=== PATIENT | male | born 1960 | race Caucasian/White ===

== ENCOUNTER 2021-04-05 13:07 | Inpatient (IN) | payer MEDICAID ==
--- NOTE | 2021-04-05 15:00 | Event Note ---
ED Screening Note Date of service: 04/05/21 Time: 14:58 ED Screening Note: Patient is a poor historian Patient was brought to the ER today by EMS Patient states that he has been having diarrhea, generalized weakness, fatigue and not been able to eat as well as chest pain and shortness of breath He denies any past medical history. He states that he smokes tobacco but denies alcohol or illicit drug use. This initial assessment/diagnostic orders/clinical plan/treatment(s) is/are subject to change based on patients health status, clinical progression and re- assessment by fellow clinical providers in the ED. Further treatment and workup at subsequent clinical providers discretion. Patient/guardian urged not to elope from the ED as their condition may be serious if not clinically assessed and managed. Initial orders include: Labs including chest x-ray
--- NOTE | 2021-04-05 15:41 | XRay Report ---
CHEST 2 VIEWS INDICATION / CLINICAL INFORMATION: Shortness of breath, chest pain. COMPARISON: None available. FINDINGS: SUPPORT DEVICES: None. HEART / MEDIASTINUM: No significant abnormality. LUNGS / PLEURA: Right lower lobe airspace opacities are present with a masslike area of consolidation measuring 4.4 x 2.4 cm. No other significant pulmonary abnormality. No significant pleural effusion. No pneumothorax. ADDITIONAL FINDINGS: No significant additional findings. IMPRESSION: Right lower lobe airspace opacities could represent pneumonia or a neoplastic process. A CT chest wit h contrast would be helpful for further characterization. Signer Name: Matheus Ny MD Signed: 04/05/2021 3:37 PM Workstation Name: [id number]
[2021-04-05 15:55] LABS: Albumin 4.5 g/dL (3.9-5); Calcium 9.9 mg/dL (8.4-10.2)
[2021-04-05 17:15] LABS: Hematocrit 49.5 % (35.5-45.6); Hemoglobin 15.9 gm/dl (11.8-15.2); Mean Corpuscular HGB Conc 32 % (32-34); Mean Corpuscular Volume 92 fl (84-94); Platelet Count 106 K/mm3 (140-440); Red Cell Distribution Width 17.3 % (13.2-15.2)
[2021-04-05 17:17] LABS: Basophils % (Auto) 0.4 % (0.0-1.8); Lymphocytes # (Auto) 1.4 K/mm3 (1.2-5.4); Lymphocytes % (Auto) 29.3 % (13.4-35.0); Monocytes # (Auto) 0.4 K/mm3 (0.0-0.8)
[2021-04-05] MEDS ORDERED: SODIUM CHLORIDE 0.9% 1000 ML 1,000 ML IV ONE (21:23)
[2021-04-05 22:16] LABS: Calcium 9.3 mg/dL (8.4-10.2)
--- NOTE | 2021-04-05 22:17 | Emergency Department Report ---
ED General Adult HPI - General Chief complaint: Weakness Stated complaint: MALAISE Time Seen by Provider: 04/05/21 21:16 Source: patient, EMS Mode of arrival: Wheelchair Limitations: No Limitations - History of Present Illness Initial comments: The patient presents to the emergency department with a chief complaint of not feeling well since Saturday. Patient states that he received his COVID-19 vaccine on this past Saturday and the next day he had generalized weakness and fatigue. Patient states that he then began to have significant amount of diarrhea. Patient denies fever, cough, shortness breath, headache, abdominal pain. Patient also denies chest pain. Patient is a poor historian and I took great effort to get the above history from the patient. -: Sudden Severity scale (0 -10): 0 Consistency: constant Improves with: none Worsens with: none Associated Symptoms: denies other symptoms Treatments Prior to Arrival: none ED Review of Systems ROS: Stated complaint: MALAISE Other details as noted in HPI Comment: All other systems reviewed and negative Constitutional: denies: chills, fever Eyes: denies: eye pain, eye discharge, vision change ENT: denies: ear pain, throat pain Respiratory: denies: cough, shortness of breath, wheezing Cardiovascular: denies: chest pain, palpitations Endocrine: no symptoms reported Gastrointestinal: nausea, vomiting, diarrhea. denies: abdominal pain Genitourinary: denies: urgency, dysuria Musculoskeletal: denies: back pain, joint swelling, arthralgia Skin: denies: rash, lesions Neurological: denies: headache, weakness, paresthesias Psychiatric: denies: anxiety, depression Hematological/Lymphatic: denies: easy bleeding, easy bruising ED Past Medical Hx - Past Medical History Previous Medical History?: Yes Hx Hypertension: Yes - Surgical History Past Surgical History?: No ED Physical Exam - General Limitations: No Limitations General appearance: alert, in no apparent distress - Head Head exam: Present: atraumatic, normocephalic - Eye Eye exam: Present: normal appearance - ENT ENT exam: Present: mucous membranes dry - Neck Neck exam: Present: normal inspection - Respiratory Respiratory exam: Present: normal lung sounds bilaterally. Absent: respiratory distress - Cardiovascular Cardiovascular Exam: Present: normal rhythm, tachycardia. Absent: systolic murmur, diastolic murmur, rubs, gallop - GI/Abdominal GI/Abdominal exam: Present: soft, normal bowel sounds. Absent: distended, tenderness - Rectal Rectal exam: Present: deferred - Extremities Exam Extremities exam: Present: normal inspection - Back Exam Back exam: Present: normal inspection - Neurological Exam Neurological exam: Present: alert, oriented X3, CN II-XII intact. Absent: motor sensory deficit - Psychiatric Psychiatric exam: Present: normal affect, normal mood - Skin Skin exam: Present: warm, dry, intact, normal color. Absent: rash ED Course Vital Signs 04/05/21 04/05/21 04/05/21 14:30 14:32 21:25 Temperature 97.5 F L 97.5 F L Pulse Rate 98 H 92 H Respiratory 18 Rate Blood Pressure 106/71 O2 Sat by Pulse 98 Oximetry 04/05/21 04/05/21 04/05/21 21:30 21:46 22:00 Temperature Pulse Rate 83 77 70 Respiratory 27 H 26 H 25 H Rate Blood Pressure 174/83 153/78 124/72 O2 Sat by Pulse Oximetry 04/05/21 04/05/21 04/05/21 22:18 22:30 22:32 Temperature Pulse Rate 82 71 Respiratory 19 20 20 Rate Blood Pressure O2 Sat by Pulse 98 Oximetry 04/05/21 04/05/21 04/05/21 22:46 23:00 23:16 Temperature Pulse Rate 67 67 71 Respiratory 20 20 13 Rate Blood Pressure 124/72 O2 Sat by Pulse Oximetry 04/05/21 04/05/21 04/06/21 23:30 23:46 00:00 Temperature Pulse Rate 65 65 78 Respiratory 17 24 22 Rate Blood Pressure 124/72 124/72 124/72 O2 Sat by Pulse Oximetry ED Medical Decision Making - Lab Data Result diagrams: 04/05/21 15:03 04/05/21 21:28 Lab Results 04/05/21 04/05/21 04/05/21 Range/Units 15:03 15:03 21:28 WBC 4.7 (4.5-11.0) K/mm3 RBC 5.40 H (3.65-5.03) M/mm3 Hgb 15.9 H (11.8-15.2) gm/dl Hct 49.5 H (35.5-45.6) % MCV 92 (84-94) fl MCH 30 (28-32) pg MCHC 32 (32-34) % RDW 17.3 H (13.2-15.2) % Plt Count 106 L (140-440) K/mm3 Lymph % (Auto) 29.3 (13.4-35.0) % [place] % (Auto) 9.0 H (0.0-7.3) % Eos % (Auto) 0.0 (0.0-4.3) % Baso % (Auto) 0.4 (0.0-1.8) % Lymph # (Auto) 1.4 (1.2-5.4) K/mm3 [place] # (Auto) 0.4 (0.0-0.8) K/mm3 Eos # (Auto) 0.0 (0.0-0.4) K/mm3 Baso # (Auto) 0.0 (0.0-0.1) K/mm3 Add Manual Diff Complete Seg Neutrophils % 61.3 (40.0-70.0) % Seg Neutrophils # 2.9 (1.8-7.7) K/mm3 Sodium 135 L 135 L (137-145) mmol/L Potassium 6.2 H* 4.9 D (3.6-5.0) mmol/L Chloride 106.5 105.7 (98-107) mmol/L Carbon Dioxide 11 L 12 L (22-30) mmol/L Anion Gap 24 22 mmol/L BUN 34 H 42 H (9-20) mg/dL Creatinine 2.4 H 3.2 H (0.8-1.3) mg/dL Estimated GFR 28 20 ml/min BUN/Creatinine Ratio 14 13 % Glucose 81 121 H (75-100) mg/dL Calcium 9.9 9.3 (8.4-10.2) mg/dL Magnesium 2.40 H (1.7-2.3) mg/dL Total Bilirubin 0.30 (0.1-1.2) mg/dL AST 56 H (5-40) units/L ALT 24 (7-56) units/L Alkaline Phosphatase 102 (35-129) units/L Total Protein 8.7 H (6.3-8.2) g/dL Albumin 4.5 (3.9-5) g/dL Albumin/Globulin Ratio 1.1 % Lipase 143 H (13-60) units/L - Radiology Data Radiology results: report reviewed - Medical Decision Making Results discussed with patient Laboratory values and CT reviewed Patient given IV fluids for acute renal failure Critical Care Time: Yes Critical care time in (mins) excluding proc time.: 35 Critical care attestation.: If time is entered above; I have spent that time in minutes in the direct care of this critically ill patient, excluding procedure time. ED Disposition Clinical Impression: Acute renal failure (ARF) Disposition: 09 ADMITTED INPATIENT Is pt being admited?: Yes Does the pt Need Aspirin: No Condition: Fair Referrals: PRIMARY CARE, [Primary Care Provider] - 3-5 Days
--- NOTE | 2021-04-05 22:31 | Cat Scan Report ---
CT ABDOMEN AND PELVIS WITHOUT CONTRAST INDICATION / CLINICAL INFORMATION: Pt complains of "Generalized" weakness and diarrhea. TECHNIQUE: Axial CT images were obtained through the abdomen and pelvis without IV contrast. All CT scans at this location are performed using CT dose reduction for ALARA by means of automated exposure control. COMPARISON: None available. FINDINGS: LOWER CHEST: Interstitial and reticular opacities involving the bilateral lower lung zaragoza. LIVER: No significant abnormality. GALLBLADDER: No significant abnormality. BILE DUCTS: No significant abnormality. PANCREAS: No significant abnormality. SPLEEN: No significant abnormality. ADRENALS: No significant abnormality. RIGHT KIDNEY / URETER: No significant abnormality. LEFT KIDNEY / URETER: No significant abnormality. STOMACH / SMALL BOWEL: No significant abnormality. COLON: Moderate amount of gas and fluid noted throughout the colon without pericolonic inflammation. APPENDIX: Visualized PERITONEUM: No free fluid. No free air. No fluid collection. LYMPH NODES: No significant adenopathy. AORTA / ARTERIES: Moderate atherosclerotic calcification without acute abnormality. IVC / VEINS: No significant abnormality. URINARY BLADDER: No significant abnormality. REPRODUCTIVE ORGANS: No significant abnormality. ADDITIONAL FINDINGS: None. SKELETAL SYSTEM: No significant abnormality. IMPRESSION: 1. Fluid and gas-filled colon without inflammation or colonic wall thickening, could reflect diarrhe al illness given patient's symptomatology. 2. Otherwise, no acute abdominopelvic abnormality. 3. Chronic appearing interstitial and reticular opacities of the bilateral lower lobes, may reflect chronic interstitial lung disease. However, superimposed acute infectious process cannot be excluded and correlation with patient symptoms and lab findings is recommended. Signer Name: Jad Judge MD Signed: 04/05/2021 10:27 PM Workstation Name: [id number]
[2021-04-06] MEDS ORDERED: SODIUM CHLORIDE 0.9% 1000 ML 1,000 ML IV ONE (00:33)
[2021-04-06] MEDS ORDERED: MAGNESIUM HYDROXIDE (MOM) ORAL LIQD UDC PO PRN (02:57)
[2021-04-06] MEDS ORDERED: MORPHINE 4 MG/1 ML INJ IV PRN (02:57)
[2021-04-06] MEDS ORDERED: MORPHINE 2 MG/1 ML INJ IV PRN (02:57)
[2021-04-06] MEDS ORDERED: ACETAMINOPHEN 325 MG TAB PO PRN (02:57)
[2021-04-06] MEDS ORDERED: ONDANSETRON 4 MG/2 ML INJ IV PRN (02:57)
[2021-04-06] MEDS ORDERED: SODIUM CHLORIDE 0.9% 1000 ML 1,000 ML IV SCH (03:00)
--- NOTE | 2021-04-06 03:09 | History and Physical Report ---
History of Present Illness Date of examination: 04/06/21 Date of admission: 04/06/2021 Chief complaint: Diarrhea History of present illness: 60-year-old male with known history of hypertension seen in the emergency room today complaining of diarrhea and generalized weakness which started about 3 days ago. Patient states he just had his first dose of COVID-19 vaccination over the weekend and 24 hours thereafter he started having some diarrhea and generalized weakness. He denies any fever or chills, no chest pain or shortness of breath, no headache or dizziness, no diaphoresis. Patient denies any nausea vomiting, no abdominal pain, no hematuria or dysuria. He denies any sick contacts and no recent travel. Denies any contact with anyone with COVID-19. Work-up in the emergency room today reveals elevated BUN and creatinine of 34 and 2.4 respectively. Chest x-ray reveals right lower lobe airspace opacity which could represent pneumonia or a neoplastic process. CT of the abdomen and pelvis reveals fluid and gas-filled colon without inflammation or colonic wall thickening Past History Past Medical History: hypertension Past Surgical History: No surgical history Social history: no significant social history Family history: no significant family history Medications and Allergies Allergies Allergy/AdvReac Type Severity Reaction Status Date / Time No Known Allergies Allergy Verified 04/06/21 03:10 Active Meds: Active Medications Sodium Chloride (Nacl 0.9% 1000 Ml) 1,000 mls @ 999 mls/hr IV BOLUS ONE Stop: 04/05/21 22:23 Last Admin: 04/05/21 21:59 Dose: 999 mls/hr Documented by: Sodium Chloride (Nacl 0.9% 1000 Ml) 1,000 mls @ 999 mls/hr IV BOLUS ONE Stop: 04/06/21 01:33 Last Admin: 04/06/21 01:25 Dose: 999 mls/hr Documented by: Review of Systems Constitutional: no fever, no chills Ears, nose, mouth and throat: no nasal congestion, no sore throat Cardiovascular: no chest pain, no palpitations Respiratory: no cough, no shortness of breath, no wheezing Gastrointestinal: diarrhea, no abdominal pain, no nausea, no vomiting Genitourinary Male: no dysuria, no hematuria, no flank pain, no nocturia Musculoskeletal: no neck pain, no low back pain Integumentary: no rash, no pruritis Neurological: no headaches, no confusion Psychiatric: no anxiety, no depression Endocrine: no polyphagia, no polydipsia, no polyuria, no nocturia Exam - Constitutional Vitals: Temp Pulse Resp BP Pulse Ox 97.5 F L 64 25 H 124/72 98 04/05/21 14:32 04/06/21 02:02 04/06/21 02:02 04/06/21 02:02 04/05/21 22:32 General appearance: Present: no acute distress, well-nourished - EENT Eyes: Present: PERRL, EOM intact. Absent: scleral icterus ENT: hearing intact, clear oral mucosa, dentition normal - Neck Neck: Present: supple, normal ROM - Respiratory Respiratory effort: normal Respiratory: bilateral: diminished - Cardiovascular Rhythm: regular Heart Sounds: Present: S1 & S2. Absent: gallop, systolic murmur, diastolic murmur, rub, click - Extremities Extremities: no ischemia, pulses intact, pulses symmetrical, No edema, normal temperature, normal color, Full ROM Peripheral Pulses: within normal limits - Abdominal General gastrointestinal: Present: soft, non-tender, non-distended, normal bowel sounds. Absent: mass - Integumentary Integumentary: Present: clear, warm, dry. Absent: rash - Musculoskeletal Musculoskeletal: strength equal bilaterally - Psychiatric Psychiatric: appropriate mood/affect, intact judgment & insight, memory intact, cooperative - Neurologic Neurologic: CNII-XII intact, no focal deficits, moves all extremities Results - Labs CBC & Chem 7: 04/05/21 15:03 04/05/21 21:28 Labs: Abnormal lab results 04/05/21 04/05/21 04/05/21 Range/Units 15:03 15:03 21:28 RBC 5.40 H (3.65-5.03) M/mm3 Hgb 15.9 H (11.8-15.2) gm/dl Hct 49.5 H (35.5-45.6) % RDW 17.3 H (13.2-15.2) % Plt Count 106 L (140-440) K/mm3 [place] % (Auto) 9.0 H (0.0-7.3) % Sodium 135 L 135 L (137-145) mmol/L Potassium 6.2 H* (3.6-5.0) mmol/L Carbon Dioxide 11 L 12 L (22-30) mmol/L BUN 34 H 42 H (9-20) mg/dL Creatinine 2.4 H 3.2 H (0.8-1.3) mg/dL Glucose 121 H (75-100) mg/dL Magnesium 2.40 H (1.7-2.3) mg/dL AST 56 H (5-40) units/L Total Protein 8.7 H (6.3-8.2) g/dL Lipase 143 H (13-60) units/L Assessment and Plan - Patient Problems (1) Acute renal failure (ARF) Current Visit: Yes Status: Acute Plan to address problem: Possibly prerenal. Patient will be placed on IV fluid normal saline. Will monitor BUN and creatinine. Consult placed to nephrology for evaluation. (2) Hypertension Current Visit: Yes Status: Acute Plan to address problem: Blood pressure stable . we will resume routine home medications once reconciled and monitor vital signs closely. (3) Pneumonia Current Visit: Yes Status: Acute Plan to address problem: Patient will be placed on empiric IV antibiotics in view of the chest x-ray findings. We will check for COVID-19. (4) DVT prophylaxis Current Visit: Yes Status: Acute Plan to address problem: Patient placed on subcutaneous heparin. (5) Full code status Current Visit: Yes Status: Acute Plan to address problem: Patient is full code.
[2021-04-06] MEDS: cefTRIAXone/NS 2 GM/100 ML 2 GM/100 ML BAG IV SCH (08:34)
[2021-04-06] MEDS: AZITHROMYCIN/NS 500 MG/250 ML 500 MG/250 ML BAG IV SCH (08:35)
[2021-04-06 08:48] LABS: C-Reactive Protein 2.9 mg/dL (0.00-1.30)
--- NOTE | 2021-04-06 10:22 | Electrocardiograph Report ---
[facility] Test Date: 2021-04-06 Test Time: 03:10:15 Pat Name: ALYSA PARKER Department: Room: [place] [address] Gender: M [employer] Helper: IAN : 1960 Requested By: DORY SANDOVAL Order Number: [id number] Reading MD: Yanick Sierra Measurements Intervals [place] Rate: 80 P: 37 MT: 172 QRS: 18 QRSD: 94 T: -21 QT: 421 QTc: 487 Interpretive Statements Sinus rhythm Nonspecific repolarization abnormalities ABNORMAL BASELINE No previous ECG available for comparison Electronically Signed On 04-06-2021 10:21:56 EDT by Yanick Sierra
--- NOTE | 2021-04-06 10:29 | Consultation ---
History of Present Illness - Reason for Consult Consult date: 04/06/21 acute renal failure, hyperkalemia - History of Present Illness The patient is a 60 YO male with known history of Hypertension who presented to [facility] ED 04/05 with complaining of diarrhea and generalized weakness which started about 3 days ago. Patient is a very poor historian and there was no family member at the bedside. He reported he just had his first dose of COVID-19 vaccination over the weekend and 24 hours thereafter he started having some diarrhea and generalized weakness. He denied any fever, chills, chest pain, shortness of breath, headache, dizziness, diaphoresis, nausea, vomiting, abdominal pain, hematuria or dysuria. Denied any sick contacts, recent travel or contact with anyone with COVID-19. Work-up in the emergency room revealed BUN 34 and creatinine 2.4. Chest x-ray revealed right lower lobe airspace opacity which could represent pneumonia or a neoplastic process. CT of the abdomen and pelvis revealed fluid and gas-filled colon without inflammation or colonic wall thickening. Nephrology was consulted for further evaluation and treatment of ELIO. Past History Past Medical History: hypertension Past Surgical History: No surgical history Social history: no significant social history Family history: no significant family history Medications and Allergies Allergies Allergy/AdvReac Type Severity Reaction Status Date / Time No Known Allergies Allergy Verified 04/06/21 03:10 Active Meds: Active Medications Acetaminophen (Acetaminophen 325 Mg Tab) 650 mg PO Q4H PRN PRN Reason: Pain MILD(1-3)/Fever >100.5/BRAR Heparin Sodium (Porcine) (Heparin 5,000 Unit/1 Ml Vial) 5,000 unit SUB-Q Q8HR BISHOP Sodium Chloride (Nacl 0.9% 1000 Ml) 1,000 mls @ 125 mls/hr IV DIRECT BISHOP Last Admin: 04/06/21 04:25 Dose: 125 mls/hr Documented by: Ceftriaxone Sodium (Rocephin/Ns 2 Gm/100 Ml) 2 gm in 100 mls @ 200 mls/hr IV Q24H BISHOP; Protocol Stop: 04/10/21 08:29 Last Admin: 04/06/21 08:34 Dose: 200 mls/hr Documented by: Azithromycin (Zithromax/Ns) 500 mg in 250 mls @ 250 mls/hr IV Q24H BISHOP Stop: 04/10/21 08:59 Last Admin: 04/06/21 08:35 Dose: 250 mls/hr Documented by: Magnesium Hydroxide (Magnesium Hydroxide (Mom) Oral Liqd Udc) 30 ml PO Q4H PRN PRN Reason: Constipation Morphine Sulfate (Morphine 2 Mg/1 Ml Inj) 2 mg IV Q4H PRN PRN Reason: Pain, Moderate (4-6) Morphine Sulfate (Morphine 4 Mg/1 Ml Inj) 4 mg IV Q4H PRN PRN Reason: Pain , Severe (7-10) Ondansetron HCl (Ondansetron 4 Mg/2 Ml Inj) 4 mg IV Q8H PRN PRN Reason: Nausea And Vomiting Sodium Chloride (Sodium Chloride 0.9% 10 Ml Flush Syringe) 10 ml IV BID BISHOP Sodium Chloride (Sodium Chloride 0.9% 10 Ml Flush Syringe) 10 ml IV PRN PRN PRN Reason: LINE FLUSH Review of Systems All systems: negative (Please see HPI.) Exam - Vital Signs Vital signs: Vital Signs Temp Resp BP 97.5 F L 18 106/71 04/05/21 14:30 04/05/21 14:30 04/05/21 14:30 Results - Lab Results 04/07/21 04:14 04/07/21 04:14 Most recent lab results Calcium 9.3 mg/dL (8.4-10.2) 04/05/21 21:28 Magnesium 2.40 mg/dL (1.7-2.3) H 04/05/21 15:03 Assessment and Plan 1. Acute kidney injury: Vasomotor ELIO in the setting of volume depletion. ATN. CT abdomen negative for hydro. Continue IV fluids. Monitor renal function. Creatinine level improving. Renal prognosis is guarded. Avoid nephrotoxic agents. Meds dosage based on GFR. 2. FEN: Hyperkalemia, improved. Metabolic acidosis, monitor. Hyponatremia, monitor. Monitor lytes and volume status. 3. Diarrhea: ?related to Covid. Monitor. 4. COVID-19 PUI: Follow test results. Anticoagulation per hospital protocol. 5. Possible lung mass: Per primary. 6. Hypertension: Monitor BP. Subjective: Patient was examined at the bedside. Examination: General appearance: well-developed, appears stated age, not in distress HEENT: ATNC Neck: Trachea midline Respiratory: diminished breath sounds Cardiology: S1S2, no murmur Gastrointestinal: soft, obese, bowel sounds heard, not tender Integumentary: warm and dry Neurologic: alert, some confusion, able to move extremities Ext: no edema
--- NOTE | 2021-04-06 11:47 | Cat Scan Report ---
CT CHEST WITHOUT CONTRAST INDICATION / CLINICAL INFORMATION: lung mass. TECHNIQUE: Axial CT images were obtained through the chest without contrast. All CT scans at this location are p erformed using CT dose reduction for ALARA by means of automated exposure control. COMPARISON: None available. FINDINGS: The thyroid is significantly enlarged with multiple large nodules. The left thyroid is enlarged with multiple thyroid masses and measures 5.3 x 4.6 cm. Small axillary nodes are seen bilaterally. There i s a masslike opacity extending from the right hilum into the right lung. This density measures approx imately 8.95 x 4.37 cm. Interstitial prominence with interstitial nodularity and reticular opacities are seen in bilateral lungs. Trachea appears normal. Mild interstitial thickening scarring left lung apex. Enlarged mediastinal, paratracheal and hilar nodes. Lack of IV contrast limits exam. Coronary a rtery disease is noted. Pericardial effusion is seen. No acute bone findings. IMPRESSION: 1. Large masslike opacity within the right lung extending from the right hilum. There are also inters titial prominence with reticular opacities and interstitial disease in bilateral lungs with several a dditional smaller pulmonary nodules in bilateral lungs. Differential considerations would include rig ht hilar and upper lung mass, infectious etiology with pneumonia along with interstitial lung disease . PET/CT scan could be performed for further evaluation and further workup to exclude malignancy and metastatic disease. Signer Name: Luis Daniel MD Signed: 04/06/2021 11:43 AM Workstation Name: [id number]
--- NOTE | 2021-04-06 12:14 | Consultation ---
History of Present Illness - Reason for Consult Consult date: 04/06/21 - History of Present Illness 60-year-old male past medical history hypertension presented to hospital complaining of diarrhea and weakness. Seen in approximately 3 days prior to admission, and he associates this onset with receiving his first dose of COVID- 19 vaccine to 4 hours prior to onset. He otherwise denies any symptoms. He was admitted with ELIO, found to have possible pneumonia on chest x-ray. Afebrile since admission with a white count 4.7. Elevated with EGFR 20, this is worsened. Currently on ceftriaxone and azithromycin. No cultures for review. Pending Covid PCR. Imaging personally reviewed: Chest CT: Masslike opacity in the right lung, interstitial prominence in bilateral lungs with smaller pulmonary nodules bilaterally. Review of systems: Deferred to reduce to the risk of transmission of COVID-19 Past History Past Medical History: hypertension Past Surgical History: No surgical history Social history: no significant social history Family history: no significant family history Medications and Allergies Allergies Allergy/AdvReac Type Severity Reaction Status Date / Time No Known Allergies Allergy Verified 04/06/21 03:10 Active Meds: Active Medications Acetaminophen (Acetaminophen 325 Mg Tab) 650 mg PO Q4H PRN PRN Reason: Pain MILD(1-3)/Fever >100.5/BRAR Heparin Sodium (Porcine) (Heparin 5,000 Unit/1 Ml Vial) 5,000 unit SUB-Q Q8HR BISHOP Sodium Chloride (Nacl 0.9% 1000 Ml) 1,000 mls @ 125 mls/hr IV DIRECT BISHOP Last Admin: 04/06/21 04:25 Dose: 125 mls/hr Documented by: Ceftriaxone Sodium (Rocephin/Ns 2 Gm/100 Ml) 2 gm in 100 mls @ 200 mls/hr IV Q24H [facility]; Protocol Stop: 04/10/21 08:29 Last Admin: 04/06/21 08:34 Dose: 200 mls/hr Documented by: Azithromycin (Zithromax/Ns) 500 mg in 250 mls @ 250 mls/hr IV Q24H [facility] Stop: 04/10/21 08:59 Last Admin: 04/06/21 08:35 Dose: 250 mls/hr Documented by: Magnesium Hydroxide (Magnesium Hydroxide (Mom) Oral Liqd Udc) 30 ml PO Q4H PRN PRN Reason: Constipation Morphine Sulfate (Morphine 2 Mg/1 Ml Inj) 2 mg IV Q4H PRN PRN Reason: Pain, Moderate (4-6) Morphine Sulfate (Morphine 4 Mg/1 Ml Inj) 4 mg IV Q4H PRN PRN Reason: Pain , Severe (7-10) Ondansetron HCl (Ondansetron 4 Mg/2 Ml Inj) 4 mg IV Q8H PRN PRN Reason: Nausea And Vomiting Sodium Chloride (Sodium Chloride 0.9% 10 Ml Flush Syringe) 10 ml IV BID BISHOP Sodium Chloride (Sodium Chloride 0.9% 10 Ml Flush Syringe) 10 ml IV PRN PRN PRN Reason: LINE FLUSH Physical Examination - Physical Exam Narrative exam: Physical exam deferred to reduce risk of transmission of COVID-19. Please refer to primary team's note. - Constitutional Vitals: Vital Signs Temp Pulse Resp BP Pulse Ox 97.5 F L 70 24 124/72 85 04/05/21 14:32 04/06/21 12:00 04/06/21 12:00 04/06/21 08:00 04/06/21 11:00 Temperature -Last 24 Hours Temperature 97.5 F Temperature 97.5 F Results - Labs CBC & Chem 7: 04/05/21 15:03 04/06/21 08:07 Labs: Abnormal lab results 04/05/21 04/05/21 04/05/21 Range/Units 15:03 15:03 21:28 RBC 5.40 H (3.65-5.03) M/mm3 Hgb 15.9 H (11.8-15.2) gm/dl Hct 49.5 H (35.5-45.6) % RDW 17.3 H (13.2-15.2) % Plt Count 106 L (140-440) K/mm3 [place] % (Auto) 9.0 H (0.0-7.3) % D-Dimer (0-234) ng/mlDDU Sodium 135 L 135 L (137-145) mmol/L Potassium 6.2 H* (3.6-5.0) mmol/L Carbon Dioxide 11 L 12 L (22-30) mmol/L BUN 34 H 42 H (9-20) mg/dL Creatinine 2.4 H 3.2 H (0.8-1.3) mg/dL Glucose 121 H (75-100) mg/dL Magnesium 2.40 H (1.7-2.3) mg/dL Ferritin (30.0-300.0) ng/mL AST 56 H (5-40) units/L Lactate Dehydrogenase (91-180) units/L C-Reactive Protein (0.00-1.30) mg/dL Total Protein 8.7 H (6.3-8.2) g/dL Lipase 143 H (13-60) units/L 04/06/21 04/06/21 04/06/21 Range/Units 08:07 08:07 08:15 RBC (3.65-5.03) M/mm3 Hgb (11.8-15.2) gm/dl Hct (35.5-45.6) % RDW (13.2-15.2) % Plt Count (140-440) K/mm3 [place] % (Auto) (0.0-7.3) % D-Dimer 721.64 H (0-234) ng/mlDDU Sodium (137-145) mmol/L Potassium (3.6-5.0) mmol/L Carbon Dioxide (22-30) mmol/L BUN (9-20) mg/dL Creatinine (0.8-1.3) mg/dL Glucose (75-100) mg/dL Magnesium (1.7-2.3) mg/dL Ferritin 1468.0 H (30.0-300.0) ng/mL AST (5-40) units/L Lactate Dehydrogenase 445 H (91-180) units/L C-Reactive Protein 2.90 H (0.00-1.30) mg/dL Total Protein (6.3-8.2) g/dL Lipase (13-60) units/L Assessment and Plan Cultures: Blood culture no growth so far COVID PCR pending A/P: 60 yo M PMHx HTN admitted with ELIO, diarrhea, found to have possible lung mass #COVID PUI: Follow up PCR. Difficult to interpret imaging in the setting of possible lung mass #POssible lung mass: recommend pulmonary consult #ELIO: renally dose antibiotics #Diarrhea: possibly related to ELIO. Recs: -Recommend pulmonary consult for possible lung mass -Continue ceftriaxone and azithromycin for now, stop if procalcitonin is low (though likely to be elevated due to renal failure) -Follow up COVID PCR -Anticoagulation per hospital protocol -Proning as able Thank you for the consult, we will continue to follow. MD Ita [facility] ([facility] O: [phone] F: [phone]
[2021-04-06] MEDS: HEPARIN 5,000 UNIT/1 ML VIAL SUB-Q SCH ×2 (13:47→22:00)
--- NOTE | 2021-04-06 14:56 | Event Note ---
Date: 04/06/21 Patient seen and examined continue current management nephrology consulted we will check a CT chest to further evaluate noted possible lung mass on x-ray. Also try to get further information from family as he is unable to give me any information at this time.
[2021-04-07 04:47] LABS: Basophils % (Auto) 0.3 % (0.0-1.8); Hematocrit 42.1 % (35.5-45.6); Hemoglobin 14.3 gm/dl (11.8-15.2); Lymphocytes # (Auto) 0.7 K/mm3 (1.2-5.4); Lymphocytes % (Auto) 22.3 % (13.4-35.0); Mean Corpuscular HGB Conc 34 % (32-34); Mean Corpuscular Volume 87 fl (84-94); Monocytes # (Auto) 0.4 K/mm3 (0.0-0.8); Monocytes % (Auto) 10.8 % (0.0-7.3); Platelet Count 101 K/mm3 (140-440); Red Blood Count 4.87 M/mm3 (3.65-5.03)
[2021-04-07 04:56] LABS: INR 0.98 (0.87-1.13)
[2021-04-07] MEDS ORDERED: SODIUM POLYSTYRENE 15 GM/60 ML ORAL LIQD PO NR ×2 (07:26→13:00)
[2021-04-07] MEDS: HEPARIN 5,000 UNIT/1 ML VIAL SUB-Q SCH ×3 (07:32→22:00)
[2021-04-07] MEDS: cefTRIAXone/NS 2 GM/100 ML 2 GM/100 ML BAG IV SCH (09:27)
[2021-04-07] MEDS: AZITHROMYCIN/NS 500 MG/250 ML 500 MG/250 ML BAG IV SCH (09:28)
--- NOTE | 2021-04-07 11:51 | Progress Note ---
Assessment and Plan Cultures: Blood culture no growth so far COVID PCR pending A/P: 60 yo M PMHx HTN admitted with ELIO, diarrhea, found to have possible lung mass #COVID PUI: Follow up PCR. Difficult to interpret imaging in the setting of possible lung mass #POssible lung mass: recommend pulmonary consult #ELIO: renally dose antibiotics #Diarrhea: possibly related to ELIO. Recs: -Recommend pulmonary consult for possible lung mass -Continue ceftriaxone and azithromycin for now -Follow up COVID PCR -Anticoagulation per hospital protocol -Proning as able Thank you for the consult, we will continue to follow. Radu Causey MD [facility] ([facility] O: [phone] F: [phone] Subjective Date of service: 04/07/21 Interval history: Afebrile, white count low today at 3.2. Procalcitonin only mildly elevated in the setting of ELIO. Objective - Exam Narrative Exam: Physical exam deferred to reduce risk of transmission of COVID-19. Please refer to primary team's note. - Constitutional Vitals: Vital Signs Temp Pulse Resp BP Pulse Ox 97.5 F L 82 16 128/76 96 04/05/21 14:32 04/07/21 07:33 04/07/21 07:33 04/07/21 07:33 04/07/21 07:33 - Labs CBC & Chem 7: 04/07/21 04:14 04/07/21 04:14 Labs: Abnormal lab results 04/07/21 04/07/21 Range/Units 04:14 04:14 WBC 3.2 L (4.5-11.0) K/mm3 RDW 16.0 H (13.2-15.2) % Plt Count 101 L (140-440) K/mm3 [place] % (Auto) 10.8 H (0.0-7.3) % Lymph # (Auto) 0.7 L (1.2-5.4) K/mm3 Potassium 5.6 H (3.6-5.0) mmol/L Chloride 111.6 H (98-107) mmol/L Carbon Dioxide 16 L (22-30) mmol/L BUN 43 H (9-20) mg/dL Creatinine 2.5 H (0.8-1.3) mg/dL
--- NOTE | 2021-04-07 12:47 | Progress Note ---
Assessment and Plan 1. Acute kidney injury: Vasomotor ELIO in the setting of volume depletion. ATN. CT abdomen negative for hydro. Continue IV fluids. Monitor renal function. Creatinine level improving. Renal prognosis is guarded. Avoid nephrotoxic agents. Meds dosage based on GFR. 2. FEN: Hyperkalemia, Kayexalate, monitor. Metabolic acidosis, started on bicarb drip, monitor. Hyponatremia, monitor. Monitor lytes and volume status. 3. Diarrhea: ?related to Covid. Monitor. 4. COVID-19 PUI: Follow test results. Anticoagulation per hospital protocol. 5. Possible lung mass: Per primary. 6. Hypertension: Monitor BP. Subjective: Patient was examined at the bedside. Examination: General appearance: well-developed, appears stated age, not in distress HEENT: ATNC Neck: Trachea midline Respiratory: diminished breath sounds Cardiology: S1S2, no murmur Gastrointestinal: soft, obese, bowel sounds heard, not tender Integumentary: warm and dry Neurologic: alert, some confusion, able to move extremities Ext: no edema Subjective Date of service: 04/07/21 Objective - Vital Signs Vital signs: Vital Signs - 12hr 04/07/21 04/07/21 04/07/21 01:00 01:30 02:00 Pulse Rate 85 80 87 Respiratory 29 H 31 H 28 H Rate Blood Pressure 115/61 122/68 131/80 Blood Pressure [Left] O2 Sat by Pulse 96 97 93 Oximetry 04/07/21 04/07/21 04/07/21 02:30 03:00 03:30 Pulse Rate 78 73 72 Respiratory 21 21 20 Rate Blood Pressure 104/60 132/68 127/64 Blood Pressure [Left] O2 Sat by Pulse 92 94 95 Oximetry 04/07/21 04/07/21 04/07/21 04:00 04:30 05:00 Pulse Rate 74 70 79 Respiratory 37 H 27 H 24 Rate Blood Pressure 108/61 125/65 126/78 Blood Pressure [Left] O2 Sat by Pulse 96 96 94 Oximetry 04/07/21 04/07/21 05:30 07:33 Pulse Rate 73 82 Respiratory 23 16 Rate Blood Pressure 118/58 Blood Pressure 128/76 [Left] O2 Sat by Pulse 96 96 Oximetry - Lab 04/07/21 04:14 04/07/21 04:14 Most recent lab results Calcium 9.0 mg/dL (8.4-10.2) 04/07/21 04:14 Magnesium 2.40 mg/dL (1.7-2.3) H 04/05/21 15:03 Medications & Allergies - Medications Allergies/Adverse Reactions: Allergies No Known Allergies Allergy (Verified 04/06/21 03:10) Active Medications: Generic Name Dose Route Start Last Admin Trade Name Freq PRN Reason Stop Dose Admin Acetaminophen 650 mg 04/06/21 02:57 Acetaminophen 325 Mg Tab PO Q4H PRN Pain MILD(1-3)/Fever >100.5/BRAR Heparin Sodium (Porcine) 5,000 unit 04/06/21 14:00 04/07/21 07:32 Heparin 5,000 Unit/1 Ml Vial SUB-Q 5,000 unit Q8HR BISHOP Administration Ceftriaxone Sodium 2 gm in 100 mls @ 200 mls/hr 04/06/21 08:00 04/07/21 09:27 Rocephin/Ns 2 Gm/100 Ml IV 04/10/21 08:29 200 mls/hr Q24H BISHOP Administration Protocol Azithromycin 500 mg in 250 mls @ 250 mls/hr 04/06/21 08:00 04/07/21 09:28 Zithromax/Ns IV 04/10/21 08:59 250 mls/hr Q24H BISHOP Administration Sodium Bicarbonate 100 meq/ 1,100 mls @ 75 mls/hr 04/07/21 13:00 Dextrose IV DIRECT BISHOP Morphine Sulfate 2 mg 04/06/21 02:57 Morphine 2 Mg/1 Ml Inj IV Q4H PRN Pain, Moderate (4-6) Morphine Sulfate 4 mg 04/06/21 02:57 Morphine 4 Mg/1 Ml Inj IV Q4H PRN Pain , Severe (7-10) Ondansetron HCl 4 mg 04/06/21 02:57 Ondansetron 4 Mg/2 Ml Inj IV Q8H PRN Nausea And Vomiting Sodium Chloride 10 ml 04/06/21 10:00 04/07/21 09:38 Sodium Chloride 0.9% 10 Ml Flush Syringe IV 10 ml BID BISHOP Administration Sodium Chloride 10 ml 04/06/21 02:57 Sodium Chloride 0.9% 10 Ml Flush Syringe IV PRN PRN LINE FLUSH Sodium Polystyrene Sulfonate 30 gm 04/07/21 13:00 Sodium Polystyrene 15 Gm/60 Ml Oral Liqd PO 04/07/21 23:59 ONCE NR
[2021-04-07] MEDS: SODIUM BICARBONATE 100 MEQ in DEXTROSE 5% IN WATER 1,000 ML IV SCH (14:30)
--- NOTE | 2021-04-07 15:31 | Progress Note ---
Assessment and Plan Assessment and plan: 60-year-old male with known history of hypertension seen in the emergency room today complaining of diarrhea and generalized weakness which started about 3 days ago. Patient states he just had his first dose of COVID-19 vaccination over the weekend and 24 hours thereafter he started having some diarrhea and generalized weakness. He denies any fever or chills, no chest pain or shortness of breath, no headache or dizziness, no diaphoresis. Patient denies any nausea vomiting, no abdominal pain, no hematuria or dysuria. He denies any sick contacts and no recent travel. Denies any contact with anyon e with COVID-19. Work-up in the emergency room today reveals elevated BUN and creatinine of 34 and 2.4 respectively. Chest x-ray reveals right lower lobe airspace opacity which could represent pneumonia or a neoplastic process. CT of the abdomen and pelvis reveals fluid and gas-filled colon without inflammation or colonic wall thickening 04/07: Patient seen and examined today continues on oxygen. ID input is noted. Have consulted pulmonary considering review of CT which shows a large mass in the lungs. Patient may probably benefit from a bronchoscopy but will defer to pulmonary for now continue current management with steroids and remdesivir. Unfortunately I do not have any family contact information for this patient. Discussed with nursing staff to see if they can get anyone. Patient awaiting bed upstairs Patient on diagnosis Metabolic acidosis Hyperkalemia we'll give 20 of Kayexalate Thrombocytopenia unfortunately I'm not sure what the patient's baseline creatinine is but cardiac monitor technician input is noted (1) Acute renal failure (ARF) Current Visit: Yes Status: Acute Plan to address problem: Possibly prerenal. Patient will be placed on IV fluid normal saline. Will monitor BUN and creat inine. Consult placed to nephrology for evaluation. (2) Hypertension Current Visit: Yes Status: Acute Plan to address problem: Blood pressure stable . we will resume routine home medications once reconciled and monitor vital signs closely. (3) Pneumonia secondary to COVID-19 Current Visit: Yes Status: Acute Plan to address problem: Patient will be placed on empiric IV antibiotics in view of the chest x-ray findings. We will check for COVID-19. (4) acute hypoxic respiratory failure (5) right lung lung mass large (6) acute metabolic encephalopathy -unknown baseline (7) DVT prophylaxis Current Visit: Yes Status: Acute Plan to address problem: Patient placed on subcutaneous heparin. (8) Full code status Current Visit: Yes Status: Acute Plan to address problem: Patient is full code. History Interval history: Patient seen and examined, resting on oxygen at this time. Hospitalist Physical - Physical exam Narrative exam: VITAL SIGNS: Reviewed. GENERAL: The patient appears normally developed, Vital signs as documented. HEAD: No signs of head trauma. EYES: Pupils are equal. Extraocular motions intact. EARS: Hearing grossly intact. MOUTH: Oropharynx is normal. NECK: No adenopathy, no JVD. CHEST: Chest with clear breath sounds bilaterally. No wheezes, rales, or rhonchi. CARDIAC: Regular rate and rhythm. S1 and S2, without murmurs, gallops, or rubs. VASCULAR: No Edema. Peripheral pulses normal and equal in all extremities. ABDOMEN: Soft, non tender and non distended. No rebound or guarding, and no masses palpated. Bowel Sounds normal. MUSCULOSKELETAL: Good range of motion of all major joints. Extremities without clubbing, cyanosis or edema. NEUROLOGIC EXAM: Alert and oriented x 3 No focal sensory or strength deficits. Speech normal. Follows commands. PSYCHIATRIC: Mood normal. SKIN: detail exam as documented in skin assessment - Constitutional Vitals: Temp Pulse Resp BP Pulse Ox 97.5 F L 82 16 128/76 96 04/05/21 14:32 04/07/21 07:33 04/07/21 07:33 04/07/21 07:33 04/07/21 07:33 General appearance: Present: no acute distress, well-nourished Results - Labs CBC & Chem 7: 04/07/21 04:14 04/07/21 04:14 Labs: Laboratory Last Values WBC 3.2 K/mm3 (4.5-11.0) L 04/07/21 04:14 RBC 4.87 M/mm3 (3.65-5.03) 04/07/21 04:14 Hgb 14.3 gm/dl (11.8-15.2) 04/07/21 04:14 Hct 42.1 % (35.5-45.6) D 04/07/21 04:14 MCV 87 fl (84-94) 04/07/21 04:14 MCH 29 pg (28-32) 04/07/21 04:14 MCHC 34 % (32-34) 04/07/21 04:14 RDW 16.0 % (13.2-15.2) H 04/07/21 04:14 Plt Count 101 K/mm3 (140-440) L 04/07/21 04:14 Lymph % (Auto) 22.3 % (13.4-35.0) 04/07/21 04:14 [place] % (Auto) 10.8 % (0.0-7.3) H 04/07/21 04:14 Eos % (Auto) 0.0 % (0.0-4.3) 04/07/21 04:14 Baso % (Auto) 0.3 % (0.0-1.8) 04/07/21 04:14 Lymph # (Auto) 0.7 K/mm3 (1.2-5.4) L 04/07/21 04:14 [place] # (Auto) 0.4 K/mm3 (0.0-0.8) 04/07/21 04:14 Eos # (Auto) 0.0 K/mm3 (0.0-0.4) 04/07/21 04:14 Baso # (Auto) 0.0 K/mm3 (0.0-0.1) 04/07/21 04:14 Add Manual Diff Complete 04/05/21 15:03 Seg Neutrophils % 66.6 % (40.0-70.0) 04/07/21 04:14 Seg Neutrophils # 2.2 K/mm3 (1.8-7.7) 04/07/21 04:14 PT 13.5 Sec. (12.2-14.9) 04/07/21 04:14 INR 0.98 (0.87-1.13) 04/07/21 04:14 D-Dimer 721.64 ng/mlDDU (0-234) H 04/06/21 08:15 Sodium 141 mmol/L (137-145) 04/07/21 04:14 Potassium 5.6 mmol/L (3.6-5.0) H 04/07/21 04:14 Chloride 111.6 mmol/L (98-107) H 04/07/21 04:14 Carbon Dioxide 16 mmol/L (22-30) L 04/07/21 04:14 Anion Gap 19 mmol/L 04/07/21 04:14 BUN 43 mg/dL (9-20) H 04/07/21 04:14 Creatinine 2.5 mg/dL (0.8-1.3) H 04/07/21 04:14 Estimated GFR 26 ml/min 04/07/21 04:14 BUN/Creatinine Ratio 17 % 04/07/21 04:14 Glucose 94 mg/dL (75-100) 04/07/21 04:14 Calcium 9.0 mg/dL (8.4-10.2) 04/07/21 04:14 Magnesium 2.40 mg/dL (1.7-2.3) H 04/05/21 15:03 Ferritin 1468.0 ng/mL (30.0-300.0) H 04/06/21 08:07 Total Bilirubin 0.30 mg/dL (0.1-1.2) 04/05/21 15:03 AST 56 units/L (5-40) H 04/05/21 15:03 ALT 24 units/L (7-56) 04/05/21 15:03 Alkaline Phosphatase 102 units/L (35-129) 04/05/21 15:03 Lactate Dehydrogenase 445 units/L (91-180) H 04/06/21 08:07 C-Reactive Protein 2.90 mg/dL (0.00-1.30) H 04/06/21 08:07 Total Protein 8.7 g/dL (6.3-8.2) H 04/05/21 15:03 Albumin 4.5 g/dL (3.9-5) 04/05/21 15:03 Albumin/Globulin Ratio 1.1 % 04/05/21 15:03 Lipase 143 units/L (13-60) H 04/05/21 15:03 Procalcitonin 0.34 ng/mL (<0.15) 04/06/21 08:15 Coronavirus (PCR) Positive (Negative) A 04/07/21 08:15 Active Medications - Current Medications Current Medications: Generic Name Dose Route Start Last Admin Trade Name Freq PRN Reason Stop Dose Admin Acetaminophen 650 mg 04/06/21 02:57 Acetaminophen 325 Mg Tab PO Q4H PRN Pain MILD(1-3)/Fever >100.5/BRAR Heparin Sodium (Porcine) 5,000 unit 04/06/21 14:00 04/07/21 15:08 Heparin 5,000 Unit/1 Ml Vial SUB-Q 5,000 unit Q8HR BISHOP Administration Ceftriaxone Sodium 2 gm in 100 mls @ 200 mls/hr 04/06/21 08:00 04/07/21 09:27 Rocephin/Ns 2 Gm/100 Ml IV 04/10/21 08:29 200 mls/hr Q24H BISHOP Administration Protocol Azithromycin 500 mg in 250 mls @ 250 mls/hr 04/06/21 08:00 04/07/21 09:28 Zithromax/Ns IV 04/10/21 08:59 250 mls/hr Q24H BISHOP Administration Sodium Bicarbonate 100 meq/ 1,100 mls @ 75 mls/hr 04/07/21 13:00 04/07/21 14:30 Dextrose IV 75 mls/hr DIRECT BISHOP Administration Morphine Sulfate 2 mg 04/06/21 02:57 Morphine 2 Mg/1 Ml Inj IV Q4H PRN Pain, Moderate (4-6) Morphine Sulfate 4 mg 04/06/21 02:57 Morphine 4 Mg/1 Ml Inj IV Q4H PRN Pain , Severe (7-10) Ondansetron HCl 4 mg 04/06/21 02:57 Ondansetron 4 Mg/2 Ml Inj IV Q8H PRN Nausea And Vomiting Sodium Chloride 10 ml 04/06/21 10:00 04/07/21 09:38 Sodium Chloride 0.9% 10 Ml Flush Syringe IV 10 ml BID BISHOP Administration Sodium Chloride 10 ml 04/06/21 02:57 Sodium Chloride 0.9% 10 Ml Flush Syringe IV PRN PRN LINE FLUSH Sodium Polystyrene Sulfonate 30 gm 04/07/21 13:00 04/07/21 15:09 Sodium Polystyrene 15 Gm/60 Ml Oral Liqd PO 04/07/21 23:59 30 gm ONCE NR Administration
[2021-04-08] MEDS: HEPARIN 5,000 UNIT/1 ML VIAL SUB-Q SCH ×2 (06:00→13:21)
[2021-04-08 08:56] LABS: Calcium 9.4 mg/dL (8.4-10.2)
[2021-04-08] MEDS: cefTRIAXone/NS 2 GM/100 ML 2 GM/100 ML BAG IV SCH (10:14)
[2021-04-08] MEDS: AZITHROMYCIN/NS 500 MG/250 ML 500 MG/250 ML BAG IV SCH (10:15)
--- NOTE | 2021-04-08 11:07 | Progress Note ---
Assessment and Plan Assessment and plan: 60-year-old male with known history of hypertension seen in the emergency room today complaining of diarrhea and generalized weakness which started about 3 days ago. Patient states he just had his first dose of COVID-19 vaccination over the weekend and 24 hours thereafter he started having some diarrhea and generalized weakness. He denies any fever or chills, no chest pain or shortness of breath, no headache or dizziness, no diaphoresis. Patient denies any nausea vomiting, no abdominal pain, no hematuria or dysuria. He denies any sick contacts and no recent travel. Denies any contact with anyon e with COVID-19. Work-up in the emergency room today reveals elevated BUN and creatinine of 34 and 2.4 respectively. Chest x-ray reveals right lower lobe airspace opacity which could represent pneumonia or a neoplastic process. CT of the abdomen and pelvis reveals fluid and gas-filled colon without inflammation or colonic wall thickening 04/07: Patient seen and examined today continues on oxygen. ID input is noted. Have consulted pulmonary considering review of CT which shows a large mass in t he lungs. Patient may probably benefit from a bronchoscopy but will defer to pulmonary for now continue current management with steroids and remdesivir. Unfortunately I do not have any family contact information for this patient. Discussed with nursing staff to see if they can get anyone. 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 Patient now on Bicarb drip due to metabolic Acidosis, also Lung mass noted, awaiting Pulmonary re-evaluation. otherwise he is clinically stable (1) Acute renal failure (ARF) SECONDARY TO VASOMOTOR NEPHROPATHY WITH METABOLIC ACIDOSIS Current Visit: Yes Status: Acute Plan to address problem: Possibly prerenal. Patient will be placed on IV fluid normal saline. Will monitor BUN and creatinine. Consult placed to nephrology for evaluation. (2) Hypertension Current Visit: Yes Status: Acute Plan to address problem: Blood pressure stable . we will resume routine home medications once reconciled and monitor vital signs closely. (3) Pneumonia secondary to COVID-19 Current Visit: Yes Status: Acute Plan to address problem: Patient will be placed on empiric IV antibiotics in view of the chest x-ray findings. We will check for COVID-19. (4) acute hypoxic respiratory failure (5) right lung lung mass large (6) acute metabolic encephalopathy -unknown baseline (7) Thrombocytopenia (8) DVT prophylaxis Current Visit: Yes Status: Acute Plan to address problem: Patient placed on subcutaneous heparin. (9) Full code status Current Visit: Yes Status: Acute Plan to address problem: Patient is full code. History Interval history: Patient seen and examined, on oxygen, still with encephalopathy possible baseline. Hospitalist Physical - Physical exam Narrative exam: VITAL SIGNS: Reviewed. GENERAL: The patient appears normally developed, Vital signs as documented. HEAD: No signs of head trauma. EYES: Pupils are equal. Extraocular motions intact. EARS: Hearing grossly intact. MOUTH: Oropharynx is normal. NECK: No adenopathy, no JVD. CHEST: Chest with clear breath sounds bilaterally. No wheezes, rales, or rhonchi. CARDIAC: Regular rate and rhythm. S1 and S2, without murmurs, gallops, or rubs. VASCULAR: No Edema. Peripheral pulses normal and equal in all extremities. ABDOMEN: Soft, non tender and non distended. No rebound or guarding, and no masses palpated. Bowel Sounds normal. MUSCULOSKELETAL: Good range of motion of all major joints. Extremities without clubbing, cyanosis or edema. NEUROLOGIC EXAM: Alert and oriented x 2- some intermittent confusion No focal sensory or strength deficits. Speech normal. Follows commands. PSYCHIATRIC: Mood normal. SKIN: detail exam as documented in skin assessment - Constitutional Vitals: Temp Pulse Resp BP Pulse Ox 99 F 79 18 139/59 82 L 04/07/21 15:33 04/08/21 06:30 04/08/21 06:30 04/08/21 06:30 04/08/21 06:30 General appearance: Present: no acute distress, well-nourished Results - Labs CBC & Chem 7: 04/07/21 04:14 04/08/21 08:00 Labs: Laboratory Last Values WBC 3.2 K/mm3 (4.5-11.0) L 04/07/21 04:14 RBC 4.87 M/mm3 (3.65-5.03) 04/07/21 04:14 Hgb 14.3 gm/dl (11.8-15.2) 04/07/21 04:14 Hct 42.1 % (35.5-45.6) D 04/07/21 04:14 MCV 87 fl (84-94) 04/07/21 04:14 MCH 29 pg (28-32) 04/07/21 04:14 MCHC 34 % (32-34) 04/07/21 04:14 RDW 16.0 % (13.2-15.2) H 04/07/21 04:14 Plt Count 101 K/mm3 (140-440) L 04/07/21 04:14 Lymph % (Auto) 22.3 % (13.4-35.0) 04/07/21 04:14 [place] % (Auto) 10.8 % (0.0-7.3) H 04/07/21 04:14 Eos % (Auto) 0.0 % (0.0-4.3) 04/07/21 04:14 Baso % (Auto) 0.3 % (0.0-1.8) 04/07/21 04:14 Lymph # (Auto) 0.7 K/mm3 (1.2-5.4) L 04/07/21 04:14 [place] # (Auto) 0.4 K/mm3 (0.0-0.8) 04/07/21 04:14 Eos # (Auto) 0.0 K/mm3 (0.0-0.4) 04/07/21 04:14 Baso # (Auto) 0.0 K/mm3 (0.0-0.1) 04/07/21 04:14 Add Manual Diff Complete 04/05/21 15:03 Seg Neutrophils % 66.6 % (40.0-70.0) 04/07/21 04:14 Seg Neutrophils # 2.2 K/mm3 (1.8-7.7) 04/07/21 04:14 PT 13.5 Sec. (12.2-14.9) 04/07/21 04:14 INR 0.98 (0.87-1.13) 04/07/21 04:14 D-Dimer 721.64 ng/mlDDU (0-234) H 04/06/21 08:15 Sodium 138 mmol/L (137-145) 04/08/21 08:00 Potassium 4.9 mmol/L (3.6-5.0) 04/08/21 08:00 Chloride 109.9 mmol/L (98-107) H 04/08/21 08:00 Carbon Dioxide 13 mmol/L (22-30) L 04/08/21 08:00 Anion Gap 20 mmol/L 04/08/21 08:00 BUN 40 mg/dL (9-20) H 04/08/21 08:00 Creatinine 1.8 mg/dL (0.8-1.3) H 04/08/21 08:00 Estimated GFR 39 ml/min 04/08/21 08:00 BUN/Creatinine Ratio 22 % 04/08/21 08:00 Glucose 74 mg/dL (75-100) L 04/08/21 08:00 Calcium 9.4 mg/dL (8.4-10.2) 04/08/21 08:00 Magnesium 2.40 mg/dL (1.7-2.3) H 04/05/21 15:03 Ferritin 1468.0 ng/mL (30.0-300.0) H 04/06/21 08:07 Total Bilirubin 0.30 mg/dL (0.1-1.2) 04/05/21 15:03 AST 56 units/L (5-40) H 04/05/21 15:03 ALT 24 units/L (7-56) 04/05/21 15:03 Alkaline Phosphatase 102 units/L (35-129) 04/05/21 15:03 Lactate Dehydrogenase 445 units/L (91-180) H 04/06/21 08:07 C-Reactive Protein 2.90 mg/dL (0.00-1.30) H 04/06/21 08:07 Total Protein 8.7 g/dL (6.3-8.2) H 04/05/21 15:03 Albumin 4.5 g/dL (3.9-5) 04/05/21 15:03 Albumin/Globulin Ratio 1.1 % 04/05/21 15:03 Lipase 143 units/L (13-60) H 04/05/21 15:03 Procalcitonin 0.34 ng/mL (<0.15) 04/06/21 08:15 Coronavirus (PCR) Positive (Negative) A 04/07/21 08:15 Active Medications - Current Medications Current Medications: Generic Name Dose Route Start Last Admin Trade Name Freq PRN Reason Stop Dose Admin Acetaminophen 650 mg 04/06/21 02:57 Acetaminophen 325 Mg Tab PO Q4H PRN Pain MILD(1-3)/Fever >100.5/BRAR Heparin Sodium (Porcine) 5,000 unit 04/06/21 14:00 04/08/21 06:00 Heparin 5,000 Unit/1 Ml Vial SUB-Q 5,000 unit Q8HR BISHOP Administration Ceftriaxone Sodium 2 gm in 100 mls @ 200 mls/hr 04/06/21 08:00 04/08/21 10:14 Rocephin/Ns 2 Gm/100 Ml IV 04/10/21 08:29 200 mls/hr Q24H BISHOP Administration Protocol Azithromycin 500 mg in 250 mls @ 250 mls/hr 04/06/21 08:00 04/08/21 10:15 Zithromax/Ns IV 04/10/21 08:59 250 mls/hr Q24H BISHOP Administration Sodium Bicarbonate 100 meq/ 1,100 mls @ 75 mls/hr 04/07/21 13:00 04/07/21 14:30 Dextrose IV 75 mls/hr DIRECT BISHOP Administration Morphine Sulfate 2 mg 04/06/21 02:57 Morphine 2 Mg/1 Ml Inj IV Q4H PRN Pain, Moderate (4-6) Morphine Sulfate 4 mg 04/06/21 02:57 Morphine 4 Mg/1 Ml Inj IV Q4H PRN Pain , Severe (7-10) Ondansetron HCl 4 mg 04/06/21 02:57 Ondansetron 4 Mg/2 Ml Inj IV Q8H PRN Nausea And Vomiting Sodium Chloride 10 ml 04/06/21 10:00 04/08/21 10:15 Sodium Chloride 0.9% 10 Ml Flush Syringe IV 10 ml BID BISHOP Administration Sodium Chloride 10 ml 04/06/21 02:57 Sodium Chloride 0.9% 10 Ml Flush Syringe IV PRN PRN LINE FLUSH
--- NOTE | 2021-04-08 13:03 | Progress Note ---
Assessment and Plan 1. Acute kidney injury: Vasomotor ELIO in the setting of volume depletion. ATN. CT abdomen negative for hydro. Continue IV fluids. Monitor renal function. Creatinine level improving. Renal prognosis is guarded. Avoid nephrotoxic agents. Meds dosage based on GFR. 2. FEN: Hyperkalemia, improved, monitor. Hyperchloremic Metabolic acidosis, on bicarb drip, monitor. ABG PH 7.395. Hyponatremia, improved, monitor. Monitor lytes and volume status. 3. Diarrhea: ?related to Covid. Monitor. 4. COVID-19 PUI: Follow test results. Anticoagulation per hospital protocol. 5. Possible lung mass: Per primary. 6. Hypertension: Monitor BP. Subjective: Patient was examined at the bedside. Examination: General appearance: well-developed, appears stated age, not in distress HEENT: ATNC Neck: Trachea midline Respiratory: bibasal rales ehard Cardiology: S1S2, no murmur Gastrointestinal: soft, obese, bowel sounds heard, not tender Integumentary: warm and dry Neurologic: alert, some confusion, able to move extremities Ext: no edema Subjective Date of service: 04/08/21 Objective - Vital Signs Vital signs: Vital Signs - 12hr 04/08/21 04/08/21 04/08/21 01:30 02:00 02:30 Pulse Rate 78 88 84 Respiratory 23 28 H 28 H Rate Blood Pressure 116/55 121/59 120/60 O2 Sat by Pulse 59 L Oximetry 04/08/21 04/08/21 04/08/21 03:00 03:30 04:00 Pulse Rate 87 86 85 Respiratory 17 22 21 Rate Blood Pressure 133/63 104/50 110/59 O2 Sat by Pulse Oximetry 04/08/21 04/08/21 04/08/21 04:30 05:00 05:30 Pulse Rate 85 84 83 Respiratory 24 26 H 25 H Rate Blood Pressure 111/52 91/50 141/76 O2 Sat by Pulse Oximetry 04/08/21 04/08/21 04/08/21 06:00 06:30 12:56 Pulse Rate 81 79 Respiratory 25 H 18 18 Rate Blood Pressure 141/76 139/59 O2 Sat by Pulse 82 L 98 Oximetry - Lab 04/07/21 04:14 04/08/21 08:00 Most recent lab results Calcium 9.4 mg/dL (8.4-10.2) 04/08/21 08:00 Magnesium 2.40 mg/dL (1.7-2.3) H 04/05/21 15:03 Medications & Allergies - Medications Allergies/Adverse Reactions: Allergies No Known Allergies Allergy (Verified 04/06/21 03:10) Active Medications: Generic Name Dose Route Start Last Admin Trade Name Freq PRN Reason Stop Dose Admin Acetaminophen 650 mg 04/06/21 02:57 Acetaminophen 325 Mg Tab PO Q4H PRN Pain MILD(1-3)/Fever >100.5/BRAR Heparin Sodium (Porcine) 5,000 unit 04/06/21 14:00 04/08/21 06:00 Heparin 5,000 Unit/1 Ml Vial SUB-Q 5,000 unit Q8HR BISHOP Administration Ceftriaxone Sodium 2 gm in 100 mls @ 200 mls/hr 04/06/21 08:00 04/08/21 10:14 Rocephin/Ns 2 Gm/100 Ml IV 04/10/21 08:29 200 mls/hr Q24H BISHOP Administration Protocol Azithromycin 500 mg in 250 mls @ 250 mls/hr 04/06/21 08:00 04/08/21 10:15 Zithromax/Ns IV 04/10/21 08:59 250 mls/hr Q24H BISHOP Administration Sodium Bicarbonate 100 meq/ 1,100 mls @ 75 mls/hr 04/07/21 13:00 04/07/21 14:30 Dextrose IV 75 mls/hr DIRECT BISHOP Administration Morphine Sulfate 2 mg 04/06/21 02:57 Morphine 2 Mg/1 Ml Inj IV Q4H PRN Pain, Moderate (4-6) Morphine Sulfate 4 mg 04/06/21 02:57 Morphine 4 Mg/1 Ml Inj IV Q4H PRN Pain , Severe (7-10) Ondansetron HCl 4 mg 04/06/21 02:57 Ondansetron 4 Mg/2 Ml Inj IV Q8H PRN Nausea And Vomiting Sodium Chloride 10 ml 04/06/21 10:00 04/08/21 10:15 Sodium Chloride 0.9% 10 Ml Flush Syringe IV 10 ml BID BISHOP Administration Sodium Chloride 10 ml 04/06/21 02:57 Sodium Chloride 0.9% 10 Ml Flush Syringe IV PRN PRN LINE FLUSH
--- NOTE | 2021-04-08 13:37 | Consultation ---
History of Present Illness Consult date: 04/08/21 Reason for consult: lung mass History of present illness: istory of present illness: 60-year-old male with known history of hypertension seen in the emergency room today complaining of diarrhea and generalized weakness which started about 3 days ago. Patient states he just had his first dose of COVID-19 vaccination over the weekend and 24 hours thereafter he started having some diarrhea and generalized weakness. He denies any fever or chills, no chest pain or shortness of breath, no headache or dizziness, no diaphoresis. Patient denies any nausea vomiting, no abdominal pain, no hematuria or dysuria. He denies any sick contacts and no recent travel. Denies any contact with anyone with COVID-19. Patient is a smoker but denied any weight loss or hemoptysis. Work-up in the emergency room today reveals elevated BUN and creatinine of 34 and 2.4 respectively. Chest x-ray reveals right lower lobe airspace opacity which could represent pneumonia or a neoplastic process. CT of the abdomen and pelvis reveals fluid and gas-filled colon without inflammation or colonic wall thickening Past History Past Medical History: hypertension Past Surgical History: No surgical history Social history: no significant social history Family history: no significant family history Medications and Allergies Allergies Allergy/AdvReac Type Severity Reaction Status Date / Time No Known Allergies Allergy Verified 04/06/21 03:10 Active Meds: Active Medications Acetaminophen (Acetaminophen 325 Mg Tab) 650 mg PO Q4H PRN PRN Reason: Pain MILD(1-3)/Fever >100.5/BRAR Heparin Sodium (Porcine) (Heparin 5,000 Unit/1 Ml Vial) 5,000 unit SUB-Q Q8HR [facility] Last Admin: 04/08/21 13:21 Dose: 5,000 unit Documented by: Ceftriaxone Sodium (Rocephin/Ns 2 Gm/100 Ml) 2 gm in 100 mls @ 200 mls/hr IV Q24H [facility]; Protocol Stop: 04/10/21 08:29 Last Admin: 04/08/21 10:14 Dose: 200 mls/hr Documented by: Azithromycin (Zithromax/Ns) 500 mg in 250 mls @ 250 mls/hr IV Q24H [facility] Stop: 04/10/21 08:59 Last Admin: 04/08/21 10:15 Dose: 250 mls/hr Documented by: Sodium Bicarbonate 100 meq/ (Dextrose) 1,100 mls @ 75 mls/hr IV DIRECT [facility] Last Admin: 04/07/21 14:30 Dose: 75 mls/hr Documented by: Morphine Sulfate (Morphine 2 Mg/1 Ml Inj) 2 mg IV Q4H PRN PRN Reason: Pain, Moderate (4-6) Morphine Sulfate (Morphine 4 Mg/1 Ml Inj) 4 mg IV Q4H PRN PRN Reason: Pain , Severe (7-10) Ondansetron HCl (Ondansetron 4 Mg/2 Ml Inj) 4 mg IV Q8H PRN PRN Reason: Nausea And Vomiting Sodium Chloride (Sodium Chloride 0.9% 10 Ml Flush Syringe) 10 ml IV BID [facility] Last Admin: 04/08/21 10:15 Dose: 10 ml Documented by: Sodium Chloride (Sodium Chloride 0.9% 10 Ml Flush Syringe) 10 ml IV PRN PRN PRN Reason: LINE FLUSH Review of Systems All systems: negative Cardiovascular: shortness of breath Physical Examination Vital signs: Vital Signs Temp Resp BP 97.5 F L 18 106/71 04/05/21 14:30 04/05/21 14:30 04/05/21 14:30 General appearance: no acute distress, alert, appears uncomfortable ENT: oropharynx moist Neck: supple, no JVD Ascultation: Bilateral: diminished breath sounds Cardiovascular: regular rate and rhythm Gastrointestinal: normoactive bowel sounds, soft, non-tender Extremities: no cyanosis, other (Clubbing of the fingernails noted) Musculoskeletal: no deformities Gait: other (Not examined) normal mental status mood appropriate Results - Laboratory Findings CBC and BMP: 04/07/21 04:14 04/08/21 08:00 PT/INR, D-dimer PT 13.5 Sec. (12.2-14.9) 04/07/21 04:14 INR 0.98 (0.87-1.13) 04/07/21 04:14 D-Dimer 721.64 ng/mlDDU (0-234) H 04/06/21 08:15 Abnormal lab findings: Abnormal Labs 04/05/21 04/05/21 04/05/21 15:03 15:03 21:28 WBC RBC 5.40 H Hgb 15.9 H Hct 49.5 H RDW 17.3 H Plt Count 106 L [place] % (Auto) 9.0 H Lymph # (Auto) D-Dimer Sodium 135 L 135 L Potassium 6.2 H* Chloride Carbon Dioxide 11 L 12 L BUN 34 H 42 H Creatinine 2.4 H 3.2 H Glucose 121 H Magnesium 2.40 H Ferritin AST 56 H Lactate Dehydrogenase C-Reactive Protein Total Protein 8.7 H Lipase 143 H Coronavirus (PCR) 04/06/21 04/06/21 04/06/21 08:07 08:07 08:15 WBC RBC Hgb Hct RDW Plt Count [place] % (Auto) Lymph # (Auto) D-Dimer 721.64 H Sodium Potassium Chloride Carbon Dioxide BUN Creatinine Glucose Magnesium Ferritin 1468.0 H AST Lactate Dehydrogenase 445 H C-Reactive Protein 2.90 H Total Protein Lipase Coronavirus (PCR) 04/07/21 04/07/21 04/07/21 04:14 04:14 08:15 WBC 3.2 L RBC Hgb Hct RDW 16.0 H Plt Count 101 L [place] % (Auto) 10.8 H Lymph # (Auto) 0.7 L D-Dimer Sodium Potassium 5.6 H Chloride 111.6 H Carbon Dioxide 16 L BUN 43 H Creatinine 2.5 H Glucose Magnesium Ferritin AST Lactate Dehydrogenase C-Reactive Protein Total Protein Lipase Coronavirus (PCR) Positive A 04/08/21 08:00 WBC RBC Hgb Hct RDW Plt Count [place] % (Auto) Lymph # (Auto) D-Dimer Sodium Potassium Chloride 109.9 H Carbon Dioxide 13 L BUN 40 H Creatinine 1.8 H Glucose 74 L Magnesium Ferritin AST Lactate Dehydrogenase C-Reactive Protein Total Protein Lipase Coronavirus (PCR) - Diagnostic Findings CT scan - chest: image reviewed (Right lower lobe lung mass) Assessment and Plan Impression: 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 Covid 19 infection Rule out Covid pneumonia History of cigarette smoking Suspect COPD Recommendation: Treatment of Covid infection as per ID Patient will require a biopsy procedure either bronchoscopy or CT-guided needle biopsy once he has recovered from his Covid and has been tested negative for Covid infection. Consider inhaled bronchodilator for now Continue with supplemental oxygen as needed.
[2021-04-08] MEDS: ALBUTEROL 2.5 MG/3 ML NEBU IH SCH (21:45)
[2021-04-09] MEDS: SODIUM BICARBONATE 650 MG TAB PO SCH ×4 (01:39→22:11)
[2021-04-09] MEDS: HEPARIN 5,000 UNIT/1 ML VIAL SUB-Q SCH ×4 (01:39→22:11)
[2021-04-09] MEDS: ALBUTEROL 2.5 MG/3 ML NEBU IH SCH (04:22)
--- NOTE | 2021-04-09 08:40 | Progress Note ---
Assessment and Plan 1. Acute kidney injury: Vasomotor ELIO in the setting of volume depletion +/- 2/[address] abdomen negative for hydro. Monitor renal function. Creatinine leveled off. Baseline renal function is unknown. Renal prognosis is guarded. Avoid nephrotoxic agents. Meds dosage based on GFR. 2. FEN: Hyperkalemia, improved, monitor. Hyperchloremic Metabolic acidosis, improving, monitor. ABG PH 7.395. Hyponatremia, improved, monitor. Monitor lytes and volume status. 3. Diarrhea: ?related to Covid. Monitor. 4. COVID-19 infection: Albuterol, Decadron and Abx. Anticoagulation per hospital protocol. 5. Possible lung mass: Per primary. 6. Hypertension: Monitor BP. Subjective: Patient was not examined today to limit exposure to Covid. However the examination findings from other providers noted. The current and previous medical records are reviewed in detail as are laboratory and imaging data reviewed when appropriate. Medications being given are also reviewed. In add ition the case has been discussed with the attending hospitalist and the nurse when needed. New renal recommendations as above. Examination: Subjective Date of service: 04/09/21 Objective - Vital Signs Vital signs: Vital Signs - 12hr 04/08/21 04/08/21 04/09/21 21:46 21:58 05:02 Temperature 100.1 F H 98.2 F Pulse Rate 92 H 111 H Respiratory 22 22 Rate Blood Pressure 146/72 159/86 O2 Sat by Pulse 100 97 93 Oximetry 04/09/21 08:26 Temperature Pulse Rate Respiratory Rate Blood Pressure O2 Sat by Pulse 93 Oximetry - Lab 04/09/21 08:38 04/09/21 08:38 Most recent lab results ABG pH 7.395 (7.320-7.450) 04/08/21 14:27 ABG O2 Saturation 91.8 (0-100) 04/08/21 14:27 Calcium 9.4 mg/dL (8.4-10.2) 04/08/21 08:00 Magnesium 2.40 mg/dL (1.7-2.3) H 04/05/21 15:03 Medications & Allergies - Medications Allergies/Adverse Reactions: Allergies No Known Allergies Allergy (Verified 04/06/21 03:10) Active Medications: Generic Name Dose Route Start Last Admin Trade Name Freq PRN Reason Stop Dose Admin Acetaminophen 650 mg 04/06/21 02:57 Acetaminophen 325 Mg Tab PO Q4H PRN Pain MILD(1-3)/Fever >100.5/BRAR Albuterol 2.5 mg 04/08/21 14:00 04/09/21 04:22 Albuterol 2.5 Mg/3 Ml Nebu IH Not Given Q6HRT BISHOP Dexamethasone 6 mg 04/09/21 10:00 Dexamethasone 4 Mg/Ml Vial IV DAILY BISHOP Heparin Sodium (Porcine) 5,000 unit 04/06/21 14:00 04/09/21 06:06 Heparin 5,000 Unit/1 Ml Vial SUB-Q Not Given Q8HR BISHOP Ceftriaxone Sodium 2 gm in 100 mls @ 200 mls/hr 04/06/21 08:00 04/08/21 10:14 Rocephin/Ns 2 Gm/100 Ml IV 04/10/21 08:29 200 mls/hr Q24H BISHOP Administration Protocol Azithromycin 500 mg in 250 mls @ 250 mls/hr 04/06/21 08:00 04/08/21 10:15 Zithromax/Ns IV 04/10/21 08:59 250 mls/hr Q24H BISHOP Administration Sodium Bicarbonate 100 meq/ 1,100 mls @ 75 mls/hr 04/07/21 13:00 04/07/21 14:30 Dextrose IV 75 mls/hr DIRECT BISHOP Administration Morphine Sulfate 2 mg 04/06/21 02:57 Morphine 2 Mg/1 Ml Inj IV Q4H PRN Pain, Moderate (4-6) Morphine Sulfate 4 mg 04/06/21 02:57 Morphine 4 Mg/1 Ml Inj IV Q4H PRN Pain , Severe (7-10) Ondansetron HCl 4 mg 04/06/21 02:57 Ondansetron 4 Mg/2 Ml Inj IV Q8H PRN Nausea And Vomiting Sodium Bicarbonate 650 mg 04/08/21 22:00 04/09/21 01:39 Sodium Bicarbonate 650 Mg Tab PO 650 mg TID BISHOP Administration Sodium Chloride 10 ml 04/06/21 10:00 04/09/21 01:39 Sodium Chloride 0.9% 10 Ml Flush Syringe IV 10 ml BID BISHOP Administration Sodium Chloride 10 ml 04/06/21 02:57 Sodium Chloride 0.9% 10 Ml Flush Syringe IV PRN PRN LINE FLUSH
[2021-04-09 09:43] LABS: Albumin 3.3 g/dL (3.9-5)
[2021-04-09] MEDS: cefTRIAXone/NS 2 GM/100 ML 2 GM/100 ML BAG IV SCH (09:43)
[2021-04-09] MEDS: dexAMETHasone 4 MG/ML VIAL IV SCH (09:44)
--- NOTE | 2021-04-09 10:38 | Progress Note ---
Assessment and Plan Assessment and plan: 60-year-old male with known history of hypertension seen in the emergency room today complaining of diarrhea and generalized weakness which started about 3 days ago. Patient states he just had his first dose of COVID-19 vaccination over the weekend and 24 hours thereafter he started having some diarrhea and generalized weakness. He denies any fever or chills, no chest pain or shortness of breath, no headache or dizziness, no diaphoresis. Patient denies any nausea vomiting, no abdominal pain, no hematuria or dysuria. He denies any sick contacts and no recent travel. Denies any contact with anyon e with COVID-19. Work-up in the emergency room today reveals elevated BUN and creatinine of 34 and 2.4 respectively. Chest x-ray reveals right lower lobe airspace opacity which could represent pneumonia or a neoplastic process. CT of the abdomen and pelvis reveals fluid and gas-filled colon without inflammation or colonic wall thickening 04/07: Patient seen and examined today continues on oxygen. ID input is noted. Have consulted pulmonary considering review of CT which shows a large mass in th e lungs. Patient may probably benefit from a bronchoscopy but will defer to pulmonary for now continue current management with steroids and remdesivir. Unfortunately I do not have any family contact information for this patient. Discussed with nursing staff to see if they can get anyone. 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 Patient now on Bicarb drip due to metabolic Acidosis, also Lung mass noted, awaiting Pulmonary re-evaluation. otherwise he is clinically stable. 04/09: Resume steroids as patient developed significant hypoxia on 15 L of oxygen. Continue to wean as tolerated he also has mittens in place due to intermittent confusion. CREATININE STILL AT 1.8 (1) Acute renal failure (ARF) SECONDARY TO VASOMOTOR NEPHROPATHY WITH METABOLIC ACIDOSIS Current Visit: Yes Status: Acute Plan to address problem: Possibly prerenal. Patient will be placed on IV fluid normal saline. Will monitor BUN and creatinine. Consult placed to nephrology for evaluation. (2) Hypertension Current Visit: Yes Status: Acute Plan to address problem: Blood pressure stable . we will resume routine home medications once reconciled and monitor vital signs closely. (3) Pneumonia secondary to COVID-19 Current Visit: Yes Status: Acute Plan to address problem: Patient will be placed on empiric IV antibiotics in view of the chest x-ray findings. We will check for COVID-19. (4) Acute hypoxic respiratory failure (5) Right lung lung mass large (6) Acute metabolic encephalopathy -unknown baseline (7) Thrombocytopenia (8) DVT prophylaxis Current Visit: Yes Status: Acute Plan to address problem: Patient placed on subcutaneous heparin. (9) Full code status Current Visit: Yes Status: Acute Plan to address problem: Patient is full code. History Interval history: Patient seen and examined, on oxygen, due to hypoxia is on 15 L. still with encephalopathy possible baseline. Hospitalist Physical - Physical exam Narrative exam: VITAL SIGNS: Reviewed. GENERAL: The patient appears normally developed, Vital signs as documented. HEAD: No signs of head trauma. EYES: Pupils are equal. Extraocular motions intact. EARS: Hearing grossly intact. MOUTH: Oropharynx is normal. NECK: No adenopathy, no JVD. CHEST: Chest with clear breath sounds bilaterally. No wheezes, rales, or rhonchi. CARDIAC: Regular rate and rhythm. S1 and S2, without murmurs, gallops, or rubs. VASCULAR: No Edema. Peripheral pulses normal and equal in all extremities. ABDOMEN: Soft, non tender and non distended. No rebound or guarding, and no masses palpated. Bowel Sounds normal. MUSCULOSKELETAL: Good range of motion of all major joints. Extremities without clubbing, cyanosis or edema. NEUROLOGIC EXAM: Alert and oriented x 2- some intermittent confusion No focal sensory or strength deficits. Speech normal. Follows commands. PSYCHIATRIC: Mood normal. SKIN: detail exam as documented in skin assessment - Constitutional Vitals: Temp Pulse Resp BP Pulse Ox 98.2 F 111 H 22 159/86 93 04/09/21 05:02 04/09/21 05:02 04/09/21 05:02 04/09/21 05:02 04/09/21 08:26 General appearance: Present: no acute distress, well-nourished Results - Labs CBC & Chem 7: 04/07/21 04:14 04/09/21 08:38 Labs: Laboratory Last Values WBC 3.2 K/mm3 (4.5-11.0) L 04/07/21 04:14 RBC 4.87 M/mm3 (3.65-5.03) 04/07/21 04:14 Hgb 14.3 gm/dl (11.8-15.2) 04/07/21 04:14 Hct 42.1 % (35.5-45.6) D 04/07/21 04:14 MCV 87 fl (84-94) 04/07/21 04:14 MCH 29 pg (28-32) 04/07/21 04:14 MCHC 34 % (32-34) 04/07/21 04:14 RDW 16.0 % (13.2-15.2) H 04/07/21 04:14 Plt Count 101 K/mm3 (140-440) L 04/07/21 04:14 Lymph % (Auto) 22.3 % (13.4-35.0) 04/07/21 04:14 [place] % (Auto) 10.8 % (0.0-7.3) H 04/07/21 04:14 Eos % (Auto) 0.0 % (0.0-4.3) 04/07/21 04:14 Baso % (Auto) 0.3 % (0.0-1.8) 04/07/21 04:14 Lymph # (Auto) 0.7 K/mm3 (1.2-5.4) L 04/07/21 04:14 [place] # (Auto) 0.4 K/mm3 (0.0-0.8) 04/07/21 04:14 Eos # (Auto) 0.0 K/mm3 (0.0-0.4) 04/07/21 04:14 Baso # (Auto) 0.0 K/mm3 (0.0-0.1) 04/07/21 04:14 Add Manual Diff Complete 04/05/21 15:03 Seg Neutrophils % 66.6 % (40.0-70.0) 04/07/21 04:14 Seg Neutrophils # 2.2 K/mm3 (1.8-7.7) 04/07/21 04:14 PT 13.5 Sec. (12.2-14.9) 04/07/21 04:14 INR 0.98 (0.87-1.13) 04/07/21 04:14 D-Dimer 721.64 ng/mlDDU (0-234) H 04/06/21 08:15 ABG pH 7.395 (7.320-7.450) 04/08/21 14:27 POC ABG pCO2 23.7 mmHg (32.0-48.0) L 04/08/21 14:27 POC ABG pO2 62.5 mmHg (83-108) L 04/08/21 14:27 POC ABG HCO3 14.2 04/08/21 14:27 ABG O2 Saturation 91.8 (0-100) 04/08/21 14:27 POC ABG Base Excess -8.6 04/08/21 14:27 ABG Hemoglobin 14.5 (12.0-17.5) 04/08/21 14:27 ABG Oxyhemoglobin 91.3 (94-98) L 04/08/21 14:27 ABG Methemoglobin 0.1 (0.0-1.5) 04/08/21 14:27 ABG Sodium 133.7 mmol/L (136.0-145.0) L 04/08/21 14:27 ABG Potassium 4.2 mmol/L (3.40-4.50) 04/08/21 14:27 ABG Chloride 112.0 mmol/L (98-107) H 04/08/21 14:27 ABG Glucose 117 mg/dL (65-95) H 04/08/21 14:27 Carboxyhemoglobin 0.4 (0.5-1.5) L 04/08/21 14:27 FiO2 % 100.0 04/08/21 14:27 Sodium 141 mmol/L (137-145) 04/09/21 08:38 Potassium 4.1 mmol/L (3.6-5.0) 04/09/21 08:38 Chloride 110.4 mmol/L (98-107) H 04/09/21 08:38 Carbon Dioxide 19 mmol/L (22-30) L 04/09/21 08:38 Anion Gap 16 mmol/L 04/09/21 08:38 BUN 35 mg/dL (9-20) H 04/09/21 08:38 Creatinine 1.8 mg/dL (0.8-1.3) H 04/09/21 08:38 Estimated GFR 39 ml/min 04/09/21 08:38 BUN/Creatinine Ratio 19 % 04/09/21 08:38 Glucose 100 mg/dL (75-100) 04/09/21 08:38 POC Glucose 115 mg/dL (70-105) H 04/08/21 15:33 Lactic Acid 1.20 mmol/L (0.7-2.0) 04/09/21 08:38 Calcium 9.0 mg/dL (8.4-10.2) 04/09/21 08:38 Magnesium 2.40 mg/dL (1.7-2.3) H 04/05/21 15:03 Ferritin 1468.0 ng/mL (30.0-300.0) H 04/06/21 08:07 Total Bilirubin 0.70 mg/dL (0.1-1.2) 04/09/21 08:38 AST 144 units/L (5-40) H 04/09/21 08:38 ALT 92 units/L (7-56) H 04/09/21 08:38 Alkaline Phosphatase 159 units/L (35-129) H 04/09/21 08:38 Lactate Dehydrogenase 445 units/L (91-180) H 04/06/21 08:07 C-Reactive Protein 2.90 mg/dL (0.00-1.30) H 04/06/21 08:07 Total Protein 7.2 g/dL (6.3-8.2) 04/09/21 08:38 Albumin 3.3 g/dL (3.9-5) L 04/09/21 08:38 Albumin/Globulin Ratio 0.8 % 04/09/21 08:38 Lipase 143 units/L (13-60) H 04/05/21 15:03 Procalcitonin 0.34 ng/mL (<0.15) 04/06/21 08:15 Arterial Blood Glucose 117 mg/dL (65-95) H 04/08/21 14:27 Arterial Blood Ionized Calcium 4.8 mg/dL (4.6-5.3) 04/08/21 14:27 Coronavirus (PCR) Positive (Negative) A 04/07/21 08:15 Atkins/IV: Voiding Method Condom Catheter Active Medications - Current Medications Current Medications: Generic Name Dose Route Start Last Admin Trade Name Freq PRN Reason Stop Dose Admin Acetaminophen 650 mg 04/06/21 02:57 Acetaminophen 325 Mg Tab PO Q4H PRN Pain MILD(1-3)/Fever >100.5/BRAR Albuterol 2.5 mg 04/08/21 14:00 04/09/21 04:22 Albuterol 2.5 Mg/3 Ml Nebu IH Not Given Q6HRT BISHOP Dexamethasone 6 mg 04/09/21 10:00 04/09/21 09:44 Dexamethasone 4 Mg/Ml Vial IV 6 mg DAILY BISHOP Administration Heparin Sodium (Porcine) 5,000 unit 04/06/21 14:00 04/09/21 06:06 Heparin 5,000 Unit/1 Ml Vial SUB-Q Not Given Q8HR BISHOP Ceftriaxone Sodium 2 gm in 100 mls @ 200 mls/hr 04/06/21 08:00 04/09/21 09:43 Rocephin/Ns 2 Gm/100 Ml IV 04/10/21 08:29 200 mls/hr Q24H BISHOP Administration Protocol Azithromycin 500 mg in 250 mls @ 250 mls/hr 04/06/21 08:00 04/08/21 10:15 Zithromax/Ns IV 04/10/21 08:59 250 mls/hr Q24H BISHOP Administration Sodium Bicarbonate 100 meq/ 1,100 mls @ 75 mls/hr 04/07/21 13:00 04/07/21 14:30 Dextrose IV 75 mls/hr DIRECT BISHOP Administration Morphine Sulfate 2 mg 04/06/21 02:57 Morphine 2 Mg/1 Ml Inj IV Q4H PRN Pain, Moderate (4-6) Morphine Sulfate 4 mg 04/06/21 02:57 Morphine 4 Mg/1 Ml Inj IV Q4H PRN Pain , Severe (7-10) Ondansetron HCl 4 mg 04/06/21 02:57 Ondansetron 4 Mg/2 Ml Inj IV Q8H PRN Nausea And Vomiting Sodium Bicarbonate 650 mg 04/08/21 22:00 04/09/21 09:44 Sodium Bicarbonate 650 Mg Tab PO 650 mg TID BISHOP Administration Sodium Chloride 10 ml 04/06/21 10:00 04/09/21 09:45 Sodium Chloride 0.9% 10 Ml Flush Syringe IV 10 ml BID BISHOP Administration Sodium Chloride 10 ml 04/06/21 02:57 Sodium Chloride 0.9% 10 Ml Flush Syringe IV PRN PRN LINE FLUSH
--- NOTE | 2021-04-09 12:06 | Progress Note ---
Assessment and Plan Impression: 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 Covid 19 infection Rule out Covid pneumonia History of cigarette smoking Suspect COPD Recommendation: Treatment of Covid infection as per ID Consider adding remdesivir as patient had progressive hypoxemia Patient will require a biopsy procedure either bronchoscopy or CT-guided needle biopsy once he has recovered from his Covid and has been tested negative for Covid infection. Consider inhaled bronchodilator for now Continue with supplemental oxygen as needed. Subjective Date of service: 04/09/21 Interval history: No new complaints except for complaint of shortness of breath on 50 L nasal cannula. Objective - Exam Narrative Exam: VITAL SIGNS: Reviewed. GENERAL: The patient appears normally developed, Vital signs as documented. HEAD: No signs of head trauma. EYES: Pupils are equal. Extraocular motions intact. EARS: Hearing grossly intact. MOUTH: Oropharynx is normal. NECK: No adenopathy, no JVD. CHEST: Chest with clear breath sounds bilaterally. No wheezes, rales, or rhonchi. CARDIAC: Regular rate and rhythm. S1 and S2, without murmurs, gallops, or rubs. VASCULAR: No Edema. Peripheral pulses normal and equal in all extremities. ABDOMEN: Soft, non tender and non distended. No rebound or guarding, and no masses palpated. Bowel Sounds normal. MUSCULOSKELETAL: Good range of motion of all major joints. Extremities without clubbing, cyanosis or edema. NEUROLOGIC EXAM: Alert and oriented x 2- some intermittent confusion No focal sensory or strength deficits. Speech normal. Follows commands. PSYCHIATRIC: Mood normal. SKIN: detail exam as documented in skin assessment Vital Signs - 12hr 04/09/21 04/09/21 05:02 08:26 Temperature 98.2 F Pulse Rate 111 H Respiratory 22 Rate Blood Pressure 159/86 O2 Sat by Pulse 93 93 Oximetry Constitutional: no acute distress, alert, appears uncomfortable ENT: oropharynx moist Neck: supple, no JVD Ascultation: Bilateral: diminished breath sounds Cardiovascular: regular rate and rhythm Gastrointestinal: normoactive bowel sounds, soft, non-tender Extremities: no cyanosis, other (Clubbing of the fingernails noted) Neurologic: normal mental status Psychiatric: mood appropriate CBC and BMP: 04/07/21 04:14 04/09/21 08:38 ABG, PT/INR, D-dimer: ABG ABG pH 7.395 (7.320-7.450) 04/08/21 14:27 POC ABG pCO2 23.7 mmHg (32.0-48.0) L 04/08/21 14:27 POC ABG pO2 62.5 mmHg (83-108) L 04/08/21 14:27 POC ABG HCO3 14.2 04/08/21 14:27 ABG O2 Saturation 91.8 (0-100) 04/08/21 14:27 PT/INR, D-dimer PT 13.5 Sec. (12.2-14.9) 04/07/21 04:14 INR 0.98 (0.87-1.13) 04/07/21 04:14 D-Dimer 721.64 ng/mlDDU (0-234) H 04/06/21 08:15 Abnormal lab findings: Abnormal Labs 04/05/21 04/05/21 04/05/21 15:03 15:03 21:28 WBC RBC 5.40 H Hgb 15.9 H Hct 49.5 H RDW 17.3 H Plt Count 106 L [place] % (Auto) 9.0 H Lymph # (Auto) D-Dimer POC ABG pCO2 POC ABG pO2 ABG Oxyhemoglobin ABG Sodium ABG Chloride ABG Glucose Carboxyhemoglobin Sodium 135 L 135 L Potassium 6.2 H* Chloride Carbon Dioxide 11 L 12 L BUN 34 H 42 H Creatinine 2.4 H 3.2 H Glucose 121 H POC Glucose Magnesium 2.40 H Ferritin AST 56 H ALT Alkaline Phosphatase Lactate Dehydrogenase C-Reactive Protein Total Protein 8.7 H Albumin Lipase 143 H Arterial Blood Glucose Coronavirus (PCR) 04/06/21 04/06/21 04/06/21 08:07 08:07 08:15 WBC RBC Hgb Hct RDW Plt Count [place] % (Auto) Lymph # (Auto) D-Dimer 721.64 H POC ABG pCO2 POC ABG pO2 ABG Oxyhemoglobin ABG Sodium ABG Chloride ABG Glucose Carboxyhemoglobin Sodium Potassium Chloride Carbon Dioxide BUN Creatinine Glucose POC Glucose Magnesium Ferritin 1468.0 H AST ALT Alkaline Phosphatase Lactate Dehydrogenase 445 H C-Reactive Protein 2.90 H Total Protein Albumin Lipase Arterial Blood Glucose Coronavirus (PCR) 04/07/21 04/07/21 04/07/21 04:14 04:14 08:15 WBC 3.2 L RBC Hgb Hct RDW 16.0 H Plt Count 101 L [place] % (Auto) 10.8 H Lymph # (Auto) 0.7 L D-Dimer POC ABG pCO2 POC ABG pO2 ABG Oxyhemoglobin ABG Sodium ABG Chloride ABG Glucose Carboxyhemoglobin Sodium Potassium 5.6 H Chloride 111.6 H Carbon Dioxide 16 L BUN 43 H Creatinine 2.5 H Glucose POC Glucose Magnesium Ferritin AST ALT Alkaline Phosphatase Lactate Dehydrogenase C-Reactive Protein Total Protein Albumin Lipase Arterial Blood Glucose Coronavirus (PCR) Positive A 04/08/21 04/08/21 04/08/21 08:00 14:27 15:33 WBC RBC Hgb Hct RDW Plt Count [place] % (Auto) Lymph # (Auto) D-Dimer POC ABG pCO2 23.7 L POC ABG pO2 62.5 L ABG Oxyhemoglobin 91.3 L ABG Sodium 133.7 L ABG Chloride 112.0 H ABG Glucose 117 H Carboxyhemoglobin 0.4 L Sodium Potassium Chloride 109.9 H Carbon Dioxide 13 L BUN 40 H Creatinine 1.8 H Glucose 74 L POC Glucose 115 H Magnesium Ferritin AST ALT Alkaline Phosphatase Lactate Dehydrogenase C-Reactive Protein Total Protein Albumin Lipase Arterial Blood Glucose 117 H Coronavirus (PCR) 04/09/21 08:38 WBC RBC Hgb Hct RDW Plt Count [place] % (Auto) Lymph # (Auto) D-Dimer POC ABG pCO2 POC ABG pO2 ABG Oxyhemoglobin ABG Sodium ABG Chloride ABG Glucose Carboxyhemoglobin Sodium Potassium Chloride 110.4 H Carbon Dioxide 19 L BUN 35 H Creatinine 1.8 H Glucose POC Glucose Magnesium Ferritin AST 144 H ALT 92 H Alkaline Phosphatase 159 H Lactate Dehydrogenase C-Reactive Protein Total Protein Albumin 3.3 L Lipase Arterial Blood Glucose Coronavirus (PCR)
[2021-04-09] MEDS: AZITHROMYCIN/NS 500 MG/250 ML 500 MG/250 ML BAG IV SCH (12:12)
[2021-04-09 14:00] LABS: Hematocrit 39.3 % (35.5-45.6); Hemoglobin 13.6 gm/dl (11.8-15.2); Mean Corpuscular HGB Conc 35 % (32-34); Mean Corpuscular Volume 84 fl (84-94); Platelet Count 136 K/mm3 (140-440); Red Blood Count 4.66 M/mm3 (3.65-5.03); Red Cell Distribution Width 15.7 % (13.2-15.2)
[2021-04-10] MEDS: HEPARIN 5,000 UNIT/1 ML VIAL SUB-Q SCH ×3 (06:48→21:17)
[2021-04-10] MEDS: ALBUTEROL 2.5 MG/3 ML NEBU IH SCH ×6 (08:18→21:28)
[2021-04-10] MEDS: SODIUM BICARBONATE 100 MEQ in DEXTROSE 5% IN WATER 1,000 ML IV SCH (08:31)
[2021-04-10] MEDS: AZITHROMYCIN/NS 500 MG/250 ML 500 MG/250 ML BAG IV SCH (08:43)
[2021-04-10 09:36] LABS: Albumin 3.2 g/dL (3.9-5); Calcium 9.3 mg/dL (8.4-10.2)
[2021-04-10 09:48] LABS: Hematocrit 41.4 % (35.5-45.6); Hemoglobin 14.2 gm/dl (11.8-15.2); Mean Corpuscular HGB Conc 34 % (32-34); Mean Corpuscular Volume 85 fl (84-94); Red Blood Count 4.84 M/mm3 (3.65-5.03); Red Cell Distribution Width 15.7 % (13.2-15.2)
[2021-04-10] MEDS: SODIUM BICARBONATE 650 MG TAB PO SCH ×3 (09:55→21:17)
[2021-04-10] MEDS: dexAMETHasone 4 MG/ML VIAL IV SCH (10:00)
[2021-04-10 10:55] LABS: Platelet Count 161 K/mm3 (140-440)
--- NOTE | 2021-04-10 11:08 | Progress Note ---
Assessment and Plan 60 y/o male with ILD, right lower lobe lung mass and COVID 19 with acute respiratory failure. 1. Pulm- Agreed that biopsy is needed but must recover from COVID first. Would suggest CT guided biopsy. Lesion does appear amenable to bronch but would need to be Tbbx and may not get enough tissue. could consider EBUS if not able to get with CT guided biopsy. needs full work up of ILD as well but this can be done as an outpatient. Will continue current dose of steroids, however if oxygenation worsens would switch to higher doses. No puffers available in this hospital except albuterol. No nebs given COVID status. Guarded prognosis. Subjective Date of service: 04/10/21 Interval history: Oxygen requirement improving. On steroids. Objective Vital Signs - 12hr 04/10/21 04/10/21 04:41 07:03 Temperature 98.7 F Pulse Rate 58 L Respiratory 22 20 Rate Blood Pressure 172/95 O2 Sat by Pulse 95 96 Oximetry Constitutional: no acute distress, alert, appears uncomfortable ENT: oropharynx moist Neck: supple, no JVD Ascultation: Bilateral: diminished breath sounds Cardiovascular: regular rate and rhythm Gastrointestinal: normoactive bowel sounds, soft, non-tender Extremities: no cyanosis, other (Clubbing of the fingernails noted) Neurologic: normal mental status Psychiatric: mood appropriate CBC and BMP: 04/10/21 08:29 04/10/21 08:29 ABG, PT/INR, D-dimer: ABG ABG pH 7.395 (7.320-7.450) 04/08/21 14:27 POC ABG pCO2 23.7 mmHg (32.0-48.0) L 04/08/21 14:27 POC ABG pO2 62.5 mmHg (83-108) L 04/08/21 14:27 POC ABG HCO3 14.2 04/08/21 14:27 ABG O2 Saturation 91.8 (0-100) 04/08/21 14:27 PT/INR, D-dimer PT 13.5 Sec. (12.2-14.9) 04/07/21 04:14 INR 0.98 (0.87-1.13) 04/07/21 04:14 D-Dimer 721.64 ng/mlDDU (0-234) H 04/06/21 08:15 Abnormal lab findings: Abnormal Labs 04/05/21 04/05/21 04/05/21 15:03 15:03 21:28 WBC RBC 5.40 H Hgb 15.9 H Hct 49.5 H MCHC RDW 17.3 H Plt Count 106 L [place] % (Auto) 9.0 H Lymph # (Auto) D-Dimer POC ABG pCO2 POC ABG pO2 ABG Oxyhemoglobin ABG Sodium ABG Chloride ABG Glucose Carboxyhemoglobin Sodium 135 L 135 L Potassium 6.2 H* Chloride Carbon Dioxide 11 L 12 L BUN 34 H 42 H Creatinine 2.4 H 3.2 H Glucose 121 H POC Glucose Magnesium 2.40 H Ferritin AST 56 H ALT Alkaline Phosphatase Lactate Dehydrogenase C-Reactive Protein Total Protein 8.7 H Albumin Lipase 143 H Arterial Blood Glucose Coronavirus (PCR) 04/06/21 04/06/21 04/06/21 08:07 08:07 08:15 WBC RBC Hgb Hct MCHC RDW Plt Count [place] % (Auto) Lymph # (Auto) D-Dimer 721.64 H POC ABG pCO2 POC ABG pO2 ABG Oxyhemoglobin ABG Sodium ABG Chloride ABG Glucose Carboxyhemoglobin Sodium Potassium Chloride Carbon Dioxide BUN Creatinine Glucose POC Glucose Magnesium Ferritin 1468.0 H AST ALT Alkaline Phosphatase Lactate Dehydrogenase 445 H C-Reactive Protein 2.90 H Total Protein Albumin Lipase Arterial Blood Glucose Coronavirus (PCR) 04/07/21 04/07/21 04/07/21 04:14 04:14 08:15 WBC 3.2 L RBC Hgb Hct MCHC RDW 16.0 H Plt Count 101 L [place] % (Auto) 10.8 H Lymph # (Auto) 0.7 L D-Dimer POC ABG pCO2 POC ABG pO2 ABG Oxyhemoglobin ABG Sodium ABG Chloride ABG Glucose Carboxyhemoglobin Sodium Potassium 5.6 H Chloride 111.6 H Carbon Dioxide 16 L BUN 43 H Creatinine 2.5 H Glucose POC Glucose Magnesium Ferritin AST ALT Alkaline Phosphatase Lactate Dehydrogenase C-Reactive Protein Total Protein Albumin Lipase Arterial Blood Glucose Coronavirus (PCR) Positive A 04/08/21 04/08/21 04/08/21 08:00 14:27 15:33 WBC RBC Hgb Hct MCHC RDW Plt Count [place] % (Auto) Lymph # (Auto) D-Dimer POC ABG pCO2 23.7 L POC ABG pO2 62.5 L ABG Oxyhemoglobin 91.3 L ABG Sodium 133.7 L ABG Chloride 112.0 H ABG Glucose 117 H Carboxyhemoglobin 0.4 L Sodium Potassium Chloride 109.9 H Carbon Dioxide 13 L BUN 40 H Creatinine 1.8 H Glucose 74 L POC Glucose 115 H Magnesium Ferritin AST ALT Alkaline Phosphatase Lactate Dehydrogenase C-Reactive Protein Total Protein Albumin Lipase Arterial Blood Glucose 117 H Coronavirus (PCR) 04/09/21 04/09/21 04/10/21 08:38 08:38 08:29 WBC 3.1 L 3.8 L RBC Hgb Hct MCHC 35 H RDW 15.7 H 15.7 H Plt Count 136 L [place] % (Auto) Lymph # (Auto) D-Dimer POC ABG pCO2 POC ABG pO2 ABG Oxyhemoglobin ABG Sodium ABG Chloride ABG Glucose Carboxyhemoglobin Sodium Potassium Chloride 110.4 H Carbon Dioxide 19 L BUN 35 H Creatinine 1.8 H Glucose POC Glucose Magnesium Ferritin AST 144 H ALT 92 H Alkaline Phosphatase 159 H Lactate Dehydrogenase C-Reactive Protein Total Protein Albumin 3.3 L Lipase Arterial Blood Glucose Coronavirus (PCR) 04/10/21 08:29 WBC RBC Hgb Hct MCHC RDW Plt Count [place] % (Auto) Lymph # (Auto) D-Dimer POC ABG pCO2 POC ABG pO2 ABG Oxyhemoglobin ABG Sodium ABG Chloride ABG Glucose Carboxyhemoglobin Sodium Potassium Chloride Carbon Dioxide BUN 31 H Creatinine 1.5 H Glucose 119 H POC Glucose Magnesium Ferritin AST 89 H ALT 80 H Alkaline Phosphatase 159 H Lactate Dehydrogenase C-Reactive Protein Total Protein Albumin 3.2 L Lipase Arterial Blood Glucose Coronavirus (PCR)
--- NOTE | 2021-04-10 11:23 | Progress Note ---
Assessment and Plan Assessment and plan: 60-year-old male with known history of hypertension seen in the emergency room today complaining of diarrhea and generalized weakness which started about 3 days ago. Patient states he just had his first dose of COVID-19 vaccination over the weekend and 24 hours thereafter he started having some diarrhea and generalized weakness. He denies any fever or chills, no chest pain or shortness of breath, no headache or dizziness, no diaphoresis. Patient denies any nausea vomiting, no abdominal pain, no hematuria or dysuria. He denies any sick contacts and no recent travel. Denies any contact with anyon e with COVID-19. Work-up in the emergency room today reveals elevated BUN and creatinine of 34 and 2.4 respectively. Chest x-ray reveals right lower lobe airspace opacity which could represent pneumonia or a neoplastic process. CT of the abdomen and pelvis reveals fluid and gas-filled colon without inflammation or colonic wall thickening 04/07: Patient seen and examined today continues on oxygen. ID input is noted. Have consulted pulmonary considering review of CT which shows a large mass in th e lungs. Patient may probably benefit from a bronchoscopy but will defer to pulmonary for now continue current management with steroids and remdesivir. Unfortunately I do not have any family contact information for this patient. Discussed with nursing staff to see if they can get anyone. Patient awaiting bed upstairs Patient on diagnosis Metabolic acidosis Hyperkalemia we'll give 20 of Kayexalate Thrombocytopenia unfortunately I'm not sure what the patient's baseline creatinine is but engagement director input is noted 04/08: Patient seen today, still baseline confusion, renal function showing some improvement, called family and no response. Patient now on Bicarb drip due to metabolic Acidosis, also Lung mass noted, awaiting Pulmonary re-evaluation. otherwise he is clinically stable. 04/09: Resume steroids as patient developed significant hypoxia on 15 L of oxygen. Continue to wean as tolerated he also has mittens in place due to intermittent confusion. CREATININE STILL AT 1.8 04/10: Patient seen and examined, BP slightly elevated, will add BP meds. Pulmonary recommends outpatient follow up for the lung mass, renal function is showing improvement. Continue supportive care. Wean oxygen as tolerated, continue steroids at this time. No Remdesvier secondary to the Renal function. (1) Acute renal failure (ARF) SECONDARY TO VASOMOTOR NEPHROPATHY WITH METABOLIC ACIDOSIS Current Visit: Yes Status: Acute Plan to address problem: Possibly prerenal. Patient will be placed on IV fluid normal saline. Will monitor BUN and creatinine. Consult placed to nephrology for evaluation. (2) Hypertension Current Visit: Yes Status: Acute Plan to address problem: Blood pressure stable . we will resume routine home medications once reconciled and monitor vital signs closely. (3) Pneumonia secondary to COVID-19 Current Visit: Yes Status: Acute Plan to address problem: Patient will be placed on empiric IV antibiotics in view of the chest x-ray findings. We will check for COVID-19. (4) Acute hypoxic respiratory failure (5) Right lung lung mass large (6) Acute metabolic encephalopathy -unknown baseline (7) Thrombocytopenia (8) DVT prophylaxis Current Visit: Yes Status: Acute Plan to address problem: Patient placed on subcutaneous heparin. (9) Full code status Current Visit: Yes Status: Acute Plan to address problem: Patient is full code. History Interval history: Patient seen and examined, on oxygen, due to hypoxia is on 15 L. Still with encephalopathy possible baseline. Hospitalist Physical - Physical exam Narrative exam: VITAL SIGNS: Reviewed. GENERAL: The patient appears normally developed, Vital signs as documented. HEAD: No signs of head trauma. EYES: Pupils are equal. Extraocular motions intact. EARS: Hearing grossly intact. MOUTH: Oropharynx is normal. NECK: No adenopathy, no JVD. CHEST: Chest with clear breath sounds bilaterally. No wheezes, rales, or rhonchi. CARDIAC: Regular rate and rhythm. S1 and S2, without murmurs, gallops, or rubs. VASCULAR: No Edema. Peripheral pulses normal and equal in all extremities. ABDOMEN: Soft, non tender and non distended. No rebound or guarding, and no masses palpated. Bowel Sounds normal. MUSCULOSKELETAL: Good range of motion of all major joints. Extremities without clubbing, cyanosis or edema. NEUROLOGIC EXAM: Alert and oriented x 2- some intermittent confusion No focal sensory or strength deficits. Speech normal. Follows commands. PSYCHIATRIC: Mood normal. SKIN: detail exam as documented in skin assessment - Constitutional Vitals: Temp Pulse Resp BP Pulse Ox 98.7 F 58 L 20 172/95 96 04/10/21 04:41 04/10/21 04:41 04/10/21 07:03 04/10/21 04:41 04/10/21 07:03 General appearance: Present: no acute distress, well-nourished Results - Labs CBC & Chem 7: 04/10/21 08:29 04/10/21 08:29 Labs: Laboratory Last Values WBC 3.8 K/mm3 (4.5-11.0) L 04/10/21 08:29 RBC 4.84 M/mm3 (3.65-5.03) 04/10/21 08:29 Hgb 14.2 gm/dl (11.8-15.2) 04/10/21 08:29 Hct 41.4 % (35.5-45.6) 04/10/21 08:29 MCV 85 fl (84-94) 04/10/21 08:29 MCH 29 pg (28-32) 04/10/21 08:29 MCHC 34 % (32-34) 04/10/21 08:29 RDW 15.7 % (13.2-15.2) H 04/10/21 08:29 Plt Count 161 K/mm3 (140-440) 04/10/21 08:29 Lymph % (Auto) 22.3 % (13.4-35.0) 04/07/21 04:14 [place] % (Auto) 10.8 % (0.0-7.3) H 04/07/21 04:14 Eos % (Auto) 0.0 % (0.0-4.3) 04/07/21 04:14 Baso % (Auto) 0.3 % (0.0-1.8) 04/07/21 04:14 Lymph # (Auto) 0.7 K/mm3 (1.2-5.4) L 04/07/21 04:14 [place] # (Auto) 0.4 K/mm3 (0.0-0.8) 04/07/21 04:14 Eos # (Auto) 0.0 K/mm3 (0.0-0.4) 04/07/21 04:14 Baso # (Auto) 0.0 K/mm3 (0.0-0.1) 04/07/21 04:14 Add Manual Diff Complete 04/05/21 15:03 Seg Neutrophils % 66.6 % (40.0-70.0) 04/07/21 04:14 Seg Neutrophils # 2.2 K/mm3 (1.8-7.7) 04/07/21 04:14 PT 13.5 Sec. (12.2-14.9) 04/07/21 04:14 INR 0.98 (0.87-1.13) 04/07/21 04:14 D-Dimer 721.64 ng/mlDDU (0-234) H 04/06/21 08:15 ABG pH 7.395 (7.320-7.450) 04/08/21 14:27 POC ABG pCO2 23.7 mmHg (32.0-48.0) L 04/08/21 14:27 POC ABG pO2 62.5 mmHg (83-108) L 04/08/21 14:27 POC ABG HCO3 14.2 04/08/21 14:27 ABG O2 Saturation 91.8 (0-100) 04/08/21 14:27 POC ABG Base Excess -8.6 04/08/21 14:27 ABG Hemoglobin 14.5 (12.0-17.5) 04/08/21 14:27 ABG Oxyhemoglobin 91.3 (94-98) L 04/08/21 14:27 ABG Methemoglobin 0.1 (0.0-1.5) 04/08/21 14:27 ABG Sodium 133.7 mmol/L (136.0-145.0) L 04/08/21 14:27 ABG Potassium 4.2 mmol/L (3.40-4.50) 04/08/21 14:27 ABG Chloride 112.0 mmol/L (98-107) H 04/08/21 14:27 ABG Glucose 117 mg/dL (65-95) H 04/08/21 14:27 Carboxyhemoglobin 0.4 (0.5-1.5) L 04/08/21 14:27 FiO2 % 100.0 04/08/21 14:27 Sodium 139 mmol/L (137-145) 04/10/21 08:29 Potassium 4.6 mmol/L (3.6-5.0) 04/10/21 08:29 Chloride 107.0 mmol/L (98-107) 04/10/21 08:29 Carbon Dioxide 22 mmol/L (22-30) 04/10/21 08:29 Anion Gap 15 mmol/L 04/10/21 08:29 BUN 31 mg/dL (9-20) H 04/10/21 08:29 Creatinine 1.5 mg/dL (0.8-1.3) H 04/10/21 08:29 Estimated GFR 48 ml/min 04/10/21 08:29 BUN/Creatinine Ratio 21 % 04/10/21 08:29 Glucose 119 mg/dL (75-100) H 04/10/21 08:29 POC Glucose 115 mg/dL (70-105) H 04/08/21 15:33 Lactic Acid 1.20 mmol/L (0.7-2.0) 04/09/21 08:38 Calcium 9.3 mg/dL (8.4-10.2) 04/10/21 08:29 Magnesium 2.40 mg/dL (1.7-2.3) H 04/05/21 15:03 Ferritin 1468.0 ng/mL (30.0-300.0) H 04/06/21 08:07 Total Bilirubin 0.40 mg/dL (0.1-1.2) 04/10/21 08:29 AST 89 units/L (5-40) H 04/10/21 08:29 ALT 80 units/L (7-56) H 04/10/21 08:29 Alkaline Phosphatase 159 units/L (35-129) H 04/10/21 08:29 Lactate Dehydrogenase 445 units/L (91-180) H 04/06/21 08:07 C-Reactive Protein 2.90 mg/dL (0.00-1.30) H 04/06/21 08:07 Total Protein 7.4 g/dL (6.3-8.2) 04/10/21 08:29 Albumin 3.2 g/dL (3.9-5) L 04/10/21 08:29 Albumin/Globulin Ratio 0.8 % 04/10/21 08:29 Lipase 143 units/L (13-60) H 04/05/21 15:03 Procalcitonin 0.34 ng/mL (<0.15) 04/06/21 08:15 PTH Intact 58.46 pg/mL (15-65) 04/10/21 08:29 Arterial Blood Glucose 117 mg/dL (65-95) H 04/08/21 14:27 Arterial Blood Ionized Calcium 4.8 mg/dL (4.6-5.3) 04/08/21 14:27 Coronavirus (PCR) Positive (Negative) A 04/07/21 08:15 Atkins/IV: Voiding Method Condom Catheter Active Medications - Current Medications Current Medications: Generic Name Dose Route Start Last Admin Trade Name Freq PRN Reason Stop Dose Admin Acetaminophen 650 mg 04/06/21 02:57 Acetaminophen 325 Mg Tab PO Q4H PRN Pain MILD(1-3)/Fever >100.5/BRAR Albuterol 2.5 mg 04/08/21 14:00 04/10/21 08:45 Albuterol 2.5 Mg/3 Ml Nebu IH Not Given Q6HRT BISHOP Amlodipine Besylate 5 mg 04/10/21 12:00 Amlodipine 5 Mg Tab PO QDAY BISHOP Dexamethasone 6 mg 04/09/21 10:00 04/09/21 09:44 Dexamethasone 4 Mg/Ml Vial IV 6 mg DAILY BISHOP Administration Heparin Sodium (Porcine) 5,000 unit 04/06/21 14:00 04/10/21 06:48 Heparin 5,000 Unit/1 Ml Vial SUB-Q 5,000 unit Q8HR BISHOP Administration Sodium Bicarbonate 100 meq/ 1,100 mls @ 75 mls/hr 04/07/21 13:00 04/10/21 08:31 Dextrose IV 75 mls/hr DIRECT BISHOP Administration Morphine Sulfate 2 mg 04/06/21 02:57 Morphine 2 Mg/1 Ml Inj IV Q4H PRN Pain, Moderate (4-6) Morphine Sulfate 4 mg 04/06/21 02:57 Morphine 4 Mg/1 Ml Inj IV Q4H PRN Pain , Severe (7-10) Ondansetron HCl 4 mg 04/06/21 02:57 Ondansetron 4 Mg/2 Ml Inj IV Q8H PRN Nausea And Vomiting Sodium Bicarbonate 650 mg 04/08/21 22:00 04/09/21 22:11 Sodium Bicarbonate 650 Mg Tab PO 650 mg TID BISHOP Administration Sodium Chloride 10 ml 04/06/21 10:00 04/09/21 22:12 Sodium Chloride 0.9% 10 Ml Flush Syringe IV 10 ml BID BISHOP Administration Sodium Chloride 10 ml 04/06/21 02:57 Sodium Chloride 0.9% 10 Ml Flush Syringe IV PRN PRN LINE FLUSH
[2021-04-10] MEDS: cefTRIAXone/NS 2 GM/100 ML 2 GM/100 ML BAG IV SCH (11:38)
--- NOTE | 2021-04-10 14:15 | Progress Note ---
Assessment and Plan 1. Acute kidney injury: Vasomotor ELIO in the setting of volume depletion +/- 2/[address] abdomen negative for hydro. Monitor renal function. Baseline renal function is unknown. Creatinine level is improving. Renal prognosis is guarded. Avoid nephrotoxic agents. Meds dosage based on GFR. 2. FEN: Hyperkalemia, improved, monitor. Hyperchloremic Metabolic acidosis, improving, monitor. Hyponatremia, improved, monitor. Monitor lytes and volume status. 3. Diarrhea: ?related to Covid. Monitor. 4. COVID-19 infection: Albuterol, Decadron and Abx. Anticoagulation per hospital protocol. 5. Possible lung mass: Per primary. 6. Hypertension: Monitor BP. Subjective: Patient was not examined today to limit exposure to Covid. However the examination findings from other providers noted. The current and previous medical records are reviewed in detail as are laboratory and imaging data reviewed when appropriate. Medications being given are also reviewed. In addition the case has been discussed with the attending hospitalist and the nurse when needed. New renal recommendations as above. Examination: Subjective Date of service: 04/10/21 Objective - Vital Signs Vital signs: Vital Signs - 12hr 04/10/21 04/10/21 04/10/21 04:41 07:03 11:10 Temperature 98.7 F Pulse Rate 58 L Respiratory 22 20 Rate Blood Pressure 172/95 O2 Sat by Pulse 95 96 91 Oximetry 04/10/21 11:46 Temperature Pulse Rate 68 Respiratory Rate Blood Pressure O2 Sat by Pulse 91 Oximetry - Lab 04/10/21 08:29 04/10/21 08:29 Most recent lab results ABG pH 7.395 (7.320-7.450) 04/08/21 14:27 ABG O2 Saturation 91.8 (0-100) 04/08/21 14:27 Calcium 9.3 mg/dL (8.4-10.2) 04/10/21 08:29 Magnesium 2.40 mg/dL (1.7-2.3) H 04/05/21 15:03 Medications & Allergies - Medications Allergies/Adverse Reactions: Allergies No Known Allergies Allergy (Verified 04/06/21 03:10) Home Medications: Home Medications Medication Instructions Recorded Confirmed Last Taken Type No Known Home Medications [No 04/10/21 04/10/21 Unknown History Reported Home Medications] Active Medications: Generic Name Dose Route Start Last Admin Trade Name Freq PRN Reason Stop Dose Admin Acetaminophen 650 mg 04/06/21 02:57 Acetaminophen 325 Mg Tab PO Q4H PRN Pain MILD(1-3)/Fever >100.5/BRAR Albuterol 2.5 mg 04/08/21 14:00 04/10/21 08:45 Albuterol 2.5 Mg/3 Ml Nebu IH Not Given Q6HRT BISHOP Amlodipine Besylate 5 mg 04/10/21 12:00 Amlodipine 5 Mg Tab PO QDAY BISHOP Dexamethasone 6 mg 04/09/21 10:00 04/10/21 10:00 Dexamethasone 4 Mg/Ml Vial IV 04/18/21 10:01 6 mg DAILY BISHOP Administration Heparin Sodium (Porcine) 5,000 unit 04/06/21 14:00 04/10/21 06:48 Heparin 5,000 Unit/1 Ml Vial SUB-Q 5,000 unit Q8HR BISHOP Administration Sodium Bicarbonate 100 meq/ 1,100 mls @ 75 mls/hr 04/07/21 13:00 04/10/21 08:31 Dextrose IV 75 mls/hr DIRECT BISHOP Administration Morphine Sulfate 2 mg 04/06/21 02:57 Morphine 2 Mg/1 Ml Inj IV Q4H PRN Pain, Moderate (4-6) Morphine Sulfate 4 mg 04/06/21 02:57 Morphine 4 Mg/1 Ml Inj IV Q4H PRN Pain , Severe (7-10) Ondansetron HCl 4 mg 04/06/21 02:57 Ondansetron 4 Mg/2 Ml Inj IV Q8H PRN Nausea And Vomiting Sodium Bicarbonate 650 mg 04/08/21 22:00 04/10/21 09:55 Sodium Bicarbonate 650 Mg Tab PO 650 mg TID BISHOP Administration Sodium Chloride 10 ml 04/06/21 10:00 04/10/21 11:41 Sodium Chloride 0.9% 10 Ml Flush Syringe IV 10 ml BID BISHOP Administration Sodium Chloride 10 ml 04/06/21 02:57 Sodium Chloride 0.9% 10 Ml Flush Syringe IV PRN PRN LINE FLUSH
[2021-04-10] MEDS: amLODIPine 5 MG TAB PO SCH (14:52)
[2021-04-10] MEDS ORDERED: ALBUTEROL 8.5 GM MDI INHALATION IH ONE (22:00)
[2021-04-11] MEDS: HEPARIN 5,000 UNIT/1 ML VIAL SUB-Q SCH ×3 (05:46→21:41)
--- NOTE | 2021-04-11 08:17 | Progress Note ---
Assessment and Plan 1. Acute kidney injury: Vasomotor ELIO in the setting of volume depletion +/- 2/[address] abdomen negative for hydro. Monitor renal function. Baseline renal function is unknown. Creatinine level is improving. Avoid nephrotoxic agents. Meds dosage based on GFR. 2. FEN: Hyperkalemia, improved, monitor. Hyperchloremic Metabolic acidosis, improved, monitor. Hyponatremia, improved, monitor. Monitor lytes and volume status. 3. Diarrhea: ?related to Covid. Monitor. 4. COVID-19 infection: Albuterol, Decadron and Abx. Anticoagulation per hospital protocol. 5. Possible lung mass: Per primary. 6. Hypertension: Monitor BP. Subjective: Patient was examined at the bedside. Examination: General appearance: well-developed, appears stated age, not in distress, mittens HEENT: ATNC Neck: Trachea midline Respiratory: bibasal rales heard Cardiology: S1S2, no murmur Gastrointestinal: soft, obese, bowel sounds heard, not tender Integumentary: warm and dry Neurologic: alert, confused, able to move extremities Ext: no edema Subjective Date of service: 04/11/21 Objective - Vital Signs Vital signs: Vital Signs - 12hr 04/10/21 04/10/21 04/10/21 21:22 21:30 22:00 Temperature Pulse Rate Respiratory 22 Rate Blood Pressure O2 Sat by Pulse 92 96 96 Oximetry 04/11/21 04/11/21 01:02 05:24 Temperature 98.2 F 98.0 F Pulse Rate 62 58 L Respiratory 20 20 Rate Blood Pressure 152/84 168/75 O2 Sat by Pulse 91 90 Oximetry - Lab 04/10/21 08:29 04/10/21 08:29 Most recent lab results ABG pH 7.395 (7.320-7.450) 04/08/21 14:27 ABG O2 Saturation 91.8 (0-100) 04/08/21 14:27 Calcium 9.3 mg/dL (8.4-10.2) 04/10/21 08:29 Magnesium 2.40 mg/dL (1.7-2.3) H 04/05/21 15:03 Medications & Allergies - Medications Allergies/Adverse Reactions: Allergies No Known Allergies Allergy (Verified 04/06/21 03:10) Home Medications: Home Medications Medication Instructions Recorded Confirmed Last Taken Type No Known Home Medications [No 04/10/21 04/10/21 Unknown History Reported Home Medications] Active Medications: Generic Name Dose Route Start Last Admin Trade Name Tyrelq PRN Reason Stop Dose Admin Acetaminophen 650 mg 04/06/21 02:57 Acetaminophen 325 Mg Tab PO Q4H PRN Pain MILD(1-3)/Fever >100.5/BRAR Amlodipine Besylate 5 mg 04/10/21 12:00 04/10/21 14:52 Amlodipine 5 Mg Tab PO 5 mg QDAY BISHOP Administration Dexamethasone 6 mg 04/09/21 10:00 04/10/21 10:00 Dexamethasone 4 Mg/Ml Vial IV 04/18/21 10:01 6 mg DAILY BISHOP Administration Heparin Sodium (Porcine) 5,000 unit 04/06/21 14:00 04/11/21 05:46 Heparin 5,000 Unit/1 Ml Vial SUB-Q 5,000 unit Q8HR BISHOP Administration Sodium Bicarbonate 100 meq/ 1,100 mls @ 75 mls/hr 04/07/21 13:00 04/10/21 08:31 Dextrose IV 75 mls/hr DIRECT BISHOP Administration Morphine Sulfate 2 mg 04/06/21 02:57 Morphine 2 Mg/1 Ml Inj IV Q4H PRN Pain, Moderate (4-6) Morphine Sulfate 4 mg 04/06/21 02:57 Morphine 4 Mg/1 Ml Inj IV Q4H PRN Pain , Severe (7-10) Ondansetron HCl 4 mg 04/06/21 02:57 Ondansetron 4 Mg/2 Ml Inj IV Q8H PRN Nausea And Vomiting Sodium Bicarbonate 650 mg 04/08/21 22:00 04/10/21 21:17 Sodium Bicarbonate 650 Mg Tab PO 650 mg TID BISHOP Administration Sodium Chloride 10 ml 04/06/21 10:00 04/10/21 21:18 Sodium Chloride 0.9% 10 Ml Flush Syringe IV 10 ml BID BISHOP Administration Sodium Chloride 10 ml 04/06/21 02:57 Sodium Chloride 0.9% 10 Ml Flush Syringe IV PRN PRN LINE FLUSH
--- NOTE | 2021-04-11 09:19 | Progress Note ---
Assessment and Plan 60 y/o male with ILD, right lower lobe lung mass and COVID 19 with acute respiratory failure. 04/11/21: Continue to wean FiO2 as tolerated for sats >88%. Continue steroids. Mass work up likely will have to be done as an outpatient. 1. Pulm- Agreed that biopsy is needed but must recover from COVID first. Would suggest CT guided biopsy. Lesion does appear amenable to bronch but would need to be Tbbx and may not get enough tissue. could consider EBUS if not able to get with CT guided biopsy. needs full work up of ILD as well but this can be done as an outpatient. Will continue current dose of steroids, however if oxygenation worsens would switch to higher doses. No puffers available in this hospital except albuterol. No nebs given COVID status. Guarded prognosis. Subjective Date of service: 04/11/21 Interval history: No acute events. Down to 8 liters. Awaiting RT assessment this am. Objective Vital Signs - 12hr 04/10/21 04/10/21 04/10/21 21:22 21:30 22:00 Temperature Pulse Rate Respiratory 22 Rate Blood Pressure O2 Sat by Pulse 92 96 96 Oximetry 04/11/21 04/11/21 01:02 05:24 Temperature 98.2 F 98.0 F Pulse Rate 62 58 L Respiratory 20 20 Rate Blood Pressure 152/84 168/75 O2 Sat by Pulse 91 90 Oximetry Constitutional: no acute distress, alert, appears uncomfortable ENT: oropharynx moist Neck: supple, no JVD Ascultation: Bilateral: diminished breath sounds Cardiovascular: regular rate and rhythm Gastrointestinal: normoactive bowel sounds, soft, non-tender Extremities: no cyanosis, other (Clubbing of the fingernails noted) Neurologic: normal mental status Psychiatric: mood appropriate CBC and BMP: 04/10/21 08:29 04/10/21 08:29 ABG, PT/INR, D-dimer: ABG ABG pH 7.395 (7.320-7.450) 04/08/21 14:27 POC ABG pCO2 23.7 mmHg (32.0-48.0) L 04/08/21 14:27 POC ABG pO2 62.5 mmHg (83-108) L 04/08/21 14:27 POC ABG HCO3 14.2 04/08/21 14:27 ABG O2 Saturation 91.8 (0-100) 04/08/21 14:27 PT/INR, D-dimer PT 13.5 Sec. (12.2-14.9) 04/07/21 04:14 INR 0.98 (0.87-1.13) 04/07/21 04:14 D-Dimer 721.64 ng/mlDDU (0-234) H 04/06/21 08:15 Abnormal lab findings: Abnormal Labs 04/05/21 04/05/21 04/05/21 15:03 15:03 21:28 WBC RBC 5.40 H Hgb 15.9 H Hct 49.5 H MCHC RDW 17.3 H Plt Count 106 L [place] % (Auto) 9.0 H Lymph # (Auto) D-Dimer POC ABG pCO2 POC ABG pO2 ABG Oxyhemoglobin ABG Sodium ABG Chloride ABG Glucose Carboxyhemoglobin Sodium 135 L 135 L Potassium 6.2 H* Chloride Carbon Dioxide 11 L 12 L BUN 34 H 42 H Creatinine 2.4 H 3.2 H Glucose 121 H POC Glucose Magnesium 2.40 H Ferritin AST 56 H ALT Alkaline Phosphatase Lactate Dehydrogenase C-Reactive Protein Total Protein 8.7 H Albumin Lipase 143 H Arterial Blood Glucose Coronavirus (PCR) 04/06/21 04/06/21 04/06/21 08:07 08:07 08:15 WBC RBC Hgb Hct MCHC RDW Plt Count [place] % (Auto) Lymph # (Auto) D-Dimer 721.64 H POC ABG pCO2 POC ABG pO2 ABG Oxyhemoglobin ABG Sodium ABG Chloride ABG Glucose Carboxyhemoglobin Sodium Potassium Chloride Carbon Dioxide BUN Creatinine Glucose POC Glucose Magnesium Ferritin 1468.0 H AST ALT Alkaline Phosphatase Lactate Dehydrogenase 445 H C-Reactive Protein 2.90 H Total Protein Albumin Lipase Arterial Blood Glucose Coronavirus (PCR) 04/07/21 04/07/21 04/07/21 04:14 04:14 08:15 WBC 3.2 L RBC Hgb Hct MCHC RDW 16.0 H Plt Count 101 L [place] % (Auto) 10.8 H Lymph # (Auto) 0.7 L D-Dimer POC ABG pCO2 POC ABG pO2 ABG Oxyhemoglobin ABG Sodium ABG Chloride ABG Glucose Carboxyhemoglobin Sodium Potassium 5.6 H Chloride 111.6 H Carbon Dioxide 16 L BUN 43 H Creatinine 2.5 H Glucose POC Glucose Magnesium Ferritin AST ALT Alkaline Phosphatase Lactate Dehydrogenase C-Reactive Protein Total Protein Albumin Lipase Arterial Blood Glucose Coronavirus (PCR) Positive A 04/08/21 04/08/21 04/08/21 08:00 14:27 15:33 WBC RBC Hgb Hct MCHC RDW Plt Count [place] % (Auto) Lymph # (Auto) D-Dimer POC ABG pCO2 23.7 L POC ABG pO2 62.5 L ABG Oxyhemoglobin 91.3 L ABG Sodium 133.7 L ABG Chloride 112.0 H ABG Glucose 117 H Carboxyhemoglobin 0.4 L Sodium Potassium Chloride 109.9 H Carbon Dioxide 13 L BUN 40 H Creatinine 1.8 H Glucose 74 L POC Glucose 115 H Magnesium Ferritin AST ALT Alkaline Phosphatase Lactate Dehydrogenase C-Reactive Protein Total Protein Albumin Lipase Arterial Blood Glucose 117 H Coronavirus (PCR) 04/09/21 04/09/21 04/10/21 08:38 08:38 08:29 WBC 3.1 L 3.8 L RBC Hgb Hct MCHC 35 H RDW 15.7 H 15.7 H Plt Count 136 L [place] % (Auto) Lymph # (Auto) D-Dimer POC ABG pCO2 POC ABG pO2 ABG Oxyhemoglobin ABG Sodium ABG Chloride ABG Glucose Carboxyhemoglobin Sodium Potassium Chloride 110.4 H Carbon Dioxide 19 L BUN 35 H Creatinine 1.8 H Glucose POC Glucose Magnesium Ferritin AST 144 H ALT 92 H Alkaline Phosphatase 159 H Lactate Dehydrogenase C-Reactive Protein Total Protein Albumin 3.3 L Lipase Arterial Blood Glucose Coronavirus (PCR) 04/10/21 08:29 WBC RBC Hgb Hct MCHC RDW Plt Count [place] % (Auto) Lymph # (Auto) D-Dimer POC ABG pCO2 POC ABG pO2 ABG Oxyhemoglobin ABG Sodium ABG Chloride ABG Glucose Carboxyhemoglobin Sodium Potassium Chloride Carbon Dioxide BUN 31 H Creatinine 1.5 H Glucose 119 H POC Glucose Magnesium Ferritin AST 89 H ALT 80 H Alkaline Phosphatase 159 H Lactate Dehydrogenase C-Reactive Protein Total Protein Albumin 3.2 L Lipase Arterial Blood Glucose Coronavirus (PCR)
[2021-04-11] MEDS: dexAMETHasone 4 MG/ML VIAL IV SCH (11:18)
[2021-04-11] MEDS: amLODIPine 5 MG TAB PO SCH (11:30)
--- NOTE | 2021-04-11 12:48 | Progress Note ---
Assessment and Plan Cultures: Blood culture no growth so far COVID PCR positive. A/P: 60 yo M PMHx HTN admitted with ELIO, diarrhea, found to have possible lung mass #COVID pneumonia: Difficult to interpret imaging in the setting of possible lung mass #POssible lung mass: for outpatient work up. #ELIO: renally dose antibiotics #Diarrhea: possibly related to ELIO. Recs: -Steroids to complete 10 days. -Started remdesivir for 5 days. -Completed empiric antibiotics -Anticoagulation per hospital protocol -Proning as able Thank you for the consult, we will continue to follow. Radu Causey MD [facility] ([facility] O: [phone] F: [phone] Subjective Date of service: 04/11/21 Interval history: Afebrile, white count 3.8. Objective - Exam Narrative Exam: Physical exam deferred to reduce risk of transmission of COVID-19. Please refer to primary team's note. - Constitutional Vitals: Vital Signs Temp Pulse Resp BP Pulse Ox 98.0 F 58 L 20 168/75 90 04/11/21 05:24 04/11/21 05:24 04/11/21 05:24 04/11/21 05:24 04/11/21 05:24 Temperature -Last 24 Hours Temperature 98.0 F Temperature 98.2 F - Labs CBC & Chem 7: 04/10/21 08:29 04/10/21 08:29
[2021-04-11] MEDS ORDERED: REMDESIVIR 200 MG in SODIUM CHLORIDE 0.9% 250ML 250 ML IV ONE (13:30)
[2021-04-11] MEDS: SODIUM BICARBONATE 650 MG TAB PO SCH ×3 (14:20→21:41)
--- NOTE | 2021-04-11 18:39 | Progress Note ---
Assessment and Plan Assessment and plan: 60-year-old male with known history of hypertension seen in the emergency room today complaining of diarrhea and generalized weakness which started about 3 days ago. Patient states he just had his first dose of COVID-19 vaccination over the weekend and 24 hours thereafter he started having some diarrhea and generalized weakness. He denies any fever or chills, no chest pain or shortness of breath, no headache or dizziness, no diaphoresis. Patient denies any nausea vomiting, no abdominal pain, no hematuria or dysuria. He denies any sick contacts and no recent travel. Denies any contact with anyon e with COVID-19. Work-up in the emergency room today reveals elevated BUN and creatinine of 34 and 2.4 respectively. Chest x-ray reveals right lower lobe airspace opacity which could represent pneumonia or a neoplastic process. CT of the abdomen and pelvis reveals fluid and gas-filled colon without inflammation or colonic wall thickening 04/07: Patient seen and examined today continues on oxygen. ID input is noted. Have consulted pulmonary considering review of CT which shows a large mass in th e lungs. Patient may probably benefit from a bronchoscopy but will defer to pulmonary for now continue current management with steroids and remdesivir. Unfortunately I do not have any family contact information for this patient. Discussed with nursing staff to see if they can get anyone. 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 Patient now on Bicarb drip due to metabolic Acidosis, also Lung mass noted, awaiting Pulmonary re-evaluation. otherwise he is clinically stable. 04/09: Resume steroids as patient developed significant hypoxia on 15 L of oxygen. Continue to wean as tolerated he also has mittens in place due to intermittent confusion. CREATININE STILL AT 1.8 04/10: Patient seen and examined, BP slightly elevated, will add BP meds. Pulmonary recommends outpatient follow up for the lung mass, renal function is showing improvement. Continue supportive care. Wean oxygen as tolerated, continue steroids at this time. No Remdesvier secondary to the Renal function. 04/11/21 Patient with Covid-19 with acute resp failure. On Oxygen at 10 l/min. Has right lung mass, to follow with Pulmonology as outpatient.Cr 1.5 today, improving. (1) Acute renal failure (ARF) SECONDARY TO VASOMOTOR NEPHROPATHY WITH METABOLIC ACIDOSIS Current Visit: Yes Status: Acute Plan to address problem: Possibly prerenal. Patient will be placed on IV fluid normal saline. Will monitor BUN and creatinine. Consult placed to nephrology for evaluation. (2) Hypertension Current Visit: Yes Status: Acute Plan to address problem: Blood pressure stable . we will resume routine home medications once reconciled and monitor vital signs closely. (3) Pneumonia secondary to COVID-19 Current Visit: Yes Status: Acute Plan to address problem: Patient will be placed on empiric IV antibiotics in view of the chest x-ray findings. We will check for COVID-19. (4) Acute hypoxic respiratory failure (5) Right lung lung mass large (6) Acute metabolic encephalopathy -unknown baseline (7) Thrombocytopenia (8) DVT prophylaxis Current Visit: Yes Status: Acute Plan to address problem: Patient placed on subcutaneous heparin. (9) Full code status Current Visit: Yes Status: Acute Plan to address problem: Patient is full code. History Interval history: Shortness of breath Hospitalist Physical - Physical exam Narrative exam: Gen:Not in acute distress, lying in bed HEENT:Normocephalic, atraumatic Neck:supple, no JVD Lungs: Bilateral crackles, no wheeze Heart:S1 and S2 reg, no murmurs, rubs or gallop Abd:Soft, non tender, non distended, normal bowel sounds Ext:No edema. no clubbing, no cyanosis Neuro:Awake, alert, oriented X 3, moves all ext - Constitutional Vitals: Temp Pulse Resp BP Pulse Ox 98.6 F 64 19 140/72 87 04/11/21 11:35 04/11/21 15:41 04/11/21 11:35 04/11/21 11:35 04/11/21 15:41 General appearance: Present: no acute distress, well-nourished Results - Labs CBC & Chem 7: 04/10/21 08:29 04/10/21 08:29 Labs: Laboratory Last Values WBC 3.8 K/mm3 (4.5-11.0) L 04/10/21 08:29 RBC 4.84 M/mm3 (3.65-5.03) 04/10/21 08:29 Hgb 14.2 gm/dl (11.8-15.2) 04/10/21 08:29 Hct 41.4 % (35.5-45.6) 04/10/21 08:29 MCV 85 fl (84-94) 04/10/21 08:29 MCH 29 pg (28-32) 04/10/21 08:29 MCHC 34 % (32-34) 04/10/21 08:29 RDW 15.7 % (13.2-15.2) H 04/10/21 08:29 Plt Count 161 K/mm3 (140-440) 04/10/21 08:29 Lymph % (Auto) 22.3 % (13.4-35.0) 04/07/21 04:14 [place] % (Auto) 10.8 % (0.0-7.3) H 04/07/21 04:14 Eos % (Auto) 0.0 % (0.0-4.3) 04/07/21 04:14 Baso % (Auto) 0.3 % (0.0-1.8) 04/07/21 04:14 Lymph # (Auto) 0.7 K/mm3 (1.2-5.4) L 04/07/21 04:14 [place] # (Auto) 0.4 K/mm3 (0.0-0.8) 04/07/21 04:14 Eos # (Auto) 0.0 K/mm3 (0.0-0.4) 04/07/21 04:14 Baso # (Auto) 0.0 K/mm3 (0.0-0.1) 04/07/21 04:14 Add Manual Diff Complete 04/05/21 15:03 Seg Neutrophils % 66.6 % (40.0-70.0) 04/07/21 04:14 Seg Neutrophils # 2.2 K/mm3 (1.8-7.7) 04/07/21 04:14 PT 13.5 Sec. (12.2-14.9) 04/07/21 04:14 INR 0.98 (0.87-1.13) 04/07/21 04:14 D-Dimer 721.64 ng/mlDDU (0-234) H 04/06/21 08:15 ABG pH 7.395 (7.320-7.450) 04/08/21 14:27 POC ABG pCO2 23.7 mmHg (32.0-48.0) L 04/08/21 14:27 POC ABG pO2 62.5 mmHg (83-108) L 04/08/21 14:27 POC ABG HCO3 14.2 04/08/21 14:27 ABG O2 Saturation 91.8 (0-100) 04/08/21 14:27 POC ABG Base Excess -8.6 04/08/21 14:27 ABG Hemoglobin 14.5 (12.0-17.5) 04/08/21 14:27 ABG Oxyhemoglobin 91.3 (94-98) L 04/08/21 14:27 ABG Methemoglobin 0.1 (0.0-1.5) 04/08/21 14:27 ABG Sodium 133.7 mmol/L (136.0-145.0) L 04/08/21 14:27 ABG Potassium 4.2 mmol/L (3.40-4.50) 04/08/21 14:27 ABG Chloride 112.0 mmol/L (98-107) H 04/08/21 14:27 ABG Glucose 117 mg/dL (65-95) H 04/08/21 14:27 Carboxyhemoglobin 0.4 (0.5-1.5) L 04/08/21 14:27 FiO2 % 100.0 04/08/21 14:27 Sodium 139 mmol/L (137-145) 04/10/21 08:29 Potassium 4.6 mmol/L (3.6-5.0) 04/10/21 08:29 Chloride 107.0 mmol/L (98-107) 04/10/21 08:29 Carbon Dioxide 22 mmol/L (22-30) 04/10/21 08:29 Anion Gap 15 mmol/L 04/10/21 08:29 BUN 31 mg/dL (9-20) H 04/10/21 08:29 Creatinine 1.5 mg/dL (0.8-1.3) H 04/10/21 08:29 Estimated GFR 48 ml/min 04/10/21 08:29 BUN/Creatinine Ratio 21 % 04/10/21 08:29 Glucose 119 mg/dL (75-100) H 04/10/21 08:29 POC Glucose 115 mg/dL (70-105) H 04/08/21 15:33 Lactic Acid 1.20 mmol/L (0.7-2.0) 04/09/21 08:38 Calcium 9.3 mg/dL (8.4-10.2) 04/10/21 08:29 Magnesium 2.40 mg/dL (1.7-2.3) H 04/05/21 15:03 Ferritin 1468.0 ng/mL (30.0-300.0) H 04/06/21 08:07 Total Bilirubin 0.40 mg/dL (0.1-1.2) 04/10/21 08:29 AST 89 units/L (5-40) H 04/10/21 08:29 ALT 80 units/L (7-56) H 04/10/21 08:29 Alkaline Phosphatase 159 units/L (35-129) H 04/10/21 08:29 Lactate Dehydrogenase 445 units/L (91-180) H 04/06/21 08:07 C-Reactive Protein 2.90 mg/dL (0.00-1.30) H 04/06/21 08:07 Total Protein 7.4 g/dL (6.3-8.2) 04/10/21 08:29 Albumin 3.2 g/dL (3.9-5) L 04/10/21 08:29 Albumin/Globulin Ratio 0.8 % 04/10/21 08:29 Lipase 143 units/L (13-60) H 04/05/21 15:03 Procalcitonin 0.34 ng/mL (<0.15) 04/06/21 08:15 PTH Intact 58.46 pg/mL (15-65) 04/10/21 08:29 Arterial Blood Glucose 117 mg/dL (65-95) H 04/08/21 14:27 Arterial Blood Ionized Calcium 4.8 mg/dL (4.6-5.3) 04/08/21 14:27 Coronavirus (PCR) Positive (Negative) A 04/07/21 08:15 Atkins/IV: Voiding Method Condom Catheter Active Medications - Current Medications Current Medications: Generic Name Dose Route Start Last Admin Trade Name Freq PRN Reason Stop Dose Admin Acetaminophen 650 mg 04/06/21 02:57 Acetaminophen 325 Mg Tab PO Q4H PRN Pain MILD(1-3)/Fever >100.5/BRAR Amlodipine Besylate 5 mg 04/10/21 12:00 04/11/21 11:30 Amlodipine 5 Mg Tab PO 5 mg QDAY BISHOP Administration Dexamethasone 6 mg 04/09/21 10:00 04/11/21 11:18 Dexamethasone 4 Mg/Ml Vial IV 04/18/21 10:01 6 mg DAILY BISHOP Administration Heparin Sodium (Porcine) 5,000 unit 04/06/21 14:00 04/11/21 14:19 Heparin 5,000 Unit/1 Ml Vial SUB-Q 5,000 unit Q8HR BISHOP Administration Sodium Bicarbonate 100 meq/ 1,100 mls @ 75 mls/hr 04/07/21 13:00 04/10/21 08:31 Dextrose IV 75 mls/hr DIRECT BISHOP Administration REMDESIVIR 100 mg/ Sodium 250 mls @ 500 mls/hr 04/12/21 21:00 Chloride IV 04/15/21 21:29 Q24HR@2100 BISHOP Morphine Sulfate 2 mg 04/06/21 02:57 Morphine 2 Mg/1 Ml Inj IV Q4H PRN Pain, Moderate (4-6) Morphine Sulfate 4 mg 04/06/21 02:57 Morphine 4 Mg/1 Ml Inj IV Q4H PRN Pain , Severe (7-10) Ondansetron HCl 4 mg 04/06/21 02:57 Ondansetron 4 Mg/2 Ml Inj IV Q8H PRN Nausea And Vomiting Sodium Bicarbonate 650 mg 04/08/21 22:00 04/11/21 18:18 Sodium Bicarbonate 650 Mg Tab PO 650 mg TID BISHOP Administration Sodium Chloride 10 ml 04/06/21 10:00 04/11/21 18:19 Sodium Chloride 0.9% 10 Ml Flush Syringe IV 10 ml BID BISHOP Administration Sodium Chloride 10 ml 04/06/21 02:57 Sodium Chloride 0.9% 10 Ml Flush Syringe IV PRN PRN LINE FLUSH Sodium Chloride 50 ml 04/11/21 21:00 Sodium Chloride 0.9% 50 Ml Ivpb IV 04/15/21 21:01 Q24HR@2100 BISHOP
[2021-04-11] MEDS: SODIUM CHLORIDE 0.9% 50 ML IVPB IV SCH (21:44)
[2021-04-12] MEDS: HEPARIN 5,000 UNIT/1 ML VIAL SUB-Q SCH ×3 (05:45→21:31)
[2021-04-12] MEDS: SODIUM BICARBONATE 100 MEQ in DEXTROSE 5% IN WATER 1,000 ML IV SCH (05:45)
[2021-04-12] MEDS: dexAMETHasone 4 MG/ML VIAL IV SCH (09:44)
[2021-04-12] MEDS: SODIUM BICARBONATE 650 MG TAB PO SCH ×3 (09:44→21:31)
[2021-04-12] MEDS: amLODIPine 5 MG TAB PO SCH (09:48)
--- NOTE | 2021-04-12 12:03 | Progress Note ---
Assessment and Plan Assessment and plan: 60-year-old male with known history of hypertension seen in the emergency room today complaining of diarrhea and generalized weakness which started about 3 days ago. Patient states he just had his first dose of COVID-19 vaccination over the weekend and 24 hours thereafter he started having some diarrhea and generalized weakness. He denies any fever or chills, no chest pain or shortness of breath, no headache or dizziness, no diaphoresis. Patient denies any nausea vomiting, no abdominal pain, no hematuria or dysuria. He denies any sick contacts and no recent travel. Denies any contact with anyon e with COVID-19. Work-up in the emergency room today reveals elevated BUN and creatinine of 34 and 2.4 respectively. Chest x-ray reveals right lower lobe airspace opacity which could represent pneumonia or a neoplastic process. CT of the abdomen and pelvis reveals fluid and gas-filled colon without inflammation or colonic wall thickening 04/07: Patient seen and examined today continues on oxygen. ID input is noted. Have consulted pulmonary considering review of CT which shows a large mass in th e lungs. Patient may probably benefit from a bronchoscopy but will defer to pulmonary for now continue current management with steroids and remdesivir. Unfortunately I do not have any family contact information for this patient. Discussed with nursing staff to see if they can get anyone. 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 Patient now on Bicarb drip due to metabolic Acidosis, also Lung mass noted, awaiting Pulmonary re-evaluation. otherwise he is clinically stable. 04/09: Resume steroids as patient developed significant hypoxia on 15 L of oxygen. Continue to wean as tolerated he also has mittens in place due to intermittent confusion. CREATININE STILL AT 1.8 04/10: Patient seen and examined, BP slightly elevated, will add BP meds. Pulmonary recommends outpatient follow up for the lung mass, renal function is showing improvement. Continue supportive care. Wean oxygen as tolerated, continue steroids at this time. No Remdesvier secondary to the Renal function. 04/11/21 Patient with Covid-19 with acute resp failure. On Oxygen at 10 l/min. Has right lung mass, to follow with Pulmonology as outpatient.Cr 1.5 today, improving. 04/12/21 Patient with Covid-19 with acute respiratory failure. Still on Oxygen at 10 l/min. Patient has been refusing blood draw so no labs for 2 days. He has Right lung mass and needs to follow with Pulmonology as outpatient. (1) Acute renal failure (ARF) SECONDARY TO VASOMOTOR NEPHROPATHY WITH METABOLIC ACIDOSIS Current Visit: Yes Status: Acute Plan to address problem: Possibly prerenal. Patient will be placed on IV fluid normal saline. Will monitor BUN and creatinine. Consult placed to nephrology for evaluation. (2) Hypertension Current Visit: Yes Status: Acute Plan to address problem: Blood pressure stable . we will resume routine home medications once reconciled and monitor vital signs closely. (3) Pneumonia secondary to COVID-19 Current Visit: Yes Status: Acute Plan to address problem: Patient will be placed on empiric IV antibiotics in view of the chest x-ray findings. We will check for COVID-19. (4) Acute hypoxic respiratory failure (5) Right lung lung mass large (6) Acute metabolic encephalopathy -unknown baseline (7) Thrombocytopenia (8) DVT prophylaxis Current Visit: Yes Status: Acute Plan to address problem: Patient placed on subcutaneous heparin. (9) Full code status Current Visit: Yes Status: Acute Plan to address problem: Patient is full code. History Interval history: Shortness of breath Hospitalist Physical - Physical exam Narrative exam: Gen:Not in acute distress, lying in bed HEENT:Normocephalic, atraumatic Neck:supple, no JVD Lungs: Bilateral crackles, no wheeze Heart:S1 and S2 reg, no murmurs, rubs or gallop Abd:Soft, non tender, non distended, normal bowel sounds Ext:No edema. no clubbing, no cyanosis Neuro:Awake, alert, oriented X 3, moves all ext - Constitutional Vitals: Temp Pulse Resp BP Pulse Ox 98.2 F 73 18 159/74 99 04/12/21 04:13 04/12/21 09:48 04/12/21 04:13 04/12/21 09:48 04/12/21 05:03 General appearance: Present: no acute distress, well-nourished Results - Labs CBC & Chem 7: 04/10/21 08:29 04/10/21 08:29 Labs: Laboratory Last Values WBC 3.8 K/mm3 (4.5-11.0) L 04/10/21 08:29 RBC 4.84 M/mm3 (3.65-5.03) 04/10/21 08:29 Hgb 14.2 gm/dl (11.8-15.2) 04/10/21 08:29 Hct 41.4 % (35.5-45.6) 04/10/21 08:29 MCV 85 fl (84-94) 04/10/21 08:29 MCH 29 pg (28-32) 04/10/21 08:29 MCHC 34 % (32-34) 04/10/21 08:29 RDW 15.7 % (13.2-15.2) H 04/10/21 08:29 Plt Count 161 K/mm3 (140-440) 04/10/21 08:29 Lymph % (Auto) 22.3 % (13.4-35.0) 04/07/21 04:14 [place] % (Auto) 10.8 % (0.0-7.3) H 04/07/21 04:14 Eos % (Auto) 0.0 % (0.0-4.3) 04/07/21 04:14 Baso % (Auto) 0.3 % (0.0-1.8) 04/07/21 04:14 Lymph # (Auto) 0.7 K/mm3 (1.2-5.4) L 04/07/21 04:14 [place] # (Auto) 0.4 K/mm3 (0.0-0.8) 04/07/21 04:14 Eos # (Auto) 0.0 K/mm3 (0.0-0.4) 04/07/21 04:14 Baso # (Auto) 0.0 K/mm3 (0.0-0.1) 04/07/21 04:14 Add Manual Diff Complete 04/05/21 15:03 Seg Neutrophils % 66.6 % (40.0-70.0) 04/07/21 04:14 Seg Neutrophils # 2.2 K/mm3 (1.8-7.7) 04/07/21 04:14 PT 13.5 Sec. (12.2-14.9) 04/07/21 04:14 INR 0.98 (0.87-1.13) 04/07/21 04:14 D-Dimer 721.64 ng/mlDDU (0-234) H 04/06/21 08:15 ABG pH 7.395 (7.320-7.450) 04/08/21 14:27 POC ABG pCO2 23.7 mmHg (32.0-48.0) L 04/08/21 14:27 POC ABG pO2 62.5 mmHg (83-108) L 04/08/21 14:27 POC ABG HCO3 14.2 04/08/21 14:27 ABG O2 Saturation 91.8 (0-100) 04/08/21 14:27 POC ABG Base Excess -8.6 04/08/21 14:27 ABG Hemoglobin 14.5 (12.0-17.5) 04/08/21 14:27 ABG Oxyhemoglobin 91.3 (94-98) L 04/08/21 14:27 ABG Methemoglobin 0.1 (0.0-1.5) 04/08/21 14:27 ABG Sodium 133.7 mmol/L (136.0-145.0) L 04/08/21 14:27 ABG Potassium 4.2 mmol/L (3.40-4.50) 04/08/21 14:27 ABG Chloride 112.0 mmol/L (98-107) H 04/08/21 14:27 ABG Glucose 117 mg/dL (65-95) H 04/08/21 14:27 Carboxyhemoglobin 0.4 (0.5-1.5) L 04/08/21 14:27 FiO2 % 100.0 04/08/21 14:27 Sodium 139 mmol/L (137-145) 04/10/21 08:29 Potassium 4.6 mmol/L (3.6-5.0) 04/10/21 08:29 Chloride 107.0 mmol/L (98-107) 04/10/21 08:29 Carbon Dioxide 22 mmol/L (22-30) 04/10/21 08:29 Anion Gap 15 mmol/L 04/10/21 08:29 BUN 31 mg/dL (9-20) H 04/10/21 08:29 Creatinine 1.5 mg/dL (0.8-1.3) H 04/10/21 08:29 Estimated GFR 48 ml/min 04/10/21 08:29 BUN/Creatinine Ratio 21 % 04/10/21 08:29 Glucose 119 mg/dL (75-100) H 04/10/21 08:29 POC Glucose 115 mg/dL (70-105) H 04/08/21 15:33 Lactic Acid 1.20 mmol/L (0.7-2.0) 04/09/21 08:38 Calcium 9.3 mg/dL (8.4-10.2) 04/10/21 08:29 Magnesium 2.40 mg/dL (1.7-2.3) H 04/05/21 15:03 Ferritin 1468.0 ng/mL (30.0-300.0) H 04/06/21 08:07 Total Bilirubin 0.40 mg/dL (0.1-1.2) 04/10/21 08:29 AST 89 units/L (5-40) H 04/10/21 08:29 ALT 80 units/L (7-56) H 04/10/21 08:29 Alkaline Phosphatase 159 units/L (35-129) H 04/10/21 08:29 Lactate Dehydrogenase 445 units/L (91-180) H 04/06/21 08:07 C-Reactive Protein 2.90 mg/dL (0.00-1.30) H 04/06/21 08:07 Total Protein 7.4 g/dL (6.3-8.2) 04/10/21 08:29 Albumin 3.2 g/dL (3.9-5) L 04/10/21 08:29 Albumin/Globulin Ratio 0.8 % 04/10/21 08:29 Lipase 143 units/L (13-60) H 04/05/21 15:03 Procalcitonin 0.34 ng/mL (<0.15) 04/06/21 08:15 PTH Intact 58.46 pg/mL (15-65) 04/10/21 08:29 Arterial Blood Glucose 117 mg/dL (65-95) H 04/08/21 14:27 Arterial Blood Ionized Calcium 4.8 mg/dL (4.6-5.3) 04/08/21 14:27 Coronavirus (PCR) Positive (Negative) A 04/07/21 08:15 Atkins/IV: Voiding Method Condom Catheter Active Medications - Current Medications Current Medications: Generic Name Dose Route Start Last Admin Trade Name Freq PRN Reason Stop Dose Admin Acetaminophen 650 mg 04/06/21 02:57 Acetaminophen 325 Mg Tab PO Q4H PRN Pain MILD(1-3)/Fever >100.5/BRAR Amlodipine Besylate 5 mg 04/10/21 12:00 04/12/21 09:48 Amlodipine 5 Mg Tab PO 5 mg QDAY BISHOP Administration Dexamethasone 6 mg 04/09/21 10:00 04/12/21 09:44 Dexamethasone 4 Mg/Ml Vial IV 04/18/21 10:01 6 mg DAILY BISHOP Administration Heparin Sodium (Porcine) 5,000 unit 04/06/21 14:00 04/12/21 05:45 Heparin 5,000 Unit/1 Ml Vial SUB-Q 5,000 unit Q8HR BISHOP Administration Sodium Bicarbonate 100 meq/ 1,100 mls @ 75 mls/hr 04/07/21 13:00 04/12/21 05:45 Dextrose IV 75 mls/hr DIRECT BISHOP Administration REMDESIVIR 100 mg/ Sodium 250 mls @ 500 mls/hr 04/12/21 21:00 Chloride IV 04/15/21 21:29 Q24HR@2100 BISHOP Morphine Sulfate 2 mg 04/06/21 02:57 Morphine 2 Mg/1 Ml Inj IV Q4H PRN Pain, Moderate (4-6) Morphine Sulfate 4 mg 04/06/21 02:57 Morphine 4 Mg/1 Ml Inj IV Q4H PRN Pain , Severe (7-10) Ondansetron HCl 4 mg 04/06/21 02:57 Ondansetron 4 Mg/2 Ml Inj IV Q8H PRN Nausea And Vomiting Sodium Bicarbonate 650 mg 04/08/21 22:00 04/12/21 09:44 Sodium Bicarbonate 650 Mg Tab PO 650 mg TID BISHOP Administration Sodium Chloride 10 ml 04/06/21 10:00 04/12/21 09:45 Sodium Chloride 0.9% 10 Ml Flush Syringe IV 10 ml BID BISHOP Administration Sodium Chloride 10 ml 04/06/21 02:57 Sodium Chloride 0.9% 10 Ml Flush Syringe IV PRN PRN LINE FLUSH Sodium Chloride 50 ml 04/11/21 21:00 04/11/21 21:44 Sodium Chloride 0.9% 50 Ml Ivpb IV 04/15/21 21:01 50 ml Q24HR@2100 BISHOP Administration
--- NOTE | 2021-04-12 13:07 | Progress Note ---
Assessment and Plan 1. Acute kidney injury: Vasomotor ELIO in the setting of volume depletion +/- 2/[address] abdomen negative for hydro. Monitor renal function. Baseline renal function is unknown. Creatinine level is improving. Avoid nephrotoxic agents. Meds dosage based on GFR. No labs from the past 2 days. 2. FEN: Hyperkalemia, improved, monitor. Hyperchloremic Metabolic acidosis, improved, monitor. Hyponatremia, improved, monitor. Monitor lytes and volume status. 3. Diarrhea: ?related to Covid. Monitor. 4. COVID-19 infection: Albuterol, Decadron and Remdesivir. Anticoagulation per hospital protocol. 5. Possible lung mass: Per primary. 6. Hypertension: Monitor BP. Subjective: Patient was examined at the bedside. Refused blood draw. Examination: General appearance: well-developed, appears stated age, not in distress, NC O2 HEENT: ATNC Neck: Trachea midline Respiratory: faint bibasal rales heard Cardiology: S1S2, no murmur Gastrointestinal: soft, obese, bowel sounds heard, not tender Integumentary: warm and dry Neurologic: alert, confused, able to move extremities Ext: no edema Subjective Date of service: 04/12/21 Objective - Vital Signs Vital signs: Vital Signs - 12hr 04/12/21 04/12/21 04/12/21 04:13 05:03 09:48 Temperature 98.2 F Pulse Rate 73 73 Respiratory 18 Rate Blood Pressure 161/88 159/74 O2 Sat by Pulse 85 99 Oximetry 04/12/21 04/12/21 10:00 12:15 Temperature 98.2 F Pulse Rate 67 Respiratory 20 Rate Blood Pressure 139/77 O2 Sat by Pulse 92 97 Oximetry - Lab 04/10/21 08:29 04/10/21 08:29 Most recent lab results ABG pH 7.395 (7.320-7.450) 04/08/21 14:27 ABG O2 Saturation 91.8 (0-100) 04/08/21 14:27 Calcium 9.3 mg/dL (8.4-10.2) 04/10/21 08:29 Magnesium 2.40 mg/dL (1.7-2.3) H 04/05/21 15:03 Medications & Allergies - Medications Allergies/Adverse Reactions: Allergies No Known Allergies Allergy (Verified 04/06/21 03:10) Home Medications: Home Medications Medication Instructions Recorded Confirmed Last Taken Type No Known Home Medications [No 04/10/21 04/10/21 Unknown History Reported Home Medications] Active Medications: Generic Name Dose Route Start Last Admin Trade Name Freq PRN Reason Stop Dose Admin Acetaminophen 650 mg 04/06/21 02:57 Acetaminophen 325 Mg Tab PO Q4H PRN Pain MILD(1-3)/Fever >100.5/BRAR Amlodipine Besylate 5 mg 04/10/21 12:00 04/12/21 09:48 Amlodipine 5 Mg Tab PO 5 mg QDAY BISHOP Administration Dexamethasone 6 mg 04/09/21 10:00 04/12/21 09:44 Dexamethasone 4 Mg/Ml Vial IV 04/18/21 10:01 6 mg DAILY BISHOP Administration Heparin Sodium (Porcine) 5,000 unit 04/06/21 14:00 04/12/21 05:45 Heparin 5,000 Unit/1 Ml Vial SUB-Q 5,000 unit Q8HR BISHOP Administration Sodium Bicarbonate 100 meq/ 1,100 mls @ 75 mls/hr 04/07/21 13:00 04/12/21 05:45 Dextrose IV 75 mls/hr DIRECT BISHOP Administration REMDESIVIR 100 mg/ Sodium 250 mls @ 500 mls/hr 04/12/21 21:00 Chloride IV 04/15/21 21:29 Q24HR@2100 BISHOP Morphine Sulfate 2 mg 04/06/21 02:57 Morphine 2 Mg/1 Ml Inj IV Q4H PRN Pain, Moderate (4-6) Morphine Sulfate 4 mg 04/06/21 02:57 Morphine 4 Mg/1 Ml Inj IV Q4H PRN Pain , Severe (7-10) Ondansetron HCl 4 mg 04/06/21 02:57 Ondansetron 4 Mg/2 Ml Inj IV Q8H PRN Nausea And Vomiting Sodium Bicarbonate 650 mg 04/08/21 22:00 04/12/21 09:44 Sodium Bicarbonate 650 Mg Tab PO 650 mg TID BISHOP Administration Sodium Chloride 10 ml 04/06/21 10:00 04/12/21 09:45 Sodium Chloride 0.9% 10 Ml Flush Syringe IV 10 ml BID BISHOP Administration Sodium Chloride 10 ml 04/06/21 02:57 Sodium Chloride 0.9% 10 Ml Flush Syringe IV PRN PRN LINE FLUSH Sodium Chloride 50 ml 04/11/21 21:00 04/11/21 21:44 Sodium Chloride 0.9% 50 Ml Ivpb IV 04/15/21 21:01 50 ml Q24HR@2100 BISHOP Administration
--- NOTE | 2021-04-12 14:45 | Progress Note ---
Assessment and Plan Cultures: Blood culture no growth so far COVID PCR positive. A/P: 60 yo M PMHx HTN admitted with ELIO, diarrhea, found to have possible lung mass #COVID pneumonia: Difficult to interpret imaging in the setting of possible lung mass #POssible lung mass: for outpatient work up. #ELIO: renally dose antibiotics #Diarrhea: possibly related to ELIO. Recs: -Steroids to complete 10 days. -Started remdesivir for 5 days. Monitor liver function -Completed empiric antibiotics -Anticoagulation per hospital protocol -Proning as able Thank you for the consult, we will continue to follow. Radu Causey MD [facility] ([facility] O: [phone] F: [phone] Subjective Date of service: 04/12/21 Interval history: Afebrile, no acute change. Currently on 10 L nasal cannula, which is stable. Objective - Exam Narrative Exam: Physical exam deferred to reduce risk of transmission of COVID-19. Please refer to primary team's note. - Constitutional Vitals: Vital Signs Temp Pulse Resp BP Pulse Ox 98.2 F 67 20 139/77 97 04/12/21 12:15 04/12/21 12:15 04/12/21 12:15 04/12/21 12:15 04/12/21 12:15 Temperature -Last 24 Hours Temperature 98.2 F Temperature 98.2 F Temperature 98.2 F - Labs CBC & Chem 7: 04/10/21 08:29 04/10/21 08:29
--- NOTE | 2021-04-12 16:25 | Progress Note ---
Assessment and Plan 60 y/o male with ILD, right lower lobe lung mass and COVID 19 with acute respiratory failure. 04/12/21: Continue to wean FiO2 as tolerated for sats >88%. Continue steroids. Guarded prognosis. Hold on higher doses of steroid given decreases in oxygen requirement. 04/11/21: Continue to wean FiO2 as tolerated for sats >88%. Continue steroids. Mass work up likely will have to be done as an outpatient. 1. Pulm- Agreed that biopsy is needed but must recover from COVID first. Would suggest CT guided biopsy. Lesion does appear amenable to bronch but would need to be Tbbx and may not get enough tissue. could consider EBUS if not able to get with CT guided biopsy. needs full work up of ILD as well but this can be done as an outpatient. Will continue current dose of steroids, however if oxygenation worsens would switch to higher doses. No puffers available in this hospital except albuterol. No nebs given COVID status. Guarded prognosis. Subjective Date of service: 04/12/21 Interval history: Decreased to 10 liters. Objective Vital Signs - 12hr 04/12/21 04/12/21 04/12/21 05:03 09:48 10:00 Temperature Pulse Rate 73 Respiratory Rate Blood Pressure 159/74 O2 Sat by Pulse 99 92 Oximetry 04/12/21 04/12/21 12:15 15:40 Temperature 98.2 F 97.0 F L Pulse Rate 67 87 Respiratory 20 20 Rate Blood Pressure 139/77 147/87 O2 Sat by Pulse 97 93 Oximetry Constitutional: no acute distress, alert, appears uncomfortable ENT: oropharynx moist Neck: supple, no JVD Ascultation: Bilateral: diminished breath sounds Cardiovascular: regular rate and rhythm Gastrointestinal: normoactive bowel sounds, soft, non-tender Extremities: no cyanosis, other (Clubbing of the fingernails noted) Neurologic: normal mental status Psychiatric: mood appropriate CBC and BMP: 04/10/21 08:29 04/10/21 08:29 ABG, PT/INR, D-dimer: ABG ABG pH 7.395 (7.320-7.450) 04/08/21 14:27 POC ABG pCO2 23.7 mmHg (32.0-48.0) L 04/08/21 14:27 POC ABG pO2 62.5 mmHg (83-108) L 04/08/21 14:27 POC ABG HCO3 14.2 04/08/21 14:27 ABG O2 Saturation 91.8 (0-100) 04/08/21 14:27 PT/INR, D-dimer PT 13.5 Sec. (12.2-14.9) 04/07/21 04:14 INR 0.98 (0.87-1.13) 04/07/21 04:14 D-Dimer 721.64 ng/mlDDU (0-234) H 04/06/21 08:15 Abnormal lab findings: Abnormal Labs 04/05/21 04/05/21 04/05/21 15:03 15:03 21:28 WBC RBC 5.40 H Hgb 15.9 H Hct 49.5 H MCHC RDW 17.3 H Plt Count 106 L [place] % (Auto) 9.0 H Lymph # (Auto) D-Dimer POC ABG pCO2 POC ABG pO2 ABG Oxyhemoglobin ABG Sodium ABG Chloride ABG Glucose Carboxyhemoglobin Sodium 135 L 135 L Potassium 6.2 H* Chloride Carbon Dioxide 11 L 12 L BUN 34 H 42 H Creatinine 2.4 H 3.2 H Glucose 121 H POC Glucose Magnesium 2.40 H Ferritin AST 56 H ALT Alkaline Phosphatase Lactate Dehydrogenase C-Reactive Protein Total Protein 8.7 H Albumin Lipase 143 H Arterial Blood Glucose Coronavirus (PCR) 04/06/21 04/06/21 04/06/21 08:07 08:07 08:15 WBC RBC Hgb Hct MCHC RDW Plt Count [place] % (Auto) Lymph # (Auto) D-Dimer 721.64 H POC ABG pCO2 POC ABG pO2 ABG Oxyhemoglobin ABG Sodium ABG Chloride ABG Glucose Carboxyhemoglobin Sodium Potassium Chloride Carbon Dioxide BUN Creatinine Glucose POC Glucose Magnesium Ferritin 1468.0 H AST ALT Alkaline Phosphatase Lactate Dehydrogenase 445 H C-Reactive Protein 2.90 H Total Protein Albumin Lipase Arterial Blood Glucose Coronavirus (PCR) 04/07/21 04/07/21 04/07/21 04:14 04:14 08:15 WBC 3.2 L RBC Hgb Hct MCHC RDW 16.0 H Plt Count 101 L [place] % (Auto) 10.8 H Lymph # (Auto) 0.7 L D-Dimer POC ABG pCO2 POC ABG pO2 ABG Oxyhemoglobin ABG Sodium ABG Chloride ABG Glucose Carboxyhemoglobin Sodium Potassium 5.6 H Chloride 111.6 H Carbon Dioxide 16 L BUN 43 H Creatinine 2.5 H Glucose POC Glucose Magnesium Ferritin AST ALT Alkaline Phosphatase Lactate Dehydrogenase C-Reactive Protein Total Protein Albumin Lipase Arterial Blood Glucose Coronavirus (PCR) Positive A 04/08/21 04/08/21 04/08/21 08:00 14:27 15:33 WBC RBC Hgb Hct MCHC RDW Plt Count [place] % (Auto) Lymph # (Auto) D-Dimer POC ABG pCO2 23.7 L POC ABG pO2 62.5 L ABG Oxyhemoglobin 91.3 L ABG Sodium 133.7 L ABG Chloride 112.0 H ABG Glucose 117 H Carboxyhemoglobin 0.4 L Sodium Potassium Chloride 109.9 H Carbon Dioxide 13 L BUN 40 H Creatinine 1.8 H Glucose 74 L POC Glucose 115 H Magnesium Ferritin AST ALT Alkaline Phosphatase Lactate Dehydrogenase C-Reactive Protein Total Protein Albumin Lipase Arterial Blood Glucose 117 H Coronavirus (PCR) 04/09/21 04/09/21 04/10/21 08:38 08:38 08:29 WBC 3.1 L 3.8 L RBC Hgb Hct MCHC 35 H RDW 15.7 H 15.7 H Plt Count 136 L [place] % (Auto) Lymph # (Auto) D-Dimer POC ABG pCO2 POC ABG pO2 ABG Oxyhemoglobin ABG Sodium ABG Chloride ABG Glucose Carboxyhemoglobin Sodium Potassium Chloride 110.4 H Carbon Dioxide 19 L BUN 35 H Creatinine 1.8 H Glucose POC Glucose Magnesium Ferritin AST 144 H ALT 92 H Alkaline Phosphatase 159 H Lactate Dehydrogenase C-Reactive Protein Total Protein Albumin 3.3 L Lipase Arterial Blood Glucose Coronavirus (PCR) 04/10/21 08:29 WBC RBC Hgb Hct MCHC RDW Plt Count [place] % (Auto) Lymph # (Auto) D-Dimer POC ABG pCO2 POC ABG pO2 ABG Oxyhemoglobin ABG Sodium ABG Chloride ABG Glucose Carboxyhemoglobin Sodium Potassium Chloride Carbon Dioxide BUN 31 H Creatinine 1.5 H Glucose 119 H POC Glucose Magnesium Ferritin AST 89 H ALT 80 H Alkaline Phosphatase 159 H Lactate Dehydrogenase C-Reactive Protein Total Protein Albumin 3.2 L Lipase Arterial Blood Glucose Coronavirus (PCR)
[2021-04-12] MEDS: REMDESIVIR 100 MG in SODIUM CHLORIDE 0.9% 250ML 250 ML IV SCH (21:31)
[2021-04-12] MEDS: SODIUM CHLORIDE 0.9% 50 ML IVPB IV SCH (21:32)
[2021-04-13] MEDS: HEPARIN 5,000 UNIT/1 ML VIAL SUB-Q SCH ×3 (06:20→23:35)
[2021-04-13] MEDS: SODIUM BICARBONATE 100 MEQ in DEXTROSE 5% IN WATER 1,000 ML IV SCH ×4 (09:30→18:23)
[2021-04-13] MEDS: SODIUM BICARBONATE 650 MG TAB PO SCH ×5 (09:31→23:33)
--- NOTE | 2021-04-13 10:17 | Progress Note ---
Assessment and Plan 1. Acute kidney injury: Vasomotor ELIO in the setting of volume depletion +/- 2/[address] abdomen negative for hydro. Monitor renal function. Baseline renal function is unknown. Creatinine level is improving. Avoid nephrotoxic agents. Meds dosage based on GFR. No labs from the past 3 days. 2. FEN: Hyperkalemia, improved, monitor. Hyperchloremic Metabolic acidosis, improved, monitor. Hyponatremia, improved, monitor. Monitor lytes and volume status. 3. Diarrhea: ?related to Covid. Monitor. 4. COVID-19 infection: Decadron and Remdesivir. Anticoagulation per hospital protocol. 5. Possible lung mass: Per primary. 6. Hypertension: Monitor BP. Subjective: Patient was examined at the bedside. Refused blood draw. Examination: General appearance: well-developed, appears stated age, not in distress, NC O2 HEENT: ATNC Neck: Trachea midline Respiratory: faint bibasal rales heard Cardiology: S1S2, no murmur Gastrointestinal: soft, obese, bowel sounds heard, not tender Integumentary: warm and dry Neurologic: alert, confused, able to move extremities Ext: no edema Subjective Date of service: 04/13/21 Objective - Vital Signs Vital signs: Vital Signs - 12hr 04/12/21 04/13/21 04/13/21 23:27 02:00 05:17 Temperature 98.6 F Pulse Rate 82 Respiratory 20 Rate Blood Pressure 148/83 [Left] O2 Sat by Pulse 100 94 92 Oximetry - Lab 04/10/21 08:29 04/10/21 08:29 Most recent lab results ABG pH 7.395 (7.320-7.450) 04/08/21 14:27 ABG O2 Saturation 91.8 (0-100) 04/08/21 14:27 Calcium 9.3 mg/dL (8.4-10.2) 04/10/21 08:29 Magnesium 2.40 mg/dL (1.7-2.3) H 04/05/21 15:03 Medications & Allergies - Medications Allergies/Adverse Reactions: Allergies No Known Allergies Allergy (Verified 04/06/21 03:10) Home Medications: Home Medications Medication Instructions Recorded Confirmed Last Taken Type No Known Home Medications [No 04/10/21 04/10/21 Unknown History Reported Home Medications] Active Medications: Generic Name Dose Route Start Last Admin Trade Name Freq PRN Reason Stop Dose Admin Acetaminophen 650 mg 04/06/21 02:57 Acetaminophen 325 Mg Tab PO Q4H PRN Pain MILD(1-3)/Fever >100.5/RBAR Amlodipine Besylate 5 mg 04/10/21 12:00 04/12/21 09:48 Amlodipine 5 Mg Tab PO 5 mg QDAY BISHOP Administration Dexamethasone 6 mg 04/09/21 10:00 04/12/21 09:44 Dexamethasone 4 Mg/Ml Vial IV 04/18/21 10:01 6 mg DAILY BISHOP Administration Heparin Sodium (Porcine) 5,000 unit 04/06/21 14:00 04/13/21 06:20 Heparin 5,000 Unit/1 Ml Vial SUB-Q 5,000 unit Q8HR BISHOP Administration Sodium Bicarbonate 100 meq/ 1,100 mls @ 75 mls/hr 04/07/21 13:00 04/13/21 09:43 Dextrose IV 75 mls/hr DIRECT BISHOP Administration REMDESIVIR 100 mg/ Sodium 250 mls @ 500 mls/hr 04/12/21 21:00 04/12/21 21:31 Chloride IV 04/15/21 21:29 500 mls/hr Q24HR@2100 BISHOP Administration Morphine Sulfate 2 mg 04/06/21 02:57 Morphine 2 Mg/1 Ml Inj IV Q4H PRN Pain, Moderate (4-6) Morphine Sulfate 4 mg 04/06/21 02:57 Morphine 4 Mg/1 Ml Inj IV Q4H PRN Pain , Severe (7-10) Ondansetron HCl 4 mg 04/06/21 02:57 Ondansetron 4 Mg/2 Ml Inj IV Q8H PRN Nausea And Vomiting Sodium Bicarbonate 650 mg 04/08/21 22:00 04/13/21 09:42 Sodium Bicarbonate 650 Mg Tab PO Not Given TID BISHOP Sodium Chloride 10 ml 04/06/21 10:00 04/12/21 21:45 Sodium Chloride 0.9% 10 Ml Flush Syringe IV 10 ml BID BISHOP Administration Sodium Chloride 10 ml 04/06/21 02:57 Sodium Chloride 0.9% 10 Ml Flush Syringe IV PRN PRN LINE FLUSH Sodium Chloride 50 ml 04/11/21 21:00 04/12/21 21:32 Sodium Chloride 0.9% 50 Ml Ivpb IV 04/15/21 21:01 50 ml Q24HR@2100 BISHOP Administration
[2021-04-13] MEDS: dexAMETHasone 4 MG/ML VIAL IV SCH ×2 (12:23→12:30)
[2021-04-13] MEDS: amLODIPine 5 MG TAB PO SCH (12:24)
--- NOTE | 2021-04-13 13:10 | Progress Note ---
Assessment and Plan Assessment and plan: 60-year-old male with known history of hypertension seen in the emergency room today complaining of diarrhea and generalized weakness which started about 3 days ago. Patient states he just had his first dose of COVID-19 vaccination over the weekend and 24 hours thereafter he started having some diarrhea and generalized weakness. He denies any fever or chills, no chest pain or shortness of breath, no headache or dizziness, no diaphoresis. Patient denies any nausea vomiting, no abdominal pain, no hematuria or dysuria. He denies any sick contacts and no recent travel. Denies any contact with anyon e with COVID-19. Work-up in the emergency room today reveals elevated BUN and creatinine of 34 and 2.4 respectively. Chest x-ray reveals right lower lobe airspace opacity which could represent pneumonia or a neoplastic process. CT of the abdomen and pelvis reveals fluid and gas-filled colon without inflammation or colonic wall thickening 04/07: Patient seen and examined today continues on oxygen. ID input is noted. Have consulted pulmonary considering review of CT which shows a large mass in th e lungs. Patient may probably benefit from a bronchoscopy but will defer to pulmonary for now continue current management with steroids and remdesivir. Unfortunately I do not have any family contact information for this patient. Discussed with nursing staff to see if they can get anyone. Patient awaiting bed upstairs Patient on diagnosis Metabolic acidosis Hyperkalemia we'll give 20 of Kayexalate Thrombocytopenia unfortunately I'm not sure what the patient's baseline creatinine is but ice cream man input is noted 04/08: Patient seen today, still baseline confusion, renal function showing some improvement, called family and no response. Patient now on Bicarb drip due to metabolic Acidosis, also Lung mass noted, awaiting Pulmonary re-evaluation. otherwise he is clinically stable. 04/09: Resume steroids as patient developed significant hypoxia on 15 L of oxygen. Continue to wean as tolerated he also has mittens in place due to intermittent confusion. CREATININE STILL AT 1.8 04/10: Patient seen and examined, BP slightly elevated, will add BP meds. Pulmonary recommends outpatient follow up for the lung mass, renal function is showing improvement. Continue supportive care. Wean oxygen as tolerated, continue steroids at this time. No Remdesvier secondary to the Renal function. 04/11/21 Patient with Covid-19 with acute resp failure. On Oxygen at 10 l/min. Has right lung mass, to follow with Pulmonology as outpatient.Cr 1.5 today, improving. 04/12/21 Patient with Covid-19 with acute respiratory failure. Still on Oxygen at 10 l/min. Patient has been refusing blood draw so no labs for 2 days. He has Right lung mass and needs to follow with Pulmonology as outpatient. 04/13/21 Patient with Covid-19 with acute respiratory failure. Patient has been refusing treatment and lab blood draw so no labs for days. He has Right lung mass and needs to follow with Pulmonology as outpatient. Will consult Psych to evaluate (1) Acute renal failure (ARF) SECONDARY TO VASOMOTOR NEPHROPATHY WITH METABOLIC ACIDOSIS Current Visit: Yes Status: Acute Plan to address problem: Possibly prerenal. Patient will be placed on IV fluid normal saline. Will monitor BUN and creatinine. Consult placed to nephrology for evaluation. (2) Hypertension Current Visit: Yes Status: Acute Plan to address problem: Blood pressure stable . we will resume routine home medications once reconciled and monitor vital signs closely. (3) Pneumonia secondary to COVID-19 Current Visit: Yes Status: Acute Plan to address problem: Patient will be placed on empiric IV antibiotics in view of the chest x-ray findings. We will check for COVID-19. (4) Acute hypoxic respiratory failure (5) Right lung lung mass large (6) Acute metabolic encephalopathy -unknown baseline (7) Thrombocytopenia (8) DVT prophylaxis Current Visit: Yes Status: Acute Plan to address problem: Patient placed on subcutaneous heparin. (9) Full code status Current Visit: Yes Status: Acute Plan to address problem: Patient is full code. History Interval history: Shortness of breath patient refusing treatment, refusing lab blood draws Hospitalist Physical - Physical exam Narrative exam: Gen:Not in acute distress, lying in bed HEENT:Normocephalic, atraumatic Neck:supple, no JVD Lungs: Bilateral crackles, no wheeze Heart:S1 and S2 reg, no murmurs, rubs or gallop Abd:Soft, non tender, non distended, normal bowel sounds Ext:No edema. no clubbing, no cyanosis Neuro:Awake, alert, moves all ext - Constitutional Vitals: Temp Pulse Resp BP Pulse Ox 99.4 F 118 H 22 88/35 97 04/13/21 11:23 04/13/21 12:24 04/13/21 11:23 04/13/21 12:24 04/13/21 11:35 General appearance: Present: no acute distress, well-nourished Results - Labs CBC & Chem 7: 04/10/21 08:29 04/10/21 08:29 Labs: Laboratory Last Values WBC 3.8 K/mm3 (4.5-11.0) L 04/10/21 08:29 RBC 4.84 M/mm3 (3.65-5.03) 04/10/21 08:29 Hgb 14.2 gm/dl (11.8-15.2) 04/10/21 08:29 Hct 41.4 % (35.5-45.6) 04/10/21 08:29 MCV 85 fl (84-94) 04/10/21 08:29 MCH 29 pg (28-32) 04/10/21 08:29 MCHC 34 % (32-34) 04/10/21 08:29 RDW 15.7 % (13.2-15.2) H 04/10/21 08:29 Plt Count 161 K/mm3 (140-440) 04/10/21 08:29 Lymph % (Auto) 22.3 % (13.4-35.0) 04/07/21 04:14 [place] % (Auto) 10.8 % (0.0-7.3) H 04/07/21 04:14 Eos % (Auto) 0.0 % (0.0-4.3) 04/07/21 04:14 Baso % (Auto) 0.3 % (0.0-1.8) 04/07/21 04:14 Lymph # (Auto) 0.7 K/mm3 (1.2-5.4) L 04/07/21 04:14 [place] # (Auto) 0.4 K/mm3 (0.0-0.8) 04/07/21 04:14 Eos # (Auto) 0.0 K/mm3 (0.0-0.4) 04/07/21 04:14 Baso # (Auto) 0.0 K/mm3 (0.0-0.1) 04/07/21 04:14 Add Manual Diff Complete 04/05/21 15:03 Seg Neutrophils % 66.6 % (40.0-70.0) 04/07/21 04:14 Seg Neutrophils # 2.2 K/mm3 (1.8-7.7) 04/07/21 04:14 PT 13.5 Sec. (12.2-14.9) 04/07/21 04:14 INR 0.98 (0.87-1.13) 04/07/21 04:14 D-Dimer 721.64 ng/mlDDU (0-234) H 04/06/21 08:15 ABG pH 7.395 (7.320-7.450) 04/08/21 14:27 POC ABG pCO2 23.7 mmHg (32.0-48.0) L 04/08/21 14:27 POC ABG pO2 62.5 mmHg (83-108) L 04/08/21 14:27 POC ABG HCO3 14.2 04/08/21 14:27 ABG O2 Saturation 91.8 (0-100) 04/08/21 14:27 POC ABG Base Excess -8.6 04/08/21 14:27 ABG Hemoglobin 14.5 (12.0-17.5) 04/08/21 14:27 ABG Oxyhemoglobin 91.3 (94-98) L 04/08/21 14:27 ABG Methemoglobin 0.1 (0.0-1.5) 04/08/21 14:27 ABG Sodium 133.7 mmol/L (136.0-145.0) L 04/08/21 14:27 ABG Potassium 4.2 mmol/L (3.40-4.50) 04/08/21 14:27 ABG Chloride 112.0 mmol/L (98-107) H 04/08/21 14:27 ABG Glucose 117 mg/dL (65-95) H 04/08/21 14:27 Carboxyhemoglobin 0.4 (0.5-1.5) L 04/08/21 14:27 FiO2 % 100.0 04/08/21 14:27 Sodium 139 mmol/L (137-145) 04/10/21 08:29 Potassium 4.6 mmol/L (3.6-5.0) 04/10/21 08:29 Chloride 107.0 mmol/L (98-107) 04/10/21 08:29 Carbon Dioxide 22 mmol/L (22-30) 04/10/21 08:29 Anion Gap 15 mmol/L 04/10/21 08:29 BUN 31 mg/dL (9-20) H 04/10/21 08:29 Creatinine 1.5 mg/dL (0.8-1.3) H 04/10/21 08:29 Estimated GFR 48 ml/min 04/10/21 08:29 BUN/Creatinine Ratio 21 % 04/10/21 08:29 Glucose 119 mg/dL (75-100) H 04/10/21 08:29 POC Glucose 115 mg/dL (70-105) H 04/08/21 15:33 Lactic Acid 1.20 mmol/L (0.7-2.0) 04/09/21 08:38 Calcium 9.3 mg/dL (8.4-10.2) 04/10/21 08:29 Magnesium 2.40 mg/dL (1.7-2.3) H 04/05/21 15:03 Ferritin 1468.0 ng/mL (30.0-300.0) H 04/06/21 08:07 Total Bilirubin 0.40 mg/dL (0.1-1.2) 04/10/21 08:29 AST 89 units/L (5-40) H 04/10/21 08:29 ALT 80 units/L (7-56) H 04/10/21 08:29 Alkaline Phosphatase 159 units/L (35-129) H 04/10/21 08:29 Lactate Dehydrogenase 445 units/L (91-180) H 04/06/21 08:07 C-Reactive Protein 2.90 mg/dL (0.00-1.30) H 04/06/21 08:07 Total Protein 7.4 g/dL (6.3-8.2) 04/10/21 08:29 Albumin 3.2 g/dL (3.9-5) L 04/10/21 08:29 Albumin/Globulin Ratio 0.8 % 04/10/21 08:29 Lipase 143 units/L (13-60) H 04/05/21 15:03 Procalcitonin 0.34 ng/mL (<0.15) 04/06/21 08:15 PTH Intact 58.46 pg/mL (15-65) 04/10/21 08:29 Arterial Blood Glucose 117 mg/dL (65-95) H 04/08/21 14:27 Arterial Blood Ionized Calcium 4.8 mg/dL (4.6-5.3) 04/08/21 14:27 Coronavirus (PCR) Positive (Negative) A 04/07/21 08:15 Atkins/IV: Voiding Method Urinal Active Medications - Current Medications Current Medications: Generic Name Dose Route Start Last Admin Trade Name Freq PRN Reason Stop Dose Admin Acetaminophen 650 mg 04/06/21 02:57 Acetaminophen 325 Mg Tab PO Q4H PRN Pain MILD(1-3)/Fever >100.5/BRAR Amlodipine Besylate 5 mg 04/10/21 12:00 04/13/21 12:24 Amlodipine 5 Mg Tab PO Not Given QDAY BISHOP Dexamethasone 6 mg 04/09/21 10:00 04/13/21 12:30 Dexamethasone 4 Mg/Ml Vial IV 04/18/21 10:01 Not Given DAILY BISHOP Heparin Sodium (Porcine) 5,000 unit 04/06/21 14:00 04/13/21 06:20 Heparin 5,000 Unit/1 Ml Vial SUB-Q 5,000 unit Q8HR BISHOP Administration Sodium Bicarbonate 100 meq/ 1,100 mls @ 75 mls/hr 04/07/21 13:00 04/13/21 09:43 Dextrose IV 75 mls/hr DIRECT BISHOP Administration REMDESIVIR 100 mg/ Sodium 250 mls @ 500 mls/hr 04/12/21 21:00 04/12/21 21:31 Chloride IV 04/15/21 21:29 500 mls/hr Q24HR@2100 BISHOP Administration Morphine Sulfate 2 mg 04/06/21 02:57 Morphine 2 Mg/1 Ml Inj IV Q4H PRN Pain, Moderate (4-6) Morphine Sulfate 4 mg 04/06/21 02:57 Morphine 4 Mg/1 Ml Inj IV Q4H PRN Pain , Severe (7-10) Ondansetron HCl 4 mg 04/06/21 02:57 Ondansetron 4 Mg/2 Ml Inj IV Q8H PRN Nausea And Vomiting Sodium Bicarbonate 650 mg 04/08/21 22:00 04/13/21 09:42 Sodium Bicarbonate 650 Mg Tab PO Not Given TID BISHOP Sodium Chloride 10 ml 04/06/21 10:00 04/13/21 12:25 Sodium Chloride 0.9% 10 Ml Flush Syringe IV 10 ml BID BISHOP Administration Sodium Chloride 10 ml 04/06/21 02:57 Sodium Chloride 0.9% 10 Ml Flush Syringe IV PRN PRN LINE FLUSH Sodium Chloride 50 ml 04/11/21 21:00 04/12/21 21:32 Sodium Chloride 0.9% 50 Ml Ivpb IV 04/15/21 21:01 50 ml Q24HR@2100 BISHOP Administration
--- NOTE | 2021-04-13 13:17 | Progress Note ---
Assessment and Plan Cultures: Blood culture no growth so far COVID PCR positive. A/P: 60 yo M PMHx HTN admitted with ELIO, diarrhea, found to have possible lung mass #COVID pneumonia: Difficult to interpret imaging in the setting of possible lung mass #Acute hypoxic resp failure: currently on [place] 10L NC. #POssible lung mass: for outpatient work up. #ELIO: renally dose antibiotics. Improving. Recs: -Steroids to complete 10 days. -Started remdesivir for 5 days. Monitor liver function -Completed empiric antibiotics -Anticoagulation per hospital protocol -Proning as able Thank you for the consult, we will continue to follow. Radu Causey MD [facility] ([facility]) O: [phone] F: [phone] Subjective Date of service: 04/13/21 Interval history: afebrile, on 10L [place]. No acute change. Objective - Exam Narrative Exam: Physical exam deferred to reduce risk of transmission of COVID-19. Please refer to primary team's note. - Constitutional Vitals: Vital Signs Temp Pulse Resp BP Pulse Ox 99.4 F 118 H 22 88/35 97 04/13/21 11:23 04/13/21 12:24 04/13/21 11:23 04/13/21 12:24 04/13/21 11:35 Temperature -Last 24 Hours Temperature 99.4 F Temperature 98.6 F Temperature 99.0 F Temperature 97.0 F - Labs CBC & Chem 7: 04/10/21 08:29 04/10/21 08:29
--- NOTE | 2021-04-13 16:27 | Progress Note ---
Assessment and Plan 60 y/o male with ILD, right lower lobe lung mass and COVID 19 with acute respiratory failure. 04/13/21: Continue to wean FiO2 as tolerated. Steroids for a total of 10 days. May be ready for 6 minute walk test as early as tomorrow or the weekend. 04/12/21: Continue to wean FiO2 as tolerated for sats >88%. Continue steroids. Guarded prognosis. Hold on higher doses of steroid given decreases in oxygen requirement. 04/11/21: Continue to wean FiO2 as tolerated for sats >88%. Continue steroids. Mass work up likely will have to be done as an outpatient. 1. Pulm- Agreed that biopsy is needed but must recover from COVID first. Would suggest CT guided biopsy. Lesion does appear amenable to bronch but would need to be Tbbx and may not get enough tissue. could consider EBUS if not able to get with CT guided biopsy. needs full work up of ILD as well but this can be done as an outpatient. Will continue current dose of steroids, however if oxygenation worsens would switch to higher doses. No puffers available in this hospital except albuterol. No nebs given COVID status. Guarded prognosis. Subjective Date of service: 04/13/21 Interval history: No acute events. Down to 6 liters Objective Vital Signs - 12hr 04/13/21 04/13/21 04/13/21 05:17 11:23 11:35 Temperature 98.6 F 99.4 F Pulse Rate 82 118 H Respiratory 20 22 Rate Blood Pressure 88/35 Blood Pressure 148/83 [Left] O2 Sat by Pulse 92 89 97 Oximetry 04/13/21 04/13/21 12:24 16:03 Temperature Pulse Rate 118 H Respiratory Rate Blood Pressure 88/35 Blood Pressure [Left] O2 Sat by Pulse 95 Oximetry Constitutional: no acute distress, alert, appears uncomfortable ENT: oropharynx moist Neck: supple, no JVD Ascultation: Bilateral: diminished breath sounds Cardiovascular: regular rate and rhythm Gastrointestinal: normoactive bowel sounds, soft, non-tender Extremities: no cyanosis, other (Clubbing of the fingernails noted) Neurologic: normal mental status Psychiatric: mood appropriate CBC and BMP: 04/10/21 08:29 04/10/21 08:29 ABG, PT/INR, D-dimer: ABG ABG pH 7.395 (7.320-7.450) 04/08/21 14:27 POC ABG pCO2 23.7 mmHg (32.0-48.0) L 04/08/21 14:27 POC ABG pO2 62.5 mmHg (83-108) L 04/08/21 14:27 POC ABG HCO3 14.2 04/08/21 14:27 ABG O2 Saturation 91.8 (0-100) 04/08/21 14:27 PT/INR, D-dimer PT 13.5 Sec. (12.2-14.9) 04/07/21 04:14 INR 0.98 (0.87-1.13) 04/07/21 04:14 D-Dimer 721.64 ng/mlDDU (0-234) H 04/06/21 08:15 Abnormal lab findings: Abnormal Labs 04/05/21 04/05/21 04/05/21 15:03 15:03 21:28 WBC RBC 5.40 H Hgb 15.9 H Hct 49.5 H MCHC RDW 17.3 H Plt Count 106 L Swain % (Auto) 9.0 H Lymph # (Auto) D-Dimer POC ABG pCO2 POC ABG pO2 ABG Oxyhemoglobin ABG Sodium ABG Chloride ABG Glucose Carboxyhemoglobin Sodium 135 L 135 L Potassium 6.2 H* Chloride Carbon Dioxide 11 L 12 L BUN 34 H 42 H Creatinine 2.4 H 3.2 H Glucose 121 H POC Glucose Magnesium 2.40 H Ferritin AST 56 H ALT Alkaline Phosphatase Lactate Dehydrogenase C-Reactive Protein Total Protein 8.7 H Albumin Lipase 143 H Arterial Blood Glucose Coronavirus (PCR) 04/06/21 04/06/21 04/06/21 08:07 08:07 08:15 WBC RBC Hgb Hct MCHC RDW Plt Count Swain % (Auto) Lymph # (Auto) D-Dimer 721.64 H POC ABG pCO2 POC ABG pO2 ABG Oxyhemoglobin ABG Sodium ABG Chloride ABG Glucose Carboxyhemoglobin Sodium Potassium Chloride Carbon Dioxide BUN Creatinine Glucose POC Glucose Magnesium Ferritin 1468.0 H AST ALT Alkaline Phosphatase Lactate Dehydrogenase 445 H C-Reactive Protein 2.90 H Total Protein Albumin Lipase Arterial Blood Glucose Coronavirus (PCR) 04/07/21 04/07/21 04/07/21 04:14 04:14 08:15 WBC 3.2 L RBC Hgb Hct MCHC RDW 16.0 H Plt Count 101 L Swain % (Auto) 10.8 H Lymph # (Auto) 0.7 L D-Dimer POC ABG pCO2 POC ABG pO2 ABG Oxyhemoglobin ABG Sodium ABG Chloride ABG Glucose Carboxyhemoglobin Sodium Potassium 5.6 H Chloride 111.6 H Carbon Dioxide 16 L BUN 43 H Creatinine 2.5 H Glucose POC Glucose Magnesium Ferritin AST ALT Alkaline Phosphatase Lactate Dehydrogenase C-Reactive Protein Total Protein Albumin Lipase Arterial Blood Glucose Coronavirus (PCR) Positive A 04/08/21 04/08/21 04/08/21 08:00 14:27 15:33 WBC RBC Hgb Hct MCHC RDW Plt Count Swain % (Auto) Lymph # (Auto) D-Dimer POC ABG pCO2 23.7 L POC ABG pO2 62.5 L ABG Oxyhemoglobin 91.3 L ABG Sodium 133.7 L ABG Chloride 112.0 H ABG Glucose 117 H Carboxyhemoglobin 0.4 L Sodium Potassium Chloride 109.9 H Carbon Dioxide 13 L BUN 40 H Creatinine 1.8 H Glucose 74 L POC Glucose 115 H Magnesium Ferritin AST ALT Alkaline Phosphatase Lactate Dehydrogenase C-Reactive Protein Total Protein Albumin Lipase Arterial Blood Glucose 117 H Coronavirus (PCR) 04/09/21 04/09/21 04/10/21 08:38 08:38 08:29 WBC 3.1 L 3.8 L RBC Hgb Hct MCHC 35 H RDW 15.7 H 15.7 H Plt Count 136 L Swain % (Auto) Lymph # (Auto) D-Dimer POC ABG pCO2 POC ABG pO2 ABG Oxyhemoglobin ABG Sodium ABG Chloride ABG Glucose Carboxyhemoglobin Sodium Potassium Chloride 110.4 H Carbon Dioxide 19 L BUN 35 H Creatinine 1.8 H Glucose POC Glucose Magnesium Ferritin AST 144 H ALT 92 H Alkaline Phosphatase 159 H Lactate Dehydrogenase C-Reactive Protein Total Protein Albumin 3.3 L Lipase Arterial Blood Glucose Coronavirus (PCR) 04/10/21 08:29 WBC RBC Hgb Hct MCHC RDW Plt Count Swain % (Auto) Lymph # (Auto) D-Dimer POC ABG pCO2 POC ABG pO2 ABG Oxyhemoglobin ABG Sodium ABG Chloride ABG Glucose Carboxyhemoglobin Sodium Potassium Chloride Carbon Dioxide BUN 31 H Creatinine 1.5 H Glucose 119 H POC Glucose Magnesium Ferritin AST 89 H ALT 80 H Alkaline Phosphatase 159 H Lactate Dehydrogenase C-Reactive Protein Total Protein Albumin 3.2 L Lipase Arterial Blood Glucose Coronavirus (PCR)
[2021-04-13] MEDS: REMDESIVIR 100 MG in SODIUM CHLORIDE 0.9% 250ML 250 ML IV SCH (23:31)
[2021-04-13] MEDS: SODIUM CHLORIDE 0.9% 50 ML IVPB IV SCH (23:32)
[2021-04-14] MEDS: HEPARIN 5,000 UNIT/1 ML VIAL SUB-Q SCH ×3 (06:00→22:53)
[2021-04-14] MEDS: SODIUM BICARBONATE 650 MG TAB PO SCH ×4 (08:28→22:54)
--- NOTE | 2021-04-14 10:06 | Progress Note ---
Assessment and Plan 1. Acute kidney injury: Vasomotor ELIO in the setting of volume depletion +/- 2/[address] abdomen negative for hydro. Monitor renal function. Baseline renal function is unknown. Creatinine level is improving. Avoid nephrotoxic agents. Meds dosage based on GFR. No labs from the past 4 days. 2. FEN: Hyperkalemia, improved, monitor. Hyperchloremic Metabolic acidosis, improved, monitor. Hyponatremia, improved, monitor. Monitor lytes and volume status. 3. Diarrhea: ?related to Covid. Monitor. 4. COVID-19 infection: Decadron and Remdesivir. Anticoagulation per hospital protocol. 5. Possible lung mass: Followed by Pulmonary. 6. Hypertension: Monitor BP. Subjective: Patient was examined at the bedside. Continue to refuse blood draw. Examination: General appearance: well-developed, appears stated age, not in distress, NC O2 HEENT: ATNC Neck: Trachea midline Respiratory: faint bibasal rales heard Cardiology: S1S2, no murmur Gastrointestinal: soft, obese, bowel sounds heard, not tender Integumentary: warm and dry Neurologic: alert, confused, able to move extremities Ext: no edema Subjective Date of service: 04/14/21 Objective - Vital Signs Vital signs: Vital Signs - 12hr 04/14/21 04/14/21 04/14/21 02:00 04:59 09:15 Temperature 98.1 F Pulse Rate 113 H Respiratory 18 Rate Blood Pressure 181/77 [Left] O2 Sat by Pulse 94 92 92 Oximetry - Lab 04/10/21 08:29 04/10/21 08:29 Most recent lab results ABG pH 7.395 (7.320-7.450) 04/08/21 14:27 ABG O2 Saturation 91.8 (0-100) 04/08/21 14:27 Calcium 9.3 mg/dL (8.4-10.2) 04/10/21 08:29 Magnesium 2.40 mg/dL (1.7-2.3) H 04/05/21 15:03 Medications & Allergies - Medications Allergies/Adverse Reactions: Allergies No Known Allergies Allergy (Verified 04/06/21 03:10) Home Medications: Home Medications Medication Instructions Recorded Confirmed Last Taken Type No Known Home Medications [No 04/10/21 04/10/21 Unknown History Reported Home Medications] Active Medications: Generic Name Dose Route Start Last Admin Trade Name Tyrelq PRN Reason Stop Dose Admin Acetaminophen 650 mg 04/06/21 02:57 Acetaminophen 325 Mg Tab PO Q4H PRN Pain MILD(1-3)/Fever >100.5/BRAR Dexamethasone 6 mg 04/09/21 10:00 04/13/21 12:30 Dexamethasone 4 Mg/Ml Vial IV 04/18/21 10:01 Not Given DAILY B[facility]OP Heparin Sodium (Porcine) 5,000 unit 04/06/21 14:00 04/14/21 06:00 Heparin 5,000 Unit/1 Ml Vial SUB-Q 5,000 unit Q8HR [facility] Administration Sodium Bicarbonate 100 meq/ 1,100 mls @ 75 mls/hr 04/07/21 13:00 04/13/21 18:23 Dextrose IV Infused DIRECT B[facility]OP Infusion REMDESIVIR 100 mg/ Sodium 250 mls @ 500 mls/hr 04/12/21 21:00 04/13/21 23:31 Chloride IV 04/15/21 21:29 500 mls/hr Q24HR@2100 [facility]OP Administration Morphine Sulfate 2 mg 04/06/21 02:57 04/14/21 01:01 Morphine 2 Mg/1 Ml Inj IV 2 mg Q4H PRN Administration Pain, Moderate (4-6) Morphine Sulfate 4 mg 04/06/21 02:57 Morphine 4 Mg/1 Ml Inj IV Q4H PRN Pain , Severe (7-10) Ondansetron HCl 4 mg 04/06/21 02:57 Ondansetron 4 Mg/2 Ml Inj IV Q8H PRN Nausea And Vomiting Sodium Bicarbonate 650 mg 04/08/21 22:00 04/14/21 08:32 Sodium Bicarbonate 650 Mg Tab PO Not Given TID BISHOP Sodium Chloride 10 ml 04/06/21 10:00 04/14/21 01:01 Sodium Chloride 0.9% 10 Ml Flush Syringe IV 10 ml BID [facility]OP Administration Sodium Chloride 10 ml 04/06/21 02:57 Sodium Chloride 0.9% 10 Ml Flush Syringe IV PRN PRN LINE FLUSH Sodium Chloride 50 ml 04/11/21 21:00 04/13/21 23:32 Sodium Chloride 0.9% 50 Ml Ivpb IV 04/15/21 21:01 50 ml Q24HR@2100 B[facility]OP Administration
--- NOTE | 2021-04-14 12:08 | Progress Note ---
Assessment and Plan Cultures: Blood culture no growth so far COVID PCR positive. A/P: 60 yo M PMHx HTN admitted with ELIO, diarrhea, found to have possible lung mass #COVID pneumonia: Difficult to interpret imaging in the setting of possible lung mass #Acute hypoxic resp failure: currently on [place] 6L NC. #POssible lung mass: for outpatient work up. #ELIO: renally dose antibiotics. Improving. Recs: -Steroids to complete 10 days. -Started remdesivir for 5 days. Monitor liver function -Completed empiric antibiotics -Anticoagulation per hospital protocol -Proning as able Thank you for the consult, we will sign off. Please call with questions. Radu Causey MD [facility] O: [phone] F: [phone] Subjective Date of service: 04/14/21 Interval history: Afebrile, white count 3.8. Currently on 6 L nasal cannula Objective - Exam Narrative Exam: Physical exam deferred to reduce risk of transmission of COVID-19. Please refer to primary team's note. - Constitutional Vitals: Vital Signs Temp Pulse Resp BP Pulse Ox 98.1 F 113 H 18 181/77 92 04/14/21 04:59 04/14/21 04:59 04/14/21 04:59 04/14/21 04:59 04/14/21 09:15 Temperature -Last 24 Hours Temperature 98.1 F Temperature 99.5 F Temperature 98.9 F - Labs CBC & Chem 7: 04/10/21 08:29 04/10/21 08:29
--- NOTE | 2021-04-14 12:30 | Consultation ---
History of Present Illness - Reason for Consult Consult date: 04/14/21 Reason for consult: agitation - History of Present Psychiatric Illness The patient was seen today. He is hostile and uncooperative. He states he did not want to speak to me. He kept the linen over his head and did not answer me while I was attempting to evaluate him. The nurse caring for the patient states he has been agitated, uncooperative, combative and not eating. PAST PSYCHIATRIC HISTORY: unable to obtain PAST MEDICAL HISTORY: None reported or document Family Psychiatric History: None reported or documented SOCIAL HISTORY unable to obtain REVIEW OF SYSTEMS COVID + MENTAL STATUS EXAMINATION Unccoperative Assessment and Plan (1)Mood Disorder, Unspecified Treatment Plan Depakote DR 125mg po BID Remeron 7.5mg po daily Sitter: per primary Medical: Per primary Disposition: Do not recommend acute psychiatric inpatient treatment at this time. Will follow for psych progress and med management Case staffed with Dr. Rodgers Medications and Allergies Allergies Allergy/AdvReac Type Severity Reaction Status Date / Time No Known Allergies Allergy Verified 04/06/21 03:10 Home Medications Medication Instructions Recorded Confirmed Last Taken Type No Known Home Medications [No 04/10/21 04/10/21 Unknown History Reported Home Medications] Active Meds: Active Medications Acetaminophen (Acetaminophen 325 Mg Tab) 650 mg PO Q4H PRN PRN Reason: Pain MILD(1-3)/Fever >100.5/BRAR Dexamethasone (Dexamethasone 4 Mg Tab) 6 mg PO DAILY [facility] Stop: 04/18/21 12:00 Heparin Sodium (Porcine) (Heparin 5,000 Unit/1 Ml Vial) 5,000 unit SUB-Q Q8HR [facility] Last Admin: 04/14/21 06:00 Dose: 5,000 unit Documented by: Sodium Bicarbonate 100 meq/ (Dextrose) 1,100 mls @ 75 mls/hr IV DIRECT [facility] Last Infusion: 04/13/21 18:23 Dose: Infused Documented by: REMDESIVIR 100 mg/ Sodium (Chloride) 250 mls @ 500 mls/hr IV Q24HR@2100 [facility] Stop: 04/15/21 21:29 Last Admin: 04/13/21 23:31 Dose: 500 mls/hr Documented by: Morphine Sulfate (Morphine 2 Mg/1 Ml Inj) 2 mg IV Q4H PRN PRN Reason: Pain, Moderate (4-6) Last Admin: 04/14/21 01:01 Dose: 2 mg Documented by: Morphine Sulfate (Morphine 4 Mg/1 Ml Inj) 4 mg IV Q4H PRN PRN Reason: Pain , Severe (7-10) Ondansetron HCl (Ondansetron 4 Mg/2 Ml Inj) 4 mg IV Q8H PRN PRN Reason: Nausea And Vomiting Sodium Bicarbonate (Sodium Bicarbonate 650 Mg Tab) 650 mg PO TID [facility] Last Admin: 04/14/21 08:32 Dose: Not Given Documented by: Sodium Chloride (Sodium Chloride 0.9% 10 Ml Flush Syringe) 10 ml IV BID [facility] Last Admin: 04/14/21 01:01 Dose: 10 ml Documented by: Sodium Chloride (Sodium Chloride 0.9% 10 Ml Flush Syringe) 10 ml IV PRN PRN PRN Reason: LINE FLUSH Sodium Chloride (Sodium Chloride 0.9% 50 Ml Ivpb) 50 ml IV Q24HR@2100 [facility] Stop: 04/15/21 21:01 Last Admin: 04/13/21 23:32 Dose: 50 ml Documented by: Mental Status Exam - Vital signs Last Vital Signs Temp 98.1 F 04/14/21 04:59 Pulse 113 H 04/14/21 04:59 Resp 18 04/14/21 04:59 BP 181/77 04/14/21 04:59 Pulse Ox 92 04/14/21 09:15 Results Result Diagrams: 04/10/21 08:29 04/10/21 08:29 All other labs normal.
--- NOTE | 2021-04-14 14:01 | Progress Note ---
Assessment and Plan Assessment and plan: 60-year-old male with known history of hypertension seen in the emergency room today complaining of diarrhea and generalized weakness which started about 3 days ago. Patient states he just had his first dose of COVID-19 vaccination over the weekend and 24 hours thereafter he started having some diarrhea and generalized weakness. He denies any fever or chills, no chest pain or shortness of breath, no headache or dizziness, no diaphoresis. Patient denies any nausea vomiting, no abdominal pain, no hematuria or dysuria. He denies any sick contacts and no recent travel. Denies any contact with anyon e with COVID-19. Work-up in the emergency room today reveals elevated BUN and creatinine of 34 and 2.4 respectively. Chest x-ray reveals right lower lobe airspace opacity which could represent pneumonia or a neoplastic process. CT of the abdomen and pelvis reveals fluid and gas-filled colon without inflammation or colonic wall thickening 04/07: Patient seen and examined today continues on oxygen. ID input is noted. Have consulted pulmonary considering review of CT which shows a large mass in th e lungs. Patient may probably benefit from a bronchoscopy but will defer to pulmonary for now continue current management with steroids and remdesivir. Unfortunately I do not have any family contact information for this patient. Discussed with nursing staff to see if they can get anyone. Patient awaiting bed upstairs Patient on diagnosis Metabolic acidosis Hyperkalemia we'll give 20 of Kayexalate Thrombocytopenia unfortunately I'm not sure what the patient's baseline creatinine is but port captain input is noted 04/08: Patient seen today, still baseline confusion, renal function showing some improvement, called family and no response. Patient now on Bicarb drip due to metabolic Acidosis, also Lung mass noted, awaiting Pulmonary re-evaluation. otherwise he is clinically stable. 04/09: Resume steroids as patient developed significant hypoxia on 15 L of oxygen. Continue to wean as tolerated he also has mittens in place due to intermittent confusion. CREATININE STILL AT 1.8 04/10: Patient seen and examined, BP slightly elevated, will add BP meds. Pulmonary recommends outpatient follow up for the lung mass, renal function is showing improvement. Continue supportive care. Wean oxygen as tolerated, continue steroids at this time. No Remdesvier secondary to the Renal function. 04/11/21 Patient with Covid-19 with acute resp failure. On Oxygen at 10 l/min. Has right lung mass, to follow with Pulmonology as outpatient.Cr 1.5 today, improving. 04/12/21 Patient with Covid-19 with acute respiratory failure. Still on Oxygen at 10 l/min. Patient has been refusing blood draw so no labs for 2 days. He has Right lung mass and needs to follow with Pulmonology as outpatient. 04/13/21 Patient with Covid-19 with acute respiratory failure. Patient has been refusing treatment and lab blood draw so no labs for days. He has Right lung mass and needs to follow with Pulmonology as outpatient. Will consult Psych to evaluate 04/14/21 Patient with Covid-19 with acute respiratory failure. Patient has been refusing treatment and lab blood draw so no labs for days. He has Right lung mass and needs to follow with Pulmonology as outpatient. Consulted Psych to evaluate. (1) Acute renal failure (ARF) SECONDARY TO VASOMOTOR NEPHROPATHY WITH METABOLIC ACIDOSIS Current Visit: Yes Status: Acute Plan to address problem: Possibly prerenal. Patient will be placed on IV fluid normal saline. Will monitor BUN and creatinine. Consult placed to nephrology for evaluation. (2) Hypertension Current Visit: Yes Status: Acute Plan to address problem: Blood pressure stable . (3)COVID-19 Current Visit: Yes Status: Acute Plan to address problem: (4) Acute hypoxic respiratory failure (5) Right lung lung mass large (6) Acute metabolic encephalopathy -unknown baseline (7) Thrombocytopenia (8) DVT prophylaxis Current Visit: Yes Status: Acute Plan to address problem: Patient placed on subcutaneous heparin. (9) Full code status Current Visit: Yes Status: Acute Plan to address problem: Patient is full code. History Interval history: Shortness of breath patient refusing treatment, refusing lab blood draws Hospitalist Physical - Physical exam Narrative exam: Gen:Not in acute distress, lying in bed HEENT:Normocephalic, atraumatic Neck:supple, no JVD Lungs: Bilateral crackles, no wheeze Heart:S1 and S2 reg, no murmurs, rubs or gallop Abd:Soft, non tender, non distended, normal bowel sounds Ext:No edema. no clubbing, no cyanosis Neuro:Awake, alert, moves all ext - Constitutional Vitals: Temp Pulse Resp BP Pulse Ox 98.1 F 113 H 18 181/77 92 09/10/21 04:59 04/14/21 04:59 04/14/21 04:59 04/14/21 04:59 04/14/21 09:15 General appearance: Present: no acute distress, well-nourished Results - Labs CBC & Chem 7: 04/10/21 08:29 04/10/21 08:29 Labs: Laboratory Last Values WBC 3.8 K/mm3 (4.5-11.0) L 04/10/21 08:29 RBC 4.84 M/mm3 (3.65-5.03) 04/10/21 08:29 Hgb 14.2 gm/dl (11.8-15.2) 04/10/21 08:29 Hct 41.4 % (35.5-45.6) 04/10/21 08:29 MCV 85 fl (84-94) 04/10/21 08:29 MCH 29 pg (28-32) 04/10/21 08:29 MCHC 34 % (32-34) 04/10/21 08:29 RDW 15.7 % (13.2-15.2) H 04/10/21 08:29 Plt Count 161 K/mm3 (140-440) 04/10/21 08:29 Lymph % (Auto) 22.3 % (13.4-35.0) 04/07/21 04:14 Barry % (Auto) 10.8 % (0.0-7.3) H 04/07/21 04:14 Eos % (Auto) 0.0 % (0.0-4.3) 04/07/21 04:14 Baso % (Auto) 0.3 % (0.0-1.8) 04/07/21 04:14 Lymph # (Auto) 0.7 K/mm3 (1.2-5.4) L 04/07/21 04:14 Barry # (Auto) 0.4 K/mm3 (0.0-0.8) 04/07/21 04:14 Eos # (Auto) 0.0 K/mm3 (0.0-0.4) 04/07/21 04:14 Baso # (Auto) 0.0 K/mm3 (0.0-0.1) 04/07/21 04:14 Add Manual Diff Complete 04/05/21 15:03 Seg Neutrophils % 66.6 % (40.0-70.0) 04/07/21 04:14 Seg Neutrophils # 2.2 K/mm3 (1.8-7.7) 04/07/21 04:14 PT 13.5 Sec. (12.2-14.9) 04/07/21 04:14 INR 0.98 (0.87-1.13) 04/07/21 04:14 D-Dimer 721.64 ng/mlDDU (0-234) H 04/06/21 08:15 ABG pH 7.395 (7.320-7.450) 04/08/21 14:27 POC ABG pCO2 23.7 mmHg (32.0-48.0) L 04/08/21 14:27 POC ABG pO2 62.5 mmHg (83-108) L 04/08/21 14:27 POC ABG HCO3 14.2 04/08/21 14:27 ABG O2 Saturation 91.8 (0-100) 04/08/21 14:27 POC ABG Base Excess -8.6 04/08/21 14:27 ABG Hemoglobin 14.5 (12.0-17.5) 04/08/21 14:27 ABG Oxyhemoglobin 91.3 (94-98) L 04/08/21 14:27 ABG Methemoglobin 0.1 (0.0-1.5) 04/08/21 14:27 ABG Sodium 133.7 mmol/L (136.0-145.0) L 04/08/21 14:27 ABG Potassium 4.2 mmol/L (3.40-4.50) 04/08/21 14:27 ABG Chloride 112.0 mmol/L (98-107) H 04/08/21 14:27 ABG Glucose 117 mg/dL (65-95) H 04/08/21 14:27 Carboxyhemoglobin 0.4 (0.5-1.5) L 04/08/21 14:27 FiO2 % 100.0 04/08/21 14:27 Sodium 139 mmol/L (137-145) 04/10/21 08:29 Potassium 4.6 mmol/L (3.6-5.0) 04/10/21 08:29 Chloride 107.0 mmol/L (98-107) 04/10/21 08:29 Carbon Dioxide 22 mmol/L (22-30) 04/10/21 08:29 Anion Gap 15 mmol/L 04/10/21 08:29 BUN 31 mg/dL (9-20) H 04/10/21 08:29 Creatinine 1.5 mg/dL (0.8-1.3) H 04/10/21 08:29 Estimated GFR 48 ml/min 04/10/21 08:29 BUN/Creatinine Ratio 21 % 04/10/21 08:29 Glucose 119 mg/dL (75-100) H 04/10/21 08:29 POC Glucose 115 mg/dL (70-105) H 04/08/21 15:33 Lactic Acid 1.20 mmol/L (0.7-2.0) 04/09/21 08:38 Calcium 9.3 mg/dL (8.4-10.2) 04/10/21 08:29 Magnesium 2.40 mg/dL (1.7-2.3) H 04/05/21 15:03 Ferritin 1468.0 ng/mL (30.0-300.0) H 04/06/21 08:07 Total Bilirubin 0.40 mg/dL (0.1-1.2) 04/10/21 08:29 AST 89 units/L (5-40) H 04/10/21 08:29 ALT 80 units/L (7-56) H 04/10/21 08:29 Alkaline Phosphatase 159 units/L (35-129) H 04/10/21 08:29 Lactate Dehydrogenase 445 units/L (91-180) H 04/06/21 08:07 C-Reactive Protein 2.90 mg/dL (0.00-1.30) H 04/06/21 08:07 Total Protein 7.4 g/dL (6.3-8.2) 04/10/21 08:29 Albumin 3.2 g/dL (3.9-5) L 04/10/21 08:29 Albumin/Globulin Ratio 0.8 % 04/10/21 08:29 Lipase 143 units/L (13-60) H 04/05/21 15:03 Procalcitonin 0.34 ng/mL (<0.15) 04/06/21 08:15 PTH Intact 58.46 pg/mL (15-65) 04/10/21 08:29 Arterial Blood Glucose 117 mg/dL (65-95) H 04/08/21 14:27 Arterial Blood Ionized Calcium 4.8 mg/dL (4.6-5.3) 04/08/21 14:27 Coronavirus (PCR) Positive (Negative) A 04/07/21 08:15 Atkins/IV: Voiding Method Urinal Active Medications - Current Medications Current Medications: Generic Name Dose Route Start Last Admin Trade Name Freq PRN Reason Stop Dose Admin Acetaminophen 650 mg 04/06/21 02:57 Acetaminophen 325 Mg Tab PO Q4H PRN Pain MILD(1-3)/Fever >100.5/BRAR Dexamethasone 6 mg 04/15/21 10:00 Dexamethasone 4 Mg Tab PO 04/18/21 12:00 DAILY BISHOP Divalproex Sodium 125 mg 04/14/21 13:[address] 125 Mg Tab PO BID BISHOP Heparin Sodium (Porcine) 5,000 unit 04/06/21 14:00 04/14/21 06:00 Heparin 5,000 Unit/1 Ml Vial SUB-Q 5,000 unit Q8HR BISHOP Administration Sodium Bicarbonate 100 meq/ 1,100 mls @ 75 mls/hr 04/07/21 13:00 04/13/21 18:23 Dextrose IV Infused DIRECT BISHOP Infusion REMDESIVIR 100 mg/ Sodium 250 mls @ 500 mls/hr 04/12/21 21:00 04/13/21 23:31 Chloride IV 04/15/21 21:29 500 mls/hr Q24HR@2100 BISHOP Administration Mirtazapine 7.5 mg 04/14/21 22:00 Mirtazapine 15 Mg Tab PO QHS BISHOP Morphine Sulfate 2 mg 04/06/21 02:57 04/14/21 01:01 Morphine 2 Mg/1 Ml Inj IV 2 mg Q4H PRN Administration Pain, Moderate (4-6) Morphine Sulfate 4 mg 04/06/21 02:57 Morphine 4 Mg/1 Ml Inj IV Q4H PRN Pain , Severe (7-10) Ondansetron HCl 4 mg 04/06/21 02:57 Ondansetron 4 Mg/2 Ml Inj IV Q8H PRN Nausea And Vomiting Sodium Bicarbonate 650 mg 04/08/21 22:00 04/14/21 08:32 Sodium Bicarbonate 650 Mg Tab PO Not Given TID BISHOP Sodium Chloride 10 ml 04/06/21 10:00 04/14/21 01:01 Sodium Chloride 0.9% 10 Ml Flush Syringe IV 10 ml BID BISHOP Administration Sodium Chloride 10 ml 04/06/21 02:57 Sodium Chloride 0.9% 10 Ml Flush Syringe IV PRN PRN LINE FLUSH Sodium Chloride 50 ml 04/11/21 21:00 04/13/21 23:32 Sodium Chloride 0.9% 50 Ml Ivpb IV 04/15/21 21:01 50 ml Q24HR@2100 BISHOP Administration Nutrition/Malnutrition Assess - Dietary Evaluation Nutrition/Malnutrition Findings: Nutrition Notes Start: 04/13/21 14:23 Freq: Status: Active Protocol: Document 04/13/21 14:23 JIGNESH (Rec: 04/13/21 14:29 JIGNESH [id number]) Nutrition Notes Need for Assessment generated from: LOS Initial or Follow up Assessment Current Diagnosis Acute Kidney Injury, Hypertension,Respiratory Failure Other Pertinent Diagnosis pneu, lung mass, COVID-19 Current Diet cardiac, pureed Labs/Tests BUN 31 Cr 1.5 Pertinent Medications reviewed Height 5 ft 11 in Weight 65.6 kg [place] Body Weight (kg) 78.18 BMI 20.1 Weight Status Appropriate Subjective/Other Information Screen for LOS. RN unsure of intakes. Pt did not answer phone. Per chart, pt sometimes refuses meals or eats 100% of meals. Burn Absent Trauma Absent Current % PO Fair (50-74%) Minimum of two criteria No #1 Nutrition Diagnosis Inadequate oral intake Etiology unknown As Evidenced by Signs and Symptoms pt eating an average of 50% of meals Is patient on ventilator? No Is Patient Ambulatory and/or Out of Bed Yes REE-([place]-St. Jeor-ambulatory/OOB) [ 1928.069 [id number]] [facility]culation [facility] Additional Notes Protein: (0.8-1g/kg) 52-66g Fluid: 1 ml/kcal or per Nutrition Intervention Change Diet Order: continue Add Supplement/Snack (indicate name/kcal Ensure Enlive daily /protein ) Provides kCal: 350 Provides Protein (gm) 20 Goal #1 Meet at least 75% of protein and kcal needs via PO and ONS intakes Anticipated Discharge Needs: Cardiac, pureed Follow-Up By: 04/17/21 Additional Comments F/u: intakes and ONS tolerance
--- NOTE | 2021-04-14 14:05 | Progress Note ---
Assessment and Plan 60 y/o male with ILD, right lower lobe lung mass and COVID 19 with acute respiratory failure. 04/14/21: Renal continues to follow but no labs in several days. Based on I/O would suggest diuresis but do not want to harm renal function. Continue to prone. Wean FiO2 as tolerated and continue steroids. 04/13/21: Continue to wean FiO2 as tolerated. Steroids for a total of 10 days. May be ready for 6 minute walk test as early as tomorrow or the weekend. 04/12/21: Continue to wean FiO2 as tolerated for sats >88%. Continue steroids. Guarded prognosis. Hold on higher doses of steroid given decreases in oxygen requirement. 04/11/21: Continue to wean FiO2 as tolerated for sats >88%. Continue steroids. Mass work up likely will have to be done as an outpatient. 1. Pulm- Agreed that biopsy is needed but must recover from COVID first. Would suggest CT guided biopsy. Lesion does appear amenable to bronch but would need to be Tbbx and may not get enough tissue. could consider EBUS if not able to get with CT guided biopsy. needs full work up of ILD as well but this can be done as an outpatient. Will continue current dose of steroids, however if oxygenation worsens would switch to higher doses. No puffers available in this hospital except albuterol. No nebs given COVID status. Guarded prognosis. Subjective Date of service: 04/14/21 Interval history: Still on 6, sats in the low 90's. Objective Vital Signs - 12hr 04/14/21 04/14/21 04:59 09:15 Temperature 98.1 F Pulse Rate 113 H Respiratory 18 Rate Blood Pressure 181/77 [Left] O2 Sat by Pulse 92 92 Oximetry Constitutional: no acute distress, alert, appears uncomfortable ENT: oropharynx moist Neck: supple, no JVD Ascultation: Bilateral: diminished breath sounds Cardiovascular: regular rate and rhythm Gastrointestinal: normoactive bowel sounds, soft, non-tender Extremities: no cyanosis, other (Clubbing of the fingernails noted) Neurologic: normal mental status Psychiatric: mood appropriate CBC and BMP: 04/10/21 08:29 04/10/21 08:29 ABG, PT/INR, D-dimer: ABG ABG pH 7.395 (7.320-7.450) 04/08/21 14:27 POC ABG pCO2 23.7 mmHg (32.0-48.0) L 04/08/21 14:27 POC ABG pO2 62.5 mmHg (83-108) L 04/08/21 14:27 POC ABG HCO3 14.2 04/08/21 14:27 ABG O2 Saturation 91.8 (0-100) 04/08/21 14:27 PT/INR, D-dimer PT 13.5 Sec. (12.2-14.9) 04/07/21 04:14 INR 0.98 (0.87-1.13) 04/07/21 04:14 D-Dimer 721.64 ng/mlDDU (0-234) H 04/06/21 08:15 Abnormal lab findings: Abnormal Labs 04/05/21 04/05/21 04/05/21 15:03 15:03 21:28 WBC RBC 5.40 H Hgb 15.9 H Hct 49.5 H MCHC RDW 17.3 H Plt Count 106 L [place] % (Auto) 9.0 H Lymph # (Auto) D-Dimer POC ABG pCO2 POC ABG pO2 ABG Oxyhemoglobin ABG Sodium ABG Chloride ABG Glucose Carboxyhemoglobin Sodium 135 L 135 L Potassium 6.2 H* Chloride Carbon Dioxide 11 L 12 L BUN 34 H 42 H Creatinine 2.4 H 3.2 H Glucose 121 H POC Glucose Magnesium 2.40 H Ferritin AST 56 H ALT Alkaline Phosphatase Lactate Dehydrogenase C-Reactive Protein Total Protein 8.7 H Albumin Lipase 143 H Arterial Blood Glucose Coronavirus (PCR) 04/06/21 04/06/21 04/06/21 08:07 08:07 08:15 WBC RBC Hgb Hct MCHC RDW Plt Count [place] % (Auto) Lymph # (Auto) D-Dimer 721.64 H POC ABG pCO2 POC ABG pO2 ABG Oxyhemoglobin ABG Sodium ABG Chloride ABG Glucose Carboxyhemoglobin Sodium Potassium Chloride Carbon Dioxide BUN Creatinine Glucose POC Glucose Magnesium Ferritin 1468.0 H AST ALT Alkaline Phosphatase Lactate Dehydrogenase 445 H C-Reactive Protein 2.90 H Total Protein Albumin Lipase Arterial Blood Glucose Coronavirus (PCR) 04/07/21 04/07/21 04/07/21 04:14 04:14 08:15 WBC 3.2 L RBC Hgb Hct MCHC RDW 16.0 H Plt Count 101 L [place] % (Auto) 10.8 H Lymph # (Auto) 0.7 L D-Dimer POC ABG pCO2 POC ABG pO2 ABG Oxyhemoglobin ABG Sodium ABG Chloride ABG Glucose Carboxyhemoglobin Sodium Potassium 5.6 H Chloride 111.6 H Carbon Dioxide 16 L BUN 43 H Creatinine 2.5 H Glucose POC Glucose Magnesium Ferritin AST ALT Alkaline Phosphatase Lactate Dehydrogenase C-Reactive Protein Total Protein Albumin Lipase Arterial Blood Glucose Coronavirus (PCR) Positive A 04/08/21 04/08/21 04/08/21 08:00 14:27 15:33 WBC RBC Hgb Hct MCHC RDW Plt Count [place] % (Auto) Lymph # (Auto) D-Dimer POC ABG pCO2 23.7 L POC ABG pO2 62.5 L ABG Oxyhemoglobin 91.3 L ABG Sodium 133.7 L ABG Chloride 112.0 H ABG Glucose 117 H Carboxyhemoglobin 0.4 L Sodium Potassium Chloride 109.9 H Carbon Dioxide 13 L BUN 40 H Creatinine 1.8 H Glucose 74 L POC Glucose 115 H Magnesium Ferritin AST ALT Alkaline Phosphatase Lactate Dehydrogenase C-Reactive Protein Total Protein Albumin Lipase Arterial Blood Glucose 117 H Coronavirus (PCR) 04/09/21 04/09/21 04/10/21 08:38 08:38 08:29 WBC 3.1 L 3.8 L RBC Hgb Hct MCHC 35 H RDW 15.7 H 15.7 H Plt Count 136 L [place] % (Auto) Lymph # (Auto) D-Dimer POC ABG pCO2 POC ABG pO2 ABG Oxyhemoglobin ABG Sodium ABG Chloride ABG Glucose Carboxyhemoglobin Sodium Potassium Chloride 110.4 H Carbon Dioxide 19 L BUN 35 H Creatinine 1.8 H Glucose POC Glucose Magnesium Ferritin AST 144 H ALT 92 H Alkaline Phosphatase 159 H Lactate Dehydrogenase C-Reactive Protein Total Protein Albumin 3.3 L Lipase Arterial Blood Glucose Coronavirus (PCR) 04/10/21 08:29 WBC RBC Hgb Hct MCHC RDW Plt Count [place] % (Auto) Lymph # (Auto) D-Dimer POC ABG pCO2 POC ABG pO2 ABG Oxyhemoglobin ABG Sodium ABG Chloride ABG Glucose Carboxyhemoglobin Sodium Potassium Chloride Carbon Dioxide BUN 31 H Creatinine 1.5 H Glucose 119 H POC Glucose Magnesium Ferritin AST 89 H ALT 80 H Alkaline Phosphatase 159 H Lactate Dehydrogenase C-Reactive Protein Total Protein Albumin 3.2 L Lipase Arterial Blood Glucose Coronavirus (PCR)
[2021-04-14] MEDS: DIVALPROEX DR 125 MG TAB PO SCH ×2 (14:26→22:54)
[2021-04-14] MEDS ORDERED: hydrALAZINE 20 MG/1 ML INJ IV PRN (14:37)
[2021-04-14] MEDS: amLODIPine 5 MG TAB PO SCH (17:26)
[2021-04-14] MEDS: REMDESIVIR 100 MG in SODIUM CHLORIDE 0.9% 250ML 250 ML IV SCH (22:52)
[2021-04-14] MEDS: SODIUM CHLORIDE 0.9% 50 ML IVPB IV SCH (22:53)
[2021-04-14] MEDS: MIRTAZAPINE 15 MG TAB PO SCH (22:55)
--- NOTE | 2021-04-14 23:05 | Event Note ---
Date: 04/14/21 called and spoke with Jelena Cha, sister at [phone]. She tells me she wants patient transferred to [facility]. I explained to her that will be difficult as most hospitals full. She states patient goes to Dr. Hurley, [facility] [phone]. In addition she tells me patient was being investigated for cancer of either Prostate or lungs but she is not sure. I have now requested records from this clinic. I asked her to convince patient to be more compliant as he has been refusing treatment, refusing medications, refusing lab blood draws.
[2021-04-15] MEDS: HEPARIN 5,000 UNIT/1 ML VIAL SUB-Q SCH ×3 (05:28→22:03)
[2021-04-15 07:44] LABS: Hematocrit 36.6 % (35.5-45.6); Hemoglobin 12.5 gm/dl (11.8-15.2); Mean Corpuscular HGB Conc 34 % (32-34); Mean Corpuscular Volume 85 fl (84-94); Red Blood Count 4.29 M/mm3 (3.65-5.03)
[2021-04-15 08:29] LABS: Albumin 2.8 g/dL (3.9-5)
[2021-04-15] MEDS ORDERED: OXYCODONE 15 MG TAB PO SCH (09:00)
[2021-04-15] MEDS: dexAMETHasone 4 MG/ML VIAL IV SCH (09:03)
--- NOTE | 2021-04-15 09:38 | Progress Note ---
Assessment and Plan 1. Acute kidney injury: Vasomotor ELIO in the setting of volume depletion +/- 2/[address] abdomen negative for hydro. Monitor renal function. Baseline renal function is unknown. Creatinine level is improving. Avoid nephrotoxic agents. Meds dosage based on GFR. 2. FEN: Hyperkalemia, improved, monitor. Hyperchloremic Metabolic acidosis, improved, monitor. Hyponatremia, improved, monitor. Monitor lytes and volume status. 3. Diarrhea: ?related to Covid. Monitor. 4. COVID-19 infection: Decadron and Remdesivir. Anticoagulation per hospital protocol. 5. Possible lung mass: Followed by Pulmonary. 6. Hypertension: Monitor BP. Subjective: Patient was not examined today to limit exposue to Covid-19. However the examination findings from other providers noted. The current and previous medical records are reviewed in detail as are laboratory and imaging data revie wed when appropriate. Medications being given are also reviewed. In addition the case has been discussed with the attending hospitalist and the nurse when needed. New renal recommendations as above. Examination: Subjective Date of service: 04/15/21 Objective - Vital Signs Vital signs: Vital Signs - 12hr 04/14/21 04/14/21 22:00 23:22 Temperature 98.9 F Pulse Rate 83 Respiratory 18 Rate Blood Pressure 160/76 O2 Sat by Pulse 94 98 Oximetry - Lab 04/15/21 07:09 04/15/21 07:09 Most recent lab results ABG pH 7.395 (7.320-7.450) 04/08/21 14:27 ABG O2 Saturation 91.8 (0-100) 04/08/21 14:27 Calcium 9.0 mg/dL (8.4-10.2) 04/15/21 07:09 Magnesium 2.40 mg/dL (1.7-2.3) H 04/05/21 15:03 Medications & Allergies - Medications Allergies/Adverse Reactions: Allergies No Known Allergies Allergy (Verified 04/06/21 03:10) Home Medications: Home Medications Medication Instructions Recorded Confirmed Last Taken Type No Known Home Medications [No 04/10/21 04/10/21 Unknown History Reported Home Medications] Active Medications: Generic Name Dose Route Start Last Admin Trade Name Freq PRN Reason Stop Dose Admin Acetaminophen 650 mg 04/06/21 02:57 Acetaminophen 325 Mg Tab PO Q4H PRN Pain MILD(1-3)/Fever >100.5/BRAR Amlodipine Besylate 5 mg 04/14/21 15:00 04/14/21 17:26 Amlodipine 5 Mg Tab PO Not Given QDAY [facility] Dexamethasone 6 mg 04/15/21 10:00 Dexamethasone 4 Mg Tab PO 04/18/21 12:00 DAILY BISHOP Divalproex Sodium 125 mg 04/14/21 13:00 04/14/21 22:[address] 125 Mg Tab PO 125 mg BID BISHOP Administration Heparin Sodium (Porcine) 5,000 unit 04/06/21 14:00 04/15/21 05:28 Heparin 5,000 Unit/1 Ml Vial SUB-Q 5,000 unit Q8HR BISHOP Administration Hydralazine HCl 10 mg 04/14/21 14:37 Hydralazine 20 Mg/1 Ml Inj IV Q4HR PRN SBP>160 or DBP>110 Sodium Bicarbonate 100 meq/ 1,100 mls @ 75 mls/hr 04/07/21 13:00 04/13/21 18:23 Dextrose IV Infused DIRECT BISHOP Infusion REMDESIVIR 100 mg/ Sodium 250 mls @ 500 mls/hr 04/12/21 21:00 04/14/21 22:52 Chloride IV 04/15/21 21:29 500 mls/hr Q24HR@2100 BISHOP Administration Mirtazapine 7.5 mg 04/14/21 22:00 04/14/21 22:55 Mirtazapine 15 Mg Tab PO 7.5 mg QHS BISHOP Administration Morphine Sulfate 2 mg 04/06/21 02:57 04/14/21 01:01 Morphine 2 Mg/1 Ml Inj IV 2 mg Q4H PRN Administration Pain, Moderate (4-6) Morphine Sulfate 4 mg 04/06/21 02:57 Morphine 4 Mg/1 Ml Inj IV Q4H PRN Pain , Severe (7-10) Ondansetron HCl 4 mg 04/06/21 02:57 Ondansetron 4 Mg/2 Ml Inj IV Q8H PRN Nausea And Vomiting Sodium Bicarbonate 650 mg 04/08/21 22:00 04/14/21 22:54 Sodium Bicarbonate 650 Mg Tab PO 650 mg TID BISHOP Administration Sodium Chloride 10 ml 04/06/21 10:00 04/14/21 22:54 Sodium Chloride 0.9% 10 Ml Flush Syringe IV 10 ml BID BISHOP Administration Sodium Chloride 10 ml 04/06/21 02:57 Sodium Chloride 0.9% 10 Ml Flush Syringe IV PRN PRN LINE FLUSH Sodium Chloride 50 ml 04/11/21 21:00 04/14/21 22:53 Sodium Chloride 0.9% 50 Ml Ivpb IV 04/15/21 21:01 50 ml Q24HR@2100 BISHOP Administration
[2021-04-15] MEDS: oxyCODONE 5 MG TAB PO ONE ×2 (10:00→13:36)
[2021-04-15] MEDS ORDERED: OXYCODONE 15 MG TAB PO ONE (10:00)
[2021-04-15] MEDS ORDERED: oxyCODONE 5 MG TAB PO PRN (10:00)
[2021-04-15 11:27] LABS: Platelet Count 220 K/mm3 (140-440)
[2021-04-15] MEDS: SODIUM BICARBONATE 650 MG TAB PO SCH ×3 (12:14→22:02)
[2021-04-15] MEDS: DEXAMETHASONE 4 MG TAB PO SCH (12:14)
[2021-04-15] MEDS: amLODIPine 5 MG TAB PO SCH (12:14)
[2021-04-15] MEDS: DIVALPROEX DR 125 MG TAB PO SCH ×2 (12:15→22:02)
--- NOTE | 2021-04-15 12:40 | Progress Note ---
Subjective - Reason for Consult Consult date: 04/15/21 Reason for consult: agitation - Chief Complaint Chief complaint: The patient was seen today. He is lying in bed with linen over his head. He is uncooperative. He does not remove it to speak with me. I lightly touch the patient's foot, he snatches it back. The nurse caring for the patient states he is mean, and combative. I attempted to speak with the patient's sister at [phone] but did not get an answer. REVIEW OF SYSTEMS COVID + MENTAL STATUS EXAMINATION Unccoperative Assessment and Plan (1)Mood Disorder, Unspecified Treatment Plan Haldol 5mg IM q6h prn agitation Depakote DR 125mg po BID Remeron 7.5mg po daily Sitter: per primary Medical: Per primary Disposition: Do not recommend acute psychiatric inpatient treatment at this time. Will follow for psych progress and med management Case staffed with Dr. Rodgers Mental Status Exam - Vital signs Last Vital Signs Temp 98.9 F 04/14/21 23:22 Pulse 80 04/15/21 06:12 Resp 24 04/15/21 06:12 BP 144/73 04/15/21 06:12 Pulse Ox 92 04/15/21 06:12
--- NOTE | 2021-04-15 12:42 | Progress Note ---
Assessment and Plan 60 y/o male with ILD, right lower lobe lung mass and COVID 19 with acute respiratory failure. 04/15/21: renal function is better. still would suggest diuresis if possible. Continue to wean FiO2 as tolerated. needs walk test soon to assess oxygen needs. 04/14/21: Renal continues to follow but no labs in several days. Based on I/O would suggest diuresis but do not want to harm renal function. Continue to prone. Wean FiO2 as tolerated and continue steroids. 04/13/21: Continue to wean FiO2 as tolerated. Steroids for a total of 10 days. May be ready for 6 minute walk test as early as tomorrow or the weekend. 04/12/21: Continue to wean FiO2 as tolerated for sats >88%. Continue steroids. Guarded prognosis. Hold on higher doses of steroid given decreases in oxygen requirement. 04/11/21: Continue to wean FiO2 as tolerated for sats >88%. Continue steroids. Mass work up likely will have to be done as an outpatient. 1. Pulm- Agreed that biopsy is needed but must recover from COVID first. Would suggest CT guided biopsy. Lesion does appear amenable to bronch but would need to be Tbbx and may not get enough tissue. could consider EBUS if not able to get with CT guided biopsy. needs full work up of ILD as well but this can be done as an outpatient. Will continue current dose of steroids, however if oxygenatio n worsens would switch to higher doses. No puffers available in this hospital except albuterol. No nebs given COVID status. Guarded prognosis. Subjective Date of service: 04/15/21 Interval history: No acute events. Down to 5 liters. Objective Vital Signs - 12hr 04/15/21 06:12 Pulse Rate 80 Respiratory 24 Rate Blood Pressure 144/73 O2 Sat by Pulse 92 Oximetry Constitutional: no acute distress, alert, appears uncomfortable ENT: oropharynx moist Neck: supple, no JVD Ascultation: Bilateral: diminished breath sounds Cardiovascular: regular rate and rhythm Gastrointestinal: normoactive bowel sounds, soft, non-tender Extremities: no cyanosis, other (Clubbing of the fingernails noted) Neurologic: normal mental status Psychiatric: mood appropriate CBC and BMP: 04/15/21 07:09 04/15/21 07:09 ABG, PT/INR, D-dimer: ABG ABG pH 7.395 (7.320-7.450) 04/08/21 14:27 POC ABG pCO2 23.7 mmHg (32.0-48.0) L 04/08/21 14:27 POC ABG pO2 62.5 mmHg (83-108) L 04/08/21 14:27 POC ABG HCO3 14.2 04/08/21 14:27 ABG O2 Saturation 91.8 (0-100) 04/08/21 14:27 PT/INR, D-dimer PT 13.5 Sec. (12.2-14.9) 04/07/21 04:14 INR 0.98 (0.87-1.13) 04/07/21 04:14 D-Dimer 721.64 ng/mlDDU (0-234) H 04/06/21 08:15 Abnormal lab findings: Abnormal Labs 04/05/21 04/05/21 04/05/21 15:03 15:03 21:28 WBC RBC 5.40 H Hgb 15.9 H Hct 49.5 H MCHC RDW 17.3 H Plt Count 106 L [place] % (Auto) 9.0 H Lymph # (Auto) D-Dimer POC ABG pCO2 POC ABG pO2 ABG Oxyhemoglobin ABG Sodium ABG Chloride ABG Glucose Carboxyhemoglobin Sodium 135 L 135 L Potassium 6.2 H* Chloride Carbon Dioxide 11 L 12 L BUN 34 H 42 H Creatinine 2.4 H 3.2 H Glucose 121 H POC Glucose Magnesium 2.40 H Ferritin AST 56 H ALT Alkaline Phosphatase Lactate Dehydrogenase C-Reactive Protein Total Protein 8.7 H Albumin Lipase 143 H Arterial Blood Glucose Coronavirus (PCR) 04/06/21 04/06/21 04/06/21 08:07 08:07 08:15 WBC RBC Hgb Hct MCHC RDW Plt Count [place] % (Auto) Lymph # (Auto) D-Dimer 721.64 H POC ABG pCO2 POC ABG pO2 ABG Oxyhemoglobin ABG Sodium ABG Chloride ABG Glucose Carboxyhemoglobin Sodium Potassium Chloride Carbon Dioxide BUN Creatinine Glucose POC Glucose Magnesium Ferritin 1468.0 H AST ALT Alkaline Phosphatase Lactate Dehydrogenase 445 H C-Reactive Protein 2.90 H Total Protein Albumin Lipase Arterial Blood Glucose Coronavirus (PCR) 04/07/21 04/07/21 04/07/21 04:14 04:14 08:15 WBC 3.2 L RBC Hgb Hct MCHC RDW 16.0 H Plt Count 101 L [place] % (Auto) 10.8 H Lymph # (Auto) 0.7 L D-Dimer POC ABG pCO2 POC ABG pO2 ABG Oxyhemoglobin ABG Sodium ABG Chloride ABG Glucose Carboxyhemoglobin Sodium Potassium 5.6 H Chloride 111.6 H Carbon Dioxide 16 L BUN 43 H Creatinine 2.5 H Glucose POC Glucose Magnesium Ferritin AST ALT Alkaline Phosphatase Lactate Dehydrogenase C-Reactive Protein Total Protein Albumin Lipase Arterial Blood Glucose Coronavirus (PCR) Positive A 04/08/21 04/08/21 04/08/21 08:00 14:27 15:33 WBC RBC Hgb Hct MCHC RDW Plt Count [place] % (Auto) Lymph # (Auto) D-Dimer POC ABG pCO2 23.7 L POC ABG pO2 62.5 L ABG Oxyhemoglobin 91.3 L ABG Sodium 133.7 L ABG Chloride 112.0 H ABG Glucose 117 H Carboxyhemoglobin 0.4 L Sodium Potassium Chloride 109.9 H Carbon Dioxide 13 L BUN 40 H Creatinine 1.8 H Glucose 74 L POC Glucose 115 H Magnesium Ferritin AST ALT Alkaline Phosphatase Lactate Dehydrogenase C-Reactive Protein Total Protein Albumin Lipase Arterial Blood Glucose 117 H Coronavirus (PCR) 04/09/21 04/09/21 04/10/21 08:38 08:38 08:29 WBC 3.1 L 3.8 L RBC Hgb Hct MCHC 35 H RDW 15.7 H 15.7 H Plt Count 136 L [place] % (Auto) Lymph # (Auto) D-Dimer POC ABG pCO2 POC ABG pO2 ABG Oxyhemoglobin ABG Sodium ABG Chloride ABG Glucose Carboxyhemoglobin Sodium Potassium Chloride 110.4 H Carbon Dioxide 19 L BUN 35 H Creatinine 1.8 H Glucose POC Glucose Magnesium Ferritin AST 144 H ALT 92 H Alkaline Phosphatase 159 H Lactate Dehydrogenase C-Reactive Protein Total Protein Albumin 3.3 L Lipase Arterial Blood Glucose Coronavirus (PCR) 04/10/21 04/15/21 08:29 07:09 WBC RBC Hgb Hct MCHC RDW Plt Count [place] % (Auto) Lymph # (Auto) D-Dimer POC ABG pCO2 POC ABG pO2 ABG Oxyhemoglobin ABG Sodium ABG Chloride ABG Glucose Carboxyhemoglobin Sodium Potassium Chloride Carbon Dioxide BUN 31 H 27 H Creatinine 1.5 H Glucose 119 H POC Glucose Magnesium Ferritin AST 89 H ALT 80 H Alkaline Phosphatase 159 H Lactate Dehydrogenase C-Reactive Protein Total Protein Albumin 3.2 L 2.8 L Lipase Arterial Blood Glucose Coronavirus (PCR)
[2021-04-15] MEDS ORDERED: HALOPERIDOL LACTATE 5 MG/1 ML INJ IM PRN (13:00)
[2021-04-15] MEDS: MIRTAZAPINE 15 MG TAB PO SCH (22:03)
[2021-04-15] MEDS: SODIUM CHLORIDE 0.9% 50 ML IVPB IV SCH (22:04)
[2021-04-15] MEDS: REMDESIVIR 100 MG in SODIUM CHLORIDE 0.9% 250ML 250 ML IV SCH (22:04)
[2021-04-16] MEDS: HEPARIN 5,000 UNIT/1 ML VIAL SUB-Q SCH ×3 (05:23→21:47)
--- NOTE | 2021-04-16 07:33 | Progress Note ---
Assessment and Plan Assessment and plan: 60-year-old male with known history of hypertension seen in the emergency room today complaining of diarrhea and generalized weakness which started about 3 days ago. Patient states he just had his first dose of COVID-19 vaccination over the weekend and 24 hours thereafter he started having some diarrhea and generalized weakness. He denies any fever or chills, no chest pain or shortness of breath, no headache or dizziness, no diaphoresis. Patient denies any nausea vomiting, no abdominal pain, no hematuria or dysuria. He denies any sick contacts and no recent travel. Denies any contact with anyon e with COVID-19. Work-up in the emergency room today reveals elevated BUN and creatinine of 34 and 2.4 respectively. Chest x-ray reveals right lower lobe airspace opacity which could represent pneumonia or a neoplastic process. CT of the abdomen and pelvis reveals fluid and gas-filled colon without inflammation or colonic wall thickening 04/07: Patient seen and examined today continues on oxygen. ID input is noted. Have consulted pulmonary considering review of CT which shows a large mass in th e lungs. Patient may probably benefit from a bronchoscopy but will defer to pulmonary for now continue current management with steroids and remdesivir. Unfortunately I do not have any family contact information for this patient. Discussed with nursing staff to see if they can get anyone. 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 Patient now on Bicarb drip due to metabolic Acidosis, also Lung mass noted, awaiting Pulmonary re-evaluation. otherwise he is clinically stable. 04/09: Resume steroids as patient developed significant hypoxia on 15 L of oxygen. Continue to wean as tolerated he also has mittens in place due to intermittent confusion. CREATININE STILL AT 1.8 04/10: Patient seen and examined, BP slightly elevated, will add BP meds. Pulmonary recommends outpatient follow up for the lung mass, renal function is showing improvement. Continue supportive care. Wean oxygen as tolerated, continue steroids at this time. No Remdesvier secondary to the Renal function. 04/11/21 Patient with Covid-19 with acute resp failure. On Oxygen at 10 l/min. Has right lung mass, to follow with Pulmonology as outpatient.Cr 1.5 today, improving. 04/12/21 Patient with Covid-19 with acute respiratory failure. Still on Oxygen at 10 l/min. Patient has been refusing blood draw so no labs for 2 days. He has Right lung mass and needs to follow with Pulmonology as outpatient. 04/13/21 Patient with Covid-19 with acute respiratory failure. Patient has been refusing treatment and lab blood draw so no labs for days. He has Right lung mass and needs to follow with Pulmonology as outpatient. Will consult Psych to evaluate 04/14/21 Patient with Covid-19 with acute respiratory failure. Patient has been refusing treatment and lab blood draw so no labs for days. He has Right lung mass and needs to follow with Pulmonology as outpatient. Consulted Psych to evaluate. 04/14/21 Patient with Covid-19 with acute respiratory failure. Patient has been refusing treatment and lab blood draws. He has right lung mass and needs to follow with Pulmonology as outpatient. His Sister states patient was being followed at [facility] and was being worked up for cancer either Prostate or lung. I have requested medical records. Sister requested transfer to [facility], but I discussed,explained that it is difficult because most hospitals are full (1) Acute renal failure (ARF) SECONDARY TO VASOMOTOR NEPHROPATHY WITH METABOLIC ACIDOSIS Current Visit: Yes Status: Acute Plan to address problem: Possibly prerenal. Patient will be placed on IV fluid normal saline. Will monitor BUN and creatinine. Consult placed to nephrology for evaluation. (2) Hypertension Current Visit: Yes Status: Acute Plan to address problem: Blood pressure stable . (3)COVID-19 Current Visit: Yes Status: Acute Plan to address problem: (4) Acute hypoxic respiratory failure (5) Right lung lung mass large (6) Acute metabolic encephalopathy -unknown baseline (7) Thrombocytopenia (8) DVT prophylaxis Current Visit: Yes Status: Acute Plan to address problem: Patient placed on subcutaneous heparin. (9) Full code status Current Visit: Yes Status: Acute Plan to address problem: Patient is full code. History Interval history: Shortness of breath patient refusing treatment, refusing lab blood draws Hospitalist Physical - Physical exam Narrative exam: Gen:Not in acute distress, lying in bed HEENT:Normocephalic, atraumatic Neck:supple, no JVD Lungs: Bilateral crackles, no wheeze Heart:S1 and S2 reg, no murmurs, rubs or gallop Abd:Soft, non tender, non distended, normal bowel sounds Ext:No edema. no clubbing, no cyanosis Neuro:Awake, alert, moves all ext - Constitutional Vitals: Temp Pulse Resp BP Pulse Ox 98.2 F 59 L 18 154/76 93 04/16/21 05:48 04/16/21 05:48 04/16/21 05:48 04/16/21 05:48 04/16/21 05:48 General appearance: Present: no acute distress, well-nourished Results - Labs CBC & Chem 7: 04/15/21 07:09 04/15/21 07:09 Labs: Laboratory Last Values WBC 5.3 K/mm3 (4.5-11.0) 04/15/21 07:09 RBC 4.29 M/mm3 (3.65-5.03) 04/15/21 07:09 Hgb 12.5 gm/dl (11.8-15.2) 04/15/21 07:09 Hct 36.6 % (35.5-45.6) 04/15/21 07:09 MCV 85 fl (84-94) 04/15/21 07:09 MCH 29 pg (28-32) 04/15/21 07:09 MCHC 34 % (32-34) 04/15/21 07:09 RDW 15.0 % (13.2-15.2) 04/15/21 07:09 Plt Count 220 K/mm3 (140-440) 04/15/21 07:09 Lymph % (Auto) 22.3 % (13.4-35.0) 04/07/21 04:14 [place] % (Auto) 10.8 % (0.0-7.3) H 04/07/21 04:14 Eos % (Auto) 0.0 % (0.0-4.3) 04/07/21 04:14 Baso % (Auto) 0.3 % (0.0-1.8) 04/07/21 04:14 Lymph # (Auto) 0.7 K/mm3 (1.2-5.4) L 04/07/21 04:14 [place] # (Auto) 0.4 K/mm3 (0.0-0.8) 04/07/21 04:14 Eos # (Auto) 0.0 K/mm3 (0.0-0.4) 04/07/21 04:14 Baso # (Auto) 0.0 K/mm3 (0.0-0.1) 04/07/21 04:14 Add Manual Diff Complete 04/05/21 15:03 Seg Neutrophils % 66.6 % (40.0-70.0) 04/07/21 04:14 Seg Neutrophils # 2.2 K/mm3 (1.8-7.7) 04/07/21 04:14 PT 13.5 Sec. (12.2-14.9) 04/07/21 04:14 INR 0.98 (0.87-1.13) 04/07/21 04:14 D-Dimer 721.64 ng/mlDDU (0-234) H 04/06/21 08:15 ABG pH 7.395 (7.320-7.450) 04/08/21 14:27 POC ABG pCO2 23.7 mmHg (32.0-48.0) L 04/08/21 14:27 POC ABG pO2 62.5 mmHg (83-108) L 04/08/21 14:27 POC ABG HCO3 14.2 04/08/21 14:27 ABG O2 Saturation 91.8 (0-100) 04/08/21 14:27 POC ABG Base Excess -8.6 04/08/21 14:27 ABG Hemoglobin 14.5 (12.0-17.5) 04/08/21 14:27 ABG Oxyhemoglobin 91.3 (94-98) L 04/08/21 14:27 ABG Methemoglobin 0.1 (0.0-1.5) 04/08/21 14:27 ABG Sodium 133.7 mmol/L (136.0-145.0) L 04/08/21 14:27 ABG Potassium 4.2 mmol/L (3.40-4.50) 04/08/21 14:27 ABG Chloride 112.0 mmol/L (98-107) H 04/08/21 14:27 ABG Glucose 117 mg/dL (65-95) H 04/08/21 14:27 Carboxyhemoglobin 0.4 (0.5-1.5) L 04/08/21 14:27 FiO2 % 100.0 04/08/21 14:27 Sodium 140 mmol/L (137-145) 04/15/21 07:09 Potassium 3.7 mmol/L (3.6-5.0) 04/15/21 07:09 Chloride 104.4 mmol/L (98-107) 04/15/21 07:09 Carbon Dioxide 26 mmol/L (22-30) 04/15/21 07:09 Anion Gap 13 mmol/L 04/15/21 07:09 BUN 27 mg/dL (9-20) H 04/15/21 07:09 Creatinine 1.3 mg/dL (0.8-1.3) 04/15/21 07:09 Estimated GFR 56 ml/min 04/15/21 07:09 BUN/Creatinine Ratio 21 % 04/15/21 07:09 Glucose 85 mg/dL (75-100) 04/15/21 07:09 POC Glucose 115 mg/dL (70-105) H 04/08/21 15:33 Lactic Acid 1.20 mmol/L (0.7-2.0) 04/09/21 08:38 Calcium 9.0 mg/dL (8.4-10.2) 04/15/21 07:09 Magnesium 2.40 mg/dL (1.7-2.3) H 04/05/21 15:03 Ferritin 1468.0 ng/mL (30.0-300.0) H 04/06/21 08:07 Total Bilirubin 0.70 mg/dL (0.1-1.2) 04/15/21 07:09 AST 21 units/L (5-40) 04/15/21 07:09 ALT 24 units/L (7-56) 04/15/21 07:09 Alkaline Phosphatase 94 units/L (35-129) 04/15/21 07:09 Lactate Dehydrogenase 445 units/L (91-180) H 04/06/21 08:07 C-Reactive Protein 2.90 mg/dL (0.00-1.30) H 04/06/21 08:07 Total Protein 6.5 g/dL (6.3-8.2) 04/15/21 07:09 Albumin 2.8 g/dL (3.9-5) L 04/15/21 07:09 Albumin/Globulin Ratio 0.8 % 04/15/21 07:09 Lipase 143 units/L (13-60) H 04/05/21 15:03 Procalcitonin 0.34 ng/mL (<0.15) 04/06/21 08:15 PTH Intact 58.46 pg/mL (15-65) 04/10/21 08:29 Arterial Blood Glucose 117 mg/dL (65-95) H 04/08/21 14:27 Arterial Blood Ionized Calcium 4.8 mg/dL (4.6-5.3) 04/08/21 14:27 Coronavirus (PCR) Positive (Negative) A 04/07/21 08:15 Atkins/IV: Voiding Method Condom Catheter Active Medications - Current Medications Current Medications: Generic Name Dose Route Start Last Admin Trade Name Freq PRN Reason Stop Dose Admin Acetaminophen 650 mg 04/06/21 02:57 Acetaminophen 325 Mg Tab PO Q4H PRN Pain MILD(1-3)/Fever >100.5/BRAR Amlodipine Besylate 5 mg 04/14/21 15:00 04/15/21 12:14 Amlodipine 5 Mg Tab PO 5 mg QDAY BISHOP Administration Dexamethasone 6 mg 04/15/21 10:00 04/15/21 12:14 Dexamethasone 4 Mg Tab PO 04/18/21 12:00 6 mg DAILY BISHOP Administration Divalproex Sodium 125 mg 04/14/21 13:00 04/15/21 22:[address] 125 Mg Tab PO 125 mg BID BISHOP Administration Haloperidol Lactate 5 mg 04/15/21 13:00 Haloperidol Lactate 5 Mg/1 Ml Inj IM Q6H PRN Agitation Heparin Sodium (Porcine) 5,000 unit 04/06/21 14:00 04/16/21 05:23 Heparin 5,000 Unit/1 Ml Vial SUB-Q 5,000 unit Q8HR BISHOP Administration Hydralazine HCl 10 mg 04/14/21 14:37 Hydralazine 20 Mg/1 Ml Inj IV Q4HR PRN SBP>160 or DBP>110 Sodium Bicarbonate 100 meq/ 1,100 mls @ 75 mls/hr 04/07/21 13:00 04/13/21 18:23 Dextrose IV Infused DIRECT BISHOP Infusion Mirtazapine 7.5 mg 04/14/21 22:00 04/15/21 22:03 Mirtazapine 15 Mg Tab PO 7.5 mg QHS BISHOP Administration Morphine Sulfate 2 mg 04/06/21 02:57 04/14/21 01:01 Morphine 2 Mg/1 Ml Inj IV 2 mg Q4H PRN Administration Pain, Moderate (4-6) Morphine Sulfate 4 mg 04/06/21 02:57 Morphine 4 Mg/1 Ml Inj IV Q4H PRN Pain , Severe (7-10) Ondansetron HCl 4 mg 04/06/21 02:57 Ondansetron 4 Mg/2 Ml Inj IV Q8H PRN Nausea And Vomiting Sodium Bicarbonate 650 mg 04/08/21 22:00 04/15/21 22:02 Sodium Bicarbonate 650 Mg Tab PO 650 mg TID BISHOP Administration Sodium Chloride 10 ml 04/06/21 10:00 04/15/21 22:04 Sodium Chloride 0.9% 10 Ml Flush Syringe IV 10 ml BID BISHOP Administration Sodium Chloride 10 ml 04/06/21 02:57 Sodium Chloride 0.9% 10 Ml Flush Syringe IV PRN PRN LINE FLUSH Nutrition/Malnutrition Assess - Dietary Evaluation Nutrition/Malnutrition Findings: Nutrition Notes Start: 04/13/21 14:23 Freq: Status: Active Protocol: Document 04/13/21 14:23 (Rec: 04/13/21 14:29 [id number]) Nutrition Notes Need for Assessment generated from: LOS Initial or Follow up Assessment Current Diagnosis Acute Kidney Injury, Hypertension,Respiratory Failure Other Pertinent Diagnosis pneu, lung mass, COVID-19 Current Diet cardiac, pureed Labs/Tests BUN 31 Cr 1.5 Pertinent Medications reviewed Height 5 ft 11 in Weight 65.6 kg [place] Body Weight (kg) 78.18 BMI 20.1 Weight Status Appropriate Subjective/Other Information Screen for LOS. RN unsure of intakes. Pt did not answer phone. Per chart, pt sometimes refuses meals or eats 100% of meals. Burn Absent Trauma Absent Current % PO Fair (50-74%) Minimum of two criteria No #1 Nutrition Diagnosis Inadequate oral intake Etiology unknown As Evidenced by Signs and Symptoms pt eating an average of 50% of meals Is patient on ventilator? No Is Patient Ambulatory and/or Out of Bed Yes REE-([place]-ambulatory/OOB) [ 1928.069 [id number]] Calculation Used for Recommendations [place] Additional Notes Protein: (0.8-1g/kg) 52-66g Fluid: 1 ml/kcal or per MD Nutrition Intervention Change Diet Order: continue Add Supplement/Snack (indicate name/kcal Ensure Enlive daily /protein ) Provides kCal: 350 Provides Protein (gm) 20 Goal #1 Meet at least 75% of protein and kcal needs via PO and ONS intakes Anticipated Discharge Needs: Cardiac, pureed Follow-Up By: 04/17/21 Additional Comments F/u: intakes and ONS tolerance
--- NOTE | 2021-04-16 09:53 | Progress Note ---
Assessment and Plan Assessment and plan: 60-year-old male with known history of hypertension seen in the emergency room today complaining of diarrhea and generalized weakness which started about 3 days ago. Patient states he just had his first dose of COVID-19 vaccination over the weekend and 24 hours thereafter he started having some diarrhea and generalized weakness. He denies any fever or chills, no chest pain or shortness of breath, no headache or dizziness, no diaphoresis. Patient denies any nausea vomiting, no abdominal pain, no hematuria or dysuria. He denies any sick contacts and no recent travel. Denies any contact with anyon e with COVID-19. Work-up in the emergency room today reveals elevated BUN and creatinine of 34 and 2.4 respectively. Chest x-ray reveals right lower lobe airspace opacity which could represent pneumonia or a neoplastic process. CT of the abdomen and pelvis reveals fluid and gas-filled colon without inflammation or colonic wall thickening 04/07: Patient seen and examined today continues on oxygen. ID input is noted. Have consulted pulmonary considering review of CT which shows a large mass in th e lungs. Patient may probably benefit from a bronchoscopy but will defer to pulmonary for now continue current management with steroids and remdesivir. Unfortunately I do not have any family contact information for this patient. Discussed with nursing staff to see if they can get anyone. Patient awaiting bed upstairs Patient on diagnosis Metabolic acidosis Hyperkalemia we'll give 20 of Kayexalate Thrombocytopenia unfortunately I'm not sure what the patient's baseline creatinine is but [employer] [facility] program associate input is noted 04/08: Patient seen today, still baseline confusion, renal function showing some improvement, called family and no response. Patient now on Bicarb drip due to metabolic Acidosis, also Lung mass noted, awaiting Pulmonary re-evaluation. otherwise he is clinically stable. 04/09: Resume steroids as patient developed significant hypoxia on 15 L of oxygen. Continue to wean as tolerated he also has mittens in place due to intermittent confusion. CREATININE STILL AT 1.8 04/10: Patient seen and examined, BP slightly elevated, will add BP meds. Pulmonary recommends outpatient follow up for the lung mass, renal function is showing improvement. Continue supportive care. Wean oxygen as tolerated, continue steroids at this time. No Remdesvier secondary to the Renal function. 04/11/21 Patient with Covid-19 with acute resp failure. On Oxygen at 10 l/min. Has right lung mass, to follow with Pulmonology as outpatient.Cr 1.5 today, improving. 04/12/21 Patient with Covid-19 with acute respiratory failure. Still on Oxygen at 10 l/min. Patient has been refusing blood draw so no labs for 2 days. He has Right lung mass and needs to follow with Pulmonology as outpatient. 04/13/21 Patient with Covid-19 with acute respiratory failure. Patient has been refusing treatment and lab blood draw so no labs for days. He has Right lung mass and needs to follow with Pulmonology as outpatient. Will consult Psych to evaluate 04/14/21 Patient with Covid-19 with acute respiratory failure. Patient has been refusing treatment and lab blood draw so no labs for days. He has Right lung mass and needs to follow with Pulmonology as outpatient. Consulted Psych to evaluate. 04/15/21 Patient with Covid-19 with acute respiratory failure. Patient has been refusing treatment and lab blood draws. He has right lung mass and needs to follow with Pulmonology as outpatient. His Sister states patient was being followed at [facility] and was being worked up for cancer either Prostate or lung. I have requested medical records. Sister requested transfer to [facility], but I discussed,explained that it is difficult because most hospitals are full 04/16/21 Patient with Covid-19 with acute respiratory failure. Patient has been refusing treatment and lab blood draws. He has right lung mass and needs to follow with Pulmonology as outpatient. His Sister states patient was being followed at [facility] and was being worked up for cancer either Prostate or lung. I have requested medical records. Sister requested transfer to [facility], but I discussed,explained that it is difficult because most hospitals are full Cr 1.3 much improved. Repeat labs tomorrow. (1) Acute renal failure (ARF) SECONDARY TO VASOMOTOR NEPHROPATHY WITH METABOLIC ACIDOSIS Current Visit: Yes Status: Acute Plan to address problem: Possibly prerenal. Patient will be placed on IV fluid normal saline. Will monitor BUN and creatinine. Consult placed to nephrology for evaluation. (2) Hypertension Current Visit: Yes Status: Acute Plan to address problem: Blood pressure stable . (3)COVID-19 Current Visit: Yes Status: Acute Plan to address problem: (4) Acute hypoxic respiratory failure (5) Right lung lung mass large (6) Acute metabolic encephalopathy -unknown baseline (7) Thrombocytopenia (8) DVT prophylaxis Current Visit: Yes Status: Acute Plan to address problem: Patient placed on subcutaneous heparin. (9) Full code status Current Visit: Yes Status: Acute Plan to address problem: Patient is full code. History Interval history: Shortness of breath patient refusing treatment, refusing lab blood draws Hospitalist Physical - Physical exam Narrative exam: Gen:Not in acute distress, lying in bed HEENT:Normocephalic, atraumatic Neck:supple, no JVD Lungs: Bilateral crackles, no wheeze Heart:S1 and S2 reg, no murmurs, rubs or gallop Abd:Soft, non tender, non distended, normal bowel sounds Ext:No edema. no clubbing, no cyanosis Neuro:Awake, alert, moves all ext - Constitutional Vitals: Temp Pulse Resp BP Pulse Ox 98.2 F 59 L 18 154/76 99 04/16/21 05:48 04/16/21 05:48 04/16/21 05:48 04/16/21 05:48 04/16/21 09:25 General appearance: Present: no acute distress, well-nourished Results - Labs CBC & Chem 7: 04/15/21 07:09 04/15/21 07:09 Labs: Laboratory Last Values WBC 5.3 K/mm3 (4.5-11.0) 04/15/21 07:09 RBC 4.29 M/mm3 (3.65-5.03) 04/15/21 07:09 Hgb 12.5 gm/dl (11.8-15.2) 04/15/21 07:09 Hct 36.6 % (35.5-45.6) 04/15/21 07:09 MCV 85 fl (84-94) 04/15/21 07:09 MCH 29 pg (28-32) 04/15/21 07:09 MCHC 34 % (32-34) 04/15/21 07:09 RDW 15.0 % (13.2-15.2) 04/15/21 07:09 Plt Count 220 K/mm3 (140-440) 04/15/21 07:09 Lymph % (Auto) 22.3 % (13.4-35.0) 04/07/21 04:14 Evangeline % (Auto) 10.8 % (0.0-7.3) H 04/07/21 04:14 Eos % (Auto) 0.0 % (0.0-4.3) 04/07/21 04:14 Baso % (Auto) 0.3 % (0.0-1.8) 04/07/21 04:14 Lymph # (Auto) 0.7 K/mm3 (1.2-5.4) L 04/07/21 04:14 Evangeline # (Auto) 0.4 K/mm3 (0.0-0.8) 04/07/21 04:14 Eos # (Auto) 0.0 K/mm3 (0.0-0.4) 04/07/21 04:14 Baso # (Auto) 0.0 K/mm3 (0.0-0.1) 04/07/21 04:14 Add Manual Diff Complete 04/05/21 15:03 Seg Neutrophils % 66.6 % (40.0-70.0) 04/07/21 04:14 Seg Neutrophils # 2.2 K/mm3 (1.8-7.7) 04/07/21 04:14 PT 13.5 Sec. (12.2-14.9) 04/07/21 04:14 INR 0.98 (0.87-1.13) 04/07/21 04:14 D-Dimer 721.64 ng/mlDDU (0-234) H 04/06/21 08:15 ABG pH 7.395 (7.320-7.450) 04/08/21 14:27 POC ABG pCO2 23.7 mmHg (32.0-48.0) L 04/08/21 14:27 POC ABG pO2 62.5 mmHg (83-108) L 04/08/21 14:27 POC ABG HCO3 14.2 04/08/21 14:27 ABG O2 Saturation 91.8 (0-100) 04/08/21 14:27 POC ABG Base Excess -8.6 04/08/21 14:27 ABG Hemoglobin 14.5 (12.0-17.5) 04/08/21 14:27 ABG Oxyhemoglobin 91.3 (94-98) L 04/08/21 14:27 ABG Methemoglobin 0.1 (0.0-1.5) 04/08/21 14:27 ABG Sodium 133.7 mmol/L (136.0-145.0) L 04/08/21 14:27 ABG Potassium 4.2 mmol/L (3.40-4.50) 04/08/21 14:27 ABG Chloride 112.0 mmol/L (98-107) H 04/08/21 14:27 ABG Glucose 117 mg/dL (65-95) H 04/08/21 14:27 Carboxyhemoglobin 0.4 (0.5-1.5) L 04/08/21 14:27 FiO2 % 100.0 04/08/21 14:27 Sodium 140 mmol/L (137-145) 04/15/21 07:09 Potassium 3.7 mmol/L (3.6-5.0) 04/15/21 07:09 Chloride 104.4 mmol/L (98-107) 04/15/21 07:09 Carbon Dioxide 26 mmol/L (22-30) 04/15/21 07:09 Anion Gap 13 mmol/L 04/15/21 07:09 BUN 27 mg/dL (9-20) H 04/15/21 07:09 Creatinine 1.3 mg/dL (0.8-1.3) 04/15/21 07:09 Estimated GFR 56 ml/min 04/15/21 07:09 BUN/Creatinine Ratio 21 % 04/15/21 07:09 Glucose 85 mg/dL (75-100) 04/15/21 07:09 POC Glucose 115 mg/dL (70-105) H 04/08/21 15:33 Lactic Acid 1.20 mmol/L (0.7-2.0) 04/09/21 08:38 Calcium 9.0 mg/dL (8.4-10.2) 04/15/21 07:09 Magnesium 2.40 mg/dL (1.7-2.3) H 04/05/21 15:03 Ferritin 1468.0 ng/mL (30.0-300.0) H 04/06/21 08:07 Total Bilirubin 0.70 mg/dL (0.1-1.2) 04/15/21 07:09 AST 21 units/L (5-40) 04/15/21 07:09 ALT 24 units/L (7-56) 04/15/21 07:09 Alkaline Phosphatase 94 units/L (35-129) 04/15/21 07:09 Lactate Dehydrogenase 445 units/L (91-180) H 04/06/21 08:07 C-Reactive Protein 2.90 mg/dL (0.00-1.30) H 04/06/21 08:07 Total Protein 6.5 g/dL (6.3-8.2) 04/15/21 07:09 Albumin 2.8 g/dL (3.9-5) L 04/15/21 07:09 Albumin/Globulin Ratio 0.8 % 04/15/21 07:09 Lipase 143 units/L (13-60) H 04/05/21 15:03 Procalcitonin 0.34 ng/mL (<0.15) 04/06/21 08:15 PTH Intact 58.46 pg/mL (15-65) 04/10/21 08:29 Arterial Blood Glucose 117 mg/dL (65-95) H 04/08/21 14:27 Arterial Blood Ionized Calcium 4.8 mg/dL (4.6-5.3) 04/08/21 14:27 Coronavirus (PCR) Positive (Negative) A 04/07/21 08:15 Atkins/IV: Voiding Method Condom Catheter Active Medications - Current Medications Current Medications: Generic Name Dose Route Start Last Admin Trade Name Freq PRN Reason Stop Dose Admin Acetaminophen 650 mg 04/06/21 02:57 Acetaminophen 325 Mg Tab PO Q4H PRN Pain MILD(1-3)/Fever >100.5/BRAR Amlodipine Besylate 5 mg 04/14/21 15:00 04/15/21 12:14 Amlodipine 5 Mg Tab PO 5 mg QDAY BISHOP Administration Dexamethasone 6 mg 04/15/21 10:00 04/15/21 12:14 Dexamethasone 4 Mg Tab PO 04/18/21 12:00 6 mg DAILY BISHOP Administration Divalproex Sodium 125 mg 04/14/21 13:00 04/15/21 22:[address] 125 Mg Tab PO 125 mg BID BISHOP Administration Haloperidol Lactate 5 mg 04/15/21 13:00 Haloperidol Lactate 5 Mg/1 Ml Inj IM Q6H PRN Agitation Heparin Sodium (Porcine) 5,000 unit 04/06/21 14:00 04/16/21 05:23 Heparin 5,000 Unit/1 Ml Vial SUB-Q 5,000 unit Q8HR BISHOP Administration Hydralazine HCl 10 mg 04/14/21 14:37 Hydralazine 20 Mg/1 Ml Inj IV Q4HR PRN SBP>160 or DBP>110 Sodium Bicarbonate 100 meq/ 1,100 mls @ 75 mls/hr 04/07/21 13:00 04/13/21 18:23 Dextrose IV Infused DIRECT BISHOP Infusion Mirtazapine 7.5 mg 04/14/21 22:00 04/15/21 22:03 Mirtazapine 15 Mg Tab PO 7.5 mg QHS BISHOP Administration Morphine Sulfate 2 mg 04/06/21 02:57 04/14/21 01:01 Morphine 2 Mg/1 Ml Inj IV 2 mg Q4H PRN Administration Pain, Moderate (4-6) Morphine Sulfate 4 mg 04/06/21 02:57 Morphine 4 Mg/1 Ml Inj IV Q4H PRN Pain , Severe (7-10) Ondansetron HCl 4 mg 04/06/21 02:57 Ondansetron 4 Mg/2 Ml Inj IV Q8H PRN Nausea And Vomiting Sodium Bicarbonate 650 mg 04/08/21 22:00 04/15/21 22:02 Sodium Bicarbonate 650 Mg Tab PO 650 mg TID BISHOP Administration Sodium Chloride 10 ml 04/06/21 10:00 04/15/21 22:04 Sodium Chloride 0.9% 10 Ml Flush Syringe IV 10 ml BID BISHOP Administration Sodium Chloride 10 ml 04/06/21 02:57 Sodium Chloride 0.9% 10 Ml Flush Syringe IV PRN PRN LINE FLUSH Nutrition/Malnutrition Assess - Dietary Evaluation Nutrition/Malnutrition Findings: Nutrition Notes Start: 04/13/21 14:23 Freq: Status: Active Protocol: Document 04/13/21 14:23 JIGNESH (Rec: 04/13/21 14:29 JIGNESH [id number]) Nutrition Notes Need for Assessment generated from: LOS Initial or Follow up Assessment Current Diagnosis Acute Kidney Injury, Hypertension,Respiratory Failure Other Pertinent Diagnosis pneu, lung mass, COVID-19 Current Diet cardiac, pureed Labs/Tests BUN 31 Cr 1.5 Pertinent Medications reviewed Height 5 ft 11 in Weight 65.6 kg [place] Body Weight (kg) 78.18 BMI 20.1 Weight Status Appropriate Subjective/Other Information Screen for LOS. RN unsure of intakes. Pt did not answer phone. Per chart, pt sometimes refuses meals or eats 100% of meals. Burn Absent Trauma Absent Current % PO Fair (50-74%) Minimum of two criteria No #1 Nutrition Diagnosis Inadequate oral intake Etiology unknown As Evidenced by Signs and Symptoms pt eating an average of 50% of meals Is patient on ventilator? No Is Patient Ambulatory and/or Out of Bed Yes REE-([facility]-ambulatory/OOB) [ [id number] [id number]] Calculation Used for Recommendations [facility] Additional Notes Protein: (0.8-1g/kg) 52-66g Fluid: 1 ml/kcal or per MD Nutrition Intervention Change Diet Order: continue Add Supplement/Snack (indicate name/kcal Ensure Enlive daily /protein ) Provides kCal: 350 Provides Protein (gm) 20 Goal #1 Meet at least 75% of protein and kcal needs via PO and ONS intakes Anticipated Discharge Needs: Cardiac, pureed Follow-Up By: 04/17/21 Additional Comments F/u: intakes and ONS tolerance
[2021-04-16] MEDS: DEXAMETHASONE 4 MG TAB PO SCH (10:05)
[2021-04-16] MEDS: DIVALPROEX DR 125 MG TAB PO SCH ×2 (10:06→21:46)
[2021-04-16] MEDS: amLODIPine 5 MG TAB PO SCH (10:08)
[2021-04-16] MEDS: SODIUM BICARBONATE 650 MG TAB PO SCH ×3 (10:09→21:47)
--- NOTE | 2021-04-16 10:21 | Progress Note ---
Assessment and Plan 60 y/o male with ILD, right lower lobe lung mass and COVID 19 with acute respiratory failure. 04/16/21: COntinue steroids. Wean for sats >88%. 04/15/21: renal function is better. still would suggest diuresis if possible. Continue to wean FiO2 as tolerated. needs walk test soon to assess oxygen needs. 04/14/21: Renal continues to follow but no labs in several days. Based on I/O would suggest diuresis but do not want to harm renal function. Continue to prone. Wean FiO2 as tolerated and continue steroids. 04/13/21: Continue to wean FiO2 as tolerated. Steroids for a total of 10 days. May be ready for 6 minute walk test as early as tomorrow or the weekend. 04/12/21: Continue to wean FiO2 as tolerated for sats >88%. Continue steroids. Guarded prognosis. Hold on higher doses of steroid given decreases in oxygen requirement. 04/11/21: Continue to wean FiO2 as tolerated for sats >88%. Continue steroids. Mass work up likely will have to be done as an outpatient. 1. Pulm- Agreed that biopsy is needed but must recover from COVID first. Would suggest CT guided biopsy. Lesion does appear amenable to bronch but would need to be Tbbx and may not get enough tissue. could consider EBUS if not able to get with CT guided biopsy. needs full work up of ILD as well but this can be done as an outpatient. Will continue current dose of steroids, however if oxygenation worsens would switch to higher doses. No puffers available in this hospital except albuterol. No nebs given COVID status. Guarded prognosis. Subjective Date of service: 04/16/21 Interval history: Down to 8 liters with good sats. Objective Vital Signs - 12hr 04/16/21 04/16/21 04/16/21 03:52 05:48 09:25 Temperature 98.2 F Pulse Rate 59 L Respiratory 18 Rate Blood Pressure 154/76 O2 Sat by Pulse 98 93 99 Oximetry Constitutional: no acute distress, alert, appears uncomfortable ENT: oropharynx moist Neck: supple, no JVD Ascultation: Bilateral: diminished breath sounds Cardiovascular: regular rate and rhythm Gastrointestinal: normoactive bowel sounds, soft, non-tender Extremities: no cyanosis, other (Clubbing of the fingernails noted) Neurologic: normal mental status Psychiatric: mood appropriate CBC and BMP: 04/15/21 07:09 04/15/21 07:09 ABG, PT/INR, D-dimer: ABG ABG pH 7.395 (7.320-7.450) 04/08/21 14:27 POC ABG pCO2 23.7 mmHg (32.0-48.0) L 04/08/21 14:27 POC ABG pO2 62.5 mmHg (83-108) L 04/08/21 14:27 POC ABG HCO3 14.2 04/08/21 14:27 ABG O2 Saturation 91.8 (0-100) 04/08/21 14:27 PT/INR, D-dimer PT 13.5 Sec. (12.2-14.9) 04/07/21 04:14 INR 0.98 (0.87-1.13) 04/07/21 04:14 D-Dimer 721.64 ng/mlDDU (0-234) H 04/06/21 08:15 Abnormal lab findings: Abnormal Labs 04/05/21 04/05/21 04/05/21 15:03 15:03 21:28 WBC RBC 5.40 H Hgb 15.9 H Hct 49.5 H MCHC RDW 17.3 H Plt Count 106 L [place] % (Auto) 9.0 H Lymph # (Auto) D-Dimer POC ABG pCO2 POC ABG pO2 ABG Oxyhemoglobin ABG Sodium ABG Chloride ABG Glucose Carboxyhemoglobin Sodium 135 L 135 L Potassium 6.2 H* Chloride Carbon Dioxide 11 L 12 L BUN 34 H 42 H Creatinine 2.4 H 3.2 H Glucose 121 H POC Glucose Magnesium 2.40 H Ferritin AST 56 H ALT Alkaline Phosphatase Lactate Dehydrogenase C-Reactive Protein Total Protein 8.7 H Albumin Lipase 143 H Arterial Blood Glucose Coronavirus (PCR) 04/06/21 04/06/21 04/06/21 08:07 08:07 08:15 WBC RBC Hgb Hct MCHC RDW Plt Count [place] % (Auto) Lymph # (Auto) D-Dimer 721.64 H POC ABG pCO2 POC ABG pO2 ABG Oxyhemoglobin ABG Sodium ABG Chloride ABG Glucose Carboxyhemoglobin Sodium Potassium Chloride Carbon Dioxide BUN Creatinine Glucose POC Glucose Magnesium Ferritin 1468.0 H AST ALT Alkaline Phosphatase Lactate Dehydrogenase 445 H C-Reactive Protein 2.90 H Total Protein Albumin Lipase Arterial Blood Glucose Coronavirus (PCR) 04/07/21 04/07/21 04/07/21 04:14 04:14 08:15 WBC 3.2 L RBC Hgb Hct MCHC RDW 16.0 H Plt Count 101 L [place] % (Auto) 10.8 H Lymph # (Auto) 0.7 L D-Dimer POC ABG pCO2 POC ABG pO2 ABG Oxyhemoglobin ABG Sodium ABG Chloride ABG Glucose Carboxyhemoglobin Sodium Potassium 5.6 H Chloride 111.6 H Carbon Dioxide 16 L BUN 43 H Creatinine 2.5 H Glucose POC Glucose Magnesium Ferritin AST ALT Alkaline Phosphatase Lactate Dehydrogenase C-Reactive Protein Total Protein Albumin Lipase Arterial Blood Glucose Coronavirus (PCR) Positive A 04/08/21 04/08/21 04/08/21 08:00 14:27 15:33 WBC RBC Hgb Hct MCHC RDW Plt Count [place] % (Auto) Lymph # (Auto) D-Dimer POC ABG pCO2 23.7 L POC ABG pO2 62.5 L ABG Oxyhemoglobin 91.3 L ABG Sodium 133.7 L ABG Chloride 112.0 H ABG Glucose 117 H Carboxyhemoglobin 0.4 L Sodium Potassium Chloride 109.9 H Carbon Dioxide 13 L BUN 40 H Creatinine 1.8 H Glucose 74 L POC Glucose 115 H Magnesium Ferritin AST ALT Alkaline Phosphatase Lactate Dehydrogenase C-Reactive Protein Total Protein Albumin Lipase Arterial Blood Glucose 117 H Coronavirus (PCR) 04/09/21 04/09/21 04/10/21 08:38 08:38 08:29 WBC 3.1 L 3.8 L RBC Hgb Hct MCHC 35 H RDW 15.7 H 15.7 H Plt Count 136 L [place] % (Auto) Lymph # (Auto) D-Dimer POC ABG pCO2 POC ABG pO2 ABG Oxyhemoglobin ABG Sodium ABG Chloride ABG Glucose Carboxyhemoglobin Sodium Potassium Chloride 110.4 H Carbon Dioxide 19 L BUN 35 H Creatinine 1.8 H Glucose POC Glucose Magnesium Ferritin AST 144 H ALT 92 H Alkaline Phosphatase 159 H Lactate Dehydrogenase C-Reactive Protein Total Protein Albumin 3.3 L Lipase Arterial Blood Glucose Coronavirus (PCR) 04/10/21 04/15/21 08:29 07:09 WBC RBC Hgb Hct MCHC RDW Plt Count [place] % (Auto) Lymph # (Auto) D-Dimer POC ABG pCO2 POC ABG pO2 ABG Oxyhemoglobin ABG Sodium ABG Chloride ABG Glucose Carboxyhemoglobin Sodium Potassium Chloride Carbon Dioxide BUN 31 H 27 H Creatinine 1.5 H Glucose 119 H POC Glucose Magnesium Ferritin AST 89 H ALT 80 H Alkaline Phosphatase 159 H Lactate Dehydrogenase C-Reactive Protein Total Protein Albumin 3.2 L 2.8 L Lipase Arterial Blood Glucose Coronavirus (PCR)
--- NOTE | 2021-04-16 11:21 | Progress Note ---
Subjective - Reason for Consult Consult date: 04/16/21 Reason for consult: agitation - Chief Complaint Chief complaint: The patient was seen today. He is actually awake and watching t.v. He is more cooperative today. The patient is irritable and verbally aggressive. He says he slept good. When asking the patient why hadn't he been taking his meds and refusing treatment, he replied "they haven't been giving them to me." He then shouts at to leave him alone and says something that I couldn't make out. REVIEW OF SYSTEMS COVID + MENTAL STATUS EXAMINATION Uncooperative Assessment and Plan (1)Mood Disorder, Unspecified Treatment Plan Haldol 5mg IM q6h prn agitation Depakote DR 125mg po BID Remeron 7.5mg po daily Sitter: per primary Medical: Per primary Disposition: Do not recommend acute psychiatric inpatient treatment at this time. Will follow for psych progress and med management Case staffed with Dr. Rodgers Mental Status Exam - Vital signs Last Vital Signs Temp 98.2 F 04/16/21 05:48 Pulse 59 L 04/16/21 05:48 Resp 18 04/16/21 05:48 BP 154/76 04/16/21 05:48 Pulse Ox 99 04/16/21 09:25
--- NOTE | 2021-04-16 21:27 | Progress Note ---
Assessment and Plan 1. Acute kidney injury: Vasomotor ELIO in the setting of volume depletion +/- 2/[address] abdomen negative for hydro. Monitor renal function. Baseline renal function is unknown. Creatinine level is improving. Avoid nephrotoxic agents. Meds dosage based on GFR. No labs from today. 2. FEN: Hyperkalemia, improved, monitor. Hyperchloremic Metabolic acidosis, improved, monitor. Hyponatremia, improved, monitor. Monitor lytes and volume status. 3. Diarrhea: ?related to Covid. Monitor. 4. COVID-19 infection: Decadron. s/p Remdesivir. Anticoagulation per hospital protocol. 5. Possible lung mass: Followed by Pulmonary. 6. Hypertension: Monitor BP. Subjective: Patient was seen and examined at the bedside. Examination: General appearance: well-developed, appears stated age, not in distress, NC O2 HEENT: ATNC Neck: Trachea midline Respiratory: faint bibasal rales heard Cardiology: S1S2, no murmur Gastrointestinal: soft, obese, bowel sounds heard, not tender Integumentary: warm and dry Neurologic: alert, confused, able to move extremities Ext: no edema Subjective Date of service: 04/16/21 Objective - Vital Signs Vital signs: Vital Signs - 12hr 04/16/21 04/16/21 04/16/21 10:00 10:41 14:45 Temperature Pulse Rate 61 Respiratory Rate Blood Pressure O2 Sat by Pulse 94 94 97 Oximetry 04/16/21 04/16/21 15:23 20:30 Temperature 97.7 F Pulse Rate 69 Respiratory 19 Rate Blood Pressure 128/66 O2 Sat by Pulse 92 94 Oximetry - Lab 04/15/21 07:09 04/15/21 07:09 Most recent lab results ABG pH 7.395 (7.320-7.450) 04/08/21 14:27 ABG O2 Saturation 91.8 (0-100) 04/08/21 14:27 Calcium 9.0 mg/dL (8.4-10.2) 04/15/21 07:09 Magnesium 2.40 mg/dL (1.7-2.3) H 04/05/21 15:03 Medications & Allergies - Medications Allergies/Adverse Reactions: Allergies No Known Allergies Allergy (Verified 04/06/21 03:10) Home Medications: Home Medications Medication Instructions Recorded Confirmed Last Taken Type No Known Home Medications [No 04/10/21 04/10/21 Unknown History Reported Home Medications] Active Medications: Generic Name Dose Route Start Last Admin Trade Name Freq PRN Reason Stop Dose Admin Acetaminophen 650 mg 04/06/21 02:57 Acetaminophen 325 Mg Tab PO Q4H PRN Pain MILD(1-3)/Fever >100.5/BRAR Amlodipine Besylate 5 mg 04/14/21 15:00 04/16/21 10:08 Amlodipine 5 Mg Tab PO 5 mg QDAY BISHOP Administration Dexamethasone 6 mg 04/15/21 10:00 04/16/21 10:05 Dexamethasone 4 Mg Tab PO 04/18/21 12:00 6 mg DAILY BISHOP Administration Divalproex Sodium 125 mg 04/14/21 13:00 04/16/21 10:[address] 125 Mg Tab PO 125 mg BID BISHOP Administration Haloperidol Lactate 5 mg 04/15/21 13:00 Haloperidol Lactate 5 Mg/1 Ml Inj IM Q6H PRN Agitation Heparin Sodium (Porcine) 5,000 unit 04/06/21 14:00 04/16/21 13:55 Heparin 5,000 Unit/1 Ml Vial SUB-Q 5,000 unit Q8HR BISHOP Administration Hydralazine HCl 10 mg 04/14/21 14:37 Hydralazine 20 Mg/1 Ml Inj IV Q4HR PRN SBP>160 or DBP>110 Sodium Bicarbonate 100 meq/ 1,100 mls @ 75 mls/hr 04/07/21 13:00 04/13/21 18:23 Dextrose IV Infused DIRECT BISHOP Infusion Mirtazapine 7.5 mg 04/14/21 22:00 04/15/21 22:03 Mirtazapine 15 Mg Tab PO 7.5 mg QHS BISHOP Administration Morphine Sulfate 2 mg 04/06/21 02:57 04/14/21 01:01 Morphine 2 Mg/1 Ml Inj IV 2 mg Q4H PRN Administration Pain, Moderate (4-6) Morphine Sulfate 4 mg 04/06/21 02:57 Morphine 4 Mg/1 Ml Inj IV Q4H PRN Pain , Severe (7-10) Ondansetron HCl 4 mg 04/06/21 02:57 Ondansetron 4 Mg/2 Ml Inj IV Q8H PRN Nausea And Vomiting Sodium Bicarbonate 650 mg 04/08/21 22:00 04/16/21 13:55 Sodium Bicarbonate 650 Mg Tab PO 650 mg TID BISHOP Administration Sodium Chloride 10 ml 04/06/21 10:00 04/16/21 10:10 Sodium Chloride 0.9% 10 Ml Flush Syringe IV 10 ml BID BISHOP Administration Sodium Chloride 10 ml 04/06/21 02:57 Sodium Chloride 0.9% 10 Ml Flush Syringe IV PRN PRN LINE FLUSH
[2021-04-16] MEDS: MIRTAZAPINE 15 MG TAB PO SCH (21:47)
[2021-04-17] MEDS: HEPARIN 5,000 UNIT/1 ML VIAL SUB-Q SCH ×3 (05:44→21:26)
[2021-04-17] MEDS: SODIUM BICARBONATE 650 MG TAB PO SCH ×3 (08:00→21:25)
[2021-04-17] MEDS: DIVALPROEX DR 125 MG TAB PO SCH ×2 (09:50→21:25)
[2021-04-17] MEDS: amLODIPine 5 MG TAB PO SCH (09:51)
[2021-04-17] MEDS: DEXAMETHASONE 4 MG TAB PO SCH (09:51)
--- NOTE | 2021-04-17 10:34 | Progress Note ---
Assessment and Plan Assessment and plan: 60-year-old male with known history of hypertension seen in the emergency room today complaining of diarrhea and generalized weakness which started about 3 days ago. Patient states he just had his first dose of COVID-19 vaccination over the weekend and 24 hours thereafter he started having some diarrhea and generalized weakness. He denies any fever or chills, no chest pain or shortness of breath, no headache or dizziness, no diaphoresis. Patient denies any nausea vomiting, no abdominal pain, no hematuria or dysuria. He denies any sick contacts and no recent travel. Denies any contact with anyon e with COVID-19. Work-up in the emergency room today reveals elevated BUN and creatinine of 34 and 2.4 respectively. Chest x-ray reveals right lower lobe airspace opacity which could represent pneumonia or a neoplastic process. CT of the abdomen and pelvis reveals fluid and gas-filled colon without inflammation or colonic wall thickening 04/07: Patient seen and examined today continues on oxygen. ID input is noted. Have consulted pulmonary considering review of CT which shows a large mass in th e lungs. Patient may probably benefit from a bronchoscopy but will defer to pulmonary for now continue current management with steroids and remdesivir. Unfortunately I do not have any family contact information for this patient. Discussed with nursing staff to see if they can get anyone. Patient awaiting bed upstairs Patient on diagnosis Metabolic acidosis Hyperkalemia we'll give 20 of Kayexalate Thrombocytopenia unfortunately I'm not sure what the patient's baseline creatinine is but ruby engineer input is noted 04/08: Patient seen today, still baseline confusion, renal function showing some improvement, called family and no response. Patient now on Bicarb drip due to metabolic Acidosis, also Lung mass noted, awaiting Pulmonary re-evaluation. otherwise he is clinically stable. 04/09: Resume steroids as patient developed significant hypoxia on 15 L of oxygen. Continue to wean as tolerated he also has mittens in place due to intermittent confusion. CREATININE STILL AT 1.8 04/10: Patient seen and examined, BP slightly elevated, will add BP meds. Pulmonary recommends outpatient follow up for the lung mass, renal function is showing improvement. Continue supportive care. Wean oxygen as tolerated, continue steroids at this time. No Remdesvier secondary to the Renal function. 04/11/21 Patient with Covid-19 with acute resp failure. On Oxygen at 10 l/min. Has right lung mass, to follow with Pulmonology as outpatient.Cr 1.5 today, improving. 04/12/21 Patient with Covid-19 with acute respiratory failure. Still on Oxygen at 10 l/min. Patient has been refusing blood draw so no labs for 2 days. He has Right lung mass and needs to follow with Pulmonology as outpatient. 04/13/21 Patient with Covid-19 with acute respiratory failure. Patient has been refusing treatment and lab blood draw so no labs for days. He has Right lung mass and needs to follow with Pulmonology as outpatient. Will consult Psych to evaluate 04/14/21 Patient with Covid-19 with acute respiratory failure. Patient has been refusing treatment and lab blood draw so no labs for days. He has Right lung mass and needs to follow with Pulmonology as outpatient. Consulted Psych to evaluate. 04/15/21 Patient with Covid-19 with acute respiratory failure. Patient has been refusing treatment and lab blood draws. He has right lung mass and needs to follow with Pulmonology as outpatient. His Sister states patient was being followed at [facility] and was being worked up for cancer either Prostate or lung. I have requested medical records. Sister requested transfer to [facility], but I discussed,explained that it is difficult because most hospitals are full 04/16/21 Patient with Covid-19 with acute respiratory failure. Patient has been refusing treatment and lab blood draws. He has right lung mass and needs to follow with Pulmonology as outpatient. His Sister states patient was being followed at [facility] and was being worked up for cancer either Prostate or lung. I have requested medical records. Sister requested transfer to [place], but I discussed,explained that it is difficult because most hospitals are full Cr 1.3 much improved. Repeat labs tomorrow. 04/17/21 Patient with Covid-19 with acute respiratory failure. Patient has been refusing treatment and lab blood draws. He has right lung mass and needs to follow with Pulmonology as outpatient. His Sister states patient was being followed at [facility] and was being worked up for cancer either Prostate or lung. I have requested medical records. Sister requested transfer to [place], but I discussed,explained that it is difficult because most hospitals are full. I requested records from [facility] but his sister Jelena goodrich refused to give consent to obtain records. He is on Oxygen NC at 8 l/min Cr 1.3 much improved. Thrombocytopenia resolved (1) Acute renal failure (ARF) SECONDARY TO VASOMOTOR NEPHROPATHY WITH METABOLIC ACIDOSIS Current Visit: Yes Status: Acute Plan to address problem: Possibly prerenal. Patient will be placed on IV fluid normal saline. Will monitor BUN and creatinine. Consult placed to nephrology for evaluation. (2) Hypertension Current Visit: Yes Status: Acute Plan to address problem: Blood pressure stable . (3)COVID-19 Current Visit: Yes Status: Acute Plan to address problem: (4) Acute hypoxic respiratory failure (5) Right lung lung mass large (6) Acute metabolic encephalopathy -unknown baseline (7) Thrombocytopenia (8) DVT prophylaxis Current Visit: Yes Status: Acute Plan to address problem: Patient placed on subcutaneous heparin. (9) Full code status Current Visit: Yes Status: Acute Plan to address problem: Patient is full code. History Interval history: Shortness of breath patient has refusing treatment, refusing lab blood draws Hospitalist Physical - Physical exam Narrative exam: Gen:Not in acute distress, lying in bed HEENT:Normocephalic, atraumatic Neck:supple, no JVD Lungs: Bilateral crackles, no wheeze Heart:S1 and S2 reg, no murmurs, rubs or gallop Abd:Soft, non tender, non distended, normal bowel sounds Ext:No edema. no clubbing, no cyanosis Neuro:Awake, alert, moves all ext - Constitutional Vitals: Temp Pulse Resp BP Pulse Ox 97.6 F 94 H 18 136/82 85 04/17/21 04:23 04/17/21 04:23 04/17/21 04:23 04/17/21 04:23 04/17/21 04:23 General appearance: Present: no acute distress, well-nourished Results - Labs CBC & Chem 7: 04/15/21 07:09 04/15/21 07:09 Labs: Laboratory Last Values WBC 5.3 K/mm3 (4.5-11.0) 04/15/21 07:09 RBC 4.29 M/mm3 (3.65-5.03) 04/15/21 07:09 Hgb 12.5 gm/dl (11.8-15.2) 04/15/21 07:09 Hct 36.6 % (35.5-45.6) 04/15/21 07:09 MCV 85 fl (84-94) 04/15/21 07:09 MCH 29 pg (28-32) 04/15/21 07:09 MCHC 34 % (32-34) 04/15/21 07:09 RDW 15.0 % (13.2-15.2) 04/15/21 07:09 Plt Count 220 K/mm3 (140-440) 04/15/21 07:09 Lymph % (Auto) 22.3 % (13.4-35.0) 04/07/21 04:14 Hart % (Auto) 10.8 % (0.0-7.3) H 04/07/21 04:14 Eos % (Auto) 0.0 % (0.0-4.3) 04/07/21 04:14 Baso % (Auto) 0.3 % (0.0-1.8) 04/07/21 04:14 Lymph # (Auto) 0.7 K/mm3 (1.2-5.4) L 04/07/21 04:14 [place] # (Auto) 0.4 K/mm3 (0.0-0.8) 04/07/21 04:14 Eos # (Auto) 0.0 K/mm3 (0.0-0.4) 04/07/21 04:14 Baso # (Auto) 0.0 K/mm3 (0.0-0.1) 04/07/21 04:14 Add Manual Diff Complete 04/05/21 15:03 Seg Neutrophils % 66.6 % (40.0-70.0) 04/07/21 04:14 Seg Neutrophils # 2.2 K/mm3 (1.8-7.7) 04/07/21 04:14 PT 13.5 Sec. (12.2-14.9) 04/07/21 04:14 INR 0.98 (0.87-1.13) 04/07/21 04:14 D-Dimer 721.64 ng/mlDDU (0-234) H 04/06/21 08:15 ABG pH 7.395 (7.320-7.450) 04/08/21 14:27 POC ABG pCO2 23.7 mmHg (32.0-48.0) L 04/08/21 14:27 POC ABG pO2 62.5 mmHg (83-108) L 04/08/21 14:27 POC ABG HCO3 14.2 04/08/21 14:27 ABG O2 Saturation 91.8 (0-100) 04/08/21 14:27 POC ABG Base Excess -8.6 04/08/21 14:27 ABG Hemoglobin 14.5 (12.0-17.5) 04/08/21 14:27 ABG Oxyhemoglobin 91.3 (94-98) L 04/08/21 14:27 ABG Methemoglobin 0.1 (0.0-1.5) 04/08/21 14:27 ABG Sodium 133.7 mmol/L (136.0-145.0) L 04/08/21 14:27 ABG Potassium 4.2 mmol/L (3.40-4.50) 04/08/21 14:27 ABG Chloride 112.0 mmol/L (98-107) H 04/08/21 14:27 ABG Glucose 117 mg/dL (65-95) H 04/08/21 14:27 Carboxyhemoglobin 0.4 (0.5-1.5) L 04/08/21 14:27 FiO2 % 100.0 04/08/21 14:27 Sodium 140 mmol/L (137-145) 04/15/21 07:09 Potassium 3.7 mmol/L (3.6-5.0) 04/15/21 07:09 Chloride 104.4 mmol/L (98-107) 04/15/21 07:09 Carbon Dioxide 26 mmol/L (22-30) 04/15/21 07:09 Anion Gap 13 mmol/L 04/15/21 07:09 BUN 27 mg/dL (9-20) H 04/15/21 07:09 Creatinine 1.3 mg/dL (0.8-1.3) 04/15/21 07:09 Estimated GFR 56 ml/min 04/15/21 07:09 BUN/Creatinine Ratio 21 % 04/15/21 07:09 Glucose 85 mg/dL (75-100) 04/15/21 07:09 POC Glucose 115 mg/dL (70-105) H 04/08/21 15:33 Lactic Acid 1.20 mmol/L (0.7-2.0) 04/09/21 08:38 Calcium 9.0 mg/dL (8.4-10.2) 04/15/21 07:09 Magnesium 2.40 mg/dL (1.7-2.3) H 04/05/21 15:03 Ferritin 1468.0 ng/mL (30.0-300.0) H 04/06/21 08:07 Total Bilirubin 0.70 mg/dL (0.1-1.2) 04/15/21 07:09 AST 21 units/L (5-40) 04/15/21 07:09 ALT 24 units/L (7-56) 04/15/21 07:09 Alkaline Phosphatase 94 units/L (35-129) 04/15/21 07:09 Lactate Dehydrogenase 445 units/L (91-180) H 04/06/21 08:07 C-Reactive Protein 2.90 mg/dL (0.00-1.30) H 04/06/21 08:07 Total Protein 6.5 g/dL (6.3-8.2) 04/15/21 07:09 Albumin 2.8 g/dL (3.9-5) L 04/15/21 07:09 Albumin/Globulin Ratio 0.8 % 04/15/21 07:09 Lipase 143 units/L (13-60) H 04/05/21 15:03 Procalcitonin 0.34 ng/mL (<0.15) 04/06/21 08:15 PTH Intact 58.46 pg/mL (15-65) 04/10/21 08:29 Arterial Blood Glucose 117 mg/dL (65-95) H 04/08/21 14:27 Arterial Blood Ionized Calcium 4.8 mg/dL (4.6-5.3) 04/08/21 14:27 Coronavirus (PCR) Positive (Negative) A 04/07/21 08:15 Atkins/IV: Voiding Method Condom Catheter Active Medications - Current Medications Current Medications: Generic Name Dose Route Start Last Admin Trade Name Freq PRN Reason Stop Dose Admin Acetaminophen 650 mg 04/06/21 02:57 Acetaminophen 325 Mg Tab PO Q4H PRN Pain MILD(1-3)/Fever >100.5/BRAR Amlodipine Besylate 5 mg 04/14/21 15:00 04/17/21 09:51 Amlodipine 5 Mg Tab PO 5 mg QDAY BISHOP Administration Dexamethasone 6 mg 04/15/21 10:00 04/17/21 09:51 Dexamethasone 4 Mg Tab PO 04/18/21 12:00 6 mg DAILY BISHOP Administration Divalproex Sodium 125 mg 04/14/21 13:00 04/17/21 09:[address] 125 Mg Tab PO 125 mg BID BISHOP Administration Haloperidol Lactate 5 mg 04/15/21 13:00 Haloperidol Lactate 5 Mg/1 Ml Inj IM Q6H PRN Agitation Heparin Sodium (Porcine) 5,000 unit 04/06/21 14:00 04/17/21 05:44 Heparin 5,000 Unit/1 Ml Vial SUB-Q 5,000 unit Q8HR BISHOP Administration Hydralazine HCl 10 mg 04/14/21 14:37 Hydralazine 20 Mg/1 Ml Inj IV Q4HR PRN SBP>160 or DBP>110 Sodium Bicarbonate 100 meq/ 1,100 mls @ 75 mls/hr 04/07/21 13:00 04/13/21 18:23 Dextrose IV Infused DIRECT BISHOP Infusion Mirtazapine 7.5 mg 04/14/21 22:00 04/16/21 21:47 Mirtazapine 15 Mg Tab PO 7.5 mg QHS BISHOP Administration Morphine Sulfate 2 mg 04/06/21 02:57 04/14/21 01:01 Morphine 2 Mg/1 Ml Inj IV 2 mg Q4H PRN Administration Pain, Moderate (4-6) Morphine Sulfate 4 mg 04/06/21 02:57 Morphine 4 Mg/1 Ml Inj IV Q4H PRN Pain , Severe (7-10) Ondansetron HCl 4 mg 04/06/21 02:57 Ondansetron 4 Mg/2 Ml Inj IV Q8H PRN Nausea And Vomiting Sodium Bicarbonate 650 mg 04/08/21 22:00 04/17/21 08:00 Sodium Bicarbonate 650 Mg Tab PO 650 mg TID BISHOP Administration Sodium Chloride 10 ml 04/06/21 10:00 04/17/21 09:51 Sodium Chloride 0.9% 10 Ml Flush Syringe IV 10 ml BID BISHOP Administration Sodium Chloride 10 ml 04/06/21 02:57 Sodium Chloride 0.9% 10 Ml Flush Syringe IV PRN PRN LINE FLUSH Nutrition/Malnutrition Assess - Dietary Evaluation Nutrition/Malnutrition Findings: Nutrition Notes Start: 04/13/21 14:23 Freq: Status: Active Protocol: Document 04/13/21 14:23 (Rec: 04/13/21 14:29 [id number]) Nutrition Notes Need for Assessment generated from: LOS Initial or Follow up Assessment Current Diagnosis Acute Kidney Injury, Hypertension,Respiratory Failure Other Pertinent Diagnosis pneu, lung mass, COVID-19 Current Diet cardiac, pureed Labs/Tests BUN 31 Cr 1.5 Pertinent Medications reviewed Height 5 ft 11 in Weight 65.6 kg [place] Body Weight (kg) 78.18 BMI 20.1 Weight Status Appropriate Subjective/Other Information Screen for LOS. RN unsure of intakes. Pt did not answer phone. Per chart, pt sometimes refuses meals or eats 100% of meals. Burn Absent Trauma Absent Current % PO Fair (50-74%) Minimum of two criteria No #1 Nutrition Diagnosis Inadequate oral intake Etiology unknown As Evidenced by Signs and Symptoms pt eating an average of 50% of meals Is patient on ventilator? No Is Patient Ambulatory and/or Out of Bed Yes REE-([place]. Jeor-ambulatory/OOB) [ 1928.069 [id number]] Calculation Used for Recommendations [place] or Additional Notes Protein: (0.8-1g/kg) 52-66g Fluid: 1 ml/kcal or per MD Nutrition Intervention Change Diet Order: continue Add Supplement/Snack (indicate name/kcal Ensure Enlive daily /protein ) Provides kCal: 350 Provides Protein (gm) 20 Goal #1 Meet at least 75% of protein and kcal needs via PO and ONS intakes Anticipated Discharge Needs: Cardiac, pureed Follow-Up By: 04/17/21 Additional Comments F/u: intakes and ONS tolerance
--- NOTE | 2021-04-17 14:16 | Progress Note ---
Assessment and Plan 60 y/o male with ILD, right lower lobe lung mass and COVID 19 with acute respiratory failure. 04/17/21: Continue to wean as tolerated. Steroids for 10 days. Prone if able. Guarded prognosis. 04/16/21: COntinue steroids. Wean for sats >88%. 04/15/21: renal function is better. still would suggest diuresis if possible. Continue to wean FiO2 as tolerated. needs walk test soon to assess oxygen needs. 04/14/21: Renal continues to follow but no labs in several days. Based on I/O would suggest diuresis but do not want to harm renal function. Continue to prone. Wean FiO2 as tolerated and continue steroids. 04/13/21: Continue to wean FiO2 as tolerated. Steroids for a total of 10 days. May be ready for 6 minute walk test as early as tomorrow or the weekend. 04/12/21: Continue to wean FiO2 as tolerated for sats >88%. Continue steroids. Guarded prognosis. Hold on higher doses of steroid given decreases in oxygen requirement. 04/11/21: Continue to wean FiO2 as tolerated for sats >88%. Continue steroids. Mass work up likely will have to be done as an outpatient. 1. Pulm- Agreed that biopsy is needed but must recover from COVID first. Would suggest CT guided biopsy. Lesion does appear amenable to bronch but would need to be Tbbx and may not get enough tissue. could consider EBUS if not able to get with CT guided biopsy. needs full work up of ILD as well but this can be done as an outpatient. Will continue current dose of steroids, however if oxygenation worsens would switch to higher doses. No puffers available in this hospital except albuterol. No nebs given COVID status. Guarded prognosis. Subjective Date of service: 04/17/21 Interval history: Remains on 8 liters. Good sats. Objective Vital Signs - 12hr 04/17/21 04/17/21 04/17/21 04:23 10:00 10:40 Temperature 97.6 F Pulse Rate 94 H Respiratory 18 Rate Blood Pressure 136/82 O2 Sat by Pulse 85 95 93 Oximetry 04/17/21 11:26 Temperature 98.1 F Pulse Rate 69 Respiratory 18 Rate Blood Pressure 121/64 O2 Sat by Pulse 92 Oximetry Constitutional: no acute distress, alert, appears uncomfortable ENT: oropharynx moist Neck: supple, no JVD Ascultation: Bilateral: diminished breath sounds Cardiovascular: regular rate and rhythm Gastrointestinal: normoactive bowel sounds, soft, non-tender Extremities: no cyanosis, other (Clubbing of the fingernails noted) Neurologic: normal mental status Psychiatric: mood appropriate CBC and BMP: 04/15/21 07:09 04/15/21 07:09 ABG, PT/INR, D-dimer: ABG ABG pH 7.395 (7.320-7.450) 04/08/21 14:27 POC ABG pCO2 23.7 mmHg (32.0-48.0) L 04/08/21 14:27 POC ABG pO2 62.5 mmHg (83-108) L 04/08/21 14:27 POC ABG HCO3 14.2 04/08/21 14:27 ABG O2 Saturation 91.8 (0-100) 04/08/21 14:27 PT/INR, D-dimer PT 13.5 Sec. (12.2-14.9) 04/07/21 04:14 INR 0.98 (0.87-1.13) 04/07/21 04:14 D-Dimer 721.64 ng/mlDDU (0-234) H 04/06/21 08:15 Abnormal lab findings: Abnormal Labs 04/05/21 04/05/21 04/05/21 15:03 15:03 21:28 WBC RBC 5.40 H Hgb 15.9 H Hct 49.5 H MCHC RDW 17.3 H Plt Count 106 L [place] % (Auto) 9.0 H Lymph # (Auto) D-Dimer POC ABG pCO2 POC ABG pO2 ABG Oxyhemoglobin ABG Sodium ABG Chloride ABG Glucose Carboxyhemoglobin Sodium 135 L 135 L Potassium 6.2 H* Chloride Carbon Dioxide 11 L 12 L BUN 34 H 42 H Creatinine 2.4 H 3.2 H Glucose 121 H POC Glucose Magnesium 2.40 H Ferritin AST 56 H ALT Alkaline Phosphatase Lactate Dehydrogenase C-Reactive Protein Total Protein 8.7 H Albumin Lipase 143 H Arterial Blood Glucose Coronavirus (PCR) 04/06/21 04/06/21 04/06/21 08:07 08:07 08:15 WBC RBC Hgb Hct MCHC RDW Plt Count [place] % (Auto) Lymph # (Auto) D-Dimer 721.64 H POC ABG pCO2 POC ABG pO2 ABG Oxyhemoglobin ABG Sodium ABG Chloride ABG Glucose Carboxyhemoglobin Sodium Potassium Chloride Carbon Dioxide BUN Creatinine Glucose POC Glucose Magnesium Ferritin 1468.0 H AST ALT Alkaline Phosphatase Lactate Dehydrogenase 445 H C-Reactive Protein 2.90 H Total Protein Albumin Lipase Arterial Blood Glucose Coronavirus (PCR) 04/07/21 04/07/21 04/07/21 04:14 04:14 08:15 WBC 3.2 L RBC Hgb Hct MCHC RDW 16.0 H Plt Count 101 L [place] % (Auto) 10.8 H Lymph # (Auto) 0.7 L D-Dimer POC ABG pCO2 POC ABG pO2 ABG Oxyhemoglobin ABG Sodium ABG Chloride ABG Glucose Carboxyhemoglobin Sodium Potassium 5.6 H Chloride 111.6 H Carbon Dioxide 16 L BUN 43 H Creatinine 2.5 H Glucose POC Glucose Magnesium Ferritin AST ALT Alkaline Phosphatase Lactate Dehydrogenase C-Reactive Protein Total Protein Albumin Lipase Arterial Blood Glucose Coronavirus (PCR) Positive A 04/08/21 04/08/21 04/08/21 08:00 14:27 15:33 WBC RBC Hgb Hct MCHC RDW Plt Count [place] % (Auto) Lymph # (Auto) D-Dimer POC ABG pCO2 23.7 L POC ABG pO2 62.5 L ABG Oxyhemoglobin 91.3 L ABG Sodium 133.7 L ABG Chloride 112.0 H ABG Glucose 117 H Carboxyhemoglobin 0.4 L Sodium Potassium Chloride 109.9 H Carbon Dioxide 13 L BUN 40 H Creatinine 1.8 H Glucose 74 L POC Glucose 115 H Magnesium Ferritin AST ALT Alkaline Phosphatase Lactate Dehydrogenase C-Reactive Protein Total Protein Albumin Lipase Arterial Blood Glucose 117 H Coronavirus (PCR) 04/09/21 04/09/21 04/10/21 08:38 08:38 08:29 WBC 3.1 L 3.8 L RBC Hgb Hct MCHC 35 H RDW 15.7 H 15.7 H Plt Count 136 L [place] % (Auto) Lymph # (Auto) D-Dimer POC ABG pCO2 POC ABG pO2 ABG Oxyhemoglobin ABG Sodium ABG Chloride ABG Glucose Carboxyhemoglobin Sodium Potassium Chloride 110.4 H Carbon Dioxide 19 L BUN 35 H Creatinine 1.8 H Glucose POC Glucose Magnesium Ferritin AST 144 H ALT 92 H Alkaline Phosphatase 159 H Lactate Dehydrogenase C-Reactive Protein Total Protein Albumin 3.3 L Lipase Arterial Blood Glucose Coronavirus (PCR) 04/10/21 04/15/21 04/17/21 08:29 07:09 11:25 WBC RBC Hgb Hct MCHC RDW Plt Count [place] % (Auto) Lymph # (Auto) D-Dimer POC ABG pCO2 POC ABG pO2 ABG Oxyhemoglobin ABG Sodium ABG Chloride ABG Glucose Carboxyhemoglobin Sodium Potassium Chloride Carbon Dioxide BUN 31 H 27 H Creatinine 1.5 H Glucose 119 H POC Glucose 214 H Magnesium Ferritin AST 89 H ALT 80 H Alkaline Phosphatase 159 H Lactate Dehydrogenase C-Reactive Protein Total Protein Albumin 3.2 L 2.8 L Lipase Arterial Blood Glucose Coronavirus (PCR)
--- NOTE | 2021-04-17 14:43 | Progress Note ---
Assessment and Plan 1. Acute kidney injury: Vasomotor ELIO in the setting of volume depletion +/- 2/[address] abdomen negative for hydro. Monitor renal function. Baseline renal function is unknown. Creatinine level is improving. Avoid nephrotoxic agents. Meds dosage based on GFR. No labs from today. 2. FEN: Hyperkalemia, improved, monitor. Hyperchloremic Metabolic acidosis, improved, monitor. Hyponatremia, improved, monitor. Monitor lytes and volume status. 3. Diarrhea: ?related to Covid. Monitor. 4. COVID-19 infection: Decadron. S/p Remdesivir. Anticoagulation per hospital protocol. 5. Possible lung mass: Followed by Pulmonary. 6. Hypertension: Monitor BP. Subjective: Patient was examined at the bedside. Examination: General appearance: well-developed, appears stated age, not in distress, NC O2 salter HEENT: ATNC Neck: Trachea midline Respiratory: faint bibasal rales heard Cardiology: S1S2, no murmur Gastrointestinal: soft, obese, bowel sounds heard, not tender Integumentary: warm and dry Neurologic: alert, confused, able to move extremities Ext: no edema Subjective Date of service: 04/17/21 Objective - Vital Signs Vital signs: Vital Signs - 12hr 04/17/21 04/17/21 04/17/21 04:23 10:00 10:40 Temperature 97.6 F Pulse Rate 94 H Respiratory 18 Rate Blood Pressure 136/82 O2 Sat by Pulse 85 95 93 Oximetry 04/17/21 11:26 Temperature 98.1 F Pulse Rate 69 Respiratory 18 Rate Blood Pressure 121/64 O2 Sat by Pulse 92 Oximetry - Lab 04/15/21 07:09 04/15/21 07:09 Most recent lab results ABG pH 7.395 (7.320-7.450) 04/08/21 14:27 ABG O2 Saturation 91.8 (0-100) 04/08/21 14:27 Calcium 9.0 mg/dL (8.4-10.2) 04/15/21 07:09 Magnesium 2.40 mg/dL (1.7-2.3) H 04/05/21 15:03 Medications & Allergies - Medications Allergies/Adverse Reactions: Allergies No Known Allergies Allergy (Verified 04/06/21 03:10) Home Medications: Home Medications Medication Instructions Recorded Confirmed Last Taken Type No Known Home Medications [No 04/10/21 04/10/21 Unknown History Reported Home Medications] Active Medications: Generic Name Dose Route Start Last Admin Trade Name Freq PRN Reason Stop Dose Admin Acetaminophen 650 mg 04/06/21 02:57 Acetaminophen 325 Mg Tab PO Q4H PRN Pain MILD(1-3)/Fever >100.5/BRAR Amlodipine Besylate 5 mg 04/14/21 15:00 04/17/21 09:51 Amlodipine 5 Mg Tab PO 5 mg QDAY BISHOP Administration Dexamethasone 6 mg 04/15/21 10:00 04/17/21 09:51 Dexamethasone 4 Mg Tab PO 04/18/21 12:00 6 mg DAILY BISHOP Administration Divalproex Sodium 125 mg 04/14/21 13:00 04/17/21 09:[address] 125 Mg Tab PO 125 mg BID BISHOP Administration Haloperidol Lactate 5 mg 04/15/21 13:00 Haloperidol Lactate 5 Mg/1 Ml Inj IM Q6H PRN Agitation Heparin Sodium (Porcine) 5,000 unit 04/06/21 14:00 04/17/21 14:00 Heparin 5,000 Unit/1 Ml Vial SUB-Q 5,000 unit Q8HR BISHOP Administration Hydralazine HCl 10 mg 04/14/21 14:37 Hydralazine 20 Mg/1 Ml Inj IV Q4HR PRN SBP>160 or DBP>110 Sodium Bicarbonate 100 meq/ 1,100 mls @ 75 mls/hr 04/07/21 13:00 04/13/21 18:23 Dextrose IV Infused DIRECT BISHOP Infusion Mirtazapine 7.5 mg 04/14/21 22:00 04/16/21 21:47 Mirtazapine 15 Mg Tab PO 7.5 mg QHS BISHOP Administration Morphine Sulfate 2 mg 04/06/21 02:57 04/14/21 01:01 Morphine 2 Mg/1 Ml Inj IV 2 mg Q4H PRN Administration Pain, Moderate (4-6) Morphine Sulfate 4 mg 04/06/21 02:57 Morphine 4 Mg/1 Ml Inj IV Q4H PRN Pain , Severe (7-10) Ondansetron HCl 4 mg 04/06/21 02:57 Ondansetron 4 Mg/2 Ml Inj IV Q8H PRN Nausea And Vomiting Sodium Bicarbonate 650 mg 04/08/21 22:00 04/17/21 14:00 Sodium Bicarbonate 650 Mg Tab PO 650 mg TID BISHOP Administration Sodium Chloride 10 ml 04/06/21 10:00 04/17/21 09:51 Sodium Chloride 0.9% 10 Ml Flush Syringe IV 10 ml BID BISHOP Administration Sodium Chloride 10 ml 04/06/21 02:57 Sodium Chloride 0.9% 10 Ml Flush Syringe IV PRN PRN LINE FLUSH
[2021-04-17] MEDS: MIRTAZAPINE 15 MG TAB PO SCH (21:26)
[2021-04-18] MEDS: HEPARIN 5,000 UNIT/1 ML VIAL SUB-Q SCH ×3 (05:19→22:23)
[2021-04-18] MEDS: SODIUM BICARBONATE 650 MG TAB PO SCH ×3 (08:34→22:23)
--- NOTE | 2021-04-18 10:38 | Progress Note ---
Assessment and Plan 60 y/o male with ILD, right lower lobe lung mass and COVID 19 with acute respiratory failure. 04/18/21: Continue to wean FiO2 as tolerated. Steroids for 10 days. Proning. Prognosis still remains guarded but promising with continued decreases in oxygen requirement. 04/17/21: Continue to wean as tolerated. Steroids for 10 days. Prone if able. Guarded prognosis. 04/16/21: COntinue steroids. Wean for sats >88%. 04/15/21: renal function is better. still would suggest diuresis if possible. Continue to wean FiO2 as tolerated. needs walk test soon to assess oxygen needs. 04/14/21: Renal continues to follow but no labs in several days. Based on I/O would suggest diuresis but do not want to harm renal function. Continue to prone. Wean FiO2 as tolerated and continue steroids. 04/13/21: Continue to wean FiO2 as tolerated. Steroids for a total of 10 days. May be ready for 6 minute walk test as early as tomorrow or the weekend. 04/12/21: Continue to wean FiO2 as tolerated for sats >88%. Continue steroids. Guarded prognosis. Hold on higher doses of steroid given decreases in oxygen requirement. 04/11/21: Continue to wean FiO2 as tolerated for sats >88%. Continue steroids. Mass work up likely will have to be done as an outpatient. 1. Pulm- Agreed that biopsy is needed but must recover from COVID first. Would suggest CT guided biopsy. Lesion does appear amenable to bronch but would need to be Tbbx and may not get enough tissue. could consider EBUS if not able to get with CT guided biopsy. needs full work up of ILD as well but this can be done as an outpatient. Will continue current dose of steroids, however if oxygenation worsens would switch to higher doses. No puffers available in this hospital except albuterol. No nebs given COVID status. Guarded prognosis. Subjective Date of service: 04/18/21 Interval history: Now down to 7 liter salter. Objective Vital Signs - 12hr 04/17/21 04/18/21 04/18/21 23:10 04:00 05:44 Temperature 97.6 F 97.3 F L Pulse Rate 61 Respiratory 18 18 Rate Blood Pressure 134/60 187/98 Blood Pressure [Left] O2 Sat by Pulse 97 92 Oximetry 04/18/21 04/18/21 06:23 10:21 Temperature Pulse Rate 61 Respiratory Rate Blood Pressure Blood Pressure 157/66 [Left] O2 Sat by Pulse 93 Oximetry Constitutional: no acute distress, alert, appears uncomfortable ENT: oropharynx moist Neck: supple, no JVD Ascultation: Bilateral: diminished breath sounds Cardiovascular: regular rate and rhythm Gastrointestinal: normoactive bowel sounds, soft, non-tender Extremities: no cyanosis, other (Clubbing of the fingernails noted) Neurologic: normal mental status Psychiatric: mood appropriate CBC and BMP: 04/15/21 07:09 04/15/21 07:09 ABG, PT/INR, D-dimer: ABG ABG pH 7.395 (7.320-7.450) 04/08/21 14:27 POC ABG pCO2 23.7 mmHg (32.0-48.0) L 04/08/21 14:27 POC ABG pO2 62.5 mmHg (83-108) L 04/08/21 14:27 POC ABG HCO3 14.2 04/08/21 14:27 ABG O2 Saturation 91.8 (0-100) 04/08/21 14:27 PT/INR, D-dimer PT 13.5 Sec. (12.2-14.9) 04/07/21 04:14 INR 0.98 (0.87-1.13) 04/07/21 04:14 D-Dimer 721.64 ng/mlDDU (0-234) H 04/06/21 08:15 Abnormal lab findings: Abnormal Labs 04/05/21 04/05/21 04/05/21 15:03 15:03 21:28 WBC RBC 5.40 H Hgb 15.9 H Hct 49.5 H MCHC RDW 17.3 H Plt Count 106 L [place] % (Auto) 9.0 H Lymph # (Auto) D-Dimer POC ABG pCO2 POC ABG pO2 ABG Oxyhemoglobin ABG Sodium ABG Chloride ABG Glucose Carboxyhemoglobin Sodium 135 L 135 L Potassium 6.2 H* Chloride Carbon Dioxide 11 L 12 L BUN 34 H 42 H Creatinine 2.4 H 3.2 H Glucose 121 H POC Glucose Magnesium 2.40 H Ferritin AST 56 H ALT Alkaline Phosphatase Lactate Dehydrogenase C-Reactive Protein Total Protein 8.7 H Albumin Lipase 143 H Arterial Blood Glucose Coronavirus (PCR) 04/06/21 04/06/21 04/06/21 08:07 08:07 08:15 WBC RBC Hgb Hct MCHC RDW Plt Count [place] % (Auto) Lymph # (Auto) D-Dimer 721.64 H POC ABG pCO2 POC ABG pO2 ABG Oxyhemoglobin ABG Sodium ABG Chloride ABG Glucose Carboxyhemoglobin Sodium Potassium Chloride Carbon Dioxide BUN Creatinine Glucose POC Glucose Magnesium Ferritin 1468.0 H AST ALT Alkaline Phosphatase Lactate Dehydrogenase 445 H C-Reactive Protein 2.90 H Total Protein Albumin Lipase Arterial Blood Glucose Coronavirus (PCR) 04/07/21 04/07/21 04/07/21 04:14 04:14 08:15 WBC 3.2 L RBC Hgb Hct MCHC RDW 16.0 H Plt Count 101 L [place] % (Auto) 10.8 H Lymph # (Auto) 0.7 L D-Dimer POC ABG pCO2 POC ABG pO2 ABG Oxyhemoglobin ABG Sodium ABG Chloride ABG Glucose Carboxyhemoglobin Sodium Potassium 5.6 H Chloride 111.6 H Carbon Dioxide 16 L BUN 43 H Creatinine 2.5 H Glucose POC Glucose Magnesium Ferritin AST ALT Alkaline Phosphatase Lactate Dehydrogenase C-Reactive Protein Total Protein Albumin Lipase Arterial Blood Glucose Coronavirus (PCR) Positive A 04/08/21 04/08/21 04/08/21 08:00 14:27 15:33 WBC RBC Hgb Hct MCHC RDW Plt Count [place] % (Auto) Lymph # (Auto) D-Dimer POC ABG pCO2 23.7 L POC ABG pO2 62.5 L ABG Oxyhemoglobin 91.3 L ABG Sodium 133.7 L ABG Chloride 112.0 H ABG Glucose 117 H Carboxyhemoglobin 0.4 L Sodium Potassium Chloride 109.9 H Carbon Dioxide 13 L BUN 40 H Creatinine 1.8 H Glucose 74 L POC Glucose 115 H Magnesium Ferritin AST ALT Alkaline Phosphatase Lactate Dehydrogenase C-Reactive Protein Total Protein Albumin Lipase Arterial Blood Glucose 117 H Coronavirus (PCR) 04/09/21 04/09/21 04/10/21 08:38 08:38 08:29 WBC 3.1 L 3.8 L RBC Hgb Hct MCHC 35 H RDW 15.7 H 15.7 H Plt Count 136 L [place] % (Auto) Lymph # (Auto) D-Dimer POC ABG pCO2 POC ABG pO2 ABG Oxyhemoglobin ABG Sodium ABG Chloride ABG Glucose Carboxyhemoglobin Sodium Potassium Chloride 110.4 H Carbon Dioxide 19 L BUN 35 H Creatinine 1.8 H Glucose POC Glucose Magnesium Ferritin AST 144 H ALT 92 H Alkaline Phosphatase 159 H Lactate Dehydrogenase C-Reactive Protein Total Protein Albumin 3.3 L Lipase Arterial Blood Glucose Coronavirus (PCR) 04/10/21 04/15/21 04/17/21 08:29 07:09 11:25 WBC RBC Hgb Hct MCHC RDW Plt Count [place] % (Auto) Lymph # (Auto) D-Dimer POC ABG pCO2 POC ABG pO2 ABG Oxyhemoglobin ABG Sodium ABG Chloride ABG Glucose Carboxyhemoglobin Sodium Potassium Chloride Carbon Dioxide BUN 31 H 27 H Creatinine 1.5 H Glucose 119 H POC Glucose 214 H Magnesium Ferritin AST 89 H ALT 80 H Alkaline Phosphatase 159 H Lactate Dehydrogenase C-Reactive Protein Total Protein Albumin 3.2 L 2.8 L Lipase Arterial Blood Glucose Coronavirus (PCR) 04/17/21 04/17/21 16:29 21:26 WBC RBC Hgb Hct MCHC RDW Plt Count [place] % (Auto) Lymph # (Auto) D-Dimer POC ABG pCO2 POC ABG pO2 ABG Oxyhemoglobin ABG Sodium ABG Chloride ABG Glucose Carboxyhemoglobin Sodium Potassium Chloride Carbon Dioxide BUN Creatinine Glucose POC Glucose 112 H 174 H Magnesium Ferritin AST ALT Alkaline Phosphatase Lactate Dehydrogenase C-Reactive Protein Total Protein Albumin Lipase Arterial Blood Glucose Coronavirus (PCR)
--- NOTE | 2021-04-18 10:53 | Progress Note ---
Assessment and Plan 1. Acute kidney injury: Vasomotor ELIO in the setting of volume depletion +/- 2/[address] abdomen negative for hydro. Monitor renal function. Baseline renal function is unknown. Creatinine level is improving. Avoid nephrotoxic agents. Meds dosage based on GFR. No labs from today. 2. FEN: Hyperkalemia, improved, monitor. Hyperchloremic Metabolic acidosis, improved, monitor. Hyponatremia, improved, monitor. Monitor lytes and volume status. 3. Diarrhea: ?related to Covid. Monitor. 4. COVID-19 infection: Decadron. s/p Remdesivir. Anticoagulation per hospital protocol. 5. Possible lung mass: Followed by Pulmonary. 6. Hypertension: Monitor BP. Subjective: Patient was seen and examined at the bedside. Examination: General appearance: well-developed, appears stated age, not in distress, NC O2 salter HEENT: ATNC Neck: Trachea midline Respiratory: bibasal rales heard Cardiology: S1S2, no murmur Gastrointestinal: soft, obese, bowel sounds heard, not tender Integumentary: warm and dry Neurologic: alert, confused, able to move extremities Ext: no edema Subjective Date of service: 04/18/21 Objective - Vital Signs Vital signs: Vital Signs - 12hr 04/17/21 04/18/21 04/18/21 23:10 04:00 05:44 Temperature 97.6 F 97.3 F L Pulse Rate 61 Respiratory 18 18 Rate Blood Pressure 134/60 187/98 Blood Pressure [Left] O2 Sat by Pulse 97 92 Oximetry 04/18/21 04/18/21 06:23 10:21 Temperature Pulse Rate 61 Respiratory Rate Blood Pressure Blood Pressure 157/66 [Left] O2 Sat by Pulse 93 Oximetry - Lab 04/15/21 07:09 04/15/21 07:09 Most recent lab results ABG pH 7.395 (7.320-7.450) 04/08/21 14:27 ABG O2 Saturation 91.8 (0-100) 04/08/21 14:27 Calcium 9.0 mg/dL (8.4-10.2) 04/15/21 07:09 Magnesium 2.40 mg/dL (1.7-2.3) H 04/05/21 15:03 Medications & Allergies - Medications Allergies/Adverse Reactions: Allergies No Known Allergies Allergy (Verified 04/06/21 03:10) Home Medications: Home Medications Medication Instructions Recorded Confirmed Last Taken Type No Known Home Medications [No 04/10/21 04/10/21 Unknown History Reported Home Medications] Active Medications: Generic Name Dose Route Start Last Admin Trade Name Freq PRN Reason Stop Dose Admin Acetaminophen 650 mg 04/06/21 02:57 Acetaminophen 325 Mg Tab PO Q4H PRN Pain MILD(1-3)/Fever >100.5/BRAR Amlodipine Besylate 5 mg 04/14/21 15:00 04/17/21 09:51 Amlodipine 5 Mg Tab PO 5 mg QDAY BISHOP Administration Dexamethasone 6 mg 04/15/21 10:00 04/17/21 09:51 Dexamethasone 4 Mg Tab PO 04/18/21 12:00 6 mg DAILY BISHOP Administration Divalproex Sodium 125 mg 04/14/21 13:00 04/17/21 21:[address] 125 Mg Tab PO 125 mg BID BISHOP Administration Haloperidol Lactate 5 mg 04/15/21 13:00 Haloperidol Lactate 5 Mg/1 Ml Inj IM Q6H PRN Agitation Heparin Sodium (Porcine) 5,000 unit 04/06/21 14:00 04/18/21 05:19 Heparin 5,000 Unit/1 Ml Vial SUB-Q 5,000 unit Q8HR BISHOP Administration Hydralazine HCl 10 mg 04/14/21 14:37 Hydralazine 20 Mg/1 Ml Inj IV Q4HR PRN SBP>160 or DBP>110 Mirtazapine 7.5 mg 04/14/21 22:00 04/17/21 21:26 Mirtazapine 15 Mg Tab PO 7.5 mg QHS BISHOP Administration Morphine Sulfate 2 mg 04/06/21 02:57 04/14/21 01:01 Morphine 2 Mg/1 Ml Inj IV 2 mg Q4H PRN Administration Pain, Moderate (4-6) Morphine Sulfate 4 mg 04/06/21 02:57 Morphine 4 Mg/1 Ml Inj IV Q4H PRN Pain , Severe (7-10) Ondansetron HCl 4 mg 04/06/21 02:57 Ondansetron 4 Mg/2 Ml Inj IV Q8H PRN Nausea And Vomiting Sodium Bicarbonate 650 mg 04/08/21 22:00 04/18/21 08:34 Sodium Bicarbonate 650 Mg Tab PO 650 mg TID BISHOP Administration Sodium Chloride 10 ml 04/06/21 10:00 04/17/21 21:26 Sodium Chloride 0.9% 10 Ml Flush Syringe IV 10 ml BID BISHOP Administration Sodium Chloride 10 ml 04/06/21 02:57 Sodium Chloride 0.9% 10 Ml Flush Syringe IV PRN PRN LINE FLUSH
[2021-04-18] MEDS: DIVALPROEX DR 125 MG TAB PO SCH ×2 (13:07→22:23)
[2021-04-18] MEDS: amLODIPine 5 MG TAB PO SCH (13:07)
[2021-04-18] MEDS: DEXAMETHASONE 4 MG TAB PO SCH (13:07)
--- NOTE | 2021-04-18 13:13 | Progress Note ---
Assessment and Plan 60-year-old male with known history of hypertension seen in the emergency room today complaining of diarrhea and generalized weakness which started about 3 days ago. Patient states he just had his first dose of COVID-19 vaccination over the weekend and 24 hours thereafter he started having some diarrhea and generalized weakness. He denies any fever or chills, no chest pain or shortness of breath, no headache or dizziness, no diaphoresis. Patient denies any nausea vomiting, no abdominal pain, no hematuria or dysuria. He denies any sick contacts and no recent travel. Denies any contact with anyone with COVID-19. Work-up in the emergency room today reveals elevated BUN and creatinine of 34 and 2.4 respectively. Chest x-ray reveals right lower lobe airspace opacity which could represent pneumonia or a neoplastic process. CT of the abdomen and pelvis reveals fluid and gas-filled colon without inflammation or colonic wall thickening 04/07: Patient seen and examined today continues on oxygen. ID input is noted. Have consulted pulmonary considering review of CT which shows a large mass in the lungs. Patient may probably benefit from a bronchoscopy but will defer to pulmonary for now continue current management with steroids and remdesivir. Unfortunately I do not have any family contact information for this patient. Discussed with nursing staff to see if they can get anyone. Patient awaiting bed upstairs Patient on diagnosis Metabolic acidosis Hyperkalemia we'll give 20 of Kayexalate Thrombocytopenia unfortunately I'm not sure what the patient's baseline creatinine is but cone operator input is noted 04/08: Patient seen today, still baseline confusion, renal function showing some improvement, called family and no response. Patient now on Bicarb drip due to metabolic Acidosis, also Lung mass noted, awaiting Pulmonary re-evaluation. otherwise he is clinically stable. 04/09: Resume steroids as patient developed significant hypoxia on 15 L of oxygen. Continue to wean as tolerated he also has mittens in place due to intermittent confusion. CREATININE STILL AT 1.8 04/10: Patient seen and examined, BP slightly elevated, will add BP meds. Pulmonary recommends outpatient follow up for the lung mass, renal function is showing improvement. Continue supportive care. Wean oxygen as tolerated, continue steroids at this time. No Remdesvier secondary to the Renal function. 04/11/21 Patient with Covid-19 with acute resp failure. On Oxygen at 10 l/min. Has right lung mass, to follow with Pulmonology as outpatient.Cr 1.5 today, improving. 04/12/21 Patient with Covid-19 with acute respiratory failure. Still on Oxygen at 10 l/min. Patient has been refusing blood draw so no labs for 2 days. He has Right lung mass and needs to follow with Pulmonology as outpatient. 04/13/21 Patient with Covid-19 with acute respiratory failure. Patient has been refusing treatment and lab blood draw so no labs for days. He has Right lung mass and needs to follow with Pulmonology as outpatient. Will consult Psych to evaluate 04/14/21 Patient with Covid-19 with acute respiratory failure. Patient has been refusing treatment and lab blood draw so no labs for days. He has Right lung mass and needs to follow with Pulmonology as outpatient. Consulted Psych to evaluate. 04/15/21 Patient with Covid-19 with acute respiratory failure. Patient has been refusing treatment and lab blood draws. He has right lung mass and needs to follow with Pulmonology as outpatient. His Sister states patient was being followed at [facility] and was being worked up for cancer either Prostate or lung. I have requested medical records. Sister requested transfer to [place], but I discussed,explained that it is difficult because most hospitals are full 04/16/21 Patient with Covid-19 with acute respiratory failure. Patient has been refusing treatment and lab blood draws. He has right lung mass and needs to follow with Pulmonology as outpatient. His Sister states patient was being followed at [facility] and was being worked up for cancer either Prostate or lung. I have requested medical records. Sister requested transfer to [facility], but I discussed,explained that it is difficult because most hospitals are full Cr 1.3 much improved. Repeat labs tomorrow. 04/17/21 Patient with Covid-19 with acute respiratory failure. Patient has been refusing treatment and lab blood draws. He has right lung mass and needs to follow with Pulmonology as outpatient. His Sister states patient was being followed at [facility] and was being worked up for cancer either Prostate or lung. I have requested medical records. Sister requested transfer to [facility], but I discussed,explained that it is difficult because most hospitals are full. I requested records from [facility] but his sister Jelena goodrich refused to give consent to obtain records. He is on Oxygen NC at 8 l/min Cr 1.3 much improved. Thrombocytopenia resolved 04/18/21: remains on 7L n/c O2, cont to follow (1) Acute renal failure (ARF) SECONDARY TO VASOMOTOR NEPHROPATHY WITH METABOLIC ACIDOSIS Current Visit: Yes Status: Acute Plan to address problem: Possibly prerenal. Patient will be placed on IV fluid normal saline. Will monitor BUN and creatinine. Consult placed to nephrology for evaluation. (2) Hypertension Current Visit: Yes Status: Acute Plan to address problem: Blood pressure stable . (3)COVID-19 Current Visit: Yes Status: Acute Plan to address problem: (4) Acute hypoxic respiratory failure (5) Right lung lung mass large (6) Acute metabolic encephalopathy -unknown baseline (7) Thrombocytopenia (8) DVT prophylaxis Current Visit: Yes Status: Acute Plan to address problem: Patient placed on subcutaneous heparin. (9) Full code status Current Visit: Yes Status: Acute Plan to address problem: Patient is full code. Subjective Date of service: 04/18/21 Objective - Constitutional Vitals: Vital Signs - 12hr 04/18/21 04/18/21 04/18/21 04:00 05:44 06:23 Temperature 97.3 F L Pulse Rate 61 Respiratory 18 Rate Blood Pressure 187/98 Blood Pressure 157/66 [Left] O2 Sat by Pulse 92 Oximetry 04/18/21 10:21 Temperature Pulse Rate Respiratory Rate Blood Pressure Blood Pressure [Left] O2 Sat by Pulse 93 Oximetry - Labs CBC & Chem 7: 04/15/21 07:09 04/15/21 07:09 Labs: Abnormal lab results 04/17/21 04/17/21 04/18/21 Range/Units 16:29 21:26 11:39 POC Glucose 112 H 174 H 106 H (70-105) mg/dL
[2021-04-18] MEDS: MIRTAZAPINE 15 MG TAB PO SCH (22:23)
[2021-04-19] MEDS: HEPARIN 5,000 UNIT/1 ML VIAL SUB-Q SCH ×3 (06:51→21:34)
[2021-04-19] MEDS: SODIUM BICARBONATE 650 MG TAB PO SCH ×3 (08:48→21:34)
[2021-04-19] MEDS: amLODIPine 5 MG TAB PO SCH (09:06)
[2021-04-19] MEDS: DIVALPROEX DR 125 MG TAB PO SCH ×2 (09:06→21:34)
--- NOTE | 2021-04-19 11:41 | Progress Note ---
Subjective - Reason for Consult Consult date: 04/19/21 Reason for consult: agitation - Chief Complaint Chief complaint: The patient was seen today. He is awake. He has his linen pulled over his head. He is more cooperative today. He tells me that he's not doing too good. When I ask him what was wrong, he replies "I don't know." The patient also says he didn't sleep too good. He denies SI/HI or hallucinations. He then says "Stop asking me all these questions." REVIEW OF SYSTEMS COVID + MENTAL STATUS EXAMINATION Uncooperative Assessment and Plan (1)Mood Disorder, Unspecified Treatment Plan Haldol 5mg IM q6h prn agitation Depakote DR 125mg po BID Increase Remeron 15mg po daily Sitter: per primary Medical: Per primary Disposition: Do not recommend acute psychiatric inpatient treatment at this time. Will follow for psych progress and med management Case staffed with Dr. Rodgers Mental Status Exam - Vital signs Last Vital Signs Temp 97.2 F L 04/19/21 04:42 Pulse 91 H 04/19/21 04:42 Resp 20 04/19/21 09:00 BP 213/115 04/19/21 04:42 Pulse Ox 96 04/19/21 10:02
--- NOTE | 2021-04-19 12:35 | Progress Note ---
Assessment and Plan 60 y/o male with ILD, right lower lobe lung mass and COVID 19 with acute respiratory failure. 04/19/21: renal continues to follow, please consider a trial of diuretics given worsening oxygen state. Encourage proning. Steroids for 10 days. Wean For sats >88% 04/18/21: Continue to wean FiO2 as tolerated. Steroids for 10 days. Proning. Prognosis still remains guarded but promising with continued decreases in oxygen requirement. 04/17/21: Continue to wean as tolerated. Steroids for 10 days. Prone if able. Guarded prognosis. 04/16/21: COntinue steroids. Wean for sats >88%. 04/15/21: renal function is better. still would suggest diuresis if possible. Continue to wean FiO2 as tolerated. needs walk test soon to assess oxygen needs. 04/14/21: Renal continues to follow but no labs in several days. Based on I/O would suggest diuresis but do not want to harm renal function. Continue to prone. Wean FiO2 as tolerated and continue steroids. 04/13/21: Continue to wean FiO2 as tolerated. Steroids for a total of 10 days. May be ready for 6 minute walk test as early as tomorrow or the weekend. 04/12/21: Continue to wean FiO2 as tolerated for sats >88%. Continue steroids. Guarded prognosis. Hold on higher doses of steroid given decreases in oxygen requirement. 04/11/21: Continue to wean FiO2 as tolerated for sats >88%. Continue steroids. Mass work up likely will have to be done as an outpatient. 1. Pulm- Agreed that biopsy is needed but must recover from COVID first. Would suggest CT guided biopsy. Lesion does appear amenable to bronch but would need to be Tbbx and may not get enough tissue. could consider EBUS if not able to get with CT guided biopsy. needs full work up of ILD as well but this can be done as an outpatient. Will continue current dose of steroids, however if oxygenation worsens would switch to higher doses. No puffers available in this hospital except albuterol. No nebs given COVID status. Guarded prognosis. Subjective Date of service: 04/19/21 Interval history: Oxygen requirement increased and sats are still in the low 90's per documentation. BP elevated this am as well. Objective Vital Signs - 12hr 04/19/21 04/19/2121 03:55 04:42 09:00 Temperature 97.2 F L Pulse Rate 91 H Respiratory 18 20 Rate Blood Pressure 213/115 O2 Sat by Pulse 100 96 96 Oximetry 04/19/21 10:02 Temperature Pulse Rate Respiratory Rate Blood Pressure O2 Sat by Pulse 96 Oximetry Constitutional: no acute distress, alert, appears uncomfortable ENT: oropharynx moist Neck: supple, no JVD Ascultation: Bilateral: diminished breath sounds Cardiovascular: regular rate and rhythm Gastrointestinal: normoactive bowel sounds, soft, non-tender Extremities: no cyanosis, other (Clubbing of the fingernails noted) Neurologic: normal mental status Psychiatric: mood appropriate CBC and BMP: 04/15/21 07:09 04/15/21 07:09 ABG, PT/INR, D-dimer: ABG ABG pH 7.395 (7.320-7.450) 04/08/21 14:27 POC ABG pCO2 23.7 mmHg (32.0-48.0) L 04/08/21 14:27 POC ABG pO2 62.5 mmHg (83-108) L 04/08/21 14:27 POC ABG HCO3 14.2 04/08/21 14:27 ABG O2 Saturation 91.8 (0-100) 04/08/21 14:27 PT/INR, D-dimer PT 13.5 Sec. (12.2-14.9) 04/07/21 04:14 INR 0.98 (0.87-1.13) 04/07/21 04:14 D-Dimer 721.64 ng/mlDDU (0-234) H 04/06/21 08:15 Abnormal lab findings: Abnormal Labs 04/05/21 04/05/21 04/05/21 15:03 15:03 21:28 WBC RBC 5.40 H Hgb 15.9 H Hct 49.5 H MCHC RDW 17.3 H Plt Count 106 L Menard % (Auto) 9.0 H Lymph # (Auto) D-Dimer POC ABG pCO2 POC ABG pO2 ABG Oxyhemoglobin ABG Sodium ABG Chloride ABG Glucose Carboxyhemoglobin Sodium 135 L 135 L Potassium 6.2 H* Chloride Carbon Dioxide 11 L 12 L BUN 34 H 42 H Creatinine 2.4 H 3.2 H Glucose 121 H POC Glucose Magnesium 2.40 H Ferritin AST 56 H ALT Alkaline Phosphatase Lactate Dehydrogenase C-Reactive Protein Total Protein 8.7 H Albumin Lipase 143 H Arterial Blood Glucose Coronavirus (PCR) 04/06/21 04/06/21 04/06/21 08:07 08:07 08:15 WBC RBC Hgb Hct MCHC RDW Plt Count Menard % (Auto) Lymph # (Auto) D-Dimer 721.64 H POC ABG pCO2 POC ABG pO2 ABG Oxyhemoglobin ABG Sodium ABG Chloride ABG Glucose Carboxyhemoglobin Sodium Potassium Chloride Carbon Dioxide BUN Creatinine Glucose POC Glucose Magnesium Ferritin 1468.0 H AST ALT Alkaline Phosphatase Lactate Dehydrogenase 445 H C-Reactive Protein 2.90 H Total Protein Albumin Lipase Arterial Blood Glucose Coronavirus (PCR) 04/07/21 04/07/21 04/07/21 04:14 04:14 08:15 WBC 3.2 L RBC Hgb Hct MCHC RDW 16.0 H Plt Count 101 L [place]ard % (Auto) 10.8 H Lymph # (Auto) 0.7 L D-Dimer POC ABG pCO2 POC ABG pO2 ABG Oxyhemoglobin ABG Sodium ABG Chloride ABG Glucose Carboxyhemoglobin Sodium Potassium 5.6 H Chloride 111.6 H Carbon Dioxide 16 L BUN 43 H Creatinine 2.5 H Glucose POC Glucose Magnesium Ferritin AST ALT Alkaline Phosphatase Lactate Dehydrogenase C-Reactive Protein Total Protein Albumin Lipase Arterial Blood Glucose Coronavirus (PCR) Positive A 04/08/21 04/08/21 04/08/21 08:00 14:27 15:33 WBC RBC Hgb Hct MCHC RDW Plt Count Menard % (Auto) Lymph # (Auto) D-Dimer POC ABG pCO2 23.7 L POC ABG pO2 62.5 L ABG Oxyhemoglobin 91.3 L ABG Sodium 133.7 L ABG Chloride 112.0 H ABG Glucose 117 H Carboxyhemoglobin 0.4 L Sodium Potassium Chloride 109.9 H Carbon Dioxide 13 L BUN 40 H Creatinine 1.8 H Glucose 74 L POC Glucose 115 H Magnesium Ferritin AST ALT Alkaline Phosphatase Lactate Dehydrogenase C-Reactive Protein Total Protein Albumin Lipase Arterial Blood Glucose 117 H Coronavirus (PCR) 04/09/21 04/09/21 04/10/21 08:38 08:38 08:29 WBC 3.1 L 3.8 L RBC Hgb Hct MCHC 35 H RDW 15.7 H 15.7 H Plt Count 136 L Menard % (Auto) Lymph # (Auto) D-Dimer POC ABG pCO2 POC ABG pO2 ABG Oxyhemoglobin ABG Sodium ABG Chloride ABG Glucose Carboxyhemoglobin Sodium Potassium Chloride 110.4 H Carbon Dioxide 19 L BUN 35 H Creatinine 1.8 H Glucose POC Glucose Magnesium Ferritin AST 144 H ALT 92 H Alkaline Phosphatase 159 H Lactate Dehydrogenase C-Reactive Protein Total Protein Albumin 3.3 L Lipase Arterial Blood Glucose Coronavirus (PCR) 04/10/21 04/15/21 04/17/21 08:29 07:09 11:25 WBC RBC Hgb Hct MCHC RDW Plt Count Menard % (Auto) Lymph # (Auto) D-Dimer POC ABG pCO2 POC ABG pO2 ABG Oxyhemoglobin ABG Sodium ABG Chloride ABG Glucose Carboxyhemoglobin Sodium Potassium Chloride Carbon Dioxide BUN 31 H 27 H Creatinine 1.5 H Glucose 119 H POC Glucose 214 H Magnesium Ferritin AST 89 H ALT 80 H Alkaline Phosphatase 159 H Lactate Dehydrogenase C-Reactive Protein Total Protein Albumin 3.2 L 2.8 L Lipase Arterial Blood Glucose Coronavirus (PCR) 04/17/21 04/17/21 04/18/21 16:29 21:26 11:39 WBC RBC Hgb Hct MCHC RDW Plt Count Menard % (Auto) Lymph # (Auto) D-Dimer POC ABG pCO2 POC ABG pO2 ABG Oxyhemoglobin ABG Sodium ABG Chloride ABG Glucose Carboxyhemoglobin Sodium Potassium Chloride Carbon Dioxide BUN Creatinine Glucose POC Glucose 112 H 174 H 106 H Magnesium Ferritin AST ALT Alkaline Phosphatase Lactate Dehydrogenase C-Reactive Protein Total Protein Albumin Lipase Arterial Blood Glucose Coronavirus (PCR) 04/18/21 04/19/21 21:26 12:07 WBC RBC Hgb Hct MCHC RDW Plt Count Menard % (Auto) Lymph # (Auto) D-Dimer POC ABG pCO2 POC ABG pO2 ABG Oxyhemoglobin ABG Sodium ABG Chloride ABG Glucose Carboxyhemoglobin Sodium Potassium Chloride Carbon Dioxide BUN Creatinine Glucose POC Glucose 149 H 127 H Magnesium Ferritin AST ALT Alkaline Phosphatase Lactate Dehydrogenase C-Reactive Protein Total Protein Albumin Lipase Arterial Blood Glucose Coronavirus (PCR)
--- NOTE | 2021-04-19 14:56 | Progress Note ---
Assessment and Plan 60-year-old male with known history of hypertension seen in the emergency room today complaining of diarrhea and generalized weakness which started about 3 days ago. Patient states he just had his first dose of COVID-19 vaccination over the weekend and 24 hours thereafter he started having some diarrhea and generalized weakness. He denies any fever or chills, no chest pain or shortness of breath, no headache or dizziness, no diaphoresis. Patient denies any nausea vomiting, no abdominal pain, no hematuria or dysuria. He denies any sick contacts and no recent travel. Denies any contact with anyone with COVID-19. Work-up in the emergency room today reveals elevated BUN and creatinine of 34 and 2.4 respectively. Chest x-ray reveals right lower lobe airspace opacity which could represent pneumonia or a neoplastic process. CT of the abdomen and pelvis reveals fluid and gas-filled colon without inflammation or colonic wall thickening 04/07: Patient seen and examined today continues on oxygen. ID input is noted. Have consulted pulmonary considering review of CT which shows a large mass in the lungs. Patient may probably benefit from a bronchoscopy but will defer to pulmonary for now continue current management with steroids and remdesivir. Unfortunately I do not have any family contact information for this patient. Discussed with nursing staff to see if they can get anyone. Patient awaiting bed upstairs Patient on diagnosis Metabolic acidosis Hyperkalemia we'll give 20 of Kayexalate Thrombocytopenia unfortunately I'm not sure what the patient's baseline creatinine is but driller portable input is noted 04/08: Patient seen today, still baseline confusion, renal function showing some improvement, called family and no response. Patient now on Bicarb drip due to metabolic Acidosis, also Lung mass noted, awaiting Pulmonary re-evaluation. otherwise he is clinically stable. 04/09: Resume steroids as patient developed significant hypoxia on 15 L of oxygen. Continue to wean as tolerated he also has mittens in place due to intermittent confusion. CREATININE STILL AT 1.8 04/10: Patient seen and examined, BP slightly elevated, will add BP meds. Pulmonary recommends outpatient follow up for the lung mass, renal function is showing improvement. Continue supportive care. Wean oxygen as tolerated, continue steroids at this time. No Remdesvier secondary to the Renal function. 04/11/21 Patient with Covid-19 with acute resp failure. On Oxygen at 10 l/min. Has right lung mass, to follow with Pulmonology as outpatient.Cr 1.5 today, improving. 04/12/21 Patient with Covid-19 with acute respiratory failure. Still on Oxygen at 10 l/min. Patient has been refusing blood draw so no labs for 2 days. He has Right lung mass and needs to follow with Pulmonology as outpatient. 04/13/21 Patient with Covid-19 with acute respiratory failure. Patient has been refusing treatment and lab blood draw so no labs for days. He has Right lung mass and needs to follow with Pulmonology as outpatient. Will consult Psych to evaluate 04/14/21 Patient with Covid-19 with acute respiratory failure. Patient has been refusing treatment and lab blood draw so no labs for days. He has Right lung mass and needs to follow with Pulmonology as outpatient. Consulted Psych to evaluate. 04/15/21 Patient with Covid-19 with acute respiratory failure. Patient has been refusing treatment and lab blood draws. He has right lung mass and needs to follow with Pulmonology as outpatient. His Sister states patient was being followed at [facility] and was being worked up for cancer either Prostate or lung. I have requested medical records. Sister requested transfer to [place], but I discussed,explained that it is difficult because most hospitals are full 04/16/21 Patient with Covid-19 with acute respiratory failure. Patient has been refusing treatment and lab blood draws. He has right lung mass and needs to follow with Pulmonology as outpatient. His Sister states patient was being followed at [facility] and was being worked up for cancer either Prostate or lung. I have requested medical records. Sister requested transfer to [place], but I discussed,explained that it is difficult because most hospitals are full Cr 1.3 much improved. Repeat labs tomorrow. 04/17/21 Patient with Covid-19 with acute respiratory failure. Patient has been refusing treatment and lab blood draws. He has right lung mass and needs to follow with Pulmonology as outpatient. His Sister states patient was being followed at [facility] and was being worked up for cancer either Prostate or lung. I have requested medical records. Sister requested transfer to [place], but I discussed,explained that it is difficult because most hospitals are full. I requested records from [place] but his sister Jelena goodrich refused to give consent to obtain records. He is on Oxygen NC at 8 l/min Cr 1.3 much improved. Thrombocytopenia resolved 04/18/21: remains on 7L n/c O2, cont to follow, wean off O2 as tolerated 04/19/21; patient had a fall today, no report of any injury. Placed on restraint. Remains on 8 L nasal cannula O2. (1) Acute renal failure (ARF) SECONDARY TO VASOMOTOR NEPHROPATHY WITH METABOLIC ACIDOSIS Current Visit: Yes Status: Acute Plan to address problem: Possibly prerenal. Patient will be placed on IV fluid normal saline. Will monitor BUN and creatinine. Consult placed to nephrology for evaluation. (2) Hypertension Current Visit: Yes Status: Acute Plan to address problem: Blood pressure stable . (3)COVID-19 Current Visit: Yes Status: Acute Plan to address problem: (4) Acute hypoxic respiratory failure (5) Right lung lung mass large (6) Acute metabolic encephalopathy -unknown baseline (7) Thrombocytopenia (8) DVT prophylaxis Current Visit: Yes Status: Acute Plan to address problem: Patient placed on subcutaneous heparin. (9) Full code status Current Visit: Yes Status: Acute Plan to address problem: Patient is full code. Subjective Date of service: 04/19/21 Objective - Constitutional Vitals: Vital Signs - 12hr 04/19/21 04/19/21 04/19/21 03:55 04:42 09:00 Temperature 97.2 F L Pulse Rate 91 H Respiratory 18 20 Rate Blood Pressure 213/115 O2 Sat by Pulse 100 96 96 Oximetry 04/19/21 04/19/21 10:02 12:09 Temperature 98.1 F Pulse Rate 70 Respiratory 22 Rate Blood Pressure 130/74 O2 Sat by Pulse 96 94 Oximetry - Labs CBC & Chem 7: 04/15/21 07:09 04/15/21 07:09 Labs: Abnormal lab results 04/18/21 04/19/21 Range/Units 21:26 12:07 POC Glucose 149 H 127 H (70-105) mg/dL
--- NOTE | 2021-04-19 18:05 | Progress Note ---
Assessment and Plan 1. Acute kidney injury: Vasomotor ELIO in the setting of volume depletion +/- 2/[address] abdomen negative for hydro. Monitor renal function. Baseline renal function is unknown. Creatinine level is improving. Avoid nephrotoxic agents. Meds dosage based on GFR. No labs from today. 2. FEN: Hyperkalemia, improved, monitor. Hyperchloremic Metabolic acidosis, improved, monitor. Hyponatremia, improved, monitor. Monitor lytes and volume status. 3. Diarrhea: ?related to Covid. Monitor. 4. COVID-19 infection: Decadron. s/p Remdesivir. Anticoagulation per hospital protocol. 5. Possible lung mass: Followed by Pulmonary. 6. Hypertension: Monitor BP. Subjective: Patient was seen and examined at the bedside. RN at the bedside. Examination: General appearance: well-developed, appears stated age, not in distress, NC O2 salter HEENT: ATNC Neck: Trachea midline Respiratory: bibasal rales heard Cardiology: S1S2, no murmur Gastrointestinal: soft, obese, bowel sounds heard, not tender Integumentary: warm and dry Neurologic: alert, confused, able to move extremities Ext: no edema Subjective Date of service: 04/19/21 Objective - Vital Signs Vital signs: Vital Signs - 12hr 04/19/21 04/19/21 04/19/21 09:00 10:02 12:09 Temperature 98.1 F Pulse Rate 70 Respiratory 20 22 Rate Blood Pressure 130/74 O2 Sat by Pulse 96 96 94 Oximetry 04/19/21 15:56 Temperature Pulse Rate Respiratory Rate Blood Pressure O2 Sat by Pulse 92 Oximetry - Lab 04/15/21 07:09 04/15/21 07:09 Most recent lab results ABG pH 7.395 (7.320-7.450) 04/08/21 14:27 ABG O2 Saturation 91.8 (0-100) 04/08/21 14:27 Calcium 9.0 mg/dL (8.4-10.2) 04/15/21 07:09 Magnesium 2.40 mg/dL (1.7-2.3) H 04/05/21 15:03 Medications & Allergies - Medications Allergies/Adverse Reactions: Allergies No Known Allergies Allergy (Verified 04/06/21 03:10) Home Medications: Home Medications Medication Instructions Recorded Confirmed Last Taken Type No Known Home Medications [No 04/10/21 04/10/21 Unknown History Reported Home Medications] Active Medications: Generic Name Dose Route Start Last Admin Trade Name Freq PRN Reason Stop Dose Admin Acetaminophen 650 mg 04/06/21 02:57 Acetaminophen 325 Mg Tab PO Q4H PRN Pain MILD(1-3)/Fever >100.5/BRAR Amlodipine Besylate 5 mg 04/14/21 15:00 04/19/21 09:06 Amlodipine 5 Mg Tab PO 5 mg QDAY BISHOP Administration Divalproex Sodium 125 mg 04/14/21 13:00 04/19/21 09:[address] 125 Mg Tab PO 125 mg BID BISHOP Administration Haloperidol Lactate 5 mg 04/15/21 13:00 Haloperidol Lactate 5 Mg/1 Ml Inj IM Q6H PRN Agitation Heparin Sodium (Porcine) 5,000 unit 04/06/21 14:00 04/19/21 06:51 Heparin 5,000 Unit/1 Ml Vial SUB-Q 5,000 unit Q8HR BISHOP Administration Hydralazine HCl 10 mg 04/14/21 14:37 Hydralazine 20 Mg/1 Ml Inj IV Q4HR PRN SBP>160 or DBP>110 Mirtazapine 15 mg 04/19/21 22:00 Mirtazapine 15 Mg Tab PO QHS BISHOP Morphine Sulfate 2 mg 04/06/21 02:57 04/14/21 01:01 Morphine 2 Mg/1 Ml Inj IV 2 mg Q4H PRN Administration Pain, Moderate (4-6) Morphine Sulfate 4 mg 04/06/21 02:57 Morphine 4 Mg/1 Ml Inj IV Q4H PRN Pain , Severe (7-10) Ondansetron HCl 4 mg 04/06/21 02:57 Ondansetron 4 Mg/2 Ml Inj IV Q8H PRN Nausea And Vomiting Sodium Bicarbonate 650 mg 04/08/21 22:00 04/19/21 08:48 Sodium Bicarbonate 650 Mg Tab PO 650 mg TID BISHOP Administration Sodium Chloride 10 ml 04/06/21 10:00 04/19/21 09:06 Sodium Chloride 0.9% 10 Ml Flush Syringe IV 10 ml BID BISHOP Administration Sodium Chloride 10 ml 04/06/21 02:57 Sodium Chloride 0.9% 10 Ml Flush Syringe IV PRN PRN LINE FLUSH
[2021-04-19] MEDS: MIRTAZAPINE 15 MG TAB PO SCH (21:34)
[2021-04-20] MEDS: HEPARIN 5,000 UNIT/1 ML VIAL SUB-Q SCH ×3 (06:11→22:26)
[2021-04-20] MEDS ORDERED: MORPHINE 4 MG/1 ML INJ IV PRN (11:34)
--- NOTE | 2021-04-20 11:39 | Progress Note ---
Assessment and Plan 60 y/o male with ILD, right lower lobe lung mass and COVID 19 with acute respiratory failure. 04/20/21: Wean FiO2 as tolerated for sats >88%. Prone if possible. Steroids for a total of 10 days. Guarded prognosis. 04/19/21: renal continues to follow, please consider a trial of diuretics given worsening oxygen state. Encourage proning. Steroids for 10 days. Wean For sats >88% 04/18/21: Continue to wean FiO2 as tolerated. Steroids for 10 days. Proning. Prognosis still remains guarded but promising with continued decreases in oxygen requirement. 04/17/21: Continue to wean as tolerated. Steroids for 10 days. Prone if able. Guarded prognosis. 04/16/21: COntinue steroids. Wean for sats >88%. 04/15/21: renal function is better. still would suggest diuresis if possible. Continue to wean FiO2 as tolerated. needs walk test soon to assess oxygen needs. 04/14/21: Renal continues to follow but no labs in several days. Based on I/O would suggest diuresis but do not want to harm renal function. Continue to prone. Wean FiO2 as tolerated and continue steroids. 04/13/21: Continue to wean FiO2 as tolerated. Steroids for a total of 10 days. May be ready for 6 minute walk test as early as tomorrow or the weekend. 04/12/21: Continue to wean FiO2 as tolerated for sats >88%. Continue steroids. Guarded prognosis. Hold on higher doses of steroid given decreases in oxygen requirement. 04/11/21: Continue to wean FiO2 as tolerated for sats >88%. Continue steroids. Mass work up likely will have to be done as an outpatient. 1. Pulm- Agreed that biopsy is needed but must recover from COVID first. Would suggest CT guided biopsy. Lesion does appear amenable to bronch but would need to be Tbbx and may not get enough tissue. could consider EBUS if not able to get with CT guided biopsy. needs full work up of ILD as well but this can be done as an outpatient. Will continue current dose of steroids, however if oxygenation worsens would switch to higher doses. No puffers available in this hospital except albuterol. No nebs given COVID status. Guarded prognosis. Subjective Date of service: 04/20/21 Interval history: still on 8 liters. Sats are stable. Objective Vital Signs - 12hr 04/20/21 04/20/21 04/20/21 00:05 00:15 06:35 Temperature 98.3 F 98.2 F Pulse Rate 75 66 Respiratory 20 20 Rate Blood Pressure 175/81 Blood Pressure 146/72 [Left] O2 Sat by Pulse 94 96 98 Oximetry Constitutional: no acute distress, alert, appears uncomfortable ENT: oropharynx moist Neck: supple, no JVD Ascultation: Bilateral: diminished breath sounds Cardiovascular: regular rate and rhythm Gastrointestinal: normoactive bowel sounds, soft, non-tender Extremities: no cyanosis, other (Clubbing of the fingernails noted) Neurologic: normal mental status Psychiatric: mood appropriate CBC and BMP: 04/15/21 07:09 04/15/21 07:09 ABG, PT/INR, D-dimer: ABG ABG pH 7.395 (7.320-7.450) 04/08/21 14:27 POC ABG pCO2 23.7 mmHg (32.0-48.0) L 04/08/21 14:27 POC ABG pO2 62.5 mmHg (83-108) L 04/08/21 14:27 POC ABG HCO3 14.2 04/08/21 14:27 ABG O2 Saturation 91.8 (0-100) 04/08/21 14:27 PT/INR, D-dimer PT 13.5 Sec. (12.2-14.9) 04/07/21 04:14 INR 0.98 (0.87-1.13) 04/07/21 04:14 D-Dimer 721.64 ng/mlDDU (0-234) H 04/06/21 08:15 Abnormal lab findings: Abnormal Labs 04/05/21 04/05/21 04/05/21 15:03 15:03 21:28 WBC RBC 5.40 H Hgb 15.9 H Hct 49.5 H MCHC RDW 17.3 H Plt Count 106 L Tate % (Auto) 9.0 H Lymph # (Auto) D-Dimer POC ABG pCO2 POC ABG pO2 ABG Oxyhemoglobin ABG Sodium ABG Chloride ABG Glucose Carboxyhemoglobin Sodium 135 L 135 L Potassium 6.2 H* Chloride Carbon Dioxide 11 L 12 L BUN 34 H 42 H Creatinine 2.4 H 3.2 H Glucose 121 H POC Glucose Magnesium 2.40 H Ferritin AST 56 H ALT Alkaline Phosphatase Lactate Dehydrogenase C-Reactive Protein Total Protein 8.7 H Albumin Lipase 143 H Arterial Blood Glucose Coronavirus (PCR) 04/06/21 04/06/21 04/06/21 08:07 08:07 08:15 WBC RBC Hgb Hct MCHC RDW Plt Count Tate % (Auto) Lymph # (Auto) D-Dimer 721.64 H POC ABG pCO2 POC ABG pO2 ABG Oxyhemoglobin ABG Sodium ABG Chloride ABG Glucose Carboxyhemoglobin Sodium Potassium Chloride Carbon Dioxide BUN Creatinine Glucose POC Glucose Magnesium Ferritin 1468.0 H AST ALT Alkaline Phosphatase Lactate Dehydrogenase 445 H C-Reactive Protein 2.90 H Total Protein Albumin Lipase Arterial Blood Glucose Coronavirus (PCR) 04/07/21 04/07/21 04/07/21 04:14 04:14 08:15 WBC 3.2 L RBC Hgb Hct MCHC RDW 16.0 H Plt Count 101 L Tate % (Auto) 10.8 H Lymph # (Auto) 0.7 L D-Dimer POC ABG pCO2 POC ABG pO2 ABG Oxyhemoglobin ABG Sodium ABG Chloride ABG Glucose Carboxyhemoglobin Sodium Potassium 5.6 H Chloride 111.6 H Carbon Dioxide 16 L BUN 43 H Creatinine 2.5 H Glucose POC Glucose Magnesium Ferritin AST ALT Alkaline Phosphatase Lactate Dehydrogenase C-Reactive Protein Total Protein Albumin Lipase Arterial Blood Glucose Coronavirus (PCR) Positive A 04/08/21 04/08/21 04/08/21 08:00 14:27 15:33 WBC RBC Hgb Hct MCHC RDW Plt Count Tate % (Auto) Lymph # (Auto) D-Dimer POC ABG pCO2 23.7 L POC ABG pO2 62.5 L ABG Oxyhemoglobin 91.3 L ABG Sodium 133.7 L ABG Chloride 112.0 H ABG Glucose 117 H Carboxyhemoglobin 0.4 L Sodium Potassium Chloride 109.9 H Carbon Dioxide 13 L BUN 40 H Creatinine 1.8 H Glucose 74 L POC Glucose 115 H Magnesium Ferritin AST ALT Alkaline Phosphatase Lactate Dehydrogenase C-Reactive Protein Total Protein Albumin Lipase Arterial Blood Glucose 117 H Coronavirus (PCR) 04/09/21 04/09/21 04/10/21 08:38 08:38 08:29 WBC 3.1 L 3.8 L RBC Hgb Hct MCHC 35 H RDW 15.7 H 15.7 H Plt Count 136 L Tate % (Auto) Lymph # (Auto) D-Dimer POC ABG pCO2 POC ABG pO2 ABG Oxyhemoglobin ABG Sodium ABG Chloride ABG Glucose Carboxyhemoglobin Sodium Potassium Chloride 110.4 H Carbon Dioxide 19 L BUN 35 H Creatinine 1.8 H Glucose POC Glucose Magnesium Ferritin AST 144 H ALT 92 H Alkaline Phosphatase 159 H Lactate Dehydrogenase C-Reactive Protein Total Protein Albumin 3.3 L Lipase Arterial Blood Glucose Coronavirus (PCR) 04/10/21 04/15/21 04/17/21 08:29 07:09 11:25 WBC RBC Hgb Hct MCHC RDW Plt Count Tate % (Auto) Lymph # (Auto) D-Dimer POC ABG pCO2 POC ABG pO2 ABG Oxyhemoglobin ABG Sodium ABG Chloride ABG Glucose Carboxyhemoglobin Sodium Potassium Chloride Carbon Dioxide BUN 31 H 27 H Creatinine 1.5 H Glucose 119 H POC Glucose 214 H Magnesium Ferritin AST 89 H ALT 80 H Alkaline Phosphatase 159 H Lactate Dehydrogenase C-Reactive Protein Total Protein Albumin 3.2 L 2.8 L Lipase Arterial Blood Glucose Coronavirus (PCR) 04/17/21 04/17/21 04/18/21 16:29 21:26 11:39 WBC RBC Hgb Hct MCHC RDW Plt Count Tate % (Auto) Lymph # (Auto) D-Dimer POC ABG pCO2 POC ABG pO2 ABG Oxyhemoglobin ABG Sodium ABG Chloride ABG Glucose Carboxyhemoglobin Sodium Potassium Chloride Carbon Dioxide BUN Creatinine Glucose POC Glucose 112 H 174 H 106 H Magnesium Ferritin AST ALT Alkaline Phosphatase Lactate Dehydrogenase C-Reactive Protein Total Protein Albumin Lipase Arterial Blood Glucose Coronavirus (PCR) 04/18/21 04/19/21 04/19/21 21:26 12:07 17:45 WBC RBC Hgb Hct MCHC RDW Plt Count Tate % (Auto) Lymph # (Auto) D-Dimer POC ABG pCO2 POC ABG pO2 ABG Oxyhemoglobin ABG Sodium ABG Chloride ABG Glucose Carboxyhemoglobin Sodium Potassium Chloride Carbon Dioxide BUN Creatinine Glucose POC Glucose 149 H 127 H 128 H Magnesium Ferritin AST ALT Alkaline Phosphatase Lactate Dehydrogenase C-Reactive Protein Total Protein Albumin Lipase Arterial Blood Glucose Coronavirus (PCR) 04/20/21 04/20/21 07:37 11:36 WBC RBC Hgb Hct MCHC RDW Plt Count Tate % (Auto) Lymph # (Auto) D-Dimer POC ABG pCO2 POC ABG pO2 ABG Oxyhemoglobin ABG Sodium ABG Chloride ABG Glucose Carboxyhemoglobin Sodium Potassium Chloride Carbon Dioxide BUN Creatinine Glucose POC Glucose 68 L 123 H Magnesium Ferritin AST ALT Alkaline Phosphatase Lactate Dehydrogenase C-Reactive Protein Total Protein Albumin Lipase Arterial Blood Glucose Coronavirus (PCR)
[2021-04-20] MEDS ORDERED: oxyCODONE /ACETAMINOPHEN 5-325MG TAB PO PRN (12:00)
[2021-04-20] MEDS ORDERED: MORPHINE 2 MG/1 ML INJ IV PRN (12:00)
[2021-04-20] MEDS: amLODIPine 5 MG TAB PO SCH (13:00)
[2021-04-20] MEDS: DIVALPROEX DR 125 MG TAB PO SCH ×2 (13:15→22:25)
--- NOTE | 2021-04-20 13:57 | Progress Note ---
Assessment and Plan 1. Acute kidney injury: Vasomotor ELIO in the setting of volume depletion +/- 2/[address] abdomen negative for hydro. Monitor renal function. Baseline renal function is unknown. Creatinine level is improving. Avoid nephrotoxic agents. Meds dosage based on GFR. No labs from today. 2. FEN: Hyperkalemia, improved, monitor. Hyperchloremic Metabolic acidosis, improved, monitor. Hyponatremia, improved, monitor. Monitor lytes and volume status. 3. Acute hypoxic resp failure: 2/2 Covid-19 pneumonia. On NC O2 salter 6 LPM, wean as tolerated. Monitor. 4. COVID-19 infection: Decadron. S/p Remdesivir. Anticoagulation per hospital protocol. 5. Right lower lobe lung mass: Followed by Pulmonary. 6. Hypertension: Monitor BP. Subjective: Patient was seen and examined at the bedside. Examination: General appearance: well-developed, appears stated age, not in distress, NC O2 salter HEENT: ATNC Neck: Trachea midline Respiratory: bibasal rales heard Cardiology: S1S2, no murmur Gastrointestinal: soft, obese, bowel sounds heard, not tender Integumentary: warm and dry Neurologic: alert, confused, able to move extremities Ext: no edema Subjective Date of service: 04/20/21 Objective - Vital Signs Vital signs: Vital Signs - 12hr 04/20/21 04/20/21 04/20/21 06:35 11:39 12:20 Temperature 98.2 F 98.7 F Pulse Rate 66 78 Respiratory 20 20 Rate Blood Pressure 175/81 114/64 O2 Sat by Pulse 98 92 93 Oximetry - Lab 04/15/21 07:09 04/15/21 07:09 Most recent lab results ABG pH 7.395 (7.320-7.450) 04/08/21 14:27 ABG O2 Saturation 91.8 (0-100) 04/08/21 14:27 Calcium 9.0 mg/dL (8.4-10.2) 04/15/21 07:09 Magnesium 2.40 mg/dL (1.7-2.3) H 04/05/21 15:03 Medications & Allergies - Medications Allergies/Adverse Reactions: Allergies No Known Allergies Allergy (Verified 04/06/21 03:10) Home Medications: Home Medications Medication Instructions Recorded Confirmed Last Taken Type No Known Home Medications [No 04/10/21 04/10/21 Unknown History Reported Home Medications] Active Medications: Generic Name Dose Route Start Last Admin Trade Name Freq PRN Reason Stop Dose Admin Acetaminophen 650 mg 04/06/21 02:57 Acetaminophen 325 Mg Tab PO Q4H PRN Pain MILD(1-3)/Fever >100.5/BRAR Amlodipine Besylate 5 mg 04/14/21 15:00 04/19/21 09:06 Amlodipine 5 Mg Tab PO 5 mg QDAY BISHOP Administration Divalproex Sodium 125 mg 04/14/21 13:00 04/19/21 21:[address] 125 Mg Tab PO 125 mg BID BISHOP Administration Haloperidol Lactate 5 mg 04/15/21 13:00 Haloperidol Lactate 5 Mg/1 Ml Inj IM Q6H PRN Agitation Heparin Sodium (Porcine) 5,000 unit 04/06/21 14:00 04/20/21 06:11 Heparin 5,000 Unit/1 Ml Vial SUB-Q 5,000 unit Q8HR BISHOP Administration Hydralazine HCl 10 mg 04/14/21 14:37 Hydralazine 20 Mg/1 Ml Inj IV Q4HR PRN SBP>160 or DBP>110 Mirtazapine 15 mg 04/19/21 22:00 04/19/21 21:34 Mirtazapine 15 Mg Tab PO 15 mg QHS BISHOP Administration Morphine Sulfate 2 mg 04/20/21 12:00 Morphine 2 Mg/1 Ml Inj IV Q4H PRN Pain , Severe (7-10) Ondansetron HCl 4 mg 04/06/21 02:57 Ondansetron 4 Mg/2 Ml Inj IV Q8H PRN Nausea And Vomiting Oxycodone/Acetaminophen 1 tab 04/20/21 12:00 Oxycodone /Acetaminophen 5-325mg Tab PO Q6H PRN Pain, Moderate (4-6) Sodium Bicarbonate 650 mg 04/08/21 22:00 04/19/21 21:34 Sodium Bicarbonate 650 Mg Tab PO 650 mg TID BISHOP Administration Sodium Chloride 10 ml 04/06/21 10:00 04/19/21 21:35 Sodium Chloride 0.9% 10 Ml Flush Syringe IV 10 ml BID BISHOP Administration Sodium Chloride 10 ml 04/06/21 02:57 Sodium Chloride 0.9% 10 Ml Flush Syringe IV PRN PRN LINE FLUSH
--- NOTE | 2021-04-20 15:57 | Progress Note ---
Assessment and Plan 60-year-old male with known history of hypertension seen in the emergency room today complaining of diarrhea and generalized weakness which started about 3 days ago. Patient states he just had his first dose of COVID-19 vaccination over the weekend and 24 hours thereafter he started having some diarrhea and generalized weakness. He denies any fever or chills, no chest pain or shortness of breath, no headache or dizziness, no diaphoresis. Patient denies any nausea vomiting, no abdominal pain, no hematuria or dysuria. He denies any sick contacts and no recent travel. Denies any contact with anyone with COVID-19. Work-up in the emergency room today reveals elevated BUN and creatinine of 34 and 2.4 respectively. Chest x-ray reveals right lower lobe airspace opacity which could represent pneumonia or a neoplastic process. CT of the abdomen and pelvis reveals fluid and gas-filled colon without inflammation or colonic wall thickening 04/07: Patient seen and examined today continues on oxygen. ID input is noted. Have consulted pulmonary considering review of CT which shows a large mass in the lungs. Patient may probably benefit from a bronchoscopy but will defer to pulmonary for now continue current management with steroids and remdesivir. Unfortunately I do not have any family contact information for this patient. Discussed with nursing staff to see if they can get anyone. 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 Patient now on Bicarb drip due to metabolic Acidosis, also Lung mass noted, awaiting Pulmonary re-evaluation. otherwise he is clinically stable. 04/09: Resume steroids as patient developed significant hypoxia on 15 L of oxygen. Continue to wean as tolerated he also has mittens in place due to intermittent confusion. CREATININE STILL AT 1.8 04/10: Patient seen and examined, BP slightly elevated, will add BP meds. Pulmonary recommends outpatient follow up for the lung mass, renal function is showing improvement. Continue supportive care. Wean oxygen as tolerated, continue steroids at this time. No Remdesvier secondary to the Renal function. 04/11/21 Patient with Covid-19 with acute resp failure. On Oxygen at 10 l/min. Has right lung mass, to follow with Pulmonology as outpatient.Cr 1.5 today, improving. 04/12/21 Patient with Covid-19 with acute respiratory failure. Still on Oxygen at 10 l/min. Patient has been refusing blood draw so no labs for 2 days. He has Right lung mass and needs to follow with Pulmonology as outpatient. 04/13/21 Patient with Covid-19 with acute respiratory failure. Patient has been refusing treatment and lab blood draw so no labs for days. He has Right lung mass and needs to follow with Pulmonology as outpatient. Will consult Psych to evaluate 04/14/21 Patient with Covid-19 with acute respiratory failure. Patient has been refusing treatment and lab blood draw so no labs for days. He has Right lung mass and needs to follow with Pulmonology as outpatient. Consulted Psych to evaluate. 04/15/21 Patient with Covid-19 with acute respiratory failure. Patient has been refusing treatment and lab blood draws. He has right lung mass and needs to follow with Pulmonology as outpatient. His Sister states patient was being followed at [facility] and was being worked up for cancer either Prostate or lung. I have requested medical records. Sister requested transfer to [place], but I discussed,explained that it is difficult because most hospitals are full 04/16/21 Patient with Covid-19 with acute respiratory failure. Patient has been refusing treatment and lab blood draws. He has right lung mass and needs to follow with Pulmonology as outpatient. His Sister states patient was being followed at [facility] and was being worked up for cancer either Prostate or lung. I have requested medical records. Sister requested transfer to [place], but I discussed,explained that it is difficult because most hospitals are full Cr 1.3 much improved. Repeat labs tomorrow. 04/17/21 Patient with Covid-19 with acute respiratory failure. Patient has been refusing treatment and lab blood draws. He has right lung mass and needs to follow with Pulmonology as outpatient. His Sister states patient was being followed at [facility] and was being worked up for cancer either Prostate or lung. I have requested medical records. Sister requested transfer to [place], but I discussed,explained that it is difficult because most hospitals are full. I requested records from [place] but his sister Jelena goodrich refused to give consent to obtain records. He is on Oxygen NC at 8 l/min Cr 1.3 much improved. Thrombocytopenia resolved 04/18/21: remains on 7L n/c O2, cont to follow, wean off O2 as tolerated 04/19/21; patient had a fall today, no report of any injury. Placed on restraint. Remains on 8 L nasal cannula O2. 04/20/21: Patient placed on 6 L nasal cannula O2 today. Continue to wean off as tolerated. Plan to DC home with home health. (1) Acute renal failure (ARF) SECONDARY TO VASOMOTOR NEPHROPATHY WITH METABOLIC ACIDOSIS Current Visit: Yes Status: Acute Plan to address problem: Possibly prerenal. Patient will be placed on IV fluid normal saline. Will monitor BUN and creatinine. Consult placed to nephrology for evaluation. (2) Hypertension Current Visit: Yes Status: Acute Plan to address problem: Blood pressure stable . (3)COVID-19 Current Visit: Yes Status: Acute Plan to address problem: (4) Acute hypoxic respiratory failure (5) Right lung lung mass large (6) Acute metabolic encephalopathy -unknown baseline (7) Thrombocytopenia (8) DVT prophylaxis Current Visit: Yes Status: Acute Plan to address problem: Patient placed on subcutaneous heparin. (9) Full code status Current Visit: Yes Status: Acute Plan to address problem: Patient is full code. Subjective Date of service: 04/20/21 Objective - Constitutional Vitals: Vital Signs - 12hr 04/20/21 04/20/21 04/20/21 06:35 11:39 12:20 Temperature 98.2 F 98.7 F Pulse Rate 66 78 Respiratory 20 20 Rate Blood Pressure 175/81 114/64 O2 Sat by Pulse 98 92 93 Oximetry - Labs CBC & Chem 7: 04/15/21 07:09 04/15/21 07:09 Labs: Abnormal lab results 04/19/21 04/20/21 04/20/21 Range/Units 17:45 07:37 11:36 POC Glucose 128 H 68 L 123 H (70-105) mg/dL
[2021-04-20] MEDS: SODIUM BICARBONATE 650 MG TAB PO SCH ×3 (16:00→22:35)
[2021-04-20] MEDS: MIRTAZAPINE 15 MG TAB PO SCH (22:25)
[2021-04-21] MEDS: HEPARIN 5,000 UNIT/1 ML VIAL SUB-Q SCH ×3 (05:34→22:52)
[2021-04-21] MEDS: SODIUM BICARBONATE 650 MG TAB PO SCH ×2 (08:07→20:42)
--- NOTE | 2021-04-21 10:30 | Progress Note ---
Assessment and Plan 1. Acute kidney injury: Vasomotor ELIO in the setting of volume depletion +/- 2/[address] abdomen negative for hydro. Monitor renal function. Baseline renal function is unknown. Creatinine level is improving. Avoid nephrotoxic agents. Meds dosage based on GFR. No labs for the past 6 days. 2. FEN: Hyperkalemia, improved, monitor. Hyperchloremic Metabolic acidosis, improved, monitor. Hyponatremia, improved, monitor. Monitor lytes and volume status. 3. Acute hypoxic resp failure: 2/2 Covid-19 pneumonia. On NC O2 salter 6 LPM, wean as tolerated. Monitor. 4. COVID-19 infection: Decadron. S/p Remdesivir. Anticoagulation per hospital protocol. 5. Right lower lobe lung mass: Followed by Pulmonary. 6. Hypertension: Monitor BP. Subjective: Patient was seen and examined at the bedside. Examination: General appearance: well-developed, appears stated age, not in distress, NC O2 salter HEENT: ATNC Neck: Trachea midline Respiratory: bibasal rales heard Cardiology: S1S2, no murmur Gastrointestinal: soft, obese, bowel sounds heard, not tender Integumentary: warm and dry Neurologic: alert, confused, able to move extremities Ext: no edema Subjective Date of service: 04/21/21 Objective - Vital Signs Vital signs: Vital Signs - 12hr 04/21/21 04:49 Temperature 98.7 F Pulse Rate 89 Respiratory 18 Rate Blood Pressure 139/75 O2 Sat by Pulse 92 Oximetry - Lab 04/15/21 07:09 04/15/21 07:09 Most recent lab results ABG pH 7.395 (7.320-7.450) 04/08/21 14:27 ABG O2 Saturation 91.8 (0-100) 04/08/21 14:27 Calcium 9.0 mg/dL (8.4-10.2) 04/15/21 07:09 Magnesium 2.40 mg/dL (1.7-2.3) H 04/05/21 15:03 Medications & Allergies - Medications Allergies/Adverse Reactions: Allergies No Known Allergies Allergy (Verified 04/06/21 03:10) Home Medications: Home Medications Medication Instructions Recorded Confirmed Last Taken Type No Known Home Medications [No 04/10/21 04/10/21 Unknown History Reported Home Medications] Active Medications: Generic Name Dose Route Start Last Admin Trade Name Freq PRN Reason Stop Dose Admin Acetaminophen 650 mg 04/06/21 02:57 Acetaminophen 325 Mg Tab PO Q4H PRN Pain MILD(1-3)/Fever >100.5/BRAR Amlodipine Besylate 5 mg 04/14/21 15:00 04/20/21 13:00 Amlodipine 5 Mg Tab PO 5 mg QDAY BISHOP Administration Divalproex Sodium 125 mg 04/14/21 13:00 04/20/21 22:[address] 125 Mg Tab PO 125 mg BID BISHOP Administration Haloperidol Lactate 5 mg 04/15/21 13:00 Haloperidol Lactate 5 Mg/1 Ml Inj IM Q6H PRN Agitation Heparin Sodium (Porcine) 5,000 unit 04/06/21 14:00 04/21/21 05:34 Heparin 5,000 Unit/1 Ml Vial SUB-Q Not Given Q8HR [facility] Hydralazine HCl 10 mg 04/14/21 14:37 Hydralazine 20 Mg/1 Ml Inj IV Q4HR PRN SBP>160 or DBP>110 Mirtazapine 15 mg 04/19/21 22:00 04/20/21 22:25 Mirtazapine 15 Mg Tab PO 15 mg QHS [facility] Administration Morphine Sulfate 2 mg 04/20/21 12:00 Morphine 2 Mg/1 Ml Inj IV Q4H PRN Pain , Severe (7-10) Ondansetron HCl 4 mg 04/06/21 02:57 Ondansetron 4 Mg/2 Ml Inj IV Q8H PRN Nausea And Vomiting Oxycodone/Acetaminophen 1 tab 04/20/21 12:00 Oxycodone /Acetaminophen 5-325mg Tab PO Q6H PRN Pain, Moderate (4-6) Sodium Bicarbonate 650 mg 04/08/21 22:00 04/21/21 08:07 Sodium Bicarbonate 650 Mg Tab PO 650 mg TID BISHOP Administration Sodium Chloride 10 ml 04/06/21 10:00 04/20/21 22:26 Sodium Chloride 0.9% 10 Ml Flush Syringe IV 10 ml BID BISHOP Administration Sodium Chloride 10 ml 04/06/21 02:57 Sodium Chloride 0.9% 10 Ml Flush Syringe IV PRN PRN LINE FLUSH
[2021-04-21] MEDS: amLODIPine 5 MG TAB PO SCH (11:29)
[2021-04-21] MEDS: DIVALPROEX DR 125 MG TAB PO SCH ×2 (11:29→22:51)
--- NOTE | 2021-04-21 11:48 | Progress Note ---
Assessment and Plan 60 y/o male with ILD, right lower lobe lung mass and COVID 19 with acute respiratory failure. 04/21/21: Wean for sats >88%. Prone if possible. Steroids for 10 days. Will continue to follow. 04/20/21: Wean FiO2 as tolerated for sats >88%. Prone if possible. Steroids for a total of 10 days. Guarded prognosis. 04/19/21: renal continues to follow, please consider a trial of diuretics given worsening oxygen state. Encourage proning. Steroids for 10 days. Wean For sats >88% 04/18/21: Continue to wean FiO2 as tolerated. Steroids for 10 days. Proning. Prognosis still remains guarded but promising with continued decreases in oxygen requirement. 04/17/21: Continue to wean as tolerated. Steroids for 10 days. Prone if able. Guarded prognosis. 04/16/21: COntinue steroids. Wean for sats >88%. 04/15/21: renal function is better. still would suggest diuresis if possible. Continue to wean FiO2 as tolerated. needs walk test soon to assess oxygen needs. 04/14/21: Renal continues to follow but no labs in several days. Based on I/O would suggest diuresis but do not want to harm renal function. Continue to prone. Wean FiO2 as tolerated and continue steroids. 04/13/21: Continue to wean FiO2 as tolerated. Steroids for a total of 10 days. May be ready for 6 minute walk test as early as tomorrow or the weekend. 04/12/21: Continue to wean FiO2 as tolerated for sats >88%. Continue steroids. Guarded prognosis. Hold on higher doses of steroid given decreases in oxygen requirement. 04/11/21: Continue to wean FiO2 as tolerated for sats >88%. Continue steroids. Mass work up likely will have to be done as an outpatient. 1. Pulm- Agreed that biopsy is needed but must recover from COVID first. Would suggest CT guided biopsy. Lesion does appear amenable to bronch but would need to be Tbbx and may not get enough tissue. could consider EBUS if not able to get with CT guided biopsy. needs full work up of ILD as well but this can be done as an outpatient. Will continue current dose of steroids, however if oxygenation worsens would switch to higher doses. No puffers available in this hospital except albuterol. No nebs given COVID status. Guarded prognosis. Subjective Date of service: 04/21/21 Interval history: Down to 6 liters now. Good sats. Objective Vital Signs - 12hr 04/21/21 04/21/21 04:49 11:29 Temperature 98.7 F Pulse Rate 89 89 Respiratory 18 Rate Blood Pressure 139/75 139/75 O2 Sat by Pulse 92 Oximetry Constitutional: no acute distress, alert, appears uncomfortable ENT: oropharynx moist Neck: supple, no JVD Ascultation: Bilateral: diminished breath sounds Cardiovascular: regular rate and rhythm Gastrointestinal: normoactive bowel sounds, soft, non-tender Extremities: no cyanosis, other (Clubbing of the fingernails noted) Neurologic: normal mental status Psychiatric: mood appropriate CBC and BMP: 04/15/21 07:09 04/15/21 07:09 ABG, PT/INR, D-dimer: ABG ABG pH 7.395 (7.320-7.450) 04/08/21 14:27 POC ABG pCO2 23.7 mmHg (32.0-48.0) L 04/08/21 14:27 POC ABG pO2 62.5 mmHg (83-108) L 04/08/21 14:27 POC ABG HCO3 14.2 04/08/21 14:27 ABG O2 Saturation 91.8 (0-100) 04/08/21 14:27 PT/INR, D-dimer PT 13.5 Sec. (12.2-14.9) 04/07/21 04:14 INR 0.98 (0.87-1.13) 04/07/21 04:14 D-Dimer 721.64 ng/mlDDU (0-234) H 04/06/21 08:15 Abnormal lab findings: Abnormal Labs 04/05/21 04/05/21 04/05/21 15:03 15:03 21:28 WBC RBC 5.40 H Hgb 15.9 H Hct 49.5 H MCHC RDW 17.3 H Plt Count 106 L [place] % (Auto) 9.0 H Lymph # (Auto) D-Dimer POC ABG pCO2 POC ABG pO2 ABG Oxyhemoglobin ABG Sodium ABG Chloride ABG Glucose Carboxyhemoglobin Sodium 135 L 135 L Potassium 6.2 H* Chloride Carbon Dioxide 11 L 12 L BUN 34 H 42 H Creatinine 2.4 H 3.2 H Glucose 121 H POC Glucose Magnesium 2.40 H Ferritin AST 56 H ALT Alkaline Phosphatase Lactate Dehydrogenase C-Reactive Protein Total Protein 8.7 H Albumin Lipase 143 H Arterial Blood Glucose Coronavirus (PCR) 04/06/21 04/06/21 04/06/21 08:07 08:07 08:15 WBC RBC Hgb Hct MCHC RDW Plt Count [place] % (Auto) Lymph # (Auto) D-Dimer 721.64 H POC ABG pCO2 POC ABG pO2 ABG Oxyhemoglobin ABG Sodium ABG Chloride ABG Glucose Carboxyhemoglobin Sodium Potassium Chloride Carbon Dioxide BUN Creatinine Glucose POC Glucose Magnesium Ferritin 1468.0 H AST ALT Alkaline Phosphatase Lactate Dehydrogenase 445 H C-Reactive Protein 2.90 H Total Protein Albumin Lipase Arterial Blood Glucose Coronavirus (PCR) 04/07/21 04/07/21 04/07/21 04:14 04:14 08:15 WBC 3.2 L RBC Hgb Hct MCHC RDW 16.0 H Plt Count 101 L [place] % (Auto) 10.8 H Lymph # (Auto) 0.7 L D-Dimer POC ABG pCO2 POC ABG pO2 ABG Oxyhemoglobin ABG Sodium ABG Chloride ABG Glucose Carboxyhemoglobin Sodium Potassium 5.6 H Chloride 111.6 H Carbon Dioxide 16 L BUN 43 H Creatinine 2.5 H Glucose POC Glucose Magnesium Ferritin AST ALT Alkaline Phosphatase Lactate Dehydrogenase C-Reactive Protein Total Protein Albumin Lipase Arterial Blood Glucose Coronavirus (PCR) Positive A 04/08/21 04/08/21 04/08/21 08:00 14:27 15:33 WBC RBC Hgb Hct MCHC RDW Plt Count [place] % (Auto) Lymph # (Auto) D-Dimer POC ABG pCO2 23.7 L POC ABG pO2 62.5 L ABG Oxyhemoglobin 91.3 L ABG Sodium 133.7 L ABG Chloride 112.0 H ABG Glucose 117 H Carboxyhemoglobin 0.4 L Sodium Potassium Chloride 109.9 H Carbon Dioxide 13 L BUN 40 H Creatinine 1.8 H Glucose 74 L POC Glucose 115 H Magnesium Ferritin AST ALT Alkaline Phosphatase Lactate Dehydrogenase C-Reactive Protein Total Protein Albumin Lipase Arterial Blood Glucose 117 H Coronavirus (PCR) 04/09/21 04/09/21 04/10/21 08:38 08:38 08:29 WBC 3.1 L 3.8 L RBC Hgb Hct MCHC 35 H RDW 15.7 H 15.7 H Plt Count 136 L [place] % (Auto) Lymph # (Auto) D-Dimer POC ABG pCO2 POC ABG pO2 ABG Oxyhemoglobin ABG Sodium ABG Chloride ABG Glucose Carboxyhemoglobin Sodium Potassium Chloride 110.4 H Carbon Dioxide 19 L BUN 35 H Creatinine 1.8 H Glucose POC Glucose Magnesium Ferritin AST 144 H ALT 92 H Alkaline Phosphatase 159 H Lactate Dehydrogenase C-Reactive Protein Total Protein Albumin 3.3 L Lipase Arterial Blood Glucose Coronavirus (PCR) 04/10/21 04/15/21 04/17/21 08:29 07:09 11:25 WBC RBC Hgb Hct MCHC RDW Plt Count [place] % (Auto) Lymph # (Auto) D-Dimer POC ABG pCO2 POC ABG pO2 ABG Oxyhemoglobin ABG Sodium ABG Chloride ABG Glucose Carboxyhemoglobin Sodium Potassium Chloride Carbon Dioxide BUN 31 H 27 H Creatinine 1.5 H Glucose 119 H POC Glucose 214 H Magnesium Ferritin AST 89 H ALT 80 H Alkaline Phosphatase 159 H Lactate Dehydrogenase C-Reactive Protein Total Protein Albumin 3.2 L 2.8 L Lipase Arterial Blood Glucose Coronavirus (PCR) 04/17/21 04/17/21 04/18/21 16:29 21:26 11:39 WBC RBC Hgb Hct MCHC RDW Plt Count [place] % (Auto) Lymph # (Auto) D-Dimer POC ABG pCO2 POC ABG pO2 ABG Oxyhemoglobin ABG Sodium ABG Chloride ABG Glucose Carboxyhemoglobin Sodium Potassium Chloride Carbon Dioxide BUN Creatinine Glucose POC Glucose 112 H 174 H 106 H Magnesium Ferritin AST ALT Alkaline Phosphatase Lactate Dehydrogenase C-Reactive Protein Total Protein Albumin Lipase Arterial Blood Glucose Coronavirus (PCR) 04/18/21 04/19/21 04/19/21 21:26 12:07 17:45 WBC RBC Hgb Hct MCHC RDW Plt Count [place] % (Auto) Lymph # (Auto) D-Dimer POC ABG pCO2 POC ABG pO2 ABG Oxyhemoglobin ABG Sodium ABG Chloride ABG Glucose Carboxyhemoglobin Sodium Potassium Chloride Carbon Dioxide BUN Creatinine Glucose POC Glucose 149 H 127 H 128 H Magnesium Ferritin AST ALT Alkaline Phosphatase Lactate Dehydrogenase C-Reactive Protein Total Protein Albumin Lipase Arterial Blood Glucose Coronavirus (PCR) 04/20/21 04/20/21 07:37 11:36 WBC RBC Hgb Hct MCHC RDW Plt Count [place] % (Auto) Lymph # (Auto) D-Dimer POC ABG pCO2 POC ABG pO2 ABG Oxyhemoglobin ABG Sodium ABG Chloride ABG Glucose Carboxyhemoglobin Sodium Potassium Chloride Carbon Dioxide BUN Creatinine Glucose POC Glucose 68 L 123 H Magnesium Ferritin AST ALT Alkaline Phosphatase Lactate Dehydrogenase C-Reactive Protein Total Protein Albumin Lipase Arterial Blood Glucose Coronavirus (PCR)
--- NOTE | 2021-04-21 13:49 | Progress Note ---
Assessment and Plan 60-year-old male with known history of hypertension seen in the emergency room today complaining of diarrhea and generalized weakness which started about 3 days ago. Patient states he just had his first dose of COVID-19 vaccination over the weekend and 24 hours thereafter he started having some diarrhea and generalized weakness. He denies any fever or chills, no chest pain or shortness of breath, no headache or dizziness, no diaphoresis. Patient denies any nausea vomiting, no abdominal pain, no hematuria or dysuria. He denies any sick contacts and no recent travel. Denies any contact with anyone with COVID-19. Work-up in the emergency room today reveals elevated BUN and creatinine of 34 and 2.4 respectively. Chest x-ray reveals right lower lobe airspace opacity which could represent pneumonia or a neoplastic process. CT of the abdomen and pelvis reveals fluid and gas-filled colon without inflammation or colonic wall thickening 04/07: Patient seen and examined today continues on oxygen. ID input is noted. Have consulted pulmonary considering review of CT which shows a large mass in the lungs. Patient may probably benefit from a bronchoscopy but will defer to pulmonary for now continue current management with steroids and remdesivir. Unfortunately I do not have any family contact information for this patient. Discussed with nursing staff to see if they can get anyone. 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 Patient now on Bicarb drip due to metabolic Acidosis, also Lung mass noted, awaiting Pulmonary re-evaluation. otherwise he is clinically stable. 04/09: Resume steroids as patient developed significant hypoxia on 15 L of oxygen. Continue to wean as tolerated he also has mittens in place due to intermittent confusion. CREATININE STILL AT 1.8 04/10: Patient seen and examined, BP slightly elevated, will add BP meds. Pulmonary recommends outpatient follow up for the lung mass, renal function is showing improvement. Continue supportive care. Wean oxygen as tolerated, continue steroids at this time. No Remdesvier secondary to the Renal function. 04/11/21 Patient with Covid-19 with acute resp failure. On Oxygen at 10 l/min. Has right lung mass, to follow with Pulmonology as outpatient.Cr 1.5 today, improving. 04/12/21 Patient with Covid-19 with acute respiratory failure. Still on Oxygen at 10 l/min. Patient has been refusing blood draw so no labs for 2 days. He has Right lung mass and needs to follow with Pulmonology as outpatient. 04/13/21 Patient with Covid-19 with acute respiratory failure. Patient has been refusing treatment and lab blood draw so no labs for days. He has Right lung mass and needs to follow with Pulmonology as outpatient. Will consult Psych to evaluate 04/14/21 Patient with Covid-19 with acute respiratory failure. Patient has been refusing treatment and lab blood draw so no labs for days. He has Right lung mass and needs to follow with Pulmonology as outpatient. Consulted Psych to evaluate. 04/15/21 Patient with Covid-19 with acute respiratory failure. Patient has been refusing treatment and lab blood draws. He has right lung mass and needs to follow with Pulmonology as outpatient. His Sister states patient was being followed at [facility] and was being worked up for cancer either Prostate or lung. I have requested medical records. Sister requested transfer to [place], but I discussed,explained that it is difficult because most hospitals are full 04/16/21 Patient with Covid-19 with acute respiratory failure. Patient has been refusing treatment and lab blood draws. He has right lung mass and needs to follow with Pulmonology as outpatient. His Sister states patient was being followed at [facility] and was being worked up for cancer either Prostate or lung. I have requested medical records. Sister requested transfer to [place], but I discussed,explained that it is difficult because most hospitals are full Cr 1.3 much improved. Repeat labs tomorrow. 04/17/21 Patient with Covid-19 with acute respiratory failure. Patient has been refusing treatment and lab blood draws. He has right lung mass and needs to follow with Pulmonology as outpatient. His Sister states patient was being followed at [facility] and was being worked up for cancer either Prostate or lung. I have requested medical records. Sister requested transfer to [place], but I discussed,explained that it is difficult because most hospitals are full. I requested records from [place] but his sister Jelena goodrich refused to give consent to obtain records. He is on Oxygen NC at 8 l/min Cr 1.3 much improved. Thrombocytopenia resolved 04/18/21: remains on 7L n/c O2, cont to follow, wean off O2 as tolerated 04/19/21; patient had a fall today, no report of any injury. Placed on restraint. Remains on 8 L nasal cannula O2. 04/20/21: Patient placed on 6 L nasal cannula O2 today. Continue to wean off as tolerated. Plan to DC home with home health. 04/21/21: Patient placed back again with 8 L nasal cannula O2, continue to wean off as tolerated (1) Acute renal failure (ARF) SECONDARY TO VASOMOTOR NEPHROPATHY WITH METABOLIC ACIDOSIS Current Visit: Yes Status: Acute Plan to address problem: Possibly prerenal. Patient will be placed on IV fluid normal saline. Will monitor BUN and creatinine. Consult placed to nephrology for evaluation. (2) Hypertension Current Visit: Yes Status: Acute Plan to address problem: Blood pressure stable . (3)COVID-19 Current Visit: Yes Status: Acute Plan to address problem: (4) Acute hypoxic respiratory failure (5) Right lung lung mass large (6) Acute metabolic encephalopathy -unknown baseline (7) Thrombocytopenia (8) DVT prophylaxis Current Visit: Yes Status: Acute Plan to address problem: Patient placed on subcutaneous heparin. (9) Full code status Current Visit: Yes Status: Acute Plan to address problem: Patient is full code. Subjective Date of service: 04/21/21 Objective - Constitutional Vitals: Vital Signs - 12hr 04/21/21 04/21/21 04/21/21 04:49 11:29 11:55 Temperature 98.7 F 97.8 F Pulse Rate 89 89 83 Respiratory 18 18 Rate Blood Pressure 139/75 139/75 126/69 O2 Sat by Pulse 92 100 Oximetry - Labs CBC & Chem 7: 04/15/21 07:09 04/15/21 07:09 Labs: Abnormal lab results 04/21/21 Range/Units 11:54 POC Glucose 108 H (70-105) mg/dL
[2021-04-21] MEDS: MIRTAZAPINE 15 MG TAB PO SCH (22:51)
[2021-04-22] MEDS: HEPARIN 5,000 UNIT/1 ML VIAL SUB-Q SCH ×4 (05:38→22:38)
--- NOTE | 2021-04-22 08:06 | Progress Note ---
Assessment and Plan 1. Acute kidney injury: Vasomotor ELIO in the setting of volume depletion +/- 2/[address] abdomen negative for hydro. Monitor renal function. Baseline renal function is unknown. Creatinine level is improving. Avoid nephrotoxic agents. Meds dosage based on GFR. No labs for the past 7 days. 2. FEN: Hyperkalemia, improved, monitor. Hyperchloremic Metabolic acidosis, improved, monitor. Hyponatremia, improved, monitor. Monitor lytes and volume status. 3. Acute hypoxic resp failure: 2/2 Covid-19 pneumonia. On NC O2 salter, wean as tolerated. Monitor. 4. COVID-19 infection: Decadron. S/p Remdesivir. Anticoagulation per hospital protocol. 5. Right lower lobe lung mass: Followed by Pulmonary. 6. Hypertension: Monitor BP. Subjective: Patient was seen and examined at the bedside. Examination: General appearance: well-developed, appears stated age, not in distress, NC O2 salter HEENT: ATNC Neck: Trachea midline Respiratory: bibasal rales heard Cardiology: S1S2, no murmur Gastrointestinal: soft, obese, bowel sounds heard, not tender Integumentary: warm and dry Neurologic: alert, able to move extremities Ext: no edema Subjective Date of service: 04/22/21 Objective - Vital Signs Vital signs: Vital Signs - 12hr 04/21/21 04/21/21 04/21/21 22:00 22:05 22:43 Temperature 98.3 F Pulse Rate 92 H Respiratory 16 Rate Blood Pressure 136/80 O2 Sat by Pulse 96 87 96 Oximetry 04/22/21 04:47 Temperature 98.0 F Pulse Rate 55 L Respiratory 16 Rate Blood Pressure 149/68 O2 Sat by Pulse 92 Oximetry - Lab 04/15/21 07:09 04/15/21 07:09 Most recent lab results ABG pH 7.395 (7.320-7.450) 04/08/21 14:27 ABG O2 Saturation 91.8 (0-100) 04/08/21 14:27 Calcium 9.0 mg/dL (8.4-10.2) 04/15/21 07:09 Magnesium 2.40 mg/dL (1.7-2.3) H 04/05/21 15:03 Medications & Allergies - Medications Allergies/Adverse Reactions: Allergies No Known Allergies Allergy (Verified 04/06/21 03:10) Home Medications: Home Medications Medication Instructions Recorded Confirmed Last Taken Type No Known Home Medications [No 04/10/21 04/10/21 Unknown History Reported Home Medications] Active Medications: Generic Name Dose Route Start Last Admin Trade Name Freq PRN Reason Stop Dose Admin Acetaminophen 650 mg 04/06/21 02:57 Acetaminophen 325 Mg Tab PO Q4H PRN Pain MILD(1-3)/Fever >100.5/BRAR Amlodipine Besylate 5 mg 04/14/21 15:00 04/21/21 11:29 Amlodipine 5 Mg Tab PO 5 mg QDAY BISHOP Administration Divalproex Sodium 125 mg 04/14/21 13:00 04/21/21 22:[address] 125 Mg Tab PO 125 mg BID BISHOP Administration Haloperidol Lactate 5 mg 04/15/21 13:00 Haloperidol Lactate 5 Mg/1 Ml Inj IM Q6H PRN Agitation Heparin Sodium (Porcine) 5,000 unit 04/06/21 14:00 04/22/21 05:38 Heparin 5,000 Unit/1 Ml Vial SUB-Q Not Given Q8HR BISHOP Hydralazine HCl 10 mg 04/14/21 14:37 Hydralazine 20 Mg/1 Ml Inj IV Q4HR PRN SBP>160 or DBP>110 Mirtazapine 15 mg 04/19/21 22:00 04/21/21 22:51 Mirtazapine 15 Mg Tab PO 15 mg QHS BISHOP Administration Morphine Sulfate 2 mg 04/20/21 12:00 Morphine 2 Mg/1 Ml Inj IV Q4H PRN Pain , Severe (7-10) Ondansetron HCl 4 mg 04/06/21 02:57 Ondansetron 4 Mg/2 Ml Inj IV Q8H PRN Nausea And Vomiting Oxycodone/Acetaminophen 1 tab 04/20/21 12:00 04/21/21 22:52 Oxycodone /Acetaminophen 5-325mg Tab PO 1 tab Q6H PRN Administration Pain, Moderate (4-6) Sodium Chloride 10 ml 04/06/21 10:00 04/21/21 22:52 Sodium Chloride 0.9% 10 Ml Flush Syringe IV 10 ml BID BISHOP Administration Sodium Chloride 10 ml 04/06/21 02:57 Sodium Chloride 0.9% 10 Ml Flush Syringe IV PRN PRN LINE FLUSH
--- NOTE | 2021-04-22 09:08 | Progress Note ---
Assessment and Plan - Patient Problems (1) Acute respiratory failure Current Visit: Yes Status: Acute (2) Acute renal failure (ARF) Current Visit: Yes Status: Acute (3) Hypertension Current Visit: Yes Status: Acute (4) Pneumonia Current Visit: Yes Status: Acute Subjective Interval history: awake answers questions Objective Vital Signs - 12hr 04/21/21 04/21/21 04/21/21 22:00 22:05 22:43 Temperature 98.3 F Pulse Rate 92 H Respiratory 16 Rate Blood Pressure 136/80 O2 Sat by Pulse 96 87 96 Oximetry 04/22/21 04:47 Temperature 98.0 F Pulse Rate 55 L Respiratory 16 Rate Blood Pressure 149/68 O2 Sat by Pulse 92 Oximetry Constitutional: no acute distress, alert ENT: oropharynx moist Neck: supple, no JVD Ascultation: Bilateral: diminished breath sounds Cardiovascular: regular rate and rhythm Gastrointestinal: normoactive bowel sounds, soft, non-tender Extremities: no cyanosis, other (Clubbing of the fingernails noted) Neurologic: normal mental status Psychiatric: mood appropriate CBC and BMP: 04/15/21 07:09 04/15/21 07:09 ABG, PT/INR, D-dimer: ABG ABG pH 7.395 (7.320-7.450) 04/08/21 14:27 POC ABG pCO2 23.7 mmHg (32.0-48.0) L 04/08/21 14:27 POC ABG pO2 62.5 mmHg (83-108) L 04/08/21 14:27 POC ABG HCO3 14.2 04/08/21 14:27 ABG O2 Saturation 91.8 (0-100) 04/08/21 14:27 PT/INR, D-dimer PT 13.5 Sec. (12.2-14.9) 04/07/21 04:14 INR 0.98 (0.87-1.13) 04/07/21 04:14 D-Dimer 721.64 ng/mlDDU (0-234) H 04/06/21 08:15 Abnormal lab findings: Abnormal Labs 04/05/21 04/05/21 04/05/21 15:03 15:03 21:28 WBC RBC 5.40 H Hgb 15.9 H Hct 49.5 H MCHC RDW 17.3 H Plt Count 106 L [place] % (Auto) 9.0 H Lymph # (Auto) D-Dimer POC ABG pCO2 POC ABG pO2 ABG Oxyhemoglobin ABG Sodium ABG Chloride ABG Glucose Carboxyhemoglobin Sodium 135 L 135 L Potassium 6.2 H* Chloride Carbon Dioxide 11 L 12 L BUN 34 H 42 H Creatinine 2.4 H 3.2 H Glucose 121 H POC Glucose Magnesium 2.40 H Ferritin AST 56 H ALT Alkaline Phosphatase Lactate Dehydrogenase C-Reactive Protein Total Protein 8.7 H Albumin Lipase 143 H Arterial Blood Glucose Coronavirus (PCR) 04/06/21 04/06/21 04/06/21 08:07 08:07 08:15 WBC RBC Hgb Hct MCHC RDW Plt Count [place] % (Auto) Lymph # (Auto) D-Dimer 721.64 H POC ABG pCO2 POC ABG pO2 ABG Oxyhemoglobin ABG Sodium ABG Chloride ABG Glucose Carboxyhemoglobin Sodium Potassium Chloride Carbon Dioxide BUN Creatinine Glucose POC Glucose Magnesium Ferritin 1468.0 H AST ALT Alkaline Phosphatase Lactate Dehydrogenase 445 H C-Reactive Protein 2.90 H Total Protein Albumin Lipase Arterial Blood Glucose Coronavirus (PCR) 04/07/21 04/07/21 04/07/21 04:14 04:14 08:15 WBC 3.2 L RBC Hgb Hct MCHC RDW 16.0 H Plt Count 101 L [place] % (Auto) 10.8 H Lymph # (Auto) 0.7 L D-Dimer POC ABG pCO2 POC ABG pO2 ABG Oxyhemoglobin ABG Sodium ABG Chloride ABG Glucose Carboxyhemoglobin Sodium Potassium 5.6 H Chloride 111.6 H Carbon Dioxide 16 L BUN 43 H Creatinine 2.5 H Glucose POC Glucose Magnesium Ferritin AST ALT Alkaline Phosphatase Lactate Dehydrogenase C-Reactive Protein Total Protein Albumin Lipase Arterial Blood Glucose Coronavirus (PCR) Positive A 04/08/21 04/08/21 04/08/21 08:00 14:27 15:33 WBC RBC Hgb Hct MCHC RDW Plt Count [place] % (Auto) Lymph # (Auto) D-Dimer POC ABG pCO2 23.7 L POC ABG pO2 62.5 L ABG Oxyhemoglobin 91.3 L ABG Sodium 133.7 L ABG Chloride 112.0 H ABG Glucose 117 H Carboxyhemoglobin 0.4 L Sodium Potassium Chloride 109.9 H Carbon Dioxide 13 L BUN 40 H Creatinine 1.8 H Glucose 74 L POC Glucose 115 H Magnesium Ferritin AST ALT Alkaline Phosphatase Lactate Dehydrogenase C-Reactive Protein Total Protein Albumin Lipase Arterial Blood Glucose 117 H Coronavirus (PCR) 04/09/21 04/09/21 04/10/21 08:38 08:38 08:29 WBC 3.1 L 3.8 L RBC Hgb Hct MCHC 35 H RDW 15.7 H 15.7 H Plt Count 136 L [place] % (Auto) Lymph # (Auto) D-Dimer POC ABG pCO2 POC ABG pO2 ABG Oxyhemoglobin ABG Sodium ABG Chloride ABG Glucose Carboxyhemoglobin Sodium Potassium Chloride 110.4 H Carbon Dioxide 19 L BUN 35 H Creatinine 1.8 H Glucose POC Glucose Magnesium Ferritin AST 144 H ALT 92 H Alkaline Phosphatase 159 H Lactate Dehydrogenase C-Reactive Protein Total Protein Albumin 3.3 L Lipase Arterial Blood Glucose Coronavirus (PCR) 04/10/21 04/15/21 04/17/21 08:29 07:09 11:25 WBC RBC Hgb Hct MCHC RDW Plt Count [place] % (Auto) Lymph # (Auto) D-Dimer POC ABG pCO2 POC ABG pO2 ABG Oxyhemoglobin ABG Sodium ABG Chloride ABG Glucose Carboxyhemoglobin Sodium Potassium Chloride Carbon Dioxide BUN 31 H 27 H Creatinine 1.5 H Glucose 119 H POC Glucose 214 H Magnesium Ferritin AST 89 H ALT 80 H Alkaline Phosphatase 159 H Lactate Dehydrogenase C-Reactive Protein Total Protein Albumin 3.2 L 2.8 L Lipase Arterial Blood Glucose Coronavirus (PCR) 04/17/21 04/17/21 04/18/21 16:29 21:26 11:39 WBC RBC Hgb Hct MCHC RDW Plt Count [place] % (Auto) Lymph # (Auto) D-Dimer POC ABG pCO2 POC ABG pO2 ABG Oxyhemoglobin ABG Sodium ABG Chloride ABG Glucose Carboxyhemoglobin Sodium Potassium Chloride Carbon Dioxide BUN Creatinine Glucose POC Glucose 112 H 174 H 106 H Magnesium Ferritin AST ALT Alkaline Phosphatase Lactate Dehydrogenase C-Reactive Protein Total Protein Albumin Lipase Arterial Blood Glucose Coronavirus (PCR) 04/18/21 04/19/21 04/19/21 21:26 12:07 17:45 WBC RBC Hgb Hct MCHC RDW Plt Count [place] % (Auto) Lymph # (Auto) D-Dimer POC ABG pCO2 POC ABG pO2 ABG Oxyhemoglobin ABG Sodium ABG Chloride ABG Glucose Carboxyhemoglobin Sodium Potassium Chloride Carbon Dioxide BUN Creatinine Glucose POC Glucose 149 H 127 H 128 H Magnesium Ferritin AST ALT Alkaline Phosphatase Lactate Dehydrogenase C-Reactive Protein Total Protein Albumin Lipase Arterial Blood Glucose Coronavirus (PCR) 04/20/21 04/20/21 04/21/21 07:37 11:36 11:54 WBC RBC Hgb Hct MCHC RDW Plt Count [place] % (Auto) Lymph # (Auto) D-Dimer POC ABG pCO2 POC ABG pO2 ABG Oxyhemoglobin ABG Sodium ABG Chloride ABG Glucose Carboxyhemoglobin Sodium Potassium Chloride Carbon Dioxide BUN Creatinine Glucose POC Glucose 68 L 123 H 108 H Magnesium Ferritin AST ALT Alkaline Phosphatase Lactate Dehydrogenase C-Reactive Protein Total Protein Albumin Lipase Arterial Blood Glucose Coronavirus (PCR)
[2021-04-22] MEDS: amLODIPine 5 MG TAB PO SCH (11:37)
[2021-04-22] MEDS: DIVALPROEX DR 125 MG TAB PO SCH (11:37)
--- NOTE | 2021-04-22 11:46 | Progress Note ---
Subjective - Reason for Consult Consult date: 04/22/21 Reason for consult: SI - Chief Complaint Chief complaint: The patient was seen today. He is alert and oriented to self. The patient became angry and irritated stating "stop asking me all these questions." Unable to assess SI/HI/AVHs. REVIEW OF SYSTEMS COVID + MENTAL STATUS EXAMINATION Uncooperative Assessment and Plan (1)Mood Disorder, Unspecified Treatment Plan Continue Haldol 5mg IM q6h prn agitation Increase Depakote DR 250 mg po BID Continue Remeron 15mg po daily Sitter: per primary Medical: Per primary Disposition: Do not recommend acute psychiatric inpatient treatment at this time. Will follow for psych progress and med management Case staffed with Dr. Rodgers Mental Status Exam - Vital signs Last Vital Signs Temp 98.0 F 04/22/21 04:47 Pulse 55 L 04/22/21 04:47 Resp 16 04/22/21 04:47 BP 149/68 04/22/21 04:47 Pulse Ox 92 04/22/21 09:40
--- NOTE | 2021-04-22 16:35 | Progress Note ---
Assessment and Plan 60-year-old male with known history of hypertension seen in the emergency room today complaining of diarrhea and generalized weakness which started about 3 days ago. Patient states he just had his first dose of COVID-19 vaccination over the weekend and 24 hours thereafter he started having some diarrhea and generalized weakness. He denies any fever or chills, no chest pain or shortness of breath, no headache or dizziness, no diaphoresis. Patient denies any nausea vomiting, no abdominal pain, no hematuria or dysuria. He denies any sick contacts and no recent travel. Denies any contact with anyone with COVID-19. Work-up in the emergency room today reveals elevated BUN and creatinine of 34 and 2.4 respectively. Chest x-ray reveals right lower lobe airspace opacity which could represent pneumonia or a neoplastic process. CT of the abdomen and pelvis reveals fluid and gas-filled colon without inflammation or colonic wall thickening 04/07: Patient seen and examined today continues on oxygen. ID input is noted. Have consulted pulmonary considering review of CT which shows a large mass in the lungs. Patient may probably benefit from a bronchoscopy but will defer to pulmonary for now continue current management with steroids and remdesivir. Unfortunately I do not have any family contact information for this patient. Discussed with nursing staff to see if they can get anyone. 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 Patient now on Bicarb drip due to metabolic Acidosis, also Lung mass noted, awaiting Pulmonary re-evaluation. otherwise he is clinically stable. 04/09: Resume steroids as patient developed significant hypoxia on 15 L of oxygen. Continue to wean as tolerated he also has mittens in place due to intermittent confusion. CREATININE STILL AT 1.8 04/10: Patient seen and examined, BP slightly elevated, will add BP meds. Pulmonary recommends outpatient follow up for the lung mass, renal function is showing improvement. Continue supportive care. Wean oxygen as tolerated, continue steroids at this time. No Remdesvier secondary to the Renal function. 04/11/21 Patient with Covid-19 with acute resp failure. On Oxygen at 10 l/min. Has right lung mass, to follow with Pulmonology as outpatient.Cr 1.5 today, improving. 04/12/21 Patient with Covid-19 with acute respiratory failure. Still on Oxygen at 10 l/min. Patient has been refusing blood draw so no labs for 2 days. He has Right lung mass and needs to follow with Pulmonology as outpatient. 04/13/21 Patient with Covid-19 with acute respiratory failure. Patient has been refusing treatment and lab blood draw so no labs for days. He has Right lung mass and needs to follow with Pulmonology as outpatient. Will consult Psych to evaluate 04/14/21 Patient with Covid-19 with acute respiratory failure. Patient has been refusing treatment and lab blood draw so no labs for days. He has Right lung mass and needs to follow with Pulmonology as outpatient. Consulted Psych to evaluate. 04/15/21 Patient with Covid-19 with acute respiratory failure. Patient has been refusing treatment and lab blood draws. He has right lung mass and needs to follow with Pulmonology as outpatient. His Sister states patient was being followed at [facility] and was being worked up for cancer either Prostate or lung. I have requested medical records. Sister requested transfer to [place], but I discussed,explained that it is difficult because most hospitals are full 04/16/21 Patient with Covid-19 with acute respiratory failure. Patient has been refusing treatment and lab blood draws. He has right lung mass and needs to follow with Pulmonology as outpatient. His Sister states patient was being followed at [facility] and was being worked up for cancer either Prostate or lung. I have requested medical records. Sister requested transfer to [place], but I discussed,explained that it is difficult because most hospitals are full Cr 1.3 much improved. Repeat labs tomorrow. 04/17/21 Patient with Covid-19 with acute respiratory failure. Patient has been refusing treatment and lab blood draws. He has right lung mass and needs to follow with Pulmonology as outpatient. His Sister states patient was being followed at [facility] and was being worked up for cancer either Prostate or lung. I have requested medical records. Sister requested transfer to [place], but I discussed,explained that it is difficult because most hospitals are full. I requested records from [facility] but his sister Jelena goodrich refused to give consent to obtain records. He is on Oxygen NC at 8 l/min Cr 1.3 much improved. Thrombocytopenia resolved 04/18/21: remains on 7L n/c O2, cont to follow, wean off O2 as tolerated 04/19/21; patient had a fall today, no report of any injury. Placed on restraint. Remains on 8 L nasal cannula O2. 04/20/21: Patient placed on 6 L nasal cannula O2 today. Continue to wean off as tolerated. Plan to DC home with home health. 04/21/21: Patient placed back again with 8 L nasal cannula O2, continue to wean off as tolerated 04/22/21: patient on 4-2L n/c o2, if able to maintain oxygen saturation with less than 5L o2, possible d/c soon (1) Acute renal failure (ARF) SECONDARY TO VASOMOTOR NEPHROPATHY WITH METABOLIC ACIDOSIS Current Visit: Yes Status: Acute Plan to address problem: Possibly prerenal. Patient will be placed on IV fluid normal saline. Will monitor BUN and creatinine. Consult placed to nephrology for evaluation. (2) Hypertension Current Visit: Yes Status: Acute Plan to address problem: Blood pressure stable . (3)COVID-19 Current Visit: Yes Status: Acute Plan to address problem: (4) Acute hypoxic respiratory failure (5) Right lung lung mass large (6) Acute metabolic encephalopathy -unknown baseline (7) Thrombocytopenia (8) DVT prophylaxis Current Visit: Yes Status: Acute Plan to address problem: Patient placed on subcutaneous heparin. (9) Full code status Current Visit: Yes Status: Acute Plan to address problem: Patient is full code. Subjective Date of service: 04/22/21 Objective - Constitutional Vitals: Vital Signs - 12hr 04/22/21 04/22/21 04/22/21 04:47 09:40 10:00 Temperature 98.0 F Pulse Rate 55 L Respiratory 16 Rate Blood Pressure 149/68 O2 Sat by Pulse 92 92 96 Oximetry 04/22/21 12:13 Temperature 97.9 F Pulse Rate 82 Respiratory 18 Rate Blood Pressure 113/69 O2 Sat by Pulse 99 Oximetry - Labs CBC & Chem 7: 04/15/21 07:09 04/15/21 07:09
[2021-04-22] MEDS: MIRTAZAPINE 15 MG TAB PO SCH (22:38)
[2021-04-22] MEDS: DIVALPROEX DR 250 MG TAB PO SCH (22:38)
[2021-04-23] MEDS: HEPARIN 5,000 UNIT/1 ML VIAL SUB-Q SCH ×3 (06:29→22:55)
[2021-04-23] MEDS: DIVALPROEX DR 250 MG TAB PO SCH ×2 (09:55→22:54)
[2021-04-23] MEDS: amLODIPine 5 MG TAB PO SCH (09:57)
--- NOTE | 2021-04-23 11:23 | Progress Note ---
Assessment and Plan 1. Acute kidney injury: Vasomotor ELIO in the setting of volume depletion +/- 2/[address] abdomen negative for hydro. Monitor renal function. Baseline renal function is unknown. Creatinine level is improving. Avoid nephrotoxic agents. Meds dosage based on GFR. No labs for the past 8 days. 2. FEN: Hyperkalemia, improved, monitor. Hyperchloremic Metabolic acidosis, improved, monitor. Hyponatremia, improved, monitor. Monitor lytes and volume status. 3. Acute hypoxic resp failure: 2/2 Covid-19 pneumonia. On NC O2 salter 4 LPM, wean as tolerated. Monitor. 4. COVID-19 infection: Decadron. S/p Remdesivir. Anticoagulation per hospital protocol. 5. Right lower lobe lung mass: Followed by Pulmonary. 6. Hypertension: Monitor BP. Will sign off. Please call with any questions. Subjective: Patient was seen and examined at the bedside. Examination: General appearance: well-developed, appears stated age, not in distress, NC O2 HEENT: ATNC Neck: Trachea midline Respiratory: bibasal rales heard Cardiology: S1S2, no murmur Gastrointestinal: soft, obese, bowel sounds heard, not tender Integumentary: warm and dry Neurologic: alert, able to move extremities Ext: no edema Subjective Date of service: 04/23/21 Objective - Vital Signs Vital signs: Vital Signs - 12hr 04/23/21 04/23/21 04/23/21 05:23 07:50 09:57 Temperature 98.2 F Pulse Rate 85 88 Respiratory 20 Rate Blood Pressure 144/74 140/74 O2 Sat by Pulse 93 94 Oximetry 04/23/21 10:00 Temperature Pulse Rate Respiratory Rate Blood Pressure O2 Sat by Pulse 94 Oximetry - Lab 04/15/21 07:09 04/15/21 07:09 Most recent lab results ABG pH 7.395 (7.320-7.450) 04/08/21 14:27 ABG O2 Saturation 91.8 (0-100) 04/08/21 14:27 Calcium 9.0 mg/dL (8.4-10.2) 04/15/21 07:09 Magnesium 2.40 mg/dL (1.7-2.3) H 04/05/21 15:03 Medications & Allergies - Medications Allergies/Adverse Reactions: Allergies No Known Allergies Allergy (Verified 04/06/21 03:10) Home Medications: Home Medications Medication Instructions Recorded Confirmed Last Taken Type No Known Home Medications [No 04/10/21 04/10/21 Unknown History Reported Home Medications] Active Medications: Generic Name Dose Route Start Last Admin Trade Name Freq PRN Reason Stop Dose Admin Acetaminophen 650 mg 04/06/21 02:57 04/22/21 22:39 Acetaminophen 325 Mg Tab PO 650 mg Q4H PRN Administration Pain MILD(1-3)/Fever >100.5/BRAR Amlodipine Besylate 5 mg 04/14/21 15:00 04/23/21 09:57 Amlodipine 5 Mg Tab PO 5 mg QDAY BISHOP Administration Divalproex Sodium 250 mg 04/22/21 22:00 04/23/21 09:[address] 250 Mg Tab PO 250 mg BID BISHOP Administration Haloperidol Lactate 5 mg 04/15/21 13:00 Haloperidol Lactate 5 Mg/1 Ml Inj IM Q6H PRN Agitation Heparin Sodium (Porcine) 5,000 unit 04/06/21 14:00 04/23/21 06:29 Heparin 5,000 Unit/1 Ml Vial SUB-Q Not Given Q8HR [facility] Hydralazine HCl 10 mg 04/14/21 14:37 Hydralazine 20 Mg/1 Ml Inj IV Q4HR PRN SBP>160 or DBP>110 Mirtazapine 15 mg 04/19/21 22:00 04/22/21 22:38 Mirtazapine 15 Mg Tab PO 15 mg QHS BISHOP Administration Morphine Sulfate 2 mg 04/20/21 12:00 Morphine 2 Mg/1 Ml Inj IV Q4H PRN Pain , Severe (7-10) Ondansetron HCl 4 mg 04/06/21 02:57 Ondansetron 4 Mg/2 Ml Inj IV Q8H PRN Nausea And Vomiting Oxycodone/Acetaminophen 1 tab 04/20/21 12:00 04/21/21 22:52 Oxycodone /Acetaminophen 5-325mg Tab PO 1 tab Q6H PRN Administration Pain, Moderate (4-6) Sodium Chloride 10 ml 04/06/21 10:00 04/23/21 09:58 Sodium Chloride 0.9% 10 Ml Flush Syringe IV 10 ml BID BISHOP Administration Sodium Chloride 10 ml 04/06/21 02:57 Sodium Chloride 0.9% 10 Ml Flush Syringe IV PRN PRN LINE FLUSH
--- NOTE | 2021-04-23 11:45 | Progress Note ---
Assessment and Plan - Patient Problems (1) Acute respiratory failure Current Visit: Yes Status: Acute (2) Acute renal failure (ARF) Current Visit: Yes Status: Acute (3) Hypertension Current Visit: Yes Status: Acute (4) Pneumonia Current Visit: Yes Status: Acute Subjective Interval history: no change Objective Vital Signs - 12hr 04/23/21 04/23/21 04/23/21 05:23 07:50 09:57 Temperature 98.2 F Pulse Rate 85 88 Respiratory 20 Rate Blood Pressure 144/74 140/74 O2 Sat by Pulse 93 94 Oximetry 04/23/21 10:00 Temperature Pulse Rate Respiratory Rate Blood Pressure O2 Sat by Pulse 94 Oximetry Constitutional: no acute distress, alert ENT: oropharynx moist Neck: supple, no JVD Ascultation: Bilateral: diminished breath sounds Cardiovascular: regular rate and rhythm Gastrointestinal: normoactive bowel sounds, soft, non-tender Extremities: no cyanosis, other (Clubbing of the fingernails noted) Neurologic: normal mental status Psychiatric: mood appropriate CBC and BMP: 04/15/21 07:09 04/15/21 07:09 ABG, PT/INR, D-dimer: ABG ABG pH 7.395 (7.320-7.450) 04/08/21 14:27 POC ABG pCO2 23.7 mmHg (32.0-48.0) L 04/08/21 14:27 POC ABG pO2 62.5 mmHg (83-108) L 04/08/21 14:27 POC ABG HCO3 14.2 04/08/21 14:27 ABG O2 Saturation 91.8 (0-100) 04/08/21 14:27 PT/INR, D-dimer PT 13.5 Sec. (12.2-14.9) 04/07/21 04:14 INR 0.98 (0.87-1.13) 04/07/21 04:14 D-Dimer 721.64 ng/mlDDU (0-234) H 04/06/21 08:15 Abnormal lab findings: Abnormal Labs 04/05/21 04/05/21 04/05/21 15:03 15:03 21:28 WBC RBC 5.40 H Hgb 15.9 H Hct 49.5 H MCHC RDW 17.3 H Plt Count 106 L [place] % (Auto) 9.0 H Lymph # (Auto) D-Dimer POC ABG pCO2 POC ABG pO2 ABG Oxyhemoglobin ABG Sodium ABG Chloride ABG Glucose Carboxyhemoglobin Sodium 135 L 135 L Potassium 6.2 H* Chloride Carbon Dioxide 11 L 12 L BUN 34 H 42 H Creatinine 2.4 H 3.2 H Glucose 121 H POC Glucose Magnesium 2.40 H Ferritin AST 56 H ALT Alkaline Phosphatase Lactate Dehydrogenase C-Reactive Protein Total Protein 8.7 H Albumin Lipase 143 H Arterial Blood Glucose Coronavirus (PCR) 04/06/21 04/06/21 04/06/21 08:07 08:07 08:15 WBC RBC Hgb Hct MCHC RDW Plt Count [place] % (Auto) Lymph # (Auto) D-Dimer 721.64 H POC ABG pCO2 POC ABG pO2 ABG Oxyhemoglobin ABG Sodium ABG Chloride ABG Glucose Carboxyhemoglobin Sodium Potassium Chloride Carbon Dioxide BUN Creatinine Glucose POC Glucose Magnesium Ferritin 1468.0 H AST ALT Alkaline Phosphatase Lactate Dehydrogenase 445 H C-Reactive Protein 2.90 H Total Protein Albumin Lipase Arterial Blood Glucose Coronavirus (PCR) 04/07/21 04/07/21 04/07/21 04:14 04:14 08:15 WBC 3.2 L RBC Hgb Hct MCHC RDW 16.0 H Plt Count 101 L [place] % (Auto) 10.8 H Lymph # (Auto) 0.7 L D-Dimer POC ABG pCO2 POC ABG pO2 ABG Oxyhemoglobin ABG Sodium ABG Chloride ABG Glucose Carboxyhemoglobin Sodium Potassium 5.6 H Chloride 111.6 H Carbon Dioxide 16 L BUN 43 H Creatinine 2.5 H Glucose POC Glucose Magnesium Ferritin AST ALT Alkaline Phosphatase Lactate Dehydrogenase C-Reactive Protein Total Protein Albumin Lipase Arterial Blood Glucose Coronavirus (PCR) Positive A 04/08/21 04/08/21 04/08/21 08:00 14:27 15:33 WBC RBC Hgb Hct MCHC RDW Plt Count [place] % (Auto) Lymph # (Auto) D-Dimer POC ABG pCO2 23.7 L POC ABG pO2 62.5 L ABG Oxyhemoglobin 91.3 L ABG Sodium 133.7 L ABG Chloride 112.0 H ABG Glucose 117 H Carboxyhemoglobin 0.4 L Sodium Potassium Chloride 109.9 H Carbon Dioxide 13 L BUN 40 H Creatinine 1.8 H Glucose 74 L POC Glucose 115 H Magnesium Ferritin AST ALT Alkaline Phosphatase Lactate Dehydrogenase C-Reactive Protein Total Protein Albumin Lipase Arterial Blood Glucose 117 H Coronavirus (PCR) 04/09/21 04/09/21 04/10/21 08:38 08:38 08:29 WBC 3.1 L 3.8 L RBC Hgb Hct MCHC 35 H RDW 15.7 H 15.7 H Plt Count 136 L [place] % (Auto) Lymph # (Auto) D-Dimer POC ABG pCO2 POC ABG pO2 ABG Oxyhemoglobin ABG Sodium ABG Chloride ABG Glucose Carboxyhemoglobin Sodium Potassium Chloride 110.4 H Carbon Dioxide 19 L BUN 35 H Creatinine 1.8 H Glucose POC Glucose Magnesium Ferritin AST 144 H ALT 92 H Alkaline Phosphatase 159 H Lactate Dehydrogenase C-Reactive Protein Total Protein Albumin 3.3 L Lipase Arterial Blood Glucose Coronavirus (PCR) 04/10/21 04/15/21 04/17/21 08:29 07:09 11:25 WBC RBC Hgb Hct MCHC RDW Plt Count [place] % (Auto) Lymph # (Auto) D-Dimer POC ABG pCO2 POC ABG pO2 ABG Oxyhemoglobin ABG Sodium ABG Chloride ABG Glucose Carboxyhemoglobin Sodium Potassium Chloride Carbon Dioxide BUN 31 H 27 H Creatinine 1.5 H Glucose 119 H POC Glucose 214 H Magnesium Ferritin AST 89 H ALT 80 H Alkaline Phosphatase 159 H Lactate Dehydrogenase C-Reactive Protein Total Protein Albumin 3.2 L 2.8 L Lipase Arterial Blood Glucose Coronavirus (PCR) 04/17/21 04/17/21 04/18/21 16:29 21:26 11:39 WBC RBC Hgb Hct MCHC RDW Plt Count [place] % (Auto) Lymph # (Auto) D-Dimer POC ABG pCO2 POC ABG pO2 ABG Oxyhemoglobin ABG Sodium ABG Chloride ABG Glucose Carboxyhemoglobin Sodium Potassium Chloride Carbon Dioxide BUN Creatinine Glucose POC Glucose 112 H 174 H 106 H Magnesium Ferritin AST ALT Alkaline Phosphatase Lactate Dehydrogenase C-Reactive Protein Total Protein Albumin Lipase Arterial Blood Glucose Coronavirus (PCR) 04/18/21 04/19/21 04/19/21 21:26 12:07 17:45 WBC RBC Hgb Hct MCHC RDW Plt Count [place] % (Auto) Lymph # (Auto) D-Dimer POC ABG pCO2 POC ABG pO2 ABG Oxyhemoglobin ABG Sodium ABG Chloride ABG Glucose Carboxyhemoglobin Sodium Potassium Chloride Carbon Dioxide BUN Creatinine Glucose POC Glucose 149 H 127 H 128 H Magnesium Ferritin AST ALT Alkaline Phosphatase Lactate Dehydrogenase C-Reactive Protein Total Protein Albumin Lipase Arterial Blood Glucose Coronavirus (PCR) 04/20/21 04/20/21 04/21/21 07:37 11:36 11:54 WBC RBC Hgb Hct MCHC RDW Plt Count [place] % (Auto) Lymph # (Auto) D-Dimer POC ABG pCO2 POC ABG pO2 ABG Oxyhemoglobin ABG Sodium ABG Chloride ABG Glucose Carboxyhemoglobin Sodium Potassium Chloride Carbon Dioxide BUN Creatinine Glucose POC Glucose 68 L 123 H 108 H Magnesium Ferritin AST ALT Alkaline Phosphatase Lactate Dehydrogenase C-Reactive Protein Total Protein Albumin Lipase Arterial Blood Glucose Coronavirus (PCR)
--- NOTE | 2021-04-23 15:51 | Progress Note ---
Assessment and Plan 60-year-old male with known history of hypertension seen in the emergency room today complaining of diarrhea and generalized weakness which started about 3 days ago. Patient states he just had his first dose of COVID-19 vaccination over the weekend and 24 hours thereafter he started having some diarrhea and generalized weakness. He denies any fever or chills, no chest pain or shortness of breath, no headache or dizziness, no diaphoresis. Patient denies any nausea vomiting, no abdominal pain, no hematuria or dysuria. He denies any sick contacts and no recent travel. Denies any contact with anyone with COVID-19. Work-up in the emergency room today reveals elevated BUN and creatinine of 34 and 2.4 respectively. Chest x-ray reveals right lower lobe airspace opacity which could represent pneumonia or a neoplastic process. CT of the abdomen and pelvis reveals fluid and gas-filled colon without inflammation or colonic wall thickening 04/07: Patient seen and examined today continues on oxygen. ID input is noted. Have consulted pulmonary considering review of CT which shows a large mass in the lungs. Patient may probably benefit from a bronchoscopy but will defer to pulmonary for now continue current management with steroids and remdesivir. Unfortunately I do not have any family contact information for this patient. Discussed with nursing staff to see if they can get anyone. 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 Patient now on Bicarb drip due to metabolic Acidosis, also Lung mass noted, awaiting Pulmonary re-evaluation. otherwise he is clinically stable. 04/09: Resume steroids as patient developed significant hypoxia on 15 L of oxygen. Continue to wean as tolerated he also has mittens in place due to intermittent confusion. CREATININE STILL AT 1.8 04/10: Patient seen and examined, BP slightly elevated, will add BP meds. Pulmonary recommends outpatient follow up for the lung mass, renal function is showing improvement. Continue supportive care. Wean oxygen as tolerated, continue steroids at this time. No Remdesvier secondary to the Renal function. 04/11/21 Patient with Covid-19 with acute resp failure. On Oxygen at 10 l/min. Has right lung mass, to follow with Pulmonology as outpatient.Cr 1.5 today, improving. 04/12/21 Patient with Covid-19 with acute respiratory failure. Still on Oxygen at 10 l/min. Patient has been refusing blood draw so no labs for 2 days. He has Right lung mass and needs to follow with Pulmonology as outpatient. 04/13/21 Patient with Covid-19 with acute respiratory failure. Patient has been refusing treatment and lab blood draw so no labs for days. He has Right lung mass and needs to follow with Pulmonology as outpatient. Will consult Psych to evaluate 04/14/21 Patient with Covid-19 with acute respiratory failure. Patient has been refusing treatment and lab blood draw so no labs for days. He has Right lung mass and needs to follow with Pulmonology as outpatient. Consulted Psych to evaluate. 04/15/21 Patient with Covid-19 with acute respiratory failure. Patient has been refusing treatment and lab blood draws. He has right lung mass and needs to follow with Pulmonology as outpatient. His Sister states patient was being followed at [facility] and was being worked up for cancer either Prostate or lung. I have requested medical records. Sister requested transfer to [place], but I discussed,explained that it is difficult because most hospitals are full 04/16/21 Patient with Covid-19 with acute respiratory failure. Patient has been refusing treatment and lab blood draws. He has right lung mass and needs to follow with Pulmonology as outpatient. His Sister states patient was being followed at [facility] and was being worked up for cancer either Prostate or lung. I have requested medical records. Sister requested transfer to [place], but I discussed,explained that it is difficult because most hospitals are full Cr 1.3 much improved. Repeat labs tomorrow. 04/17/21 Patient with Covid-19 with acute respiratory failure. Patient has been refusing treatment and lab blood draws. He has right lung mass and needs to follow with Pulmonology as outpatient. His Sister states patient was being followed at [facility] and was being worked up for cancer either Prostate or lung. I have requested medical records. Sister requested transfer to [place], but I discussed,explained that it is difficult because most hospitals are full. I requested records from [place] but his sister Jelena goodrich refused to give consent to obtain records. He is on Oxygen NC at 8 l/min Cr 1.3 much improved. Thrombocytopenia resolved 04/18/21: remains on 7L n/c O2, cont to follow, wean off O2 as tolerated 04/19/21; patient had a fall today, no report of any injury. Placed on restraint. Remains on 8 L nasal cannula O2. 04/20/21: Patient placed on 6 L nasal cannula O2 today. Continue to wean off as tolerated. Plan to DC home with home health. 04/21/21: Patient placed back again with 8 L nasal cannula O2, continue to wean off as tolerated 04/22/21: patient on 4-2L n/c o2, if able to maintain oxygen saturation with less than 5L o2, possible d/c soon (1) Acute renal failure (ARF) SECONDARY TO VASOMOTOR NEPHROPATHY WITH METABOLIC ACIDOSIS Current Visit: Yes Status: Acute Plan to address problem: Possibly prerenal. Patient will be placed on IV fluid normal saline. Will monitor BUN and creatinine. Consult placed to nephrology for evaluation. (2) Hypertension Current Visit: Yes Status: Acute Plan to address problem: Blood pressure stable . (3)COVID-19 Current Visit: Yes Status: Acute Plan to address problem: (4) Acute hypoxic respiratory failure (5) Right lung lung mass large (6) Acute metabolic encephalopathy -unknown baseline (7) Thrombocytopenia (8) DVT prophylaxis Current Visit: Yes Status: Acute Plan to address problem: Patient placed on subcutaneous heparin. (9) Full code status Current Visit: Yes Status: Acute Plan to address problem: Patient is full code. Subjective Date of service: 04/23/21 Objective - Constitutional Vitals: Vital Signs - 12hr 04/23/21 04/23/21 04/23/21 05:23 07:50 09:57 Temperature 98.2 F Pulse Rate 85 88 Respiratory 20 Rate Blood Pressure 144/74 140/74 O2 Sat by Pulse 93 94 Oximetry 04/23/21 04/23/21 10:00 11:48 Temperature 97.8 F Pulse Rate 91 H Respiratory 18 Rate Blood Pressure 114/68 O2 Sat by Pulse 94 95 Oximetry - Labs CBC & Chem 7: 04/15/21 07:09 04/15/21 07:09 Labs: Abnormal lab results 04/23/21 Range/Units 11:52 POC Glucose 133 H (70-105) mg/dL
[2021-04-23] MEDS: MIRTAZAPINE 15 MG TAB PO SCH (22:57)
[2021-04-24] MEDS: HEPARIN 5,000 UNIT/1 ML VIAL SUB-Q SCH (06:42)
[2021-04-24] MEDS: amLODIPine 5 MG TAB PO SCH (11:14)
[2021-04-24] MEDS: DIVALPROEX DR 250 MG TAB PO SCH (11:14)
--- NOTE | 2021-04-24 12:41 | Progress Note ---
Subjective - Reason for Consult Consult date: 04/24/21 Reason for consult: mental health evaluation - Chief Complaint Chief complaint: The patient was seen today. He is alert and oriented to self. The patient reports that he is doing well. He denies having any current suicidal/homicidal ideation and denies hallucinations. REVIEW OF SYSTEMS COVID + MENTAL STATUS EXAMINATION Uncooperative Assessment and Plan (1)Mood Disorder, Unspecified Treatment Plan Continue Haldol 5mg IM q6h prn agitation Increase Depakote DR 250 mg po BID Continue Remeron 15mg po daily Sitter: per primary Medical: Per primary Disposition: Do not recommend acute psychiatric inpatient treatment at this time. Will sign off Case staffed with Dr. Rodgers Mental Status Exam - Vital signs Last Vital Signs Temp 98.9 F 04/24/21 05:57 Pulse 82 04/24/21 11:14 Resp 20 04/24/21 05:57 BP 135/71 04/24/21 05:57 Pulse Ox 95 04/24/21 10:00
[2021-04-24 14:27] VITALS: BP 155/77
--- NOTE | 2021-04-24 14:36 | Discharge Summary ---
Providers - Providers Date of Admission: 04/06/21 11:12 Date of discharge: 04/24/21 Attending physician: ELOISA GARCIA 04/06/21 02:57 Consult to Physician [CONS] Routine Comment: Consulting Provider: EDGARDO BARILLAS Physician Instructions: Reason For Exam: ELIO 04/06/21 07:40 Consult to Physician [CONS] Routine Comment: Consulting Provider: AVANI COELHO Physician Instructions: Reason For Exam: Pneumonia. Rule out COVID-19 04/07/21 15:29 Consult to Physician [CONS] Routine Comment: Consulting Provider: AMEE HERNÁNDEZ Physician Instructions: Reason For Exam: lung mass 04/10/21 07:37 Occupational Therapy Evaluate and Treat [CONS] Routine Comment: Reason For Exam: debility Physical Therapy Evaluation and Treat [CONS] Routine Comment: Reason For Exam: debility 04/13/21 13:11 Consult to Mental Health [CONS] Routine Reason For Exam: Refusing treatment 04/21/21 13:50 Physical Therapy Evaluation and Treat [CONS] Routine Comment: Reason For Exam: Debility Primary care physician: HAULAGE BOSS Hospitalization Condition: Fair Pertinent studies: CXR, Abdomen/pelvis CT Chest CT Disposition: HOME / SELF CARE / HOMELESS Final Discharge Diagnosis (Prints w/discharge instructions): --Acute renal failure (ARF) SECONDARY TO VASOMOTOR NEPHROPATHY WITH METABOLIC ACIDOSIS. --COVID-19 infection. --Acute hypoxic respiratory failure. --Right lung lung mass large. --Acute metabolic encephalopathy -unknown baseline. --Mood disorder: Unspecified. --Thrombocytopenia. --Hypertension Time spent for discharge: 34 minutes Core Measure Documentation - Palliative Care Palliative Care/ Comfort Measures: Not Applicable - Core Measures Any of the following diagnoses?: none Exam - Constitutional Vitals: Temp Pulse Resp BP Pulse Ox 98.9 F 82 20 135/71 95 04/24/21 05:57 04/24/21 11:14 04/24/21 05:57 04/24/21 05:57 04/24/21 10:00 Plan Activity: advance as tolerated Weight Bearing Status: Weight Bear as Tolerated Diet: low fat, low salt (34 minutes) Additional Instructions: Follow-up at [facility] in 1 week for possible right lung mass Follow up with: PRIMARY CARE, [Primary Care Provider] - 3-5 Days Prescriptions: Mirtazapine [Remeron 15mg TAB] 15 mg PO QHS #14 tablet amLODIPine 5 mg PO QDAY #30 tablet Divalproex [Kristi Kam] 250 mg PO BID #60 tablet
--- NOTE | 2021-04-24 16:12 | Progress Note ---
Assessment and Plan 60 y/o male with ILD, right lower lobe lung mass and COVID 19 with acute respiratory failure. 04/24/21: No objection to discharge today. 04/21/21: Wean for sats >88%. Prone if possible. Steroids for 10 days. Will continue to follow. 04/20/21: Wean FiO2 as tolerated for sats >88%. Prone if possible. Steroids for a total of 10 days. Guarded prognosis. 04/19/21: renal continues to follow, please consider a trial of diuretics given worsening oxygen state. Encourage proning. Steroids for 10 days. Wean For sats >88% 04/18/21: Continue to wean FiO2 as tolerated. Steroids for 10 days. Proning. Prognosis still remains guarded but promising with continued decreases in oxygen requirement. 04/17/21: Continue to wean as tolerated. Steroids for 10 days. Prone if able. Guarded prognosis. 04/16/21: COntinue steroids. Wean for sats >88%. 04/15/21: renal function is better. still would suggest diuresis if possible. Continue to wean FiO2 as tolerated. needs walk test soon to assess oxygen needs. 04/14/21: Renal continues to follow but no labs in several days. Based on I/O would suggest diuresis but do not want to harm renal function. Continue to prone. Wean FiO2 as tolerated and continue steroids. 04/13/21: Continue to wean FiO2 as tolerated. Steroids for a total of 10 days. May be ready for 6 minute walk test as early as tomorrow or the weekend. 04/12/21: Continue to wean FiO2 as tolerated for sats >88%. Continue steroids. Guarded prognosis. Hold on higher doses of steroid given decreases in oxygen requirement. 04/11/21: Continue to wean FiO2 as tolerated for sats >88%. Continue steroids. Mass work up likely will have to be done as an outpatient. 1. Pulm- Agreed that biopsy is needed but must recover from COVID first. Would suggest CT guided biopsy. Lesion does appear amenable to bronch but would need to be Tbbx and may not get enough tissue. could consider EBUS if not able to get with CT guided biopsy. needs full work up of ILD as well but this can be done as an outpatient. Will continue current dose of steroids, however if oxygenation worsens would switch to higher doses. No puffers available in this hospital except albuterol. No nebs given COVID status. Guarded prognosis. Subjective Date of service: 04/24/21 Interval history: No acute events. Being discharged today. Objective Vital Signs - 12hr 04/24/21 04/24/21 04/24/21 05:57 10:00 11:00 Temperature 98.9 F 97.8 F Pulse Rate 83 83 Respiratory 20 20 Rate Blood Pressure 135/71 Blood Pressure 155/77 [Left] O2 Sat by Pulse 95 95 93 Oximetry 04/24/21 11:14 Temperature Pulse Rate 82 Respiratory Rate Blood Pressure Blood Pressure [Left] O2 Sat by Pulse Oximetry Constitutional: no acute distress, alert ENT: oropharynx moist Neck: supple, no JVD Ascultation: Bilateral: diminished breath sounds Cardiovascular: regular rate and rhythm Gastrointestinal: normoactive bowel sounds, soft, non-tender Extremities: no cyanosis, other (Clubbing of the fingernails noted) Neurologic: normal mental status Psychiatric: mood appropriate CBC and BMP: 04/15/21 07:09 04/15/21 07:09 ABG, PT/INR, D-dimer: ABG ABG pH 7.395 (7.320-7.450) 04/08/21 14:27 POC ABG pCO2 23.7 mmHg (32.0-48.0) L 04/08/21 14:27 POC ABG pO2 62.5 mmHg (83-108) L 04/08/21 14:27 POC ABG HCO3 14.2 04/08/21 14:27 ABG O2 Saturation 91.8 (0-100) 04/08/21 14:27 PT/INR, D-dimer PT 13.5 Sec. (12.2-14.9) 04/07/21 04:14 INR 0.98 (0.87-1.13) 04/07/21 04:14 D-Dimer 721.64 ng/mlDDU (0-234) H 04/06/21 08:15 Abnormal lab findings: Abnormal Labs 04/05/21 04/05/21 04/05/21 15:03 15:03 21:28 WBC RBC 5.40 H Hgb 15.9 H Hct 49.5 H MCHC RDW 17.3 H Plt Count 106 L [place] % (Auto) 9.0 H Lymph # (Auto) D-Dimer POC ABG pCO2 POC ABG pO2 ABG Oxyhemoglobin ABG Sodium ABG Chloride ABG Glucose Carboxyhemoglobin Sodium 135 L 135 L Potassium 6.2 H* Chloride Carbon Dioxide 11 L 12 L BUN 34 H 42 H Creatinine 2.4 H 3.2 H Glucose 121 H POC Glucose Magnesium 2.40 H Ferritin AST 56 H ALT Alkaline Phosphatase Lactate Dehydrogenase C-Reactive Protein Total Protein 8.7 H Albumin Lipase 143 H Arterial Blood Glucose Coronavirus (PCR) 04/06/21 04/06/21 04/06/21 08:07 08:07 08:15 WBC RBC Hgb Hct MCHC RDW Plt Count [place] % (Auto) Lymph # (Auto) D-Dimer 721.64 H POC ABG pCO2 POC ABG pO2 ABG Oxyhemoglobin ABG Sodium ABG Chloride ABG Glucose Carboxyhemoglobin Sodium Potassium Chloride Carbon Dioxide BUN Creatinine Glucose POC Glucose Magnesium Ferritin 1468.0 H AST ALT Alkaline Phosphatase Lactate Dehydrogenase 445 H C-Reactive Protein 2.90 H Total Protein Albumin Lipase Arterial Blood Glucose Coronavirus (PCR) 04/07/21 04/07/21 04/07/21 04:14 04:14 08:15 WBC 3.2 L RBC Hgb Hct MCHC RDW 16.0 H Plt Count 101 L [place] % (Auto) 10.8 H Lymph # (Auto) 0.7 L D-Dimer POC ABG pCO2 POC ABG pO2 ABG Oxyhemoglobin ABG Sodium ABG Chloride ABG Glucose Carboxyhemoglobin Sodium Potassium 5.6 H Chloride 111.6 H Carbon Dioxide 16 L BUN 43 H Creatinine 2.5 H Glucose POC Glucose Magnesium Ferritin AST ALT Alkaline Phosphatase Lactate Dehydrogenase C-Reactive Protein Total Protein Albumin Lipase Arterial Blood Glucose Coronavirus (PCR) Positive A 04/08/21 04/08/21 04/08/21 08:00 14:27 15:33 WBC RBC Hgb Hct MCHC RDW Plt Count [place] % (Auto) Lymph # (Auto) D-Dimer POC ABG pCO2 23.7 L POC ABG pO2 62.5 L ABG Oxyhemoglobin 91.3 L ABG Sodium 133.7 L ABG Chloride 112.0 H ABG Glucose 117 H Carboxyhemoglobin 0.4 L Sodium Potassium Chloride 109.9 H Carbon Dioxide 13 L BUN 40 H Creatinine 1.8 H Glucose 74 L POC Glucose 115 H Magnesium Ferritin AST ALT Alkaline Phosphatase Lactate Dehydrogenase C-Reactive Protein Total Protein Albumin Lipase Arterial Blood Glucose 117 H Coronavirus (PCR) 04/09/21 04/09/21 04/10/21 08:38 08:38 08:29 WBC 3.1 L 3.8 L RBC Hgb Hct MCHC 35 H RDW 15.7 H 15.7 H Plt Count 136 L [place] % (Auto) Lymph # (Auto) D-Dimer POC ABG pCO2 POC ABG pO2 ABG Oxyhemoglobin ABG Sodium ABG Chloride ABG Glucose Carboxyhemoglobin Sodium Potassium Chloride 110.4 H Carbon Dioxide 19 L BUN 35 H Creatinine 1.8 H Glucose POC Glucose Magnesium Ferritin AST 144 H ALT 92 H Alkaline Phosphatase 159 H Lactate Dehydrogenase C-Reactive Protein Total Protein Albumin 3.3 L Lipase Arterial Blood Glucose Coronavirus (PCR) 04/10/21 04/15/21 04/17/21 08:29 07:09 11:25 WBC RBC Hgb Hct MCHC RDW Plt Count [place] % (Auto) Lymph # (Auto) D-Dimer POC ABG pCO2 POC ABG pO2 ABG Oxyhemoglobin ABG Sodium ABG Chloride ABG Glucose Carboxyhemoglobin Sodium Potassium Chloride Carbon Dioxide BUN 31 H 27 H Creatinine 1.5 H Glucose 119 H POC Glucose 214 H Magnesium Ferritin AST 89 H ALT 80 H Alkaline Phosphatase 159 H Lactate Dehydrogenase C-Reactive Protein Total Protein Albumin 3.2 L 2.8 L Lipase Arterial Blood Glucose Coronavirus (PCR) 04/17/21 04/17/21 04/18/21 16:29 21:26 11:39 WBC RBC Hgb Hct MCHC RDW Plt Count [place] % (Auto) Lymph # (Auto) D-Dimer POC ABG pCO2 POC ABG pO2 ABG Oxyhemoglobin ABG Sodium ABG Chloride ABG Glucose Carboxyhemoglobin Sodium Potassium Chloride Carbon Dioxide BUN Creatinine Glucose POC Glucose 112 H 174 H 106 H Magnesium Ferritin AST ALT Alkaline Phosphatase Lactate Dehydrogenase C-Reactive Protein Total Protein Albumin Lipase Arterial Blood Glucose Coronavirus (PCR) 04/18/21 04/19/21 04/19/21 21:26 12:07 17:45 WBC RBC Hgb Hct MCHC RDW Plt Count [place] % (Auto) Lymph # (Auto) D-Dimer POC ABG pCO2 POC ABG pO2 ABG Oxyhemoglobin ABG Sodium ABG Chloride ABG Glucose Carboxyhemoglobin Sodium Potassium Chloride Carbon Dioxide BUN Creatinine Glucose POC Glucose 149 H 127 H 128 H Magnesium Ferritin AST ALT Alkaline Phosphatase Lactate Dehydrogenase C-Reactive Protein Total Protein Albumin Lipase Arterial Blood Glucose Coronavirus (PCR) 04/20/21 04/20/21 04/21/21 07:37 11:36 11:54 WBC RBC Hgb Hct MCHC RDW Plt Count [place] % (Auto) Lymph # (Auto) D-Dimer POC ABG pCO2 POC ABG pO2 ABG Oxyhemoglobin ABG Sodium ABG Chloride ABG Glucose Carboxyhemoglobin Sodium Potassium Chloride Carbon Dioxide BUN Creatinine Glucose POC Glucose 68 L 123 H 108 H Magnesium Ferritin AST ALT Alkaline Phosphatase Lactate Dehydrogenase C-Reactive Protein Total Protein Albumin Lipase Arterial Blood Glucose Coronavirus (PCR) 04/23/21 04/23/21 11:52 18:31 WBC RBC Hgb Hct MCHC RDW Plt Count [place] % (Auto) Lymph # (Auto) D-Dimer POC ABG pCO2 POC ABG pO2 ABG Oxyhemoglobin ABG Sodium ABG Chloride ABG Glucose Carboxyhemoglobin Sodium Potassium Chloride Carbon Dioxide BUN Creatinine Glucose POC Glucose 133 H 141 H Magnesium Ferritin AST ALT Alkaline Phosphatase Lactate Dehydrogenase C-Reactive Protein Total Protein Albumin Lipase Arterial Blood Glucose Coronavirus (PCR)
== END 2021-04-24 19:00 | disposition home health service (06) | DRG 177 ==
LOC: ED 13:07 → 3A 04-06 04:31 → OBSVTOIN 04-06 11:12 → 4A 04-06 20:33 → 3A 04-06 20:41
PROVIDERS: ADMIT Internal Medicine Geriatric Medicine; ATTEND Internal Medicine
PROC: 4A033R1 Measurement of Arterial Saturation, Peripheral, Percutaneous Approach (ICD-10-PCS; 2021-04-08)
PROC: XW033E5 Introduction of Remdesivir Anti-infective into Peripheral Vein, Percutaneous Approach, New Technology Group 5 (ICD-10-PCS; principal; 2021-04-11)
DX: U07.1 COVID-19 (principal); J96.01 Acute respiratory failure with hypoxia; G93.41 Metabolic encephalopathy; N17.0 Acute kidney failure with tubular necrosis; J12.82 Pneumonia due to coronavirus disease 2019; I10 Essential (primary) hypertension; E87.2 Acidosis; E87.1 Hypo-osmolality and hyponatremia; R91.8 Other nonspecific abnormal finding of lung field; E87.5 Hyperkalemia; D69.6 Thrombocytopenia, unspecified; E87.8 Other disorders of electrolyte and fluid balance, not elsewhere classified; F39 Unspecified mood [affective] disorder
CPT/HCPCS: 36415; 36600; 71046; 71250; 74176; 80048; 80053; 82140; 82728; 82805; 82947; 82962; 83615; 83690; 83735; 83970; 84145; 85025; 85027; 85379; 85610; 86140; 93005; 94760; 99406; G0378; J0456; J0696; J1100; J1644; J2270; J7030; J7050; J7070; J8540; U0003